=== PATIENT | female | born 1970 | race Caucasian/White ===

== ENCOUNTER 2017-01-05 20:03 | Emergency (ER) | payer OTHER ==
[~2017-01-05] VITALS: Ht 160 cm; Wt 55.1 kg
[~2017-01-05 20:03] MED LIST: IBUP-1050 PO; PSEU60TA80 PO
[2017-01-05 20:06] VITALS: TEMP 36.7; Ht 160 cm; Wt 55.1 kg
[2017-01-05] MEDS ORDERED: SODIUM CHLORIDE 0.9% 500ML 500 ML IV STA (21:35)
[2017-01-05] MEDS ORDERED: OPTIRAY 320 IV PRN (21:45)
[2017-01-05 21:47] LABS: BASO % 0.3 %; BASO ABS # 0.03 K/uL (0-0.2); COMPLETE YES; EOS % 5.1 %; HEMATOCRIT 39.2 % (37-47); IG% 0.2 %; LYMPH ABS # 1.22 K/uL (1.2-3.4); MEAN CELL VOLUME 88.3 fL (80-100); MEAN CORPUSCULAR HEMOGLOBIN 31.3 pg (25-34); MEAN CORPUSCULAR HGB CONC 35.5 g/dl (32-36); MEAN PLATELET VOLUME 9.7 fL (7.4-10.4); MONO % 5.8 %; NEUT % 75.6 %; PLATELET COUNT 232 K/uL (130-400); RED BLOOD COUNT 4.44 M/uL (4.2-5.4); WHITE BLOOD COUNT 9.37 K/uL (4.8-10.8)
[2017-01-05 21:51] LABS: URINE APPEARANCE CLEAR (CLEAR); URINE BILIRUBIN NEG (NEG); URINE COLOR YELLOW; URINE EPITHELIAL CELL AUTO >30 /lpf (0-5); URINE NITRITE NEG (NEG); URINE PH 8.5 (4.5-7.5); URINE SPECIFIC GRAVITY 1.008 (1.000-1.030); UROBILINOGEN NEG (NEG); ZZUR CULT IF INDIC CLEAN CATCH NO
[2017-01-05 21:52] LABS: PREG INTERNAL NEGATIVE QC NEG CLEAR BACKGROUND; PREG INTERNAL POSITIVE QC POS CONTROL LINE
[2017-01-05 21:53] LABS: MANUAL MICROSCOPIC REQUIRED? NO; REVIEW REQ? NO
[2017-01-05 22:16] LABS: ALKALINE PHOSPHATASE 66 U/L (45-117); ALT/SGPT 19 U/L (12-78); BLOOD UREA NITROGEN 5 mg/dl (7-18); BUN/CREATININE RATIO 6.6 (10-20); CALCIUM 9.2 mg/dl (8.5-10.1); CARBON DIOXIDE 23 mmol/L (21-32); CHLORIDE 106 mmol/L (98-107); GLUCOSE 106 mg/dl (70-99); SODIUM 138 mmol/L (136-145)
[2017-01-05 22:38] LABS: CREATININE 0.71 mg/dl (0.60-1.20)
[2017-01-05 23:04] LABS: POTASSIUM 3.3 mmol/L (3.5-5.1)
[2017-01-06 00:26] VITALS: BP 121/86; PULSE 72; O2SAT 100
--- NOTE | 2017-01-06 01:22 | EMERGENCY ROOM VISIT NOTE ---
History Report prepared by Jaciel: Nathaly Senior Under the Supervision of: Dr. Donovan Aranda D.O. 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 The pain is in her RLQ and is coming and going. She had difficulty mowing the lawn today due to the pain. She tried to mow through the pain, but ended up feeling nauseous. She does not identify anything that makes the pain worse. She took 4 ibuprofen today at 1700 which helped somewhat. She has had intermittent constipation and chills recently. She denies any vomiting, vaginal bleeding, vaginal discharge, or dysuria. Her last BM was yesterday and was normal. She has had a partial hysterectomy. She does not get her period, but can tell when she is cycling. She thinks that she is currently mid cycle. She still has her gallbladder and appendix. Source of History: patient Onset: midday today Position: abdomen (RLQ) Symptom Intensity: severe Quality: other (pain) Timing: intermittent Modifying Factors (Relieving): ibuprofen Associated Symptoms: + chills, + nausea, No vomiting, No urinary symptoms Note: Pt reports constipation. Pt denies vaginal bleeding/discharge. Review of Systems See HPI for pertinent positives & negatives. A total of 10 systems reviewed and were otherwise negative. Past Medical & Surgical Surgical Problems: (1) S/P partial hysterectomy Family History No pertinent family history stated. Social History Smoking Status: Never Smoker Drug Use: none Marital Status: in relationship Housing Status: lives with family Occupation Status: employed Current/Historical Medications No Active Prescriptions or Reported Meds Allergies Coded Allergies: Tetracycline (Verified Allergy, Intermediate, hives, 01/05/17) HIVES Sulfa Drugs (Verified Allergy, Unknown, hives, 01/05/17) Physical Exam Vital Signs Date Time Temp Pulse Resp B/P (MAP) Pulse Ox O2 Delivery O2 Flow Rate FiO2 01/06/17 00:26 72 17 121/86 100 01/05/17 23:05 85 15 126/82 100 Room Air 01/05/17 21:20 84 18 139/81 98 Room Air 01/05/17 20:06 36.7 92 20 144/94 98 Room Air Physical Exam GENERAL: sitting up in bed, alert, well appearing, well nourished, no distress, non-toxic EYE EXAM: normal conjunctiva OROPHARYNX: no exudate, no erythema, lips, buccal mucosa, and tongue normal and mucous membranes are moist NECK: supple, no nuchal rigidity, no adenopathy, non-tender LUNGS: Clear to auscultation. Normal chest wall mechanics HEART: no murmurs, S1 normal and S2 normal ABDOMEN: abdomen soft, minimal tenderness in the RLQ, normo-active bowel sounds , no masses, no rebound or guarding. BACK: Back is symmetrical on inspection and there is no deformity, no midline tenderness, no CVA tenderness. SKIN: no rashes and no bruising UPPER EXTREMITIES: upper extremities are grossly normal. LOWER EXTREMITIES: No pitting edema. NEURO EXAM: Normal sensorium, cranial nerves II-XII grossly intact, normal speech, no gross weakness of arms, no gross weakness of legs. Medical Decision & Procedures ER Provider Diagnostic Interpretation: Radiology results as stated below per my review and the [facility] radiologist's interpretation: CT abdomen & pelvis: Question mild prominence of the pancreas. Correlate with amylase and lipase. Otherwise, remainder of examination shows no definite evidence for an acute inflammatory process. Laboratory Results 01/05/17 21:30 Red Blood Count 4.44, Mean Corpuscular Volume 88.3, Mean Corpuscular Hemoglobin 31.3, Mean Corpuscular Hemoglobin Concent 35.5, Mean Platelet Volume 9.7, Neutrophils (%) (Auto) 75.6, Lymphocytes (%) (Auto) 13.0, Monocytes (%) (Auto) 5.8, Eosinophils (%) (Auto) 5.1, Basophils (%) (Auto) 0.3, Neutrophils # (Auto) 7.08, Lymphocytes # (Auto) 1.22, Monocytes # (Auto) 0.54, Eosinophils # (Auto) 0.48, Basophils # (Auto) 0.03 01/05/17 21:30 01/05/17 22:40 Test 01/05/17 21:30 01/05/17 22:40 White Blood Count 9.37 K/uL (4.8-10.8) Red Blood Count 4.44 M/uL (4.2-5.4) Hemoglobin 13.9 g/dL (12.0-16.0) Hematocrit 39.2 % (37-47) Mean Corpuscular Volume 88.3 fL (80-100) Mean Corpuscular Hemoglobin 31.3 pg (25-34) Mean Corpuscular Hemoglobin Concent 35.5 g/dl (32-36) Platelet Count 232 K/uL (130-400) Mean Platelet Volume 9.7 fL (7.4-10.4) Neutrophils (%) (Auto) 75.6 % Lymphocytes (%) (Auto) 13.0 % Monocytes (%) (Auto) 5.8 % Eosinophils (%) (Auto) 5.1 % Basophils (%) (Auto) 0.3 % Neutrophils # (Auto) 7.08 K/uL (1.4-6.5) Lymphocytes # (Auto) 1.22 K/uL (1.2-3.4) Monocytes # (Auto) 0.54 K/uL (0.11-0.59) Eosinophils # (Auto) 0.48 K/uL (0-0.5) Basophils # (Auto) 0.03 K/uL (0-0.2) RDW Standard Deviation 39.9 fL (36.4-46.3) RDW Coefficient of Variation 12.4 % (11.5-14.5) Immature Granulocyte % (Auto) 0.2 % Immature Granulocyte # (Auto) 0.02 K/uL (0.00-0.02) Urine Color YELLOW Urine Appearance CLEAR (CLEAR) Urine pH 8.5 (4.5-7.5) Urine Specific [place] 1.008 (1.000-1.030) Urine Protein NEG (NEG) Urine Glucose (UA) NEG (NEG) Urine Ketones NEG (NEG) Urine Occult Blood NEG (NEG) Urine Nitrite NEG (NEG) Urine Bilirubin NEG (NEG) Urine Urobilinogen NEG (NEG) Urine Leukocyte Esterase NEG (NEG) Urine WBC (Auto) 1-5 /hpf (0-5) Urine RBC (Auto) 0-4 /hpf (0-4) Urine Hyaline Casts (Auto) 1-5 /lpf (0-5) Urine Epithelial Cells (Auto) >30 /lpf (0-5) Urine Bacteria (Auto) NEG (NEG) Urine Test NEG (NEG) Anion Gap 9.0 mmol/L (3-11) Est Creatinine Clear Calc Drug Dose 83.6 ml/min Estimated GFR () 120.1 Estimated GFR (Non- 103.6 BUN/Creatinine Ratio 6.6 (10-20) Calcium Level 9.2 mg/dl (8.5-10.1) Total Bilirubin 0.5 mg/dl (0.2-1) Alanine Aminotransferase (ALT/SGPT) 19 U/L (12-78) Alkaline Phosphatase 66 U/L (45-117) Total Protein 8.0 gm/dl (6.4-8.2) Albumin 4.3 gm/dl (3.4-5.0) Lipase 261 U/L (73-393) Direct Bilirubin 0.1 mg/dl (0-0.2) Aspartate Amino Transf (AST/SGOT) 14 U/L (15-37) Laboratory results per my review. Medications Administered Medications (Trade) Dose Ordered Sig/Jb Route Start Time Stop Time Status Last Admin Dose Admin Sodium Chloride 500 ml @ 999 mls/hr Q31M STAT IV 01/05/17 21:35 01/05/17 22:05 DC 01/05/17 21:49 999 MLS/HR ED Course ED COURSE: Vital signs were reviewed and showed hypertension The patients medical record was reviewed The above diagnostic studies were performed and reviewed. ED treatments and interventions as stated above. 2126: The patient was evaluated in room B6. A complete history and physical examination was performed. 5: NSS 500 ml @ 999 mls/hr IV. 2: Upon reevaluation, the patient is feeling better.I discussed my findings with the patient and she understands and agrees with the treatment plan. Based on the patients age, coexisting illnesses, exam and lab findings the decision to treat as an outpatient was made. The patient remained stable while under my care. The patient appeared well at the time of discharge. Medical Decision Differential diagnoses includes but is not limited to gastritis, peptic ulcer disease, GERD, gallbladder disease, pancreatitis, small bowel obstruction, acute coronary syndrome, pericarditis, ischemic bowel, irritable bowel disease, irritable bowel syndrome, appendicitis, diverticulitis, malignancy, hernia, urinary tract infection, torsion, perforation, trauma, infectious. Patient is a 46-year-old female presents to ER for pain in the right lower quadrant which started around 7 PM tonight. Exam is fairly benign. No leukocytosis. BMP all LFTs, bilirubin and lipase is unremarkable. UA was negative. was negative. CT of abdomen and pelvis was benign. I recommended pelvic AND EXAMINED THE PATIENT DECLINED. FEEL THIS IS REASONABLE WE WOULD TO HAVE SEEN A LARGE OVARIAN MASS/TORSION IF THIS WAS PRESENT. PATIENT DECLINED PAIN MEDICATION SHE WAS GIVEN FLUIDS. SHE IS UP-TO-DATE AT BEDSIDE. SHE WAS DISCHARGED FOLLOW-UP WITH PCP WITH RIGHT LOWER QUADRANT ABDOMINAL PAIN AND NO ACUTE PATHOLOGY SEEN ON CT. Discussed with Pt concerning signs and symptoms to watch out for. Pt was instructed to follow up with their PCP and discussed with the patient their option to return to the ED at anytime for persistent or worsening symptoms. The appropriate anticipatory guidance and out-patient management, including indications for return to the emergency department, were explained at length to the patient and understood. Medication Reconcilliation Current Medication List: was personally reviewed by me Blood Pressure Screening Patient's blood pressure: Elevated blood pressure Blood pressure disposition: Elevated BP felt to be situational Impression Primary Impression: RLQ abdominal pain Scribe Attestation The scribe's documentation has been prepared under my direction and personally reviewed by me in its entirety. I confirm that the note above accurately reflects all work, treatment, procedures, and medical decision making performed by me. Departure Information Dispostion Home / Self-Care Prescriptions No Active Prescriptions or Reported Meds Referrals Sydney Gomes D.O. Forms Call Back Authorization, HOME CARE DOCUMENTATION FORM, IMPORTANT VISIT INFORMATION Patient Instructions Abdominal Pain - [facility], [facility] Additional Instructions Please follow up with your primary care doctor with in the next 24 hours. Any worsening of your symptoms, please return to the ED immediately. This includes any fevers greater than 100.4, worsening pain, chest pain, shortness breath, persistent nausea, vomiting, unable to eat or drink, or any other concerning signs or symptoms from your standpoint.
--- NOTE | 2017-01-06 07:14 | DIAGNOSTIC IMAGING REPORT ---
ABDOMEN AND PELVIS CT WITH IV CONTRAST CT DOSE: 262.02 mGy.cm HISTORY: Right lower quadrant abdominal pain. TECHNIQUE: Multiaxial CT images of the abdomen and pelvis were performed following the use of intravenous contrast. A dose lowering technique was utilized adhering to the principles of ALARA. COMPARISON STUDY: Abdomen and pelvis CT 09/07/2016. FINDINGS: The lung bases are clear. No fractures within the visualized osseous structures. The gallbladder, spleen, adrenal glands, kidneys, and pancreas are unremarkable. Stable 5 mm hypodense lesion within left hepatic lobe. This is too small to characterize but likely represents a cyst. No retroperitoneal lymphadenopathy. The bladder, uterus, and bilateral ovaries are within normal limits. There are small bilateral ovarian cysts with the largest on the right measuring 1.4 cm. No bowel wall thickening or obstruction. Normal appendix. IMPRESSION: 1. No bowel wall thickening or obstruction. 2. No hydronephrosis. 3. Normal appendix. Electronically signed by: Rodríguez Hughes M.D. 01/06/2017 7:12 AM Dictated Date/Time: 01/06/2017 7:07 AM
== END 2017-01-06 00:27 | disposition home or self-care (01) ==
LOC: C.EDB 20:04
DX: R10.31 Right lower quadrant pain (principal); Z90.710 Acquired absence of both cervix and uterus; Z88.2 Allergy status to sulfonamides; Z88.8 Allergy status to other drugs, medicaments and biological substances

== ENCOUNTER 2017-05-20 14:43 | Emergency (ER) | payer OTHER ==
[~2017-05-20] VITALS: Ht 160 cm; Wt 56.1 kg
[2017-05-20 14:58] VITALS: Ht 160 cm; Wt 56.1 kg
[2017-05-20] MEDS ORDERED: SODIUM CHLORIDE 0.9% 1000ML 1,000 ML IV STA (14:58)
[2017-05-20] MEDS ORDERED: ONDANSETRON INJ 2 MG/ML 2 ML VIAL IV STA (14:58)
--- NOTE | 2017-05-20 15:05 | EMERGENCY ROOM VISIT NOTE ---
History Report prepared by Jaciel: Juliette Huggins Under the Supervision of: Naomi GarciaO. 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 She reports that she was feeling sick and lightheaded at home. She notes nausea, chills, fevers, and diarrhea. She notes extreme numbness in her legs and hands. She notes that she could not move her hands to turn the wheel while she was driving to go sisal picker her children from school. She has a history of a partial hysterectomy. She notes the numbness in her legs has subsided. She notes the numbness in her hands is coming and going. She has a history of diverticulitis. She denies any shortness of breath, recent colds, chest pain, abdominal pain, leg pain, vomiting, or back pain. 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 She denies leg pain or recent colds. Review of Systems See HPI for pertinent positives & negatives. A total of 10 systems reviewed and were otherwise negative. Past Medical & Surgical Medical Problems: (1) clavicular lymph node resection (2) Hodgkin lymphoma Surgical Problems: (1) H/O section (2) S/P partial hysterectomy Family History Cancer Social History Smoking Status: Never Smoker Smokeless Tobacco Use: No Alcohol Use: none Drug Use: none Marital Status: , in relationship Housing Status: lives with family Occupation Status: employed Current/Historical Medications Scheduled PRN Dextromethorphan-Guaifenesin (Mucinex Dm), 1 TAB PO Q12 PRN for CONGESTION Allergies Coded Allergies: Tetracycline (Verified Allergy, Intermediate, hives, 01/05/17) HIVES Sulfa Drugs (Verified Allergy, Unknown, hives, 01/05/17) Physical Exam Vital Signs Date Time Temp Pulse Resp B/P (MAP) Pulse Ox O2 Delivery O2 Flow Rate FiO2 05/20/17 15:48 36.7 88 18 137/85 100 Room Air 05/20/17 14:58 36.5 90 18 145/99 100 Room Air Physical Exam VITAL SIGNS: were reviewed as above. GENERAL:Non-toxic in appearance. SKIN: Warm dry and pink. HEAD: Normocephalic and atraumatic. OROPHARYNX: Is clear and moist NECK: Supple without lymphadenopathy or meningismus. LUNGS: clear. HEART: Regular rate and rhythm. ABDOMEN: Soft and nontender. EXTREMITIES: Warm and well perfused. NEUROLOGICALLY: Awake alert and oriented without focal deficit. Cranial nerves 2 -12 are intact. There is no pronator drift. Cerebellar testing is within normal limits. There is no nystagmus. There is no facial droop. Speech is clear. Vision is grossly normal. MUSCULOSKELETAL: Good muscle tone. No evidence of trauma. PSYCH: Tearful affect Medical Decision & Procedures ER Provider Diagnostic Interpretation: Radiology results as stated below per my review and radiologist interpretation: CHEST ONE VIEW PORTABLE CLINICAL HISTORY: EVALUATE ALTERED MENTAL STATUS/WEAKNESS COMPARISON STUDY: PET/CT January 17, 2008. FINDINGS: Left paratracheal metallic density is unchanged. Lung volumes are normal. There is no pneumothorax or pleural effusion. Lungs are clear. Pulmonary vascularity is normal. Cardiomediastinal silhouette is unremarkable. IMPRESSION: No acute cardiopulmonary findings. Electronically signed by: Myron Fang M.D. 05/20/2017 3:37 PM Dictated Date/Time: 05/20/2017 3:36 PM Laboratory Results 05/20/17 15:15 Red Blood Count 4.49, Mean Corpuscular Volume 88.9, Mean Corpuscular Hemoglobin 31.2, Mean Corpuscular Hemoglobin Concent 35.1, Mean Platelet Volume 9.7, Neutrophils (%) (Auto) 70.9, Lymphocytes (%) (Auto) 19.3, Monocytes (%) (Auto) 3.9, Eosinophils (%) (Auto) 5.5, Basophils (%) (Auto) 0.3, Neutrophils # (Auto) 5.57, Lymphocytes # (Auto) 1.52, Monocytes # (Auto) 0.31, Eosinophils # (Auto) 0.43, Basophils # (Auto) 0.02 05/20/17 15:15 Test 05/20/17 15:15 White Blood Count 7.86 K/uL (4.8-10.8) Red Blood Count 4.49 M/uL (4.2-5.4) Hemoglobin 14.0 g/dL (12.0-16.0) Hematocrit 39.9 % (37-47) Mean Corpuscular Volume 88.9 fL (80-100) Mean Corpuscular Hemoglobin 31.2 pg (25-34) Mean Corpuscular Hemoglobin Concent 35.1 g/dl (32-36) Platelet Count 241 K/uL (130-400) Mean Platelet Volume 9.7 fL (7.4-10.4) Neutrophils (%) (Auto) 70.9 % Lymphocytes (%) (Auto) 19.3 % Monocytes (%) (Auto) 3.9 % Eosinophils (%) (Auto) 5.5 % Basophils (%) (Auto) 0.3 % Neutrophils # (Auto) 5.57 K/uL (1.4-6.5) Lymphocytes # (Auto) 1.52 K/uL (1.2-3.4) Monocytes # (Auto) 0.31 K/uL (0.11-0.59) Eosinophils # (Auto) 0.43 K/uL (0-0.5) Basophils # (Auto) 0.02 K/uL (0-0.2) RDW Standard Deviation 40.0 fL (36.4-46.3) RDW Coefficient of Variation 12.5 % (11.5-14.5) Immature Granulocyte % (Auto) 0.1 % Immature Granulocyte # (Auto) 0.01 K/uL (0.00-0.02) Prothrombin Time 10.9 SECONDS (9.0-12.0) Prothromb Time International Ratio 1.0 (0.9-1.1) Activated Partial Thromboplast Time 23.3 SECONDS (21.0-31.0) Partial Thromboplastin Ratio 0.9 Anion Gap 8.0 mmol/L (3-11) Est Creatinine Clear Calc Drug Dose 98.9 ml/min Estimated GFR () 128.5 Estimated GFR (Non- 110.9 BUN/Creatinine Ratio 15.3 (10-20) Calcium Level 9.0 mg/dl (8.5-10.1) Phosphorus Level 1.5 mg/dl (2.5-4.9) Magnesium Level 2.2 mg/dl (1.8-2.4) Total Bilirubin 0.5 mg/dl (0.2-1) Direct Bilirubin 0.1 mg/dl (0-0.2) Aspartate Amino Transf (AST/SGOT) 21 U/L (15-37) Alanine Aminotransferase (ALT/SGPT) 22 U/L (12-78) Alkaline Phosphatase 74 U/L (45-117) Total Creatine Kinase 69 U/L (26-192) Creatine Kinase MB 0.7 ng/ml (0.5-3.6) Creatine Kinase MB Ratio 1.0 (0-3.0) Troponin I < 0.015 ng/ml (0-0.045) Total Protein 8.0 gm/dl (6.4-8.2) Albumin 4.4 gm/dl (3.4-5.0) Lipase 206 U/L (73-393) Thyroid Stimulating Hormone (TSH) 3.180 uIu/ml (0.300-4.500) Laboratory results as stated above per my review. Medications Administered Medications (Trade) Dose Ordered Sig/Jb Route Start Time Stop Time Status Last Admin Dose Admin Sodium Chloride 1,000 ml @ 999 mls/hr Q1H1M STAT IV 05/20/17 14:58 05/20/17 15:58 DC 05/20/17 14:58 999 MLS/HR Potassium Chloride (Klor-Con M10) 40 meq NOW STAT PO 05/20/17 17:21 05/20/17 17:22 DC 05/20/17 17:41 40 MEQ Ibuprofen (Advil Tab) 400 mg NOW STAT PO 05/20/17 17:21 05/20/17 17:22 DC 05/20/17 17:40 400 MG ECG Indication: other (numbness) Rate (beats per minute): 78 Rhythm: normal sinus Findings: no acute ischemic change, no ectopy ED Course 1448: Previous medical records were reviewed. The patient was evaluated in room B12B. A complete history and physical examination was performed. 1458: Ordered Zofran 4 mg IV and Sodium Chloride 1,000 ml @ 999 mls/hr IV 1721: Ordered Ibuprofen 400 mg PO and Potassium Chloride 40 meq PO 1723: I reassessed the patient at this time. She is feeling better and resting comfortably. I discussed the results and treatment plan with the patient. I answered all pertaining questions that she had. She expressed understanding and verbalized agreement. The patient will be discharged home. 1730: Ordered Potassium/Phosphorous/Sodium 2 tab PO Medical Decision Differentials include: Acute coronary syndrome, myocardial infarction, CVA, TIA , anemia, infection, pneumonia, UTI, pyelonephritis, poor nutrition, dehydration , electrolyte disturbance, and hypoglycemia. This is a 46-year-old female who presents to the ED with a chief complaint of nausea and lightheadedness as well as some chills and numbness all over. The patient states that her hands locked up at one point. She felt like her hands and legs and arms were numb. This started just prior to arrival. The patient did not feel she was hyperventilating at the time. She reports that she is a nonsmoker. She has not had any recent illness. Denies any chest pains, shortness of breath, abdominal pains or headaches. Her physical exam was unremarkable at the time of the exam. Her vital signs are stable. She is afebrile. CBC and complete metabolic panel were reviewed. Unremarkable with exception of a low potassium and phosphorus. These have been orally replaced. Troponin was negative, TSH was normal and a chest x-ray was negative for acute disease. She denies any familial issues or previous a suture soft with regards to any sort of paralysis syndrome. The patient was given some IV fluids and IV Zofran. She was given some oral Motrin. Prior to electrolyte replacement, the patient states that her symptoms have resolved completely. She is feeling better. She was given K Dur and Neutra-Phos. She is felt to be stable for discharge. Medication Reconcilliation Current Medication List: was personally reviewed by me Blood Pressure Screening Patient's blood pressure: Normal blood pressure Impression Primary Impression: Paresthesia and pain of both upper extremities Additional Impressions: Paresthesia of both lower extremities Spasms of the hands or feet Hypokalemia Hypophosphatemia Scribe Attestation The scribe's documentation has been prepared under my direction and personally reviewed by me in its entirety. I confirm that the note above accurately reflects all work, treatment, procedures, and medical decision making performed by me. Departure Information Dispostion Home / Self-Care Referrals Sydney Gomes D.O. (PCP) Forms HOME CARE DOCUMENTATION FORM, IMPORTANT VISIT INFORMATION, WORK / SCHOOL INSTRUCTIONS Additional Instructions The exact cause of your symptoms are unclear. Your potassium and phosphorus levels were slightly low today. Follow-up with your doctor for recheck next week. Return for any recurrence or new symptoms. Problem Qualifiers
[2017-05-20 15:27] LABS: BASO % 0.3 %; BASO ABS # 0.02 K/uL (0-0.2); EOS % 5.5 %; EOS ABS # 0.43 K/uL (0-0.5); HEMATOCRIT 39.9 % (37-47); IG# 0.01 K/uL (0.00-0.02); LYMPH % 19.3 %; LYMPH ABS # 1.52 K/uL (1.2-3.4); MEAN CELL VOLUME 88.9 fL (80-100); MEAN CORPUSCULAR HEMOGLOBIN 31.2 pg (25-34); MEAN CORPUSCULAR HGB CONC 35.1 g/dl (32-36); MEAN PLATELET VOLUME 9.7 fL (7.4-10.4); MONO % 3.9 %; MONO ABS # 0.31 K/uL (0.11-0.59); NEUT % 70.9 %; NEUT ABS # 5.57 K/uL (1.4-6.5); PLATELET COUNT 241 K/uL (130-400); RED CELL DISTRIBUTION WIDTH CV 12.5 % (11.5-14.5); WHITE BLOOD COUNT 7.86 K/uL (4.8-10.8)
--- NOTE | 2017-05-20 15:38 | DIAGNOSTIC IMAGING REPORT ---
CHEST ONE VIEW PORTABLE CLINICAL HISTORY: EVALUATE ALTERED MENTAL STATUS/WEAKNESS COMPARISON STUDY: PET/CT January 17, 2008. FINDINGS: Left paratracheal metallic density is unchanged. Lung volumes are normal. There is no pneumothorax or pleural effusion. Lungs are clear. Pulmonary vascularity is normal. Cardiomediastinal silhouette is unremarkable. IMPRESSION: No acute cardiopulmonary findings. Electronically signed by: Myron Fang M.D. 05/20/2017 3:37 PM Dictated Date/Time: 05/20/2017 3:36 PM
[2017-05-20 15:46] LABS: ALBUMIN 4.4 gm/dl (3.4-5.0); ALT/SGPT 22 U/L (12-78); BLOOD UREA NITROGEN 9 mg/dl (7-18); CARBON DIOXIDE 26 mmol/L (21-32); GLUCOSE 98 mg/dl (70-99); LIPASE 206 U/L (73-393); POTASSIUM 3.3 mmol/L (3.5-5.1); SODIUM 138 mmol/L (136-145)
[2017-05-20 15:48] VITALS: TEMP 36.7
[2017-05-20 15:52] LABS: PTT PATIENT 23.3 SECONDS (21.0-31.0)
[2017-05-20 16:07] LABS: ALKALINE PHOSPHATASE 74 U/L (45-117); AST/SGOT 21 U/L (15-37); CKMB 0.7 ng/ml (0.5-3.6); PHOSPHORUS 1.5 mg/dl (2.5-4.9)
[2017-05-20] MEDS ORDERED: DEXT30TA7 PO (16:08)
[2017-05-20] MEDS ORDERED: IBUPROFEN 200 MG TAB PO STA (17:21)
[2017-05-20] MEDS ORDERED: POTASSIUM CHLORIDE 10 MEQ TABCR PO STA (17:21)
[2017-05-20] MEDS ORDERED: POT PHOSPHATE MONOBASIC W/ SOD TAB PO ONE (17:30)
[2017-05-20 17:47] VITALS: BP 132/81; PULSE 85; O2SAT 99
== END 2017-05-20 17:49 | disposition home or self-care (01) ==
LOC: EDBD 14:43 → C.EDB 14:44
DX: R20.2 Paresthesia of skin (principal); M62.838 Other muscle spasm; E87.6 Hypokalemia; E83.39 Other disorders of phosphorus metabolism; Z85.72 Personal history of non-Hodgkin lymphomas; Z90.710 Acquired absence of both cervix and uterus; Z88.2 Allergy status to sulfonamides; Z88.8 Allergy status to other drugs, medicaments and biological substances; Z80.9 Family history of malignant neoplasm, unspecified

== ENCOUNTER 2018-09-03 19:35 | Inpatient (IN) ==
[2018-09-03] MEDS ORDERED: ASPIRIN CHEW 324 MG PO STA (19:41)
[2018-09-03 19:58] LABS: Basophils # (auto) 0.03 K/uL (0-0.2); Basophils % (auto) 0.3 %; Eosinophils # (auto) 0.44 K/uL (0-0.5); Eosinophils % (auto) 4.9 %; Hematocrit (blood only) 42.1 % (37-47); Immature Granulocytes # (auto) 0.01 K/uL (0.00-0.02); Immature Granulocytes % (auto) 0.1 %; Lymphocytes # (auto) 2.87 K/uL (1.2-3.4); Lymphocytes % (auto) 32.2 %; Mean Corpuscular Hgb Conc 35.6 g/dL (32-36); Mean Platelet Volume 10.3 fL (7.4-10.4); Monocytes # (auto) 0.31 K/uL (0.11-0.59); Monocytes % (auto) 3.5 %; Neutrophils # (auto) 5.25 K/uL (1.4-6.5); Platelet Count 314 K/uL (130-400); RDW Coefficient of Variation 12.7 % (11.5-14.5); RDW Standard Deviation 41.4 fL (36.4-46.3); Red Blood Count 4.68 M/uL (4.2-5.4); White Blood Count 8.91 K/uL (4.8-10.8)
[2018-09-03 20:24] LABS: Alanine Aminotransferase 22 U/L (12-78); Albumin Level 4.5 gm/dl (3.4-5.0); Aspartate Aminotransferase 22 U/L (15-37); BUN Creatinine Ratio 13.9 (10-20); Blood Urea Nitrogen 11 mg/dl (7-18); Calcium 9.6 mg/dl (8.5-10.1); Carbon Dioxide 29 mmol/L (21-32); Chloride 103 mmol/L (98-107); Creatinine Clr Calc Pharmacy 75.5 ml/min; Est GFR (African American) 107.3; Est GFR (Non-African American) 92.6; Glucose 75 mg/dl (70-99); Potassium 3.4 mmol/L (3.5-5.1); Sodium 140 mmol/L (136-145)
[2018-09-03 20:29] LABS: Albumin Globulin Ratio 1.2 (0.9-2); Alkaline Phosphatase 75 U/L (45-117); Bilirubin,Total 0.3 mg/dl (0.2-1); Globulin 3.9 gm/dl (2.5-4.0); Total Protein 8.4 gm/dl (6.4-8.2); Troponin I < 0.015 ng/ml (0-0.045)
--- NOTE | 2018-09-03 20:36 | XRay Report ---
XR chest 2V routine HISTORY: 48 years-old Female Chest Pain acute atypical chest pain COMPARISON: Chest radiograph 05/20/2017 TECHNIQUE: AP and lateral views of the chest FINDINGS: Cardiomediastinal and hilar silhouettes are within normal limits. There is no pneumothorax, pleural e ffusion, focal airspace consolidation or overt pulmonary edema. Degenerative changes of the shoulders and spine. IMPRESSION: No acute process. The above report was generated using voice recognition software. It may contain grammatical, syntax o r spelling errors. Electronically signed by: Allen Minaya M.D. 09/03/2018 8:35 PM
[2018-09-03] MEDS: NITROGLYCERIN SL 0.4 MG/TAB TAB SL PRN ×3 (20:37→21:52)
[2018-09-03] MEDS ORDERED: POTASSIUM CHLORIDE 20 MEQ TABCR PO STA (20:41)
[2018-09-03] MEDS ORDERED: SODIUM CHLORIDE 0.9% 1000ML 1,000 ML IV ONE (20:42)
[2018-09-03] MEDS ORDERED: NITROGLYCERIN 2% OINTMENT 30GM TUBE EXT ONE (20:42)
[2018-09-03 20:47] LABS: Magnesium 2.5 mg/dl (1.8-2.4)
[2018-09-03] MEDS ORDERED: PROMETHAZINE HCL 12.5 MG in SODIUM CHLORIDE 0.9% 50 ML IV PRN (22:06)
[2018-09-03] MEDS ORDERED: MoRPHine SULFATE 2 MG/ML CARP IV PRN (22:06)
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
[2018-09-03] MEDS ORDERED: ACETAMINOPHEN 325 MG TAB PO PRN (22:25)
[2018-09-03] MEDS ORDERED: NITROGLYCERIN SL 0.4 MG/TAB TAB SL PRN (22:25)
[2018-09-03] MEDS ORDERED: LORazepam 0.25 MG/0.5 ML VIAL IV PRN (22:25)
[2018-09-04] MEDS ORDERED: D5W AND LACTATED RINGERS 1,000 ML IV SCH
[2018-09-04] MEDS ORDERED: Heparin IV Standard *NO* Bolus IV SCH (00:18)
--- NOTE | 2018-09-04 00:25 | Emergency Department Note ---
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 The patient states she was experiencing chest pressure and shortness of breath that relieved with nitroglycerin from EMS. She reports she occasionally uses alcohol and has a history of tobacco use. The patient denies recent travel, coughing up anything, taking control, abdominal pain, and drug use. She notes she had a hysterectomy. Home Medications Home Medications Medication Instructions Recorded Confirmed Type cyclobenzaprine 5 - 10 mg PO Q8H #20 tab 08/03/18 09/03/18 Rx dextromethorphan-guaifenesin 1 tab PO QAM 08/03/18 09/03/18 History [Mucinex DM] multivitamin 1 tab PO QAM 08/03/18 09/03/18 History ibuprofen 200 mg PO Q6H PRN 09/03/18 09/03/18 History Allergies Allergy/AdvReac Type Severity Reaction Status Date / Time tetracycline Allergy Intermediate hives Verified 09/03/18 20:17 Sulfa (Sulfonamide Allergy Unknown hives Verified 09/03/18 20:17 Antibiotics) Past Med/Surg History Medical History Hodgkin lymphoma (Resolved) No pertinent past medical history Surgical History S/P partial hysterectomy (Chronic) H/O section (Resolved) Family History Other No pertinent family history Social History Preferred Language: Turkish Feels Safe at Home: Yes Smoking Status: Current every day smoker Review of Systems See HPI for pertinent positives & negatives. and A total of 10 systems reviewed and were otherwise negative Physical Exam Vital Signs Vital Signs - 24 hr 09/03/18 19:35 09/03/18 20:32 09/03/18 20:42 Temperature 36.7 C Temperature Source Oral Sepsis Recent Fever Within 48 Hours No Sepsis New/Unexplained Change in Mental Status No Sepsis Action Taken by Nursing No Action Required Pulse Rate 80 84 Pulse Rate [Apical] 103 H Pulse Rate [Left Finger] Pulse Rhythm Regular Regular Pulse Rhythm [Apical] Regular Pulse Strength Normal Pulse Strength [Apical] Normal Respiratory Rate 20 20 20 Respiratory Effort / Characteristics Non-Labored Spontaneous Non-Labored Spontaneous Respiratory Depth Normal Normal Respiratory Pattern Regular Regular Blood Pressure 138/92 Blood Pressure [Left Arm] 155/100 H Blood Pressure Mean 107 Blood Pressure Mean [Left Arm] 118 Blood Pressure Position Sitting Blood Pressure Position [Left Arm] Sitting Pulse Oximetry 99 100 100 Oxygen Delivery Method Room Air Room Air Nasal Cannula Oxygen Flow Rate 2 09/03/18 21:43 09/03/18 22:30 09/03/18 23:03 Temperature Temperature Source Sepsis Recent Fever Within 48 Hours Sepsis New/Unexplained Change in Mental Status Sepsis Action Taken by Nursing Pulse Rate Pulse Rate [Apical] 88 85 95 H Pulse Rate [Left Finger] Pulse Rhythm Pulse Rhythm [Apical] Regular Regular Regular Pulse Strength Pulse Strength [Apical] Normal Normal Normal Respiratory Rate 16 18 18 Respiratory Effort / Characteristics Non-Labored Non-Labored Spontaneous Non-Labored Spontaneous Respiratory Depth Normal Normal Normal Respiratory Pattern Regular Regular Regular Blood Pressure Blood Pressure [Left Arm] 137/97 119/79 114/75 Blood Pressure Mean Blood Pressure Mean [Left Arm] 110 92 88 Blood Pressure Position Blood Pressure Position [Left Arm] Sitting Sitting Pulse Oximetry 100 98 98 Oxygen Delivery Method Room Air Room Air Room Air Oxygen Flow Rate 09/04/18 00:08 Temperature 36.4 C L Temperature Source Oral Sepsis Recent Fever Within 48 Hours Sepsis New/Unexplained Change in Mental Status Sepsis Action Taken by Nursing Pulse Rate Pulse Rate [Apical] Pulse Rate [Left Finger] 83 Pulse Rhythm Pulse Rhythm [Apical] Pulse Strength Pulse Strength [Apical] Respiratory Rate 18 Respiratory Effort / Characteristics Non-Labored Respiratory Depth Normal Respiratory Pattern Regular Blood Pressure Blood Pressure [Left Arm] 117/72 Blood Pressure Mean Blood Pressure Mean [Left Arm] 87 Blood Pressure Position Blood Pressure Position [Left Arm] Lying Pulse Oximetry 97 Oxygen Delivery Method Room Air Oxygen Flow Rate GENERAL: She is oriented to person, place, and time. She appears well-developed and well-nourished. She does not appear distressed. HENT: Exam performed. Head: Normocephalic and atraumatic. Right Ear: External ear normal. No mastoid tenderness. Left Ear: External ear normal. No mastoid tenderness. Mouth/Throat: The oropharynx is clear and moist. No trismus in the jaw. No dental abscesses or uvula swelling. No oropharyngeal exudate or tonsillar abscesses. EYES: Conjunctivae and EOM are normal. Pupils are equal, round, and reactive to light. Right eye exhibits no discharge. Left eye exhibits no discharge. No scleral icterus. NECK: Normal range of motion. Neck supple. No JVD present. No spinous process tenderness present. No carotid bruit present. No rigidity. No tracheal deviation and normal range of motion present. No Brudzinski's sign and no Kernig's sign noted. CV: Normal rate, regular rhythm, normal heart sounds and intact distal pulses. There is no peripheral edema. Palpable radial pulses bue. PULM/CHEST: Effort normal and breath sounds normal. No respiratory distress. No stridor. She has no wheezes. She has no rales. Chest Wall: She exhibits no tenderness. ABD: The abdomen is soft. Bowel sounds are normal. She has no distension. No mass is present. There is no tenderness. There is no rebound, no guarding, no Munoz's sign and no tenderness at McBurney's point. Rovsig negative MUSC/SKEL: Normal range of motion. There is no peripheral edema, tenderness or deformity. LYMPH: No cervical adenopathy. NEURO: She is alert and oriented to person, place, and time. She has normal strength. No cranial nerve deficit or sensory deficit. Coordination and gait normal. GCS eye subscore is 4. GCS verbal subscore is 5. GCS motor subscore is 6. cerbellar tests wnl. SKIN: Skin is warm and dry. She is not diaphoretic. PSYCH: She has a normal mood and affect. Her behavior is normal. Judgment and thought content normal. Course 1936: The patient was evaluated in room A02. A complete history and physical exam was performed. 2033: I was called to the bedside by the nursing staff. Pt was experiencing chest pain described as pressure located in the center of her chest. Vital signs stable. Repeat EKG shows SR with a rate of 91, QRS, QTc, and ME intervals wnl. N o ST depression or elevation. Troponin negative. Pt will be given SL nitroglycerin and admitted to the medical service. 2039: Discussed the patient's case with Dr. Al, [facility] Hospitalist. The patient will be evaluated for further management. 2041: Status post one SL nitroglycerin the patient's pain is a 6/10 which is down from a 10/10. 2104: Pt's chest pain pain is now a 2/10 on reevaluation. Administered Medications Discontinued Medications Aspirin (Aspirin) 324 mg PO NOW STA Stop: 09/03/18 19:42 Last Admin: 09/03/18 20:10 Dose: Not Given Documented by: [id number] Sodium Chloride (Nss 1000ml) 1,000 mls @ 999 mls/hr IV .Q1H1M ONE Stop: 09/03/18 21:42 Last Infusion: 09/03/18 22:00 Dose: 0 mls/hr Documented by: [id number] Admin: 09/03/18 20:58 Dose: 999 mls/hr Documented by: [id number] Nitroglycerin (Nitrostat) 0.4 mg SL PRN PRN PRN Reason: Chest Pain Stop: 10/03/18 20:33 Last Admin: 09/03/18 21:52 Dose: 0.4 mg Documented by: [id number] Admin: 09/03/18 20:58 Dose: 0.4 mg Documented by: [id number] Admin: 09/03/18 20:37 Dose: 0.4 mg Documented by: [id number] Nitroglycerin (Nitro-Bid 2%) 1 inch EXT NOW ONE Stop: 09/03/18 20:43 Last Admin: 09/03/18 20:58 Dose: 1 inch Documented by: [id number] Potassium Chloride (Klor-Con M20) 40 meq PO NOW STA Stop: 09/03/18 20:42 Last Admin: 09/03/18 21:23 Dose: 40 meq Documented by: [id number] Medical Decision Making Medical Records Attestation: I reviewed the patient's medical records. Home Medications Current Medication List: was personally reviewed by me Laboratory Data Attestation: I reviewed the patient's lab results. Result diagrams: 09/03/18 19:47 09/03/18 19:47 Lab Results 09/03/18 09/03/18 09/03/18 Range/Units 19:47 19:47 22:50 WBC 8.91 (4.8-10.8) K/uL RBC 4.68 (4.2-5.4) M/uL Hgb 15.0 (12.0-16.0) g/dL Hct 42.1 (37-47) % MCV 90.0 (80-100) fL MCH 32.1 (25-34) pg MCHC 35.6 (32-36) g/dL RDW Std Deviation 41.4 (36.4-46.3) fL RDW Coeff of Wade 12.7 (11.5-14.5) % Plt Count 314 (130-400) K/uL MPV 10.3 (7.4-10.4) fL Immature Gran % (Auto) 0.1 % Neut % (Auto) 59.0 % Lymph % (Auto) 32.2 % [place] % (Auto) 3.5 % Eos % (Auto) 4.9 % Baso % (Auto) 0.3 % Immature Gran # (Auto) 0.01 (0.00-0.02) K/uL Neut # (Auto) 5.25 (1.4-6.5) K/uL Lymph # (Auto) 2.87 (1.2-3.4) K/uL [place] # (Auto) 0.31 (0.11-0.59) K/uL Eos # (Auto) 0.44 (0-0.5) K/uL Baso # (Auto) 0.03 (0-0.2) K/uL Sodium 140 (136-145) mmol/L Potassium 3.4 L (3.5-5.1) mmol/L Chloride 103 (98-107) mmol/L Carbon Dioxide 29 (21-32) mmol/L Anion Gap 9.0 (3-11) BUN 11 (7-18) mg/dl Creatinine 0.77 (0.6-1.2) mg/dl Est Cr Clr Drug Dosing 75.5 ml/min Est GFR ( Amer) 107.3 Est GFR (Non-Af Amer) 92.6 BUN/Creatinine Ratio 13.9 (10-20) Glucose 75 (70-99) mg/dl Calcium 9.6 (8.5-10.1) mg/dl Magnesium 2.5 H (1.8-2.4) mg/dl Total Bilirubin 0.3 (0.2-1) mg/dl AST 22 (15-37) U/L ALT 22 (12-78) U/L Alkaline Phosphatase 75 (45-117) U/L Troponin I < 0.015 0.933 H* (0-0.045) ng/ml Total Protein 8.4 H (6.4-8.2) gm/dl Albumin 4.5 (3.4-5.0) gm/dl Globulin 3.9 (2.5-4.0) gm/dl Albumin/Globulin Ratio 1.2 (0.9-2) Imaging Data Radiologist's Impression: Radiology results as stated below per my review and the radiologist's interpretation: XR chest 2V routine HISTORY: 48 years-old Female Chest Pain acute atypical chest pain COMPARISON: Chest radiograph 05/20/2017 TECHNIQUE: AP and lateral views of the chest FINDINGS: Cardiomediastinal and hilar silhouettes are within normal limits. There is no pneumothorax, pleural effusion, focal airspace consolidation or overt pulmonary edema. Degenerative changes of the shoulders and spine. IMPRESSION: No acute process. The above report was generated using voice recognition software. It may contain grammatical, syntax or spelling errors. Electronically signed by: Allen Minaya M.D. 09/03/2018 8:35 PM ECG Data Attestation: I personally reviewed and interpreted this ECG as follows: Indication: chest pain Rate (beats per minute): 86 Rhythm: sinus rhythm Findings: + other (QRS, QTc, and ME intervals wnl.); no ST depression and no ST elevation Blood Pressure Blood Pressure Findings: Elevated blood pressure Blood Pressure Disposition: further management by hospitalist NATE Narrative 1936: The patient was evaluated in room A02. A complete history and physical exam was performed. 2033: I was called to the bedside by the nursing staff. Pt was experiencing chest pain described as pressure located in the center of her chest. Vital signs stable. Repeat EKG shows SR with a rate of 91, QRS, QTc, and ME intervals wnl. No ST depression or elevation. Troponin negative. Pt will be given SL nitroglycerin and admitted to the medical service. 2039: Discussed the patient's case with Dr. Al, [facility]ist. The patient will be evaluated for further management. 2041: Status post one SL nitroglycerin the patient's pain is a 6/10 which is down from a 10/10. 2104: Pt's chest pain pain is now a 2/10 on reevaluation. Impression & Plan Chest pain Discharge Plan Visit Data *Final* Discharge Date/Time: 09/03/18 23:15 Chief Complaint: Chest Pain Stated Complaint: chest pain ED Provider: Paul Armstrong Discharge Problem: Chest pain Patient Disposition: Admitted As Inpatient Discharge Instructions Interventions: ED Discharge Assessment Last Done: 09/03/18 23:15 Discharge Problem: Chest pain Qualifiers: Chest pain type: unspecified Qualified Code(s): R07.9 - Chest pain, unspecified The scribe's documentation has been prepared under my direction and personally reviewed by me in its entirety. I confirm that the note above accurately reflects all work, treatment, procedures, and medical decision making performed by me.
[2018-09-04 01:09] LABS: Partial Thromboplastin Time 26.1 Seconds (21.0-31.0); Prothrombin Time 10.3 Seconds (9.0-12.0)
[2018-09-04] MEDS: TRAMADOL HCL 50 MG TABLET PO PRN ×4 (01:17→23:23)
[2018-09-04] MEDS ORDERED: Heparin Adult STANDARD Wt-Based Dextrose 5% 25,000 units/500 mL IV SCH (01:30)
[2018-09-04] MEDS: METOPROLOL TARTRATE 25 MG TAB PO SCH ×2 (02:17→21:00)
[2018-09-04 06:35] LABS: Basophils # (auto) 0.02 K/uL (0-0.2); Basophils % (auto) 0.2 %; Eosinophils # (auto) 0.47 K/uL (0-0.5); Eosinophils % (auto) 5.5 %; Hemoglobin 12.6 g/dL (12.0-16.0); Immature Granulocytes # (auto) 0.01 K/uL (0.00-0.02); Immature Granulocytes % (auto) 0.1 %; Lymphocytes # (auto) 2.26 K/uL (1.2-3.4); Lymphocytes % (auto) 26.6 %; Mean Corpuscular Volume 90.2 fL (80-100); Monocytes # (auto) 0.38 K/uL (0.11-0.59); Monocytes % (auto) 4.5 %; Neutrophils # (auto) 5.36 K/uL (1.4-6.5); Neutrophils % (auto) 63.1 %; Platelet Count 259 K/uL (130-400); RDW Coefficient of Variation 12.7 % (11.5-14.5); Red Blood Count 3.99 M/uL (4.2-5.4)
[2018-09-04] MEDS: MULTIVITAMIN TAB PO SCH (08:05)
[2018-09-04] MEDS: ASPIRIN 81 MG ECTAB PO SCH (08:06)
--- NOTE | 2018-09-04 08:19 | Hospitalist Progress Note ---
Date of Service September 04, 2018 Assessment & Plan (1) Chest pain: NSTEMI Presented with chest pain, Troponin elevation 0.933, 0.753 Risk factors- Smoker, Hx of radiation for lymphoma 16 years ago S/P Cardiac catheterization today- Focal 95% stenosis prox LAD- PCI with AIDE in prox LAD placed -S/P IV Heparin drip -Started on Aspirin, Metoprolol Tartrate 12.5 mg PO BID, Brilinta 90 mg BID this admission. Will add atorvastatin 40 mg q HS -EKG- No acute ischemic changes ECHO- EF 45-50%, apical, anteroseptal, anterior wall motion abnormality with hypokinesis, Gd I diastolic dysfunction -Work up- CXR- neg, Lipid panel in AM- Follow up HYPOKALEMIA Resolved Monitor HX OF HODGKINS LYMPHOMA S/P CHEMORADIATION In remission TOBACCO ABUSE DISORDER -Nicotine Patch -patient counseled to stop smoking. DVT prophylaxis. Lovenox subcu Full code DISPOSITION Medical mx in progress Subjective Patient is status post cardiac catheterization with stent placement in proximal LAD Doing well post procedure. Denies any chest pain, nausea, vomiting, chills, cough, palpitations Tele- no overnight events Physical Exam Physical Exam: GENERAL- AAOX3, No acute distress NECK- Supple, no JVD LUNGS- Air entry bilaterally equal. No rales, rhonchi, crackles, wheezes heard. HEART- Regular rate and rhythm. No murmurs ABDOMEN- Soft, non tender, non distended, Bowel sounds heard. EXTREMITIES- S/P Right cardiac cath ; Good peripheral pulses, no edema Results & Data Vital Signs (Past 12 Hours) Vital Signs Temp Pulse Pulse Pulse Resp BP Pulse Ox 09/04/18 07:01 36.5 C 73 16 118/74 94 09/04/18 03:13 89 18 118/77 97 09/04/18 01:08 36.7 C 82 18 119/71 97 09/04/18 01:00 117 H 09/04/18 00:08 36.4 C L 83 18 117/72 97 09/03/18 23:03 95 H 18 114/75 98 09/03/18 22:30 85 18 119/79 98 09/03/18 21:43 88 16 137/97 100 09/03/18 20:42 84 20 100 09/03/18 20:32 103 H 20 155/100 H 100 (1) Chest pain Chest pain type: unspecified Qualified Code(s): R07.9 - Chest pain, unspecified
[2018-09-04 08:21] LABS: BUN Creatinine Ratio 16.3 (10-20); Calcium 8.5 mg/dl (8.5-10.1); Creatinine Clr Calc Pharmacy 123.7 ml/min; Est GFR (African American) 137.3; Est GFR (Non-African American) 118.5; Potassium 3.9 mmol/L (3.5-5.1)
[2018-09-04 08:22] LABS: Phosphorus 3.8 mg/dl (2.5-4.9)
[2018-09-04] MEDS ORDERED: ENOXAPARIN INJ 30 MG/0.3 ML SYR SQ SCH (09:00)
--- NOTE | 2018-09-04 09:01 | Cardiology Consultation ---
Date of Consultation September 04, 2018 Assessment & Plan (1) STEMI (ST elevation myocardial infarction): The patient presented as a non-STEMI but now has EKG changes especially the EKG earlier this morning consistent with a STEMI. These findings along with her elevation in troponin as well as the resting echocardiogram would indicate an LAD distribution infarct. I think she needs to go to the [facility] immediately and I will make those arrangements. I have explained the risk, benefit and intent to the procedure including the potential for catheter-based intervention such as balloon angioplasty or intracoronary stents. Further recommendations following the above. (2) Hodgkin lymphoma: History of Present Illness Attending Physician: Brenna Hall History of Present Illness This is a 48-year-old female who was treated for Hodgkin's lymphoma at age 31 with chemotherapy and radiation to the chest. She also has a history of cigarette smoking. Recently she was out running and developed severe chest discomfort that made her stop. She presented to the emergency department and was admitted with her troponins being elevated. Although her admission EKG show ed no significant changes her EKG this morning suggest a recent anterolateral wall infarct. A resting echocardiogram confirmed wall motion abnormalities in the LAD distribution this morning. Patient was started on heparin and aspirin. She had been pain-free after admission but this morning developed additional chest pain. Currently she is chest pain-free. She will need to go to the [facility] immediately. I have explained the risk benefit and intent to the procedure to her including the potential for catheter-based intervention such as balloon angioplasty or intracoronary stents. She is willing to proceed. Allergies Allergy/AdvReac Type Severity Reaction Status Date / Time tetracycline Allergy Intermediate hives Verified 09/03/18 20:17 Sulfa (Sulfonamide Allergy Unknown hives Verified 09/03/18 20:17 Antibiotics) Home Medications Home Medications Medication Instructions Recorded Confirmed Type cyclobenzaprine 5 - 10 mg PO Q8H #20 tab 08/03/18 09/03/18 Rx dextromethorphan-guaifenesin 1 tab PO QAM 08/03/18 09/03/18 History [Mucinex DM] multivitamin 1 tab PO QAM 08/03/18 09/03/18 History ibuprofen 200 mg PO Q6H PRN 09/03/18 09/03/18 History Patient History Medical History Hodgkin lymphoma (Resolved) No pertinent past medical history Surgical History S/P partial hysterectomy (Chronic) H/O section (Resolved) Family History Other No pertinent family history Social History Preferred Language: Setswana Communication Ability: Effective Orchid Transplanter Required: No Beliefs That Will Affect Care: None Current Living Situation: Family Current Living Situation Comment: 3 kids Other Information That Helps Us Care for You: No Feels Safe at Home: Yes Safety Concerns: Feels Safe At This Time Smoking Status: Current some day smoker Tobacco Type: cigarettes Do You Dip or Chew Tobacco: No Second Hand Exposure: Yes Hx Alcohol Use: No Hx Substance Use: No Review of Systems Review of Systems: Review of Systems: See HPI for pertinent positives. All other 10 point review of systems are negative. Physical Exam Physical Exam: General: no acute distress and stated age Head: normocephalic, no masses, lesions, tenderness or abnormalities Eyes: conjunctiva are pink and non-injected, sclera clear Neck: supple, no adenopathy, no bruits, normal jugular venous pulse, no hepatojugular reflux Chest: normal shape and normal respiratory effort Lungs: clear to auscultation and percussion Cardiac Exam: - regular rate & rhythm, no murmurs gallops or rubs - normal S1, normal S2 Pulses: 2(+) throughout Abdomen: abdomen soft, non-tender, no abnormal masses and no hepatosplenomegaly Musculoskeletal: no gait disturbance, no joint inflammation, no deforming arthritis Extremities: no edema and no cyanosis Neuro: grossly normal exam Results & Data Vital Signs (Past 12 Hours) Vital Signs Temp Pulse Pulse Pulse Resp BP Pulse Ox 09/04/18 07:01 36.5 C 73 16 118/74 94 09/04/18 03:13 89 18 118/77 97 09/04/18 01:08 36.7 C 82 18 119/71 97 09/04/18 01:00 117 H 09/04/18 00:08 36.4 C L 83 18 117/72 97 09/03/18 23:03 95 H 18 114/75 98 09/03/18 22:30 85 18 119/79 98 09/03/18 21:43 88 16 137/97 100 Laboratory Results Laboratory Results - last 24 hr 09/03/18 09/03/18 09/03/18 19:47 19:47 19:48 WBC 8.91 RBC 4.68 Hgb 15.0 Hct 42.1 MCV 90.0 MCH 32.1 MCHC 35.6 RDW Std Deviation 41.4 RDW Coeff of Wade 12.7 Plt Count 314 MPV 10.3 Immature Gran % (Auto) 0.1 Neut % (Auto) 59.0 Lymph % (Auto) 32.2 [place] % (Auto) 3.5 Eos % (Auto) 4.9 Baso % (Auto) 0.3 Immature Gran # (Auto) 0.01 Neut # (Auto) 5.25 Lymph # (Auto) 2.87 [place] # (Auto) 0.31 Eos # (Auto) 0.44 Baso # (Auto) 0.03 PT 10.3 INR 1.0 APTT 26.1 PTT Ratio 1.0 Sodium 140 Potassium 3.4 L Chloride 103 Carbon Dioxide 29 Anion Gap 9.0 BUN 11 Creatinine 0.77 Est Cr Clr Drug Dosing 75.5 Est GFR ( Amer) 107.3 Est GFR (Non-Af Amer) 92.6 BUN/Creatinine Ratio 13.9 Glucose 75 Calcium 9.6 Phosphorus Magnesium 2.5 H Total Bilirubin 0.3 AST 22 ALT 22 Alkaline Phosphatase 75 Troponin I < 0.015 Total Protein 8.4 H Albumin 4.5 Globulin 3.9 Albumin/Globulin Ratio 1.2 09/03/18 09/04/18 09/04/18 22:50 06:05 06:05 WBC 8.50 RBC 3.99 L Hgb 12.6 Hct 36.0 L MCV 90.2 MCH 31.6 MCHC 35.0 RDW Std Deviation 42.0 RDW Coeff of Wade 12.7 Plt Count 259 MPV 10.0 Immature Gran % (Auto) 0.1 Neut % (Auto) 63.1 Lymph % (Auto) 26.6 [place] % (Auto) 4.5 Eos % (Auto) 5.5 Baso % (Auto) 0.2 Immature Gran # (Auto) 0.01 Neut # (Auto) 5.36 Lymph # (Auto) 2.26 [place] # (Auto) 0.38 Eos # (Auto) 0.47 Baso # (Auto) 0.02 PT INR APTT PTT Ratio Sodium Potassium Chloride Carbon Dioxide Anion Gap BUN Creatinine Est Cr Clr Drug Dosing Est GFR ( Amer) Est GFR (Non-Af Amer) BUN/Creatinine Ratio Glucose Calcium Phosphorus Magnesium Total Bilirubin AST ALT Alkaline Phosphatase Troponin I 0.933 H* 0.753 H* Total Protein Albumin Globulin Albumin/Globulin Ratio 09/04/18 06:09 WBC RBC Hgb Hct MCV MCH MCHC RDW Std Deviation RDW Coeff of Wade Plt Count MPV Immature Gran % (Auto) Neut % (Auto) Lymph % (Auto) [place] % (Auto) Eos % (Auto) Baso % (Auto) Immature Gran # (Auto) Neut # (Auto) Lymph # (Auto) [place] # (Auto) Eos # (Auto) Baso # (Auto) PT INR APTT PTT Ratio Sodium 143 Potassium 3.9 Chloride 112 H Carbon Dioxide 24 Anion Gap 8.0 BUN 8 Creatinine 0.47 L D Est Cr Clr Drug Dosing 123.7 Est GFR ( Amer) 137.3 Est GFR (Non-Af Amer) 118.5 BUN/Creatinine Ratio 16.3 Glucose 114 H Calcium 8.5 Phosphorus 3.8 Magnesium Total Bilirubin AST ALT Alkaline Phosphatase Troponin I Total Protein Albumin Globulin Albumin/Globulin Ratio Medications Administered Current Inpatient Medications Acetaminophen (Tylenol) 650 mg PO Q4H PRN PRN Reason: Pain or Fever Stop: 10/03/18 22:24 Last Admin: 09/04/18 02:35 Dose: 650 mg Documented by: Aspirin ([facility]rin [facility]ab) [facility] [place]: 10/04/18 08:59 Last Admin: 09/04/18 08:06 Dose: 81 mg Documented by: Promethazine HCl 12.5 mg/ (Sodium Chloride) 50.5 mls @ 202 mls/hr IV Q6H PRN PRN Reason: Nausea And Vomiting Stop: 10/03/18 22:05 Lorazepam (Ativan) 0.25 mg in 0.5 mls @ 0.5 mls/min IV Q4H PRN PRN Reason: Anxiety Stop: 10/03/18 22:24 Dextrose/Lactated Ringer's (D5w And Lactated Ringers) 1,000 mls @ 50 mls/hr IV .Q20H [facility] Stop: 10/04/18 00:00 Last Admin: 09/04/18 01:16 Dose: 50 mls/hr Documented by: Heparin Sodium/Dextrose (Heparin Sodium/Dextrose) 25,000 units in 500 mls @ 20 mls/hr IV .Q24H [facility]; Protocol Stop: 10/04/18 01:29 Last Titration: 09/04/18 07:09 Dose: 1,000 units/hr, 20 mls/hr Documented by: Metoprolol Tartrate (Lopressor) 12.5 mg PO BID [facility] Stop: 10/04/18 00:14 Last Admin: 09/04/18 02:17 Dose: 12.5 mg Documented by: Morphine Sulfate (Morphine Sulfate) 2 mg IV Q4H PRN PRN Reason: Pain Stop: 09/17/18 22:05 Multivitamins (Multivitamin Tab) 1 tab PO QAM [facility] Stop: 10/04/18 08:59 Last Admin: 09/04/18 08:05 Dose: Not Given Documented by: Nitroglycerin (Nitrostat) 0.4 mg SL UD PRN PRN Reason: Chest Pain Stop: 10/03/18 22:24 Tramadol HCl (Ultram) 25 - 50 mg PO Q4H PRN PRN Reason: Pain Stop: 10/03/18 22:05 Last Admin: 09/04/18 08:05 Dose: 50 mg Documented by:
[2018-09-04 09:09] LABS: Partial Thromboplastin Ratio 1.7
[2018-09-04 09:10] LABS: Partial Thromboplastin Time 47.3 Seconds (21.0-31.0)
[2018-09-04] MEDS ORDERED: HEPARIN (PORCINE) 1000 UNIT/ML 10 ML (CATH LAB USE ONLY) ONE (09:16)
[2018-09-04] MEDS ORDERED: MIDAZOLAM HCL 1 MG/ML 2ML VIAL ONE ×2 (09:16→09:32)
[2018-09-04] MEDS ORDERED: NiCARDipine HCL INJ 2.5 MG/ML 10 ML AMP ONE (09:16)
[2018-09-04] MEDS ORDERED: fentaNYL citrate 100 MCG/2 ML VIAL ONE ×2 (09:16→10:31)
[2018-09-04] MEDS ORDERED: NITROGLYCERIN/D5W 100MCG/ML 20ML SYR ONE (09:17)
[2018-09-04] MEDS ORDERED: TICAGRELOR 90 MG TAB PO ONE (10:35)
--- NOTE | 2018-09-04 10:43 | Pre Anesthesia Assessment ---
Date of Service September 04, 2018 Pre Sedation Assessment Vital Signs Temp Pulse Pulse Pulse Resp BP BP 09/04/18 09:53 117 H 09/04/18 07:01 36.5 C 73 16 118/74 09/04/18 03:13 89 18 118/77 09/04/18 01:08 36.7 C 82 18 119/71 09/04/18 01:00 117 H 09/04/18 00:08 36.4 C L 83 18 117/72 09/03/18 23:03 95 H 18 114/75 09/03/18 22:30 85 18 119/79 09/03/18 21:43 88 16 137/97 09/03/18 20:42 84 20 09/03/18 20:32 103 H 20 155/100 H 09/03/18 19:35 36.7 C 80 20 138/92 Pulse Ox 09/04/18 09:53 09/04/18 07:01 94 09/04/18 03:13 97 09/04/18 01:08 97 09/04/18 01:00 09/04/18 00:08 97 09/03/18 23:03 98 09/03/18 22:30 98 09/03/18 21:43 100 09/03/18 20:42 100 09/03/18 20:32 100 09/03/18 19:35 99 Cardiovascular RRR, no murmur, no edema Respiratory normal respiratory effort, lungs clear to auscultation Pre-Sedation Airway Assessment Smoking Status: Current some day smoker Hx Sleep Apnea: No Hx Difficult Intubation: No Short, Thick Neck: No Thyromental Distance: > or= 3.5 Finger Breadths Oral Cavity: + WNL Mallampati Class: II ASA: ASA2 NPO Status Date of Last Intake of Fluids: 09/03/18 Last Oral Intake of Fluids Comment: t-1 Procedure Planning Contraindications for Sedation: none Current Medications Reviewed: Yes Notes The planned sedation has been discussed with the patient. Informed Consent was obtained. I have identified the patient, determined the appropriateness of sedation and have assessed the patient immediately prior to the procedure. All medicine(s) and interventions are by my order.
--- NOTE | 2018-09-04 10:46 | Post Anesthesia Assessment ---
Date of Service September 04, 2018 Post Sedation Assessment Vital Signs Temp Pulse Pulse Pulse Resp BP BP 09/04/18 09:53 117 H 09/04/18 07:01 36.5 C 73 16 118/74 09/04/18 03:13 89 18 118/77 09/04/18 01:08 36.7 C 82 18 119/71 09/04/18 01:00 117 H 09/04/18 00:08 36.4 C L 83 18 117/72 09/03/18 23:03 95 H 18 114/75 09/03/18 22:30 85 18 119/79 09/03/18 21:43 88 16 137/97 09/03/18 20:42 84 20 09/03/18 20:32 103 H 20 155/100 H 09/03/18 19:35 36.7 C 80 20 138/92 Pulse Ox 09/04/18 09:53 09/04/18 07:01 94 09/04/18 03:13 97 09/04/18 01:08 97 09/04/18 01:00 09/04/18 00:08 97 09/03/18 23:03 98 09/03/18 22:30 98 09/03/18 21:43 100 09/03/18 20:42 100 09/03/18 20:32 100 09/03/18 19:35 99 Recovery Score Activity: Moves 4 extremities Respiration: Deep Breath/Cough Circulation: +/-20% PreAnes Value Consciousness: Fully Awake Oxygen Saturation: O2 needed for >90% Discharge Sedation Level of Care: Fast Track Phase II Post Sedation Plan On clinical assessment, the patient appears to have tolerated the sedation without complications. Patient is recovering as anticipated. Patient will continue to be monitored by nursing and may be discharged when sedation discharge criteria are met per below protocol. Upon Completions of procedure and additional 15 minutes continue every 5 minute vital signs and the P.A.R. score; then discharge to a Phase I or Fast Track to Phase II per the following guidelines: * Discharge Patient to appropriate Phase II area if PAR is 8 or greater or return to pre- procedure baseline. The post - procedure orders will be as directed. * If PAR score is less than 8 or not return to pre-procedure baseline then patient will follow Phase I monitoring till PAR is reached for Phase II. The Phase I may be done in procedure room or may call to secure a Phase I area. * If naloxone or flumazenil are used for reversal, hold in Phase I for continued monitoring from when last reversal dose was given for a minimum of 60 minutes or longer pending the nurse and/or physician discretion of patient condition before discharge to Phase II. Please call the Sedation Physician to re-evaluate and complete post-note for discharge to Phase II area. Do NOT discharge from procedure sedation or Phase 1 until post- sedation eval uation note is complete by procedure /sedation MD Sedation Discharge Instructions to be given to the patient at discharge to home.
--- NOTE | 2018-09-04 10:57 | Cardiac Catheterization ---
Cardiac Cath Procedure Full Procedure Date September 04, 2018 Pre-Procedure Diagnosis Pre-Procedure Diagnosis: Non STEMI AUC Score AUC Score: 8 Post-Procedure Diagnosis Post-Procedure Diagnosis: Severe CAD Procedure(s) Performed Procedure(s) Performed: Coronary Angiography, Drug Eluting Stent and IVUS Vendor Quality Supervisor Lino Aguayo MD Cloth Winder(s) Crescencio Estimated Blood Loss Estimated Blood Loss: 15 Medication(s) Medication(s): Fentanyl, Heparin, Lidocaine 1%, Nicardipine, Nitroglycerin and Versed Medication(s): Ticagrelor Summary of Findings Indication: High risk NSTEMI 48-year-old woman with prior history of Hodgkin's lymphoma post radiation treatment 16 years ago here with high risk NSTEMI and persistent chest pain. Access: 6 Fr right radial artery Catheters: [place], EBU 3.5 guide Findings: LM -angiographically normal LAD -focal 95+% proximal stenosis involving bifurcation with moderate caliber first diagonal. Distal LAD without significant disease but HERMILA II flow Circumflex -angiographically normal gives off large bifurcating OM without significant disease RCA -dominant, angiographically normal -- PCI -- Antithrombotic therapy: Heparin, ticagrelor Procedure: Left main cannulated with EBU 3.5 guide Traffic Control Operator 50 wire passed across lesion into distal vessel Proximal LAD lesion predilated with 2.5 compliant balloon Pro-water wire placed in the first diagonal IVUS used to assess extent of LAD disease and for stent sizing. IVUS revealed severe noncalcified plaque extending almost from ostium across diagonal with significant plaque in ostium of diagonal. Dilated lesion stented with 3.5 x 18 mm Xience Debbi drug-eluting stent First diagonal rewired with whisper wire Stent post-dilated with 4.0 noncompliant balloon IC vasodilators administered for spasm HERMILA-3 flow but severe ostial stenosis in first diagonal. Stent struts/ostium of diagonal dilated with 1.5 and 2.5 balloon Post procedure IVUS showed some stent underexpansion and mid aspect of stent and was predilated with 4.0 balloon Ostium of diagonal re-dilated with 2.5 balloon Post procedure HERMILA 3 flow, stent well expanded, moderate residual stenosis in ostium of first diagonal but HERMILA-3 flow and no apparent cardiac complications. Arterial Closure: TR band Summary: 1. Severe single vessel coronary artery disease -95+% proximal LAD involving bifurcation of first diagonal 2. Successful PCI of proximal LAD with single drug-eluting stent across takeoff of first diagonal (3.5 x 18 mm Xience Debbi; postdilated with 4.0 NC). -POBA to ostium of first diagonal with 2.5 balloon. 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 Continue dual-antiplatelet therapy for at least one year Continue statin, and ASCVD risk factor modification Consult cardiac Rehab Hemodynamics Rest Ao:: 135/82/107 Final Ao: 130/76/101 LV: -- Recommendations Recommendations: PCI without planned CABG Specimens Specimens: None Radiation Exposure (mGy) 2176 Contrast (mls) 145 Fluids (cc crystalloids) Fluids (cc crystalloids): 130 Drains Drains: None Anesthesia Moderate Procedural Complication(s) None Disposition PCU ACC Data: Transliterator Cardiac Status Clinical evaluation leading to the procedure CAD Presenation: Non STEMI Anginal Classification: CCS IV Heart Failure: No Cardiogenic Shock within 24 Hours: No Cardiac Arrest within 24 Hours: No Imaging Studies Past 6 Months: Yes Stress Studies Past 6 Months: No Diagnostic Physicians Name: Lino Aguayo MD Status: Urgent Closure Device Percutaneous Entry Location: Radial Closure Device: Radial Band Recommendations: PCI without planned CABG PCI Indication: PCI for high risk Non-KAUR Lesion Segment Name: Proximal LAD Culprit Artery: Yes Stenosis Prior to Rx (%): 95+% Chronic Total Occlusion: No IVUS: No FFR: No Pre-Procedure HERMILA Flow: 2 Previously Treated Lesion: No Lesion Complexity: Non-High/Non-C Lesion Length (mm): 15 Thrombus Present: Yes Bifurcation Lesion: Yes Guidewire Across Lesion: Stenosis Post-Procedure (%): 0 Post-Procedure HERMILA Flow: 3 Devices(s) Deployed: Yes Yes Intraprocedure Events Significant Disection: No Perforation: No
[2018-09-04] MEDS ORDERED: SODIUM CHLORIDE 0.9% 1000ML 1,000 ML IV SCH (11:00)
[2018-09-04] MEDS ORDERED: ATORVASTATIN 40 MG TAB PO SCH (21:00)
[2018-09-04] MEDS: TICAGRELOR 90 MG TAB PO SCH (21:03)
--- OUTSIDE RECORDS SUMMARY | 2018-09-04 22:45 | External Medical Summary | Continuity of Care Document ---
:1970 Author Name Seth M.Naomi Address Unavailable Unavailable , Care Team Providers Name Role Phone Unavailable Unavailable Unavailable Samir HERNÁNDEZ Unavailable Unavailable Unavailable Unavailable Unavailable Problems Encounter for routine pelvic examination (V72.31) (Z01.419) Female pelvic pain (625.9) (R10.2) Allergies and Adverse Reactions Sulfa Drugs (Allergy) Tetracyclines (Allergy) Medications Mucinex D TB12; TAKE 1 TABLET Daily PRN , M.D. Refills: 0 Multiple Vitamins Oral Tablet; TAKE 1 TABLET DAILY. , M.D. Refills: 0 Procedures History of Section Status: Comp leted History of Oral Surgery Tooth Extraction Status: Completed History of Supracervical Hysterectomy St atus: Completed Immunizations Immunizations not documented Family History Unknown Family Member Family history of Osteoporosis (V17.81) Status: Active Comments: Family History Social History - Smoking Status Unknown if ever smoked Never smoker Interventions Discussion/SummaryI reviewed PAP results for Ms. LIS CENTENO. Pap Smear is normal Although pap smears are not recommended every year for many women, it is still recommended that you have a yearly gynecology visit. Plan of Treatment Planned Observations Planned Goals not documented Results No Known Results Results not documented
[2018-09-05] MEDS: TRAMADOL HCL 50 MG TABLET PO PRN (06:28)
[2018-09-05 06:58] LABS: Basophils # (auto) 0.01 K/uL (0-0.2); Basophils % (auto) 0.1 %; Eosinophils # (auto) 0.34 K/uL (0-0.5); Eosinophils % (auto) 3.3 %; Hematocrit (blood only) 37.5 % (37-47); Hemoglobin 12.9 g/dL (12.0-16.0); Immature Granulocytes # (auto) 0.02 K/uL (0.00-0.02); Immature Granulocytes % (auto) 0.2 %; Lymphocytes # (auto) 1.39 K/uL (1.2-3.4); Lymphocytes % (auto) 13.6 %; Mean Corpuscular Hgb Conc 34.4 g/dL (32-36); Mean Corpuscular Volume 90.1 fL (80-100); Mean Platelet Volume 9.8 fL (7.4-10.4); Monocytes # (auto) 0.51 K/uL (0.11-0.59); Neutrophils # (auto) 7.98 K/uL (1.4-6.5); Neutrophils % (auto) 77.8 %; Platelet Count 269 K/uL (130-400); RDW Coefficient of Variation 12.9 % (11.5-14.5); RDW Standard Deviation 42.3 fL (36.4-46.3); Red Blood Count 4.16 M/uL (4.2-5.4); White Blood Count 10.25 K/uL (4.8-10.8)
[2018-09-05 07:30] LABS: BUN Creatinine Ratio 8.9 (10-20); Calcium 8.5 mg/dl (8.5-10.1); Creatinine Clr Calc Pharmacy 116.3 ml/min; Est GFR (African American) 134.5; Est GFR (Non-African American) 116.1; Potassium 3.5 mmol/L (3.5-5.1)
[2018-09-05] MEDS: TICAGRELOR 90 MG TAB PO SCH (08:36)
[2018-09-05] MEDS: MULTIVITAMIN TAB PO SCH (08:37)
[2018-09-05] MEDS: ASPIRIN 81 MG ECTAB PO SCH (08:37)
[2018-09-05] MEDS: METOPROLOL TARTRATE 25 MG TAB PO SCH (08:37)
--- NOTE | 2018-09-05 12:27 | Hospitalist Progress Note ---
Date of Service September 05, 2018 Assessment & Plan (1) Chest pain: NSTEMI Presented with chest pain, Troponin elevation 0.933, 0.753 Risk factors- Smoker, Hx of radiation for lymphoma 16 years ago S/P Cardiac catheterization on 09/04/18- Focal 95% stenosis prox LAD- PCI with AIDE in prox LAD placed -S/P IV Heparin drip -Started on Aspirin, Metoprolol Tartrate 12.5 mg PO BID, Brilinta 90 mg BID this admission. Was started on atorvastatin 40 mg q HS (LDL 68- at goal) -EKG- No acute ischemic changes ECHO- EF 45-50%, apical, anteroseptal, anterior wall motion abnormality with hypokinesis, Gd I diastolic dysfunction -Work up- CXR- neg, Lipid panel- LDL 68 HYPOKALEMIA Resolved HX OF HODGKINS LYMPHOMA S/P CHEMORADIATION In remission TOBACCO ABUSE DISORDER -Nicotine Patch -patient counseled to stop smoking. DVT prophylaxis. Lovenox subcu Full code DISPOSITION Eager to be discharged. Okay to discharge once cleared by cardiology Subjective Patient is status post cardiac catheterization with stent placement in proximal LAD yesterday Doing well post procedure. Denies any chest pain, nausea, vomiting, chills, cough, palpitations Tele- no overnight events Physical Exam Physical Exam: GENERAL- AAOX3, No acute distress NECK- Supple, no JVD LUNGS- Air entry bilaterally equal. No rales, rhonchi, crackles, wheezes heard. HEART- Regular rate and rhythm. No murmurs ABDOMEN- Soft, non tender, non distended, Bowel sounds heard. EXTREMITIES- S/P Right cardiac cath ; Good peripheral pulses, no edema Results & Data Vital Signs (Past 12 Hours) Vital Signs Temp Pulse Pulse Resp BP Pulse Ox 09/05/18 11:58 36.5 C 77 16 95/67 L 98 09/05/18 07:40 86 09/05/18 04:00 37.0 C 85 17 108/70 97 (1) Chest pain Chest pain type: unspecified Qualified Code(s): R07.9 - Chest pain, unspecified
--- NOTE | 2018-09-05 12:56 | Cardiology Progress Note ---
Date of Service September 05, 2018 Assessment & Plan (1) STEMI (ST elevation myocardial infarction): The patient received a drug-eluting stent within the proximal LAD. Procedure was non-complicated. She had an uneventful night and can be discharged today. I reviewed the medications with the patient. I also recommended cardiac rehab to her and output a consult in for that. I will arrange follow-up with our group next week. (2) Hodgkin lymphoma: Subjective The patient had an uneventful night. All questions were answered. Review of Systems Review of Systems: All systems reviewed & are unremarkable except as noted in HPI & below No change Physical Exam Physical Exam: General: no acute distress and stated age Head: normocephalic, no masses, lesions, tenderness or abnormalities Eyes: conjunctiva are pink and non-injected, sclera clear Neck: supple, no adenopathy, no bruits, normal jugular venous pulse, no hepatojugular reflux Chest: normal shape and normal respiratory effort Lungs: clear to auscultation and percussion Cardiac Exam: - regular rate & rhythm, no murmurs gallops or rubs - normal S1, normal S2 Pulses: 2(+) throughout Abdomen: abdomen soft, non-tender, no abnormal masses and no hepatosplenomegaly Musculoskeletal: no gait disturbance, no joint inflammation, no deforming arthritis Extremities: no edema and no cyanosis Neuro: grossly normal exam Results & Data Vital Signs (Past 12 Hours) Vital Signs Temp Pulse Pulse Resp BP Pulse Ox 09/05/18 11:58 36.5 C 77 16 95/67 L 98 09/05/18 07:40 86 09/05/18 04:00 37.0 C 85 17 108/70 97 Laboratory Results Laboratory Results - last 24 hr 09/05/18 09/05/18 05:53 05:53 WBC 10.25 RBC 4.16 L Hgb 12.9 Hct 37.5 MCV 90.1 MCH 31.0 MCHC 34.4 RDW Std Deviation 42.3 RDW Coeff of [place] 12.9 Plt Count 269 MPV 9.8 Immature Gran % (Auto) 0.2 Neut % (Auto) 77.8 Lymph % (Auto) 13.6 [place] % (Auto) 5.0 Eos % (Auto) 3.3 Baso % (Auto) 0.1 Immature Gran # (Auto) 0.02 Neut # (Auto) 7.98 H Lymph # (Auto) 1.39 [place] # (Auto) 0.51 Eos # (Auto) 0.34 Baso # (Auto) 0.01 Sodium 137 Potassium 3.5 Chloride 104 Carbon Dioxide 26 Anion Gap 7.0 BUN 4 L Creatinine 0.50 L Est Cr Clr Drug Dosing 116.3 Est GFR ( Amer) 134.5 Est GFR (Non-Af Amer) 116.1 BUN/Creatinine Ratio 8.9 L Glucose 105 H Calcium 8.5 Triglycerides 132 Cholesterol 151 LDL Cholesterol, Calc 68 VLDL Cholesterol, Calc 26 HDL Cholesterol 57 Cholesterol/HDL Ratio 3 Medications Administered Current Inpatient Medications Acetaminophen (Tylenol) 650 mg PO Q4H PRN PRN Reason: Pain or Fever Stop: 10/03/18 22:24 Last Admin: 09/04/18 02:35 Dose: 650 mg Documented by: Aspirin (Ecotrin Ectab) 81 mg PO [facility] Stop: 10/04/18 08:59 Last Admin: 09/05/18 08:37 Dose: 81 mg Documented by: Atorvastatin Calcium (Lipitor) 40 mg PO [facility] Stop: 10/04/18 20:59 Last Admin: 09/04/18 21:02 Dose: 40 mg Documented by: Promethazine HCl 12.5 mg/ (Sodium Chloride) 50.5 mls @ 202 mls/hr IV Q6H PRN PRN Reason: Nausea And Vomiting Stop: 10/03/18 22:05 Last Infusion: 09/04/18 11:32 Dose: Infused Documented by: Lorazepam (Ativan) 0.25 mg in 0.5 mls @ 0.5 mls/min IV Q4H PRN PRN Reason: Anxiety Stop: 10/03/18 22:24 Metoprolol Tartrate (Lopressor) 12.5 mg PO BID [facility] Stop: 10/04/18 00:14 Last Admin: 09/05/18 08:37 Dose: 12.5 mg Documented by: Morphine Sulfate (Morphine Sulfate) 2 mg IV Q4H PRN PRN Reason: Pain Stop: 09/17/18 22:05 Multivitamins (Multivitamin Tab) 1 tab PO [facility] Stop: 10/04/18 08:59 Last Admin: 09/05/18 08:37 Dose: 1 tab Documented by: Nitroglycerin (Nitrostat) 0.4 mg SL UD PRN PRN Reason: Chest Pain Stop: 10/03/18 22:24 Ticagrelor (Brilinta) 90 mg PO BID [place] Stop: 10/04/18 21:59 Last Admin: 09/05/18 08:36 Dose: 90 mg Documented by: Tramadol HCl (Ultram) 25 - 50 mg PO Q4H PRN PRN Reason: Pain Stop: 10/03/18 22:05 Last Admin: 09/05/18 06:28 Dose: 50 mg Documented by:
--- NOTE | 2018-09-05 14:00 | Discharge Summary ---
Date of Service September 05, 2018 Admission HPI Per Admitting Provider History obtained from patient, family, and records. Medical history significant for Hodgkin's lymphoma status post chemoradiation, ongoing tobacco abuse. Few days ago patient developed substernal pain/pressure with shortness of breath radiating to the left arm while running. Symptoms went away with rest. Hours ago, patient had recurrence of substernal discomfort at home. Relief with aspirin and nitroglycerin administration by EMS. 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 NSTEMI 2. S/P Cardiac cath with PCI- AIDE x 1 in proximal LAD 3. Hypokalemia SECONDARY DIAGNOSIS ON DISCHARGE 1. Hx of Hodgkins Lymphoma s/p chemoradiation 2. Tobacco abuse disorder Discharge Exam GENERAL- AAOX3, No acute distress NECK- Supple, no JVD LUNGS- Air entry bilaterally equal. No rales, rhonchi, crackles, wheezes heard. HEART- Regular rate and rhythm. No murmurs ABDOMEN- Soft, non tender, non distended, Bowel sounds heard. EXTREMITIES- S/P Right cardiac cath ; Good peripheral pulses, no edema Discharge Data Allergies Allergy/AdvReac Type Severity Reaction Status Date / Time tetracycline Allergy Intermediate hives Verified 09/03/18 20:17 Sulfa (Sulfonamide Allergy Unknown hives Verified 09/03/18 20:17 Antibiotics) Consultations 09/03/18 20:36 ED Decision to Admit Stat 09/03/18 22:25 Consult Cardiology Routine 09/05/18 12:51 Consult Cardiac Rehabilitation Routine Procedures Performed Operation Date: 09/04/18 13:00 Actual Procedures p Cath, Coronaries ONLY (no LV) - Mike Aguayo MD s Cineradiography w/Routine Exam - Mike Aguayo MD s POBA SGL Vessel - Mike Aguayo MD s IVUS Coronary Single Vessel - Mike Aguayo MD s Aspiration/PCI w/AIDE for Stemi - Mike Aguayo MD Ordered Studies 09/04/18 09:21 CL Cath Imgs for PACS use only Urgent 09/04/18 11:30 CL IVUS Coronary Single Vessel Routine Hospital Course (1) Chest pain: NSTEMI Presented with chest pain, Troponin elevation 0.933, 0.753 Risk factors- Smoker, Hx of radiation for lymphoma 16 years ago S/P Cardiac catheterization on 09/04/18- Focal 95% stenosis prox LAD- PCI with AIDE in prox LAD placed -S/P IV Heparin drip -Started on Aspirin, Metoprolol Tartrate 12.5 mg PO BID, Brilinta 90 mg BID this admission. Was started on atorvastatin 20 mg q HS (LDL 68- at goal). -EKG- No acute ischemic changes ECHO- EF 45-50%, apical, anteroseptal, anterior wall motion abnormality with hypokinesis, Gd I diastolic dysfunction -Work up- CXR- neg, Lipid panel- LDL 68 HYPOKALEMIA Resolved HX OF HODGKINS LYMPHOMA S/P CHEMORADIATION In remission TOBACCO ABUSE DISORDER -Nicotine Patch -patient counseled to stop smoking. DVT prophylaxis. Lovenox subcu Full code DISPOSITION Eager to be discharged. Okay to discharge once cleared by cardiology Total Time Total Time Spent Total Time Spent (In Minutes): 40 minutes Discharge Plan Discharge Items Patient Disposition: Home - Self-Care Reason For Visit: ACS Discharge Diagnosis: Non ST segment elevated Myocardial Infarction (NSTEMI) S/P Cardiac catheterization - Drug eluting stent in proximal LAD Discharge Goals: Improve disease control Activity: Per 'Additional Instructions' section Lifting: No more than 10 pounds Lifting Comment: Post cardiac cath instructions Non-emergency contact: Primary Care Provider Call non-emergency contact if: your symptoms worsen Follow-up/Referrals: Nicolle Steinberg DO [Physician] - 09/11/18 11:05 am Diet: Heart Healthy and Low Sodium (2gm) Addtl Provider Instructions: You were admitted for heart attack (NSTEMI) You had a cardiac catheterization on 09/04/18 with a drug eluting stent placement in proximal Left anterior descending artery. MEDICATION CHANGES 1. New medication- Aspirin 81 mg daily 2. New medication- Brilinta 90 mg twice a day (Both medications to be continue uninterruptedly till further directed by cardiology) 3. New medication-Atorvastatin 20 mg at bedtime 4. New medication- Metoprolol 12.5 mg twice a day QUIT SMOKING Prescriptions: New aspirin [Ecotrin Low Strength] 81 mg Tablet,Delayed Release (Dr/Ec) 81 mg PO QAM 30 Days Qty: 30 RF: 0 nitroglycerin [Nitrostat] 0.4 mg Tablet, Sublingual 0.4 mg sublingual UD 30 Days Qty: 30 RF: 0 metoprolol tartrate 25 mg Tablet 12.5 mg PO BID 30 Days Qty: 30 RF: 0 Brilinta 90 mg Tablet 90 mg PO BID 30 Days Qty: 60 RF: 0 atorvastatin 20 mg tablet 20 mg PO DAILY Qty: 30 RF: 0 Continued multivitamin Tablet 1 tab PO QAM RF: 0 Discontinued ibuprofen 200 mg Tablet 200 mg PO Q6H PRN (Reason: Pain) RF: 0 dextromethorphan-guaifenesin [Mucinex DM] 60-1,200 mg Tablet Extended Release 12 Hr 1 tab PO QAM RF: 0 cyclobenzaprine 5 mg tablet 5 - 10 mg PO Q8H Qty: 20 RF: 0 Stand-Alone Forms: Call Back Authorization, [facility]/Other Patient Handouts: Cath Cardiac Dc, Heart Attack Dc, Catheter Interventional Cardiac Ch, Heart Attack Exercise After, ED Smoking Cessation Discharge Orders: Discharge Order (Routine); Ordered 09/05/18 Ordered By: Brenna Hall Admission Data Admit Date/Time: 09/04/18 00:56 Attending Provider: Brenna Hall Admit Provider: Brent Al Primary Care Provider: PCP,NO Other Providers: Brent Al ; Asael Ramirez ; Marco A Vallejo ; Paul Mccallum ; Dawson Rao ; ShiraTaras norman ; Alexsander Corley ; Maria Elena Ramírez ; Pratibha Acosta Service: Telemetry Medical
--- NOTE | 2018-09-08 07:54 | Coding Query ---
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 Please assist us with the question(s) below: Coding Question(s): Dr. Hall, In Dr. Silva's consult report, he documents the following: "STEMI (ST elevation myocardial infarction): The patient presented as a non-STEMI but now has EKG changes especially the EKG earlier this morning consistent with a STEMI. These findings along with her elevation in troponin as well as the resting echocardiogram would indicate an LAD distribution infarct." NSTEMI is documented throughout the rest of the record and the discharge summary. Please clarify if the patient was diagnosed with and treated for a(n): STEMI involving the LAD THANKS ( ) NSTEMI ( + ) STEMI involving the LAD ( ) other, please explain ( ) unable to determine Physician's Response(s): Thank you for your time, DELMIS Anton, [facility]
== END 2018-09-05 14:40 | disposition home or self-care (01) | DRG 247 ==
LOC: 2N 19:35 → ED 19:35 → 2N 23:15 → 2E 09-04 00:52
PROC: CLB.CCO (2018-09-04 13:00)

== ENCOUNTER 2023-03-23 12:18 | Observation (INO) ==
[2023-03-23 13:33] LABS: Basophils # (auto) 0.02 K/uL (0.00-0.20); Basophils % (auto) 0.3 %; Eosinophils # (auto) 0.15 K/uL (0.00-0.50); Eosinophils % (auto) 2.1 %; Hemoglobin 14.8 g/dl (12.0-16.0); Immature Granulocytes # (auto) 0.02 K/uL (0.01-0.20); Immature Granulocytes % (auto) 0.3 %; Lymphocytes # (auto) 1.81 K/uL (1.20-3.40); Lymphocytes % (auto) 25.9 %; Mean Corpuscular Hemoglobin 33.9 pg (25.0-34.0); Mean Corpuscular Hgb Conc 35.2 g/dL (32.0-36.0); Mean Corpuscular Volume 96.1 fL (80.0-100.0); Mean Platelet Volume 9.2 fL (9.4-12.4); Monocytes # (auto) 0.36 K/uL (0.11-0.59); Monocytes % (auto) 5.1 %; Neutrophils # (auto) 4.64 K/uL (1.40-6.50); Neutrophils % (auto) 66.3 %; Platelet Count 204 K/uL (130-400); RDW Coefficient of Variation 11.9 % (11.5-14.5); RDW Standard Deviation 42.2 fL (36.4-46.3); Red Blood Count 4.37 M/uL (4.20-5.40)
[2023-03-23 13:47] LABS: Partial Thromboplastin Ratio 0.9; Partial Thromboplastin Time 25.9 Seconds (21.0-31.0); Prothrombin Time 10.5 Seconds (9.0-12.0)
[2023-03-23 13:55] LABS: Alanine Aminotransferase 17 U/L (7-52); Albumin Globulin Ratio 1.5 (0.9-2); Albumin Level 4.9 gm/dl (3.4-5.0); Alkaline Phosphatase 78 U/L (34-104); Anion Gap 8 (3-11); Aspartate Aminotransferase 22 U/L (13-39); BUN Creatinine Ratio 12.3 (10-20); Bilirubin,Total 0.5 mg/dl (0.2-1.0); Blood Urea Nitrogen 8 mg/dl (6-23); Calcium 10.3 mg/dl (8.6-10.3); Carbon Dioxide 28 mmol/L (21-32); Chloride 103 mmol/L (98-107); Creatinine Clr Calc Pharmacy 94.1 ml/min; Est GFR (Non-African American) 103.5 ml/min; Globulin 3.3 gm/dl (2.5-4.0); Glucose 97 mg/dl (70-99(Fasting)); Potassium 3.6 mmol/L (3.5-5.1); Sodium 139 mmol/L (136-145); Total Protein 8.2 gm/dl (6.0-8.3)
[2023-03-23 14:01] LABS: Troponin I High Sensitivity < 2.3 pg/ml (0-14)
--- NOTE | 2023-03-23 14:12 | XRay Report ---
XR chest 1V not portable HISTORY: 52 years-old Female Chest pain, nonspecific COMPARISON: 01/26/2021 TECHNIQUE: AP view of the chest FINDINGS: Cardiomediastinal and hilar silhouettes are within normal limits. No pneumothorax, pleural effusion o r airspace consolidation. Bones appear grossly intact. Coronary arterial stent. IMPRESSION: No acute process. ACT 112: Negative or not required by law. The above report was generated using voice recognition software. It may contain grammatical, syntax o r spelling errors. Electronically signed by: Dar Minaya M.D. 03/23/2023 2:10 PM
--- NOTE | 2023-03-23 15:35 | Emergency Department Note ---
Impression & Plan Palpitations, Shortness of breath ED Provider Note CHIEF COMPLAINT: Dizzy, SOB, tachycardia HISTORY OF PRESENTING ILLNESS: This 52-year-old female patient presents to the emergency department for evaluation of dizziness, shortness of breath, tachycardia, and feeling like there is a lump in her throat. She states that she is having severe shortness of breath, heart racing, chest pressure, and left arm tingling since 1145 this morning. 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 The patient went to lay down and the symptoms resolved after 1 hour. However, the symptoms returned 1 hr ago and lasted for about 15-30 minutes and then resolved. Currently the patient does not have any symptoms. The patient has a history of an OH 3 years ago with prior cardiac stents and states that it took a while for her troponin to become elevated with her last OH. She denies fever, cough, or URI symptoms. Denies headache, dizziness, change in vision, nausea, vomiting, or change in personality. Denies abdominal pain, urinary symptoms, or changes in her BM. She took her 81 mg ASA this morning. Was only on anticoagulation for 6 months after her OH. She has a history of hypokalemia and is on a potassium supplement. She was recently started on a new anxiety medication. The patient denies recent long car or plane rides or recent injury/trauma/surgery. Denies any personal history of blood clots or bleeding disorders. Denies any family history of blood clots or bleeding disorders. Denies any hormonal medication use. Denies any hemoptysis. Denies leg/calf pain or swelling. REVIEW OF SYSTEMS: See HPI for pertinent positives and pertinent negatives. ALLERGIES: Macrobid, tetracycline, Quinolones, Sulfa MEDICATIONS: See below PAST MEDICAL HISTORY: See below PHYSICAL EXAM: VITALS: Vitals are noted on the nurse's note and reviewed by myself. GENERAL: Non toxic, no acute distress, non-diaphoretic. SKIN: Capillary refill <2 sec. EYES: PERRLA. EOMI. Conjunctivae without injection, sclerae without icterus. NOSE: Patent without discharge. MOUTH: Mucous membranes moist. Uvula midline. Airway patent. NECK: Supple without nuchal rigidity. HEART: Regular rate and rhythm without murmurs gallops or rubs. LUNGS: Clear to auscultation bilaterally without wheezes, rales or rhonchi. No retractions or accessory muscle use. ABDOMEN: Positive bowel sounds x 4. Normal tympanic percussion. Soft, nontender. No masses or organomegaly. Munoz sign negative. No guarding or rebound tenderness. No focal RLQ or LLQ tenderness. MUSCULOSKELETAL: Bilateral calves are nontender to palpation. No edema or erythema of the bilateral calves. Negative Homans' sign. Peripheral pulses 2+ and equal in the bilateral upper and lower extremities. NEURO: Patient was alert and oriented. No focal neurological deficits. DIFFERENTIAL DIAGNOSIS: Differential diagnosis includes angina, OH, pericarditis, myocarditis, aortic dissection, pleurisy, pneumothorax, PE, pneumonia, pneumomediastinum, esophagitis, esophageal spasm, GERD, perforated esophagus, perforated duodenal/gastric ulcer, pancreatitis, cholecystitis, costochondritis, musculoskeletal, bronchitis, URI, or others. ED COURSE AND MEDICAL DECISION MAKING: MONITOR: Continuous finance teacher: Order was placed for continuous finance teacher. Patient was placed on the finance teacher and continuous pulse ox. Patient was noted to be in normal sinus rhythm at an initial rate of 90 bpm per my interpretation. EKG: EKG was interpreted by myself as sinus tachycardia at 102 bpm with nonspecific T wave abnormality, but no acute ST or T wave changes and no significant change from her previous EKG. Repeat EKG was interpreted by myself as normal sinus rhythm at 79 bpm with no evidence of nonspecific T wave abnormality and no evidence for acute ST or T wave abnormalities. MEDICATIONS GIVEN: Aspirin 324 mg p.o. chewed. 1 L normal saline solution bolus. INTERPRETATION OF LABS: I interpreted the labs with full lab results as below in the lab section of this note. CBC without leukocytosis, anemia, or thrombocytopenia. Coags were normal. CMP was normal. Magnesium normal. TSH normal. Vitamin B12 and vitamin D normal. Urinalysis without evidence for infection. High-sensitivity troponin x2 were normal. D-dimer was elevated at 800. INTERPRETATION OF IMAGING: Imaging studies were interpreted by myself and read by radiology as per the imaging section of this note. Chest x-ray was negative for acute cardiopulmonary etiology. CTA of the chest with with IV contrast showed no evidence for PE, pneumonia, pneumothorax, or other acute cardiopulmonary etiology. CONSULTATIONS: On-call hospitalist MDM SUMMARY: I examined the patient. An IV lock was placed and labs were drawn. The patient was given aspirin 324 mg p.o. chewed. She was given 1 L normal saline solution bolus. She declined any medication for pain or symptoms while in the emergency department. The patient had an episode of dizziness, shortness of breath, tachycardia, and feeling like there was a lump in her throat at 1145 this morning that lasted for approximately 1 hour and then another episode while she was in the waiting room that lasted for about 15 to 30 minutes. The patient had an OH approximately 3 years ago with a cardiac stent placed and she is concerned because the symptoms felt somewhat similar. The patient's D-dimer was elevated, but CTA of the chest was negative for PE. Remainder of the work-up without significant abnormalities. The patient's work- up showed 2 negative EKGs and 2 negative high sensitive troponins. However, the patient stated that with her last heart attack her troponins did not become elevated for many hours after being admitted and she ended up with a 99% blockage that required a stent placed. The patient is concerned that she may develop a heart attack later again. Due to the patient's past medical history and symptoms, I feel that admission would be beneficial to rule out cardiac etiology of the patient's symptoms. I spoke with the on-call hospitalist who agreed to admit the patient for further management. Please refer to their dictation for details. The patient's care was transferred in stable condition. DIAGNOSIS: Heart palpitations Shortness of breath History of OH Past Med/Surg History Medical History (Updated 03/23/23 @ 22:22 by Magda Vega PA-C) Anxiety CAD (coronary artery disease) Hypothyroidism Reactive airway disease Diverticulitis Sinusitis nasal Heart attack HELLP syndrome H O severe pre- eclampsia antepartum Hodgkin lymphoma radiation therapy 2002 Surgical History S/P wisdom tooth extraction History of intravascular stent placement 09-04-2018 H/O section times 3 S/P partial hysterectomy surgery 2008, supracervical in immediate pp period from uterine atony. 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 Required: No Beliefs That Will Affect Care: None marital status: Current Living Situation: Other Current Living Situation Comment: 3 kids current occupational status: employed 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 Feels Safe at Home: Yes Childhood Exposure to Second-Hand Smoke: No Assistive Devices: Glasses Allergies Allergies Allergy/AdvReac Type Severity Reaction Status Date / Time COVID-19 (SARS-CoV-2) Allergy Severe Anaphylaxis Unverified 03/23/23 17:18 vaccine, sergey nitrofurantoin Allergy Severe Swelling Verified 03/23/23 17:18 [From Macrobid] of Lip/Tongue/Throat tetracycline Allergy Intermediate Rash Verified 03/23/23 17:18 Quinolones Allergy Unknown Unknown Verified 03/23/23 17:18 Sulfa (Sulfonamide Allergy Unknown Rash Verified 03/23/23 17:18 Antibiotics) Home Meds Home Medications Medication Instructions Recorded Confirmed multivitamin 1 tab PO QAM 08/03/18 03/23/23 acetaminophen 500 mg tablet 1,000 mg PO Q6H PRN Pain/fever 09/14/18 03/23/23 (Tylenol Extra Strength) atorvastatin 20 mg tablet 20 mg PO QAM 09/14/18 03/23/23 aspirin 81 mg tablet,delayed 81 mg PO QAM 10/11/18 03/23/23 release potassium citrate 99 mg capsule 198 mg PO DAILY 03/23/23 03/23/23 sertraline 25 mg tablet 25 mg PO QAM 03/23/23 03/23/23 Previous Rx's Medication Instructions Recorded nitroglycerin 0.4 mg sublingual 0.4 mg sublingual Q5M PRN chest 09/05/18 tablet pain #25 tabs epinephrine 0.3 mg/0.3 mL 0.3 mg (0.3 mL) IM .Q5Min PRN 12/31/21 injection, auto-injector (EpiPen) anaphylaxis #2 ea Results & Data (ED) Vital Signs Vital Signs - 24 hr 03/23/23 12:49 03/23/23 15:37 03/23/23 15:38 Temperature 36.6 C Temperature Source Temporal Artery Scan Pulse Rate 99 H 87 Pulse Rate [Apical] Respiratory Rate 16 Respiratory Effort / Characteristics Respiratory Depth Blood Pressure 144/93 H Blood Pressure [Right Arm] Blood Pressure Mean 110 Blood Pressure Mean [Right Arm] Pulse Oximetry 99 98 Oxygen Delivery Method Room Air Room Air Sepsis Recent Fever Within 48 Hours No Sepsis New/Unexplained Change in Mental Status No Sepsis Action Taken by Nursing No Action Required 03/23/23 15:38 03/23/23 15:38 03/23/23 18:14 Temperature Temperature Source Pulse Rate Pulse Rate [Apical] 86 96 H Respiratory Rate 20 20 Respiratory Effort / Characteristics Non-Labored Non-Labored Respiratory Depth Normal Normal Blood Pressure Blood Pressure [Right Arm] 142/85 H 174/108 H Blood Pressure Mean Blood Pressure Mean [Right Arm] 104 130 Pulse Oximetry 98 99 98 Oxygen Delivery Method Room Air Room Air Room Air Sepsis Recent Fever Within 48 Hours Sepsis New/Unexplained Change in Mental Status Sepsis Action Taken by Nursing 03/23/23 19:30 Temperature Temperature Source Pulse Rate 102 H Pulse Rate [Apical] Respiratory Rate 20 Respiratory Effort / Characteristics Respiratory Depth Blood Pressure 133/97 Blood Pressure [Right Arm] Blood Pressure Mean 109 Blood Pressure Mean [Right Arm] Pulse Oximetry 97 Oxygen Delivery Method Sepsis Recent Fever Within 48 Hours Sepsis New/Unexplained Change in Mental Status Sepsis Action Taken by Nursing Laboratory Data 03/23/23 13:14 03/23/23 13:14 Lab Results 03/23/23 03/23/23 Range/Units 13:14 16:00 WBC 7.00 (4.8-10.8) K/ul RBC 4.37 (4.20-5.40) M/uL Hgb 14.8 (12.0-16.0) g/dl Hct 42.0 (37.0-47.0) % MCV 96.1 (80.0-100.0) fL MCH 33.9 (25.0-34.0) pg MCHC 35.2 (32.0-36.0) g/dL RDW Std Deviation 42.2 (36.4-46.3) fL RDW Coeff of Wade 11.9 (11.5-14.5) % Plt Count 204 (130-400) K/uL MPV 9.2 L (9.4-12.4) fL Immature Gran % (Auto) 0.3 % Neut % (Auto) 66.3 % Lymph % (Auto) 25.9 % Lanier % (Auto) 5.1 % Eos % (Auto) 2.1 % Baso % (Auto) 0.3 % Neut # (Auto) 4.64 (1.40-6.50) K/uL Lymph # (Auto) 1.81 (1.20-3.40) K/uL Lanier # (Auto) 0.36 (0.11-0.59) K/uL Eos # (Auto) 0.15 (0.00-0.50) K/uL Baso # (Auto) 0.02 (0.00-0.20) K/uL Immature Gran # (Auto) 0.02 (0.01-0.20) K/uL PT 10.5 (9.0-12.0) Seconds INR 1.0 (0.9-1.1) APTT 25.9 (21.0-31.0) Seconds PTT Ratio 0.9 D-Dimer 800 H* (0-500) ug/L FEU Sodium 139 (136-145) mmol/L Potassium 3.6 (3.5-5.1) mmol/L Chloride 103 (98-107) mmol/L Carbon Dioxide 28 (21-32) mmol/L Anion Gap 8 (3-11) BUN 8 (6-23) mg/dl Creatinine 0.65 (0.6-1.2) mg/dl Est Cr Clr Drug Dosing 94.1 ml/min Est GFR ( Amer) 120.0 ml/min Est GFR (Non-Af Amer) 103.5 ml/min BUN/Creatinine Ratio 12.3 (10-20) Glucose 97 (70-99(Fasting)) mg/dl Calcium 10.3 (8.6-10.3) mg/dl Magnesium 2.2 (1.7-2.4) mg/dl Total Bilirubin 0.5 (0.2-1.0) mg/dl AST 22 (13-39) U/L ALT 17 (7-52) U/L Alkaline Phosphatase 78 (34-104) U/L Troponin I High Sens < 2.3 < 2.3 (0-14) pg/ml Total Protein 8.2 (6.0-8.3) gm/dl Albumin 4.9 (3.4-5.0) gm/dl Globulin 3.3 (2.5-4.0) gm/dl Albumin/Globulin Ratio 1.5 (0.9-2) Vitamin B12 284 (180-914) pg/ml 25-OH Vitamin D Total 48.1 (30-100) ng/ml TSH 2.471 (0.300-4.500) uIu/ml Urine Color Yellow Urine Appearance Clear (Clear) Urine pH 8.5 H (4.5-7.5) Ur Specific Elgin 1.006 (1.000-1.030) Urine Protein Negative (Negative) Urine Glucose (UA) Negative (Negative) Urine Ketones Negative (Negative) Urine Blood Negative (Negative) Urine Nitrite Negative (Negative) Urine Bilirubin Negative (Negative) Urine Urobilinogen Negative (Negative) Ur Leukocyte Esterase Negative (Negative) Administered Medications Discontinued Medications Aspirin (Aspirin Chew 324 Mg) 324 mg PO NOW STA Stop: 03/23/23 16:15 Last Admin: 03/23/23 16:31 Dose: 324 mg Documented By: CAMRON Sodium Chloride (Nss) 1,000 mls @ 999 mls/hr IV .Q1H1M ONE Stop: 03/23/23 17:14 Last Infusion: 03/23/23 17:19 Dose: Infused Documented By: Admin: 03/23/23 16:31 Dose: 999 mls/hr Documented By: CAMRON Ioversol (Optiray 320 500ml) 114 ml IV ONCE ONE Stop: 03/23/23 17:44 Last Admin: 03/23/23 17:44 Dose: 114 ml Documented By: ELIZABETH Imaging Data Radiologist's Impression: Chest X-Ray 03/23/23 12:54 XR chest 1V not portable HISTORY: 52 years-old Female Chest pain, nonspecific COMPARISON: 01/26/2021 TECHNIQUE: AP view of the chest FINDINGS: Cardiomediastinal and hilar silhouettes are within normal limits. No pneumothorax, pleural effusion or airspace consolidation. Bones appear grossly intact. Coronary arterial stent. IMPRESSION: No acute process. ACT 112: Negative or not required by law. The above report was generated using voice recognition software. It may contain grammatical, syntax or spelling errors. Electronically signed by: Dar Minaya M.D. 03/23/2023 2:10 PM Chest CTA 03/23/23 17:17 CT angio chest PE protocol CLINICAL HISTORY: PE TECHNIQUE: Multidetector row helical CT of the chest was performed with angiographic protocol. Coronal and sagittal reformations were obtained. Coronal and sagittal MIPS were obtained from the axial data set and were submitted for review. Automated dose lowering techniques and/or adjustment according to patient size were utilized for this exam. CT DOSE: 380.94 mGy.cm Comparison: Comparison is made to chest radiograph 03/23/2023 FINDINGS: Lungs and pleura: Biapical scarring is seen. Heart and pericardium: Heart size is normal. No pericardial effusion. Vessels: No evidence of pulmonary embolism. Mediastinum and kandis: Unremarkable. Chest wall and lower neck: Unremarkable. Abdomen: Unremarkable. Bones: Unremarkable. IMPRESSION: No acute abnormality and in particular no evidence of pulmonary embolus. ACT 112: Negative or not required by law. Electronically signed by: Tommy Schilling M.D. 03/23/2023 6:01 PM Discharge Plan Visit Data Chief Complaint: Shortness of Breath/Dyspnea Stated Complaint: DIZZY, SOB, TACHYCARDIA, FLUXUATING, LUMP THROAT ED Provider: Gallo Joe ED Midlevel Provider: Magda Vega Discharge Problem: Palpitations, Shortness of breath Patient Disposition: Admitted As Inpatient Condition: Good
--- NOTE | 2023-03-23 15:50 | Electrocardiogram Report ---
Test Reason : Blood Pressure : / mmHG Vent. Rate : 102 BPM Atrial Rate : 102 BPM P-R Int : 122 ms QRS Dur : 078 ms QT Int : 340 ms P-R-T Axes : 068 082 031 degrees QTc Int : 443 ms Sinus tachycardia Diffuse Minor Nonspecific T wave abnormality Abnormal ECG When compared with ECG of 31-DEC-2021 13:24, No significant change Confirmed by Hung Landin ([id number]) on 03/23/2023 3:50:05 PM Referred By: Confirmed By:Hung Landin
[2023-03-23] MEDS ORDERED: ASPIRIN CHEW 324 MG PO STA (16:14)
[2023-03-23] MEDS ORDERED: SODIUM CHLORIDE 0.9% 1,000 ML IV ONE (16:14)
[2023-03-23 16:44] LABS: Appearance Urine Clear (Clear); Bilirubin Urine Negative (Negative); Blood Urine Negative (Negative); Color Urine Yellow; Glucose Urine UA Negative (Negative); Ketones Urine Negative (Negative); Leukocyte Esterase Urine Negative (Negative); Nitrite Urine Negative (Negative); Protein Urine Negative (Negative); Specific Gravity Urine 1.006 (1.000-1.030); Urobilinogen Urine Negative (Negative); pH Urine 8.5 (4.5-7.5)
[2023-03-23 17:10] LABS: Magnesium 2.2 mg/dl (1.7-2.4)
[2023-03-23 17:17] LABS: D Dimer 800 ug/L FEU (0-500)
[2023-03-23 17:18] LABS: Troponin I High Sensitivity < 2.3 pg/ml (0-14)
[2023-03-23 17:27] LABS: Thyroid Stimulating Hormone 2.471 uIu/ml (0.300-4.500)
[2023-03-23] MEDS ORDERED: OPTIRAY 320 500ml IV ONE (17:43)
--- NOTE | 2023-03-23 18:03 | CT Scan Report ---
CT angio chest PE protocol CLINICAL HISTORY: PE TECHNIQUE: Multidetector row helical CT of the chest was performed with angiographic protocol. Hartman l and sagittal reformations were obtained. Coronal and sagittal MIPS were obtained from the axial marita a set and were submitted for review. Automated dose lowering techniques and/or adjustment according to patient size were utilized for this exam. CT DOSE: 380.94 mGy.cm Comparison: Comparison is made to chest radiograph 03/23/2023 FINDINGS: Lungs and pleura: Biapical scarring is seen. Heart and pericardium: Heart size is normal. No pericardial effusion. Vessels: No evidence of pulmonary embolism. Mediastinum and kandis: Unremarkable. Chest wall and lower neck: Unremarkable. Abdomen: Unremarkable. Bones: Unremarkable. IMPRESSION: No acute abnormality and in particular no evidence of pulmonary embolus. ACT 112: Negative or not required by law. Electronically signed by: Tommy Schilling M.D. 03/23/2023 6:01 PM
--- NOTE | 2023-03-23 19:14 | History & Physical Report ---
Date of Service March 23, 2023 Assessment & Plan (1) Palpitations: Plan: Patient is 52-year-old female with PMH CAD/[place] s/p stent LAD 2019, Hodgkin lymphoma 2002 s/p chemo, radiation, anxiety, dyslipidemia presented to ER with c/o episode palpitations with SOB, flushing, left arm tingling Unfortunately had episode of palpitations while in ER waiting room and not on monitor yet Initial EKG sinus tachycardia, rate 102, t wave flattening anterior leads, and r epeat EKG sinus rhythm, rate 79, no further t wave flattening noted per my interpretation. HS troponin negative x2 D-dimer: 800. TSH WNL. No significant electrolyte abnormality CTA chest: no evidence of pulmonary embolus Initial BP elevated, has trended down during ER course Monitor on telemetry for arrhythmias Echo History Echo 09/16/22: EF: 55-59%, grade I diastolic dysfunction, trace MR Trend troponin EKG as needed and in a.m. Cardiology consult CBC, BMP in a.m. (2) CAD (coronary artery disease): Plan: S/P AIDE to LAD in 2019 Continue aspirin, atorvastatin Work-up as above (3) Elevated d-dimer: Plan: D-Dimer: 800 CTA chest: negative PE Venous doppler BLE pending (4) Hodgkin lymphoma: Plan: S/P chemo, radiation 2002 (5) Anxiety: Plan: Continue sertraline DVT Prophylaxis Heparin SQ Full Code as per discussion with pt Follows with Dr Steinberg for routine care Pt was seen and care coordinated with Dr Belle. See addendum History of Present Illness Chief Complaint: heart racing Primary Care Provider: Nicolle Steinberg DO Patient is 52-year-old female with PMH CAD/WA s/p stent LAD 2019, Hodgkin lymphoma 2002 s/p chemo, radiation, anxiety, dyslipidemia presented to ER with c/o heart racing. History obtained from patient, inpatient and outpatient chart review. States today was sitting when had sudden onset of heart racing, SOB, felt flushed and felt like had lump in her throat. This was followed by tingling on left arm and tingling entire face. She reports she has never had palpitations before. States doesn't feel like was anxiety attack. States symptoms resolved without intervention. While in ER waiting room states had another episode that lasted several minutes and resolved. Denies chest pain. Patient states that she is under constant stress with her job but feels this is baseline and handles well. History [place] 2019 and at that time had sudden onset of SOB, left arm pressure. States this feels different. Denies fever/chills, diaphoresis, N/V/D/C, [place], dizziness, syncope, vision changes, neck pain, cough, sore throat, choking, rhinorrhea, abdominal pain, extremity weakness, extremity edema, rash es, urinary symptoms. Allergies Allergy/AdvReac Type Severity Reaction Status Date / Time COVID-19 (SARS-CoV-2) Allergy Severe Anaphylaxis Unverified 03/23/23 17:18 vaccine, sergey nitrofurantoin Allergy Severe Swelling Verified 03/23/23 17:18 [From Macrobid] of Lip/Tongue/Throat tetracycline Allergy Intermediate Rash Verified 03/23/23 17:18 Quinolones Allergy Unknown Unknown Verified 03/23/23 17:18 Sulfa (Sulfonamide Allergy Unknown Rash Verified 03/23/23 17:18 Antibiotics) Home Medications Medication Instructions Recorded Confirmed Type multivitamin 1 tab PO QAM 08/03/18 03/23/23 History nitroglycerin 0.4 mg sublingual 0.4 mg sublingual Q5M PRN chest 09/05/18 03/23/23 Rx tablet pain #25 tabs acetaminophen 500 mg tablet 1,000 mg PO Q6H PRN Pain/fever 09/14/18 03/23/23 History (Tylenol Extra Strength) atorvastatin 20 mg tablet 20 mg PO QAM 09/14/18 03/23/23 History aspirin 81 mg tablet,delayed 81 mg PO QAM 10/11/18 03/23/23 History release epinephrine 0.3 mg/0.3 mL 0.3 mg (0.3 mL) IM .Q5Min PRN 12/31/21 03/23/23 Rx injection, auto-injector (EpiPen) anaphylaxis #2 ea potassium citrate 99 mg capsule 198 mg PO DAILY 03/23/23 03/23/23 History sertraline 25 mg tablet 25 mg PO QAM 03/23/23 03/23/23 History Past Med/Surg History Medical History (Updated 03/23/23 @ 20:47 by Viky Singh PA-C) Anxiety CAD (coronary artery disease) Hypothyroidism Reactive airway disease Diverticulitis Sinusitis nasal Heart attack HELLP syndrome H O severe pre- eclampsia antepartum Hodgkin lymphoma radiation therapy 2002 Surgical History S/P wisdom tooth extraction History of intravascular stent placement 09-04-2018 H/O section times 3 S/P partial hysterectomy surgery 2008, supracervical in immediate pp period from uterine atony. Family History Mother Mitral valve replaced Coronary heart disease Father Diverticulitis Other Asthma Denies family history of Ovarian cancer Breast cancer Colorectal cancer Social History Smoking Status: Current some day smoker Second Hand Exposure: Yes; Do You Dip or Chew Tobacco: No; Hx Alcohol Use: Yes Alcohol type: wine Hx Substance Use: No Preferred Language: Persian Communication Ability: Effective Hearing Ability: Normal [employer] Supervisor Required: No Beliefs That Will Affect Care: None marital status: Current Living Situation: Other Current Living Situation Comment: 3 kids current occupational status: employed 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 [employer] Feels Safe at Home: Yes Childhood Exposure to Second-Hand Smoke: No Assistive Devices: Glasses Review of Systems Review of Systems: All systems reviewed & are unremarkable except as noted in HPI & below Physical Exam Physical Exam: General: no distress, WDWN Head: normocephalic, atraumatic Eyes: conjunctiva non-injected, anicteric ENT: normal inspection external ears, nose, mucous membranes moist Neck: supple, trachea midline Lungs: clear, no respiratory distress, no wheezing/rhonchi/rales CV: RRR, no pretibial edema Abd: normal BS, soft, non-tender Ext: no cyanosis, no calf tenderness Neuro: A&O x 3, no focal deficits noted, normal affect Skin: warm, dry Results & Data Results & Data Vital Signs (Past 12 Hours) Vital Signs Temp Pulse Pulse Resp BP BP Pulse Ox 03/23/23 18:14 96 H 20 174/108 H 98 03/23/23 15:38 99 03/23/23 15:38 86 20 142/85 H 98 03/23/23 15:38 98 03/23/23 15:37 87 03/23/23 12:49 36.6 C 99 H 16 144/93 H 99 O2 Del Method 03/23/23 18:14 Room Air 03/23/23 15:38 Room Air 03/23/23 15:38 Room Air 03/23/23 15:38 Room Air 03/23/23 15:37 03/23/23 12:49 Room Air Laboratory Results Short CBC 03/23/23 Range/Units 13:14 WBC 7.00 (4.8-10.8) K/ul Hgb 14.8 (12.0-16.0) g/dl Hct 42.0 (37.0-47.0) % Plt Count 204 (130-400) K/uL BMP 03/23/23 13:14 Sodium 139 Potassium 3.6 Chloride 103 Carbon Dioxide 28 BUN 8 Creatinine 0.65 Glucose 97 Calcium 10.3 Liver Function 03/23/23 Range/Units 13:14 Total Bilirubin 0.5 (0.2-1.0) mg/dl AST 22 (13-39) U/L ALT 17 (7-52) U/L Alkaline Phosphatase 78 (34-104) U/L Albumin 4.9 (3.4-5.0) gm/dl Urine 03/23/23 Range/Units 13:14 Urine Color Yellow Urine Appearance Clear (Clear) Urine pH 8.5 H (4.5-7.5) Ur Specific [place] 1.006 (1.000-1.030) Urine Protein Negative (Negative) Urine Glucose (UA) Negative (Negative) Diagnostic Findings Chest X-Ray 03/23/23 12:54 XR chest 1V not portable HISTORY: 52 years-old Female Chest pain, nonspecific COMPARISON: 01/26/2021 TECHNIQUE: AP view of the chest FINDINGS: Cardiomediastinal and hilar silhouettes are within normal limits. No pneumothorax, pleural effusion or airspace consolidation. Bones appear grossly intact. Coronary arterial stent. IMPRESSION: No acute process. ACT 112: Negative or not required by law. The above report was generated using voice recognition software. It may contain grammatical, syntax or spelling errors. Electronically signed by: Dar Minaya M.D. 03/23/2023 2:10 PM Chest CTA 03/23/23 17:17 CT angio chest PE protocol CLINICAL HISTORY: PE TECHNIQUE: Multidetector row helical CT of the chest was performed with angiographic protocol. Coronal and sagittal reformations were obtained. Coronal and sagittal MIPS were obtained from the axial data set and were submitted for review. Automated dose lowering techniques and/or adjustment according to patient size were utilized for this exam. CT DOSE: 380.94 mGy.cm Comparison: Comparison is made to chest radiograph 03/23/2023 FINDINGS: Lungs and pleura: Biapical scarring is seen. Heart and pericardium: Heart size is normal. No pericardial effusion. Vessels: No evidence of pulmonary embolism. Mediastinum and kandis: Unremarkable. Chest wall and lower neck: Unremarkable. Abdomen: Unremarkable. Bones: Unremarkable. IMPRESSION: No acute abnormality and in particular no evidence of pulmonary embolus. ACT 112: Negative or not required by law. Electronically signed by: Tommy Schilling M.D. 03/23/2023 6:01 PM Supervising Physician Co-Signing Physician Notes I have seen and discussed the case with the collaborating LES. I agree with the above H&P. I have reviewed and confirmed the patients medical history, the findings on physical examination, and the patients diagnosis and treatment plan with Rakan SALDANA and agree with the information documented. In short, Ms. Estrella is a 52 year old womanb with history of STEMI s/p AIDE to pLAD in 2019, and Hodgkins Lymphoma s/p ABVD, radiation in 2003 who presented to ED with palpitations. Patient notes she has never experienced the racing heart sensation like she did today--this involved a palpable racing pulse and left arm tingling. Her STEMI in 2019 was characterized by left arm pressure, thus prompting her to present to ED today. She denies chets pain, orthopnea or BACON, as well as edema. Labs with negative trop. thyroid WNL EKG NSR. Occasional sinus tachy, but no a fib/arrhythmia while on monitor in ED. PE was notable for questionable gallop, RRR. Lungs CTABL. No edema, no focal deficits appreciated. A/P #Palpitations #Obstructive CAD s/p pLAD AIDE 2019 #Prior STEMI #History of Hodgkin Lymphoma s/p ABVD and radiation to chest -Patient has multiple risk factors not only for ASCVD, but arrhythmia -Plan to repeat trop x 3 r/o ACS given history of atypical presentation -Monitor on Tele -Cardiology consult, NPO at midnight in case event on tele/stress considerations Rest of plan as above (4) Hodgkin lymphoma Hodgkin lymphoma type: nodular sclerosis
[2023-03-24] MEDS ORDERED: ONDANSETRON INJ 2 MG/ML 2 ML VIAL IV PRN (06:11)
[2023-03-24] MEDS ORDERED: ACETAMINOPHEN 325 MG TAB PO PRN (06:11)
[2023-03-24] MEDS ORDERED: POLYETHYLENE (MIRALAX) 17 GM PACK PO PRN (06:11)
--- NOTE | 2023-03-24 06:23 | Ultrasound Report ---
BILATERAL LOWER EXTREMITY VENOUS DOPPLER CLINICAL HISTORY: r/o dvt, elevated dimer COMPARISON STUDY: No previous studies for comparison. TECHNIQUE: Sonography of the deep venous system of the bilateral lower extremities was performed. Co mpression and augmentation were evaluated. FINDINGS: The bilateral common femoral, superficial femoral and popliteal veins were compressible. A ugmentation was normal. Flow was shown within the deep calf vessels. IMPRESSION: No evidence of deep venous thrombus within the bilateral lower extremities. ACT 112: Negative or not required by law. Electronically signed by: Myron Fang M.D. 03/24/2023 6:20 AM
--- NOTE | 2023-03-24 08:44 | Electrocardiogram Report ---
Test Reason : Blood Pressure : / mmHG Vent. Rate : 079 BPM Atrial Rate : 079 BPM P-R Int : 122 ms QRS Dur : 080 ms QT Int : 374 ms P-R-T Axes : 070 083 046 degrees QTc Int : 428 ms Normal sinus rhythm Normal ECG When compared with ECG of 23-MAR-2023 12:59, Nonspecific T wave abnormality no longer evident in Lateral leads Confirmed by Hung Landin ([id number]) on 03/24/2023 8:43:43 AM Referred By: Nicolle Steinberg Confirmed By:Hung Landin
[2023-03-24] MEDS ORDERED: HEPARIN SOD 5,000 UNIT/0.5 ML VIAL SQ SCH (09:00)
[2023-03-24] MEDS ORDERED: SERTRALINE HCL 50 MG TABLET PO SCH (09:00)
[2023-03-24] MEDS ORDERED: ATORVASTATIN 20 MG TAB PO SCH (09:00)
[2023-03-24] MEDS ORDERED: ASPIRIN 81 MG ECTAB PO SCH (09:00)
--- NOTE | 2023-03-24 10:47 | Cardiology Consultation ---
Date of Consultation March 24, 2023 Assessment & Plan (1) Palpitations: (2) Shortness of breath: (3) Elevated d-dimer: (4) CAD (coronary artery disease): Supervising Physician Co-Signing Physician Notes Attending Staff: Pt seen and evaluated with [facility] staff Concur with observations and plans 52 yo woman presenting with sudden-onset palpitations, lump in throat + tingling face + left arm * Hx of Hodgkin's Lymphoma * S/P Chemo + Radiation * + CAD * Presented 08/2018 - NSTEMI * Severe LAD stenosis - PCI with AIDE + POBA of D1 * LVEF 55-60% * RV - nl function, no significant valvular pathology. No pericardial effusion or thickening described * CXR: No CHF, no cardiomegaly * CTA reviewed - no dense pericardial calcifications, LAD Stent noted, No PE noted. No pleural effusions or infiltrates * Troponin - negative x 3 * EKG: No active ischemia - nonspecific TWI in V3 * LDL - 45 Lipitor 20 mg po per day ASCVD Risks: * S/P Radiation * Hyperlipidemia - treated * (Known CAD) Plan: * Pt does not appear to have an ACS * Troponin neg x 3 * No active ischemic changes on EKG * Given known CAD - plans for outpt nuclear stress test * If stress test is negative, Rx regular exercise regimen * Presentation may be consistent with Afib * Consider outpt Zio or LINQ * TSH 2.4 * Continue ASA 81 mg po per day * Continue Lipitor 20 mg po per day - LDL 45 * Beta blockers reduced pt's energy in the past. * May consider beta blockers if arrhythmias captured on Zio * Plans to follow up with [facility] * Please call back with any additional questions Leon Bates History of Present Illness Reason for Consultation: Palpitations, h/o cad Requesting Physician: Samantha Attending Physician: Dr. Gifford History of Present Illness History of Hodgkin's lymphoma with chemotherapy and radiation in her early 20s. Presentation in August 2018 with NSTEMI, diagnostic cardiac catheterization on September 04, 2018 with severe single-vessel coronary artery disease, 95% plus proximal LAD stenosis involving the bifurcation of the first diagonal branch status post successful PCI with a single drug-eluting stent across the takeoff of the first diagonal and plain old balloon angioplasty to the ostium of the first diagonal with a 2.5 balloon. Presented to the ER with palpitations with associated shortness of breath flushing, left arm tingling - BP as high as 174/108 in the ER - Initial EKG Sinus tachycardia at 102 bpm with diffuse minor nonspecific T wave abnormality - Second EKG: NSR at 79 bpm. - EKG this AM: NSR at 80 bpm. - Troponin: <2.3 x 3. - CXR no acute process - Elevated D-dimer - Chest CTA: No acute abnormality and in particular no evidence of pulmonary embolus. - Venous duplex: No evidence of deep venous thrombus within the bilateral lower extremities. - Telemetry: Sinus in the 's Past Medical and Surgical History: History of Hodgkin's lymphoma status post chemotherapy and radiation ASCVD. Status post August 2018 NSTEMI, PCI of the LAD Hypertension, history of severe antepartum preeclampsia Methyltetrahydrofolate reductase mutation Dyslipidemia Diverticulitis Anxiety x2 Partial hysterectomy Family History: Positive for CAD in mother Social History: Current some day smoker. [employer] Allergies Allergy/AdvReac Type Severity Reaction Status Date / Time COVID-19 (SARS-CoV-2) Allergy Severe Anaphylaxis Unverified 03/23/23 17:18 vaccine, sergey nitrofurantoin Allergy Severe Swelling Verified 03/23/23 17:18 [From Macrobid] of Lip/Tongue/Throat tetracycline Allergy Intermediate Rash Verified 03/23/23 17:18 Quinolones Allergy Unknown Unknown Verified 03/23/23 17:18 Sulfa (Sulfonamide Allergy Unknown Rash Verified 03/23/23 17:18 Antibiotics) Home Medications Medication Instructions Recorded Confirmed Type multivitamin 1 tab PO QAM 08/03/18 03/23/23 History nitroglycerin 0.4 mg sublingual 0.4 mg sublingual Q5M PRN chest 09/05/1803/09 Rx tablet pain #25 tabs acetaminophen 500 mg tablet 1,000 mg PO Q6H PRN Pain/fever 09/14/18 03/23/23 History (Tylenol Extra Strength) atorvastatin 20 mg tablet 20 mg PO QAM 09/14/18 03/23/23 History aspirin 81 mg tablet,delayed 81 mg PO QAM 10/11/18 03/23/23 History release epinephrine 0.3 mg/0.3 mL 0.3 mg (0.3 mL) IM .Q5Min PRN 12/31/21 03/23/23 Rx injection, auto-injector (EpiPen) anaphylaxis #2 ea potassium citrate 99 mg capsule 198 mg PO DAILY 03/23/23 03/23/23 History sertraline 25 mg tablet 25 mg PO QAM 03/23/23 03/23/23 History Patient History Medical History Anxiety CAD (coronary artery disease) Hypothyroidism Reactive airway disease Diverticulitis Sinusitis nasal Heart attack HELLP syndrome H O severe pre- eclampsia antepartum Hodgkin lymphoma radiation therapy 2002 Surgical History S/P wisdom tooth extraction History of intravascular stent placement 09-04-2018 H/O section times 3 S/P partial hysterectomy surgery 2008, supracervical in immediate pp period from uterine atony. Family History Mother Mitral valve replaced Coronary heart disease Father Diverticulitis Other Asthma Denies family history of Ovarian cancer Breast cancer Colorectal cancer Social History Smoking Status: Light tobacco smoker Second Hand Exposure: Yes; Do You Dip or Chew Tobacco: No; Hx Alcohol Use: Yes Alcohol type: wine Hx Substance Use: No Preferred Language: Guamanian Communication Ability: Effective Hearing Ability: Normal Airline Pilot Required: No Beliefs That Will Affect Care: None marital status: Current Living Situation: Family Current Living Situation Comment: 3 kids current occupational status: employed current occupation: [employer] Feels Safe at Home: Yes Childhood Exposure to Second-Hand Smoke: No Assistive Devices: Glasses Review of Systems Review of Systems: Complete Review of Systems is as stated above, negative, or noncontributory Physical Exam Physical Exam: Thin woman NAD No elevation in JVP S1S2 no pericardial knock CTAB No c/c/e Warm and perfusing Results & Data Vital Signs (Past 12 Hours) Vital Signs Temp Pulse Pulse Resp BP Pulse Ox O2 Del Method 03/24/23 08:00 36.8 C 85 20 142/76 H 98 Room Air 03/24/23 07:14 77 03/24/23 06:00 77 15 115/71 97 Room Air 03/24/23 04:10 66 15 107/67 98 Room Air 03/24/23 01:00 70 18 106/68 97 03/24/23 00:57 71 16 Room Air 03/24/23 00:14 77 03/23/23 23:00 85 19 120/76 97 Laboratory Results Cardiac Enzymes 03/23/23 03/23/23 03/24/23 Range/Units 13:14 16:00 07:01 AST 22 (13-39) U/L Troponin I High Sens < 2.3 < 2.3 < 2.3 (0-14) pg/ml Coagulation 03/23/23 Range/Units 13:14 PT 10.5 (9.0-12.0) Seconds APTT 25.9 (21.0-31.0) Seconds CBC 03/23/23 Range/Units 13:14 WBC 7.00 (4.8-10.8) K/ul RBC 4.37 (4.20-5.40) M/uL Hgb 14.8 (12.0-16.0) g/dl Hct 42.0 (37.0-47.0) % Plt Count 204 (130-400) K/uL Neut # (Auto) 4.64 (1.40-6.50) K/uL Lymph # (Auto) 1.81 (1.20-3.40) K/uL [place] # (Auto) 0.36 (0.11-0.59) K/uL Eos # (Auto) 0.15 (0.00-0.50) K/uL Baso # (Auto) 0.02 (0.00-0.20) K/uL Comprehensive Metabolic Panel 03/23/23 Range/Units 13:14 Sodium 139 (136-145) mmol/L Potassium 3.6 (3.5-5.1) mmol/L Chloride 103 (98-107) mmol/L Carbon Dioxide 28 (21-32) mmol/L BUN 8 (6-23) mg/dl Creatinine 0.65 (0.6-1.2) mg/dl Glucose 97 (70-99(Fasting)) mg/dl Calcium 10.3 (8.6-10.3) mg/dl AST 22 (13-39) U/L ALT 17 (7-52) U/L Alkaline Phosphatase 78 (34-104) U/L Total Protein 8.2 (6.0-8.3) gm/dl Albumin 4.9 (3.4-5.0) gm/dl Intake and Output 03/23/23 03/24/23 03/24/23 22:59 06:59 14:59 Intake Total 1000 / 1000 Balance 1000 / 1000 Intake: IV 1000 / 1000 Sodium Chloride 0.9% 1,000 ml @ 1000 / 1000 999 mls/hr IV .Q1H1M ONE Rx#: [id number] Other: Weight 65.3 kg Weight Measurement Method Built in [facility] Diagnostic Findings September 04, 2018 coronary angiography LM - angiographically normal LAD - Focal 95+% proximal stenosis involving bifurcation with moderate caliber first diagonal. Distal LAD without significant disease but HERMILA II flow Circumflex - Angiographically normal gives off large bifurcating OM without significant disease RCA -dominant, angiographically normal September 16, 2022 TTE Interpretation Summary (as per Dr. Frey): The qualitative LV ejection fraction is 55-59% (normal). The right ventricular systolic function is qualitatively normal. The right ventricular cavity size is qualitatively normal. Image resolution does not allow dimension measurements. The left ventricular diastolic function is mildly abnormal (grade I). Trace mitral regurgitation is present. Significant tricuspid regurgitation is absent. No pericardial effusion is noted. (4) CAD (coronary artery disease) Associated angina: unspecified whether angina present Coronary Disease- Associated Artery/Lesion type: [place] artery [place] vs. transplanted heart: [place] heart Qualified Code(s): I25.10 - Atherosclerotic heart disease of [place] coronary artery without angina pectoris
--- NOTE | 2023-03-24 13:39 | Discharge Summary ---
Discharge Summary Date of Service March 24, 2023 Notes For Next Care Provider Cardiology recommended the following after discharge: -ZIO patch or LINQ -exercise nuclear stress testing Medication Changes From Visit None Admission HPI Per Admitting Provider Patient is 52-year-old female with PMH CAD/NC s/p stent LAD 2019, Hodgkin lymphoma 2002 s/p chemo, radiation, anxiety, dyslipidemia presented to ER with c/o heart racing. History obtained from patient, inpatient and outpatient chart review. States today was sitting when had sudden onset of heart racing, SOB, felt flushed and felt like had lump in her throat. This was followed by tingling on left arm and tingling entire face. She reports she has never had palpitations before. States doesn't feel like was anxiety attack. States symptoms resolved without intervention. While in ER waiting room states had another episode that lasted several minutes and resolved. Denies chest pain. Patient states that she is under constant stress with her job but feels this is baseline and handles well. History NC 2019 and at that time had sudden onset of SOB, left arm pressur e. States this feels different. Denies fever/chills, diaphoresis, N/V/D/C, VERGARA, dizziness, syncope, vision changes, neck pain, cough, sore throat, choking, rhinorrhea, abdominal pain, extremity weakness, extremity edema, rashes, urinary symptoms. Admission Exam Per Admitting Provider General: no distress, WDWN Head: normocephalic, atraumatic Eyes: conjunctiva non-injected, anicteric ENT: normal inspection external ears, nose, mucous membranes moist Neck: supple, trachea midline Lungs: clear, no respiratory distress, no wheezing/rhonchi/rales CV: RRR, no pretibial edema Abd: normal BS, soft, non-tender Ext: no cyanosis, no calf tenderness Neuro: A&O x 3, no focal deficits noted, normal affect Skin: warm, dry Principal Dx & Hospital Course #1 = Principal Diagnosis (1) Shortness of breath: (2) Elevated d-dimer: (3) Anxiety: (4) CAD (coronary artery disease): (5) Palpitations: Plan Patient is 52-year-old female with PMHx significant for CAD/NC s/p stent LAD 2019, Hodgkin lymphoma 2002 s/p chemo/radiation, anxiety, dyslipidemia who presented to ER with c/o episode palpitations with SOB, flushing and left arm tingling reminiscent of her prior STEMI. Palpitations ACS rule out Pt with multiple episodes of palpitations with the last episode of palpitations while in ER waiting room and not on monitor yet Initial EKG sinus tachycardia, rate 102 hs troponin negative x3 D-dimer: 800, CT chest with no PE, doppler US extremity unremarkable as well TSH WNL. No significant electrolyte abnormalities Initial BP elevated, downtrended Monitored on telemetry for arrhythmias Echo EF 55-60%, otherwise unremarkable History Echo 09/16/22: EF: 55-59%, grade I diastolic dysfunction, trace MR Cardiology consult- appreciate recs Recommended the following after discharge: -Given known CAD - outpt nuclear stress test -If stress test is negative, Rx regular exercise regimen -Presentation may be consistent with Afib, consider outpt Zio or LINQ -Continue ASA 81 mg po per day -Continue Lipitor 20 mg po per day -Beta blockers reduced pt's energy in the past. May consider beta blockers if arrhythmias captured on Zio CAD (coronary artery disease) S/P AIDE to LAD in 2019 Continue aspirin, atorvastatin Work-up as above Elevated d-dimer D-Dimer: 800 CTA chest: negative PE Venous doppler BLE unremarkable Hodgkin lymphoma S/P chemo/radiation 2002 Stable Anxiety Continue sertraline Discharge Exam General: Alert, oriented. No acute distress Skin: No noted rashes or bruises Psych: Appropriate mood and affect Neuro: No gross deficits HEENT: NC/AT Chest: Nontender to palpation. CV: RRR, Normal s1, s2. No murmurs appreciated Resp: Breath sounds clear bilaterally, no increased effort of breathing. No crackles/rhonchi/rales. Abdomen: Soft, nontender, nondistended. No guarding. No organomegaly appreciated. Extremities: No edema in lower extremities bilaterally. Updated Medication List Medication Instructions Recorded Confirmed Type multivitamin 1 tab PO QAM 08/03/18 03/23/23 History nitroglycerin 0.4 mg sublingual 0.4 mg sublingual Q5M PRN chest 09/05/18 03/23/23 Rx tablet pain #25 tabs acetaminophen 500 mg tablet 1,000 mg PO Q6H PRN Pain/fever 09/14/18 03/23/23 History (Tylenol Extra Strength) atorvastatin 20 mg tablet 20 mg PO QAM 09/14/18 03/23/23 History aspirin 81 mg tablet,delayed 81 mg PO QAM 10/11/18 03/23/23 History release epinephrine 0.3 mg/0.3 mL 0.3 mg (0.3 mL) IM .Q5Min PRN 12/31/21 03/23/23 Rx injection, auto-injector (EpiPen) anaphylaxis #2 ea potassium citrate 99 mg capsule 198 mg PO DAILY 03/23/23 03/23/23 History sertraline 25 mg tablet 25 mg PO QAM 03/23/23 03/23/23 History Hospital Stay Data Consultations 03/23/23 18:56 ED Decision to Admit Stat 03/24/23 08:00 Consult Cardiology Routine Diagnostic Imagining Performed 03/23/23 17:17 CT angio chest PE protocol Stat 03/24/23 US venous doppler LE BI Urgent Venous Doppler Study 03/24/23 00:00 BILATERAL LOWER EXTREMITY VENOUS DOPPLER CLINICAL HISTORY: r/o dvt, elevated dimer COMPARISON STUDY: No previous studies for comparison. TECHNIQUE: Sonography of the deep venous system of the bilateral lower extremities was performed. Compression and augmentation were evaluated. FINDINGS: The bilateral common femoral, superficial femoral and popliteal veins were compressible. Augmentation was normal. Flow was shown within the deep calf vessels. IMPRESSION: No evidence of deep venous thrombus within the bilateral lower extremities. ACT 112: Negative or not required by law. Electronically signed by: Myron Fang M.D. 03/24/2023 6:20 AM Pending Results Patient Have Any Pending Studies at Discharge: No Discharge Instructions Given to Patient (Per Discharging Provider) Ms. Estrella, You were admitted with concerning symptoms in your chest. We ran tests and monitored you while you were here and it does not seem that there are any concerning findings related to your heart. You were seen by cardiology and they are recommending an outpatient Zio monitor and exercise nuclear stress testing that your cable placer and primary care provider can order for you outpatient. You would like to go home. We recommend that you keep close follow up with your primary care provider and your cable placer after discharge. It was a pleasure taking care of you while you were here. Total Time Total Time Spent Total Time Spent (In Minutes): > 30 minutes
--- OUTSIDE RECORDS SUMMARY | 2023-03-25 15:04 | External Medical Summary ---
Author Name Unknown Address Unknown Organization [id number]:[facility] [place] [address] Laboratory Report Ordering Provider Test Date Status ANSHU GIBBONS 02/28/2023 13:56:43 Final Observation Date Value Abnormality Reference (Units ) Status SYNC LEUKOCYTES IN BLOOD BY AUTOMATED COUNT 02/28/2023 13:56:43 5.17 4.00-10.80 (K/uL) Final Segs 02/28/2023 13:56:43 49.4 40.0-75.0 (%) Final Lymphs % 02/28/2023 13:56:43 39.1 18.0-42.0 (%) Final Monos 02/28/2023 13:56:43 7.2 1.0-11.0 (%) Final Eosinophils 02/28/2023 13:56:43 4.1 0.0-6.0 (%) Final Basos 02/28/2023 13:56:43 0.2 0.0-2.0 (%) Final Absolute Segs 02/28/2023 13:56:43 2.56 1.80-7.70 (K/uL) Final Lymphs, absolute 02/28/2023 13:56:43 2.02 1.00-4.80 (K/ul) Final Monos, Abs 02/28/2023 13:56:43 0.37 0.00-1.10 (K/uL) Final Eos, Abs 02/28/2023 13:56:43 0.21 0.00-0.70 (K/uL) Final Basos, Abs 02/28/2023 13:56:43 0.01 0.00-0.20 (K/uL) Final Performing Location [facility] [place] [address]
--- OUTSIDE RECORDS SUMMARY | 2023-03-25 15:04 | External Medical Summary ---
Author Name Unknown Address Unknown Organization K01:[facility] [place] [address] [place] [address] Laboratory Report Ordering Provider Test Date Status ANSHU GIBBONS 02/28/2023 13:56:43 Final Observation Date Value Abnormality Reference (Units ) Status Erythrocyte sedimentation rate by Photometric method 02/28/2023 13:56:43 13 <30 (mm/hour) Final Performing Location [facility] [place] [address] [place] [address]
--- OUTSIDE RECORDS SUMMARY | 2023-03-25 15:04 | External Medical Summary ---
Author Name Unknown Address Unknown Organization K09:[facility] [place] [address] Laboratory Report Ordering Provider Test Date Status ANSHU GIBBONS 02/28/2023 13:56:43 Final Observation Date Value Abnormality Reference (Units ) Status WBC, Total 02/28/2023 13:56:43 5.17 4.00-10.8 0 (K/uL) Final RBC 02/28/2023 13:56:43 3.87 3.85-5.15 (M/uL) Final Hemoglobin 02/28/2023 13:56:43 12.9 12.0-15.3 (g/dL) Final HCT 02/28/2023 13:56:43 39.1 36.0-45.2 (%) Final MCV 02/28/2023 13:56:43 101.0 81.5-97.5 (fL) Final MCH 02/28/2023 13:56:43 33.3 27.0-34.0 (pg) Final MCHC 02/28/2023 13:56:43 33.0 32.0-36.0 (g/dL) Final RDW 02/28/2023 13:56:43 12.2 11.5-15.5 (%) Final Platelets 02/28/2023 13:56:43 218 140-400 (K /uL) Final MPV 02/28/2023 13:56:43 9.3 6.6-11.1 ( fL) Final Performing Location [facility] [place] [address]
--- OUTSIDE RECORDS SUMMARY | 2023-03-25 15:04 | External Medical Summary ---
Author Name Unknown Address Unknown Organization K09:[facility] [address] [place] [address] Laboratory Report Ordering Provider Test Date Status ANSHU GIBBONS 02/28/2023 13:56:43 Final Observation Date Value Abnormality Reference (Units ) Status BUN 02/28/2023 13:56:43 6 6-20 (mg/dL) Final Creatinine 02/28/2023 13:56:43 0.6 0.5-1.0 (mg/dL) Final Glomerular filtration rate/1.73 sq M.predicted [Volume Rate/Area] in Serum, Plasma or Blood by Creatinine-based formula (CKD-EPI) 02/28/2023 13:56:43 >90 >=60 (mL/min) Final eGFR is calculated based on the CKD-EPI 2020 equation SODIUM 02/28/2023 13:56:43 137 135-146 (m mol/L) Final Potassium 02/28/2023 13:56:43 4.0 3.5-5.1 (m mol/L) Final Cl 02/28/2023 13:56:43 100 98-107 (mm ol/L) Final CO2 02/28/2023 13:56:43 25 22-32 (mmo l/L) Final Anion gap 02/28/2023 13:56:43 12 7-15 (mmol /L) Final Glucose 02/28/2023 13:56:43 113 70-120 (mg /dL) Final Albumin 02/28/2023 13:56:43 4.7 3.8-5.0 (g /dL) Final AST (Aspartate aminotransferase) 02/28/2023 13:56:43 30 10-35 (U/L) Final Alk Phos 02/28/2023 13:56:43 87 35-130 (U/ L) Final Bilirubin, Total 02/28/2023 13:56:43 0.2 <=1 .2 (mg/dL) Final Calcium 02/28/2023 13:56:43 9.2 8.4-10.2 ( mg/dL) Final Protein 02/28/2023 13:56:43 6.9 6.0-8.3 (g /dL) Final ALT (Alanine aminotransferase) 02/28/2023 13:56:43 27 10-35 (U/L) Final Performing Location [facility] [address] [place] [address]
--- OUTSIDE RECORDS SUMMARY | 2023-03-25 15:04 | External Medical Summary | Summary of Care ---
Author Name Unknown Organization [facility] Address [address] [place] [address] Phone [phone] Care Team Providers Care List Of First Job Ideas Name Role Phone Nicolle Steinberg DO Primary Care Provider Reason for Visit * Reason Onset Date Comments Advice 12/20/2022 Encounter Details Date Type Department Care Team ([facility] st Contact Info) Description 12/20/2022 Telephone Family Practice [facility] [address] [place] [address] Nicolle Steinberg DO [address] [place] [address] Advice Allergies Active Allergy Reactions Criticality Noted Date Comments Amoxicillin Anaphylaxis High 01/01/2022 Ciprofloxacin Hives 12/20/2018 Covid-19 (Mrna) Vaccine Edema face/lips/tongue,Hiv es,Rash High 09/27/2020 Metronidazole Hives 12/20/2018 Nitrofurantoin 03/18/2020 hives Sulfa Antibiotics Rash Medium 02/21/2002 rash Tetracyclines & Related Other (Please comment) Low 02/21/2002 esophagus gets swollen, possible dysphagia documented as of this encounter (statuses as of 03/21/2023) Medications Medication Sig Dispensed Refills Start Date End Date Status EpiPen 2-Terrence 0.3 MG/0.3ML Injection Solution Auto-injector Inject 0.3 mg into a large muscle once. For a severe reaction: Inject in outer thigh following instructions on package and go to the Emergency room. 0 Active metroNIDAZOLE 0.75 % External Cream (Metrocream) APPLY TOPICALLY TO AFFECTED AREA TWICE DAILY 45 g 11 05/31/2022 Active Nitroglycerin 0.4 MG Sublingual Tablet Sublingual (Nitrostat) PLACE 1 TABLET UNDER THE TONGUE NEEDED FOR CHEST PAIN. MAY REPEAT 3 TIMES. IF CHEST PAIN CONTINUES CALL 911. 25 Tablet 11 08/23/2022 Active Sertraline HCl 25 MG Oral Tablet (Zoloft) Take 1 Tablet by mouth in the morning. 30 Tablet 5 09/24/2022 Active Atorvastatin Calcium 20 MG Oral Tablet (Lipitor)Indicatio ns:Dyslipidemia, goal LDL below 70 TAKE ONE TABLET BY MOUTH EVERY MORNING 90 Tablet 3 11/29/2022 Active documented as of this encounter (statuses as of 03/21/2023) Active Problems Problem Noted Date Diagnosed Date Atypical chest pain 09/15/2022 Coronary artery disease of n ative artery of standing rock heart with stable angina pectoris 05/30/2019 Dyslipidemia, goal LDL below 70 05/30/2019 History of acute anterior wall GA 03/16/2019 History of lymphoma 10/28/2017 Overview: NHL age 31 Hypertrophy of nasal turbinates 12/17/2009 NONALLERGIC RHINITIS 12/17/2009 ADVANCE DIRECTIVE INFORMATION 05/14/2008 Overview: No, Advance Directive brochure given to patient at prior appt. 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 01/31/[address] elevation myocardia l infarction (STEMI) involving left anterior descending (LAD) coronary artery 03/16/2019 documented as of this encounter (statuses as of 03/21/2023) Immunizations Name Administration Dates Next Due COVID-19 mRNA, LNP-s, No Pre serve, 2-Dose Series (Pfizer) 06/16/2020 DTaP Dipth/Tet/Acell Pertussis (Infanrix), Peds 09/23/2008 H1N1 2009 Influenza, IM 06/10/2009 Pneumococcal Conjugate Vacc, 13 Valent (Prevnar) 09/11/2018 Pneumococcal Conjugate Vacci ne, 20-valent ([id number]) 09/16/2022 SEASONAL INFLUENZA, PF, 6 M & Above, IM , (FLULAVAL or FLUZONE) 02/03/2022,02/03/2021,02/04/2020,2018,01/31/2018,03/02/2017 Seasonal Influenza, Split, I IV3, With Preserve, Inj 02/21/2014,02/14/2013,02/21/2012,2010,03/11/2010,02/11/2009,03/29/2007 TD, Preservative Free 09/03/2014 documented as of this encounter Social History Tobacco Use Types Packs/Day Years Used Date Smoking Tobacco: Some Days Cigarettes Smokeless Tobacco: Never Comments:3 cigarettes everyo ther weekend social smoker. Exposed to second hand smoke. Alcohol Use Standard Drinks/Week Comments Yes 0 (1 standard drink = 0.6 oz pur e alcohol) occasional wine PHQ-2 Answer Date Recorded PHQ-2 Score 0 12/20/2018 Sex and Gender Information Value Date Recorded Sex Assigned at Not on file Gender Identity Not on file Sexual Orientation Not on file Job Start Date Occupation Industry Not on file Not on file Not on file documented as of this encounter Functional Status Functional Status Response Date of Assess ment Are you deaf or do you have serious difficulty h earing? No 09/15/2022 Are you blind or do you have serious difficulty seeing, even when wearing glasses? Yes 09/15/2022 Do you have serious difficul ty walking or climbing stairs? (5 years old or older) No 09/15/2022 Do you have difficulty dress ing or bathing? (5 years old or older) No 09/15/2022 Because of a physical, menta l, or emotional condition, do you have difficulty doing errands alone such as visiting a doctor s office or shopping? (15 years old or older) No 09/16/19 23 Cognitive Status Response Date of Assessm ent Because of a physical, menta l, or emotional condition, do you have serious difficulty concentrating, remembering, or making decisions? (5 years old or older) No 09/15/2022 documented as of this encounter Miscellaneous Notes * Telephone Encounter - Yoni Powers OSA - 12/20/2022 7:03 PM EDT Patient has been notified of the message. Patient stated that her hand was getting worse and that she had to decide what to do. Caller is also aware of the appointment tomorrow. * Telephone Encounter - Nicolle Steinberg DO - 12/20/2022 6:34 PM EDT Okay to use ice and take benadryl 25-50mg q 6 hours, if that doesn't control swelling go to ER may need steroid shot. Also could be given at acute appt in office if stable/not worse- Please make an in person appointment for evaluation, exam to decide the best path forward together Ok to use an acute "same day" appt. Note: to get "first dibbs" on the appointments- they don't open up until 5pm the day prior. You cancall (phones are open until 7pm) or go online to make an acute appt after 5pm Nicolle Steinberg DO * Telephone Encounter - Jason Rocha LPN - 12/20/2022 1:39 PM EDT Provider to address: pt calling, she was stung by a bee yesterday on her right hand ring finger. She took benedry and applied ice yesterday, she didn't use her epi pen. Today her hand is very swollen red and warm. Feels like skin will "madison." Swelling is going into wrist. She last took benadryl at 7 am and is headed home to take more and apply more ice. She is concerned about her hand and would like recommendation and something to help swelling. No appts avail today. Please advise Reason for Call: Advice Contact: Telephone Call Contact Type: Medication Total Time including non face to face (minutes): 5 * Telephone Encounter - Ladi Gibson OSA - 12/20/2022 1:38 PM EDT Reason for patient's call: Asking to talk to a nurse about bee sting Caller was transferred to jason at the nurse line. documented in this encounter Plan of Treatment Upcoming Encounters Date Type Department Care Team (Late st Contact Info) Description 05/24/2023 9:30 AM EST Office Visit Cardiology, [facility] [address] [place] [address] Taras Silva DO [address] [place] [phone] 03/05/2024 2:00 PM EDT Office Visit Hematology/Oncology [facility] [address] [facility] [place] [address] Aisha Lara MD [address] [place] [place] [address] Scheduled Procedures Name Priority Associated Diagnoses Date/Ti me COLONOSCOPY FLEXIBLE PROXIMA L DIAGNOSTIC Recall Family history of colonic polyps Health Maintenance Due Date Last Done Comments DISCUSS TOBACCO CESSATION (REFER TO SMARTSET #2062) 1972 Hepatitis B (1 of 3 - 3-dose series) 1972 HIV Screening 1987 Hepatitis C Screening 1990 Depression Screening 12/21/2019 12/20/2018 Zoster Vaccines (1 of 2) 2022 COVID-19 Vaccine ( - season) 2023 06/16/2020 Mammogram 03/02/2023 03/02/2022, 02/06, 03/17/2021, Additional history exists DTaP,Tdap,and Td Vaccines (3 - Tdap) 09/03/2024 09/03/2014, 09/23/2008 Diabetes Screening 02/28/2026 02/28/2023, 0 09/16/2022, 09/15/2022, Additional history exists COLONOSCOPY-EVERY 5 YRS AGES 18-100 06/26/2026 06/26/2021, 06/26/2021, 01/22/2016, Additional history exists Colonoscopy Discontinued 06/26/2021, 06/09, 01/22/2016, Additional history exists Colorectal Cancer Screening Discontinued Pneumococcal Vaccine: Pediatrics (0 to 5 Years) and At-Risk Patients (6 to 64 Years) Completed 09/16/2022, 09/11/2018 Influenza Vaccine (FLU shot) Completed 03/02/2023, 02/03/2022, 02/03/2021, Additional history exists Cologuard Discontinued Fecal Occult Blood Test Discontinued GARDASIL-HPV IMMUNIZATION SERIES Aged Out No longer eligible based on patient's age to complete this topic MENINGOCOCCAL (MENACTRA/MENVEO) Aged Out No longer eligible based on patient's age to complete this topic Sigmoidoscopy Discontinued documented as of this encounter Medical Devices Not on filedocumented as of this encounter Advance Directives Latest Code Status on File Code Status Date Activated Date Inactivated Comments Full Code 09/15/2022 2:56 PM 09/16/2022 4:03 PM This order reflects the patients wishes and were consensually agreed upon. Question Answer Comments Discussion of Advance Directives occurred with: Patient Care Teams List Of First Job Ideas Relationship Specialty Start Date End Date Nicolle Steinberg DO [address] [place] [address] PCP - General Family Medicine 09/19/18 documented as of this encounter
--- OUTSIDE RECORDS SUMMARY | 2023-03-25 15:04 | External Medical Summary | Summary of Care ---
Author Name Unknown Organization [facility] Address [address] [place] [address] Phone [phone] Care Team Providers Care Trade Union Secretary Name Role Phone Amadoroni Nicolle Vazquezly Primary Care Provider Reason for Visit * Reason Onset Date Comments Follow Up 1y Medication Administration 03/02/2023 Flu an d/or Pneumo Inj Encounter Details Date Type Department Care Team ([facility] Contact Info) Description 03/02/2023 12:30 PM EDT Office Visit Hematology/Oncology [facility] [address] [facility] [place] [address] Aisha Lara MD [address] [place] [address] History of lymphoma*; Need for prophylactic vaccination and inoculation against influenza Allergies Active Allergy Reactions Criticality Noted Date Comments Amoxicillin Anaphylaxis High 01/01/2022 Ciprofloxacin Hives 12/20/2018 Covid-19 (Mrna) Vaccine Edema face/lips/tongue,Hiv es,Rash High 09/27/2020 Metronidazole Hives 12/20/2018 Nitrofurantoin 03/18/2020 hives Sulfa Antibiotics Rash Medium 02/21/2002 rash Tetracyclines & Related Other (Please comment) Low 02/21/2002 esophagus gets swollen, possible dysphagia documented as of this encounter (statuses as of 03/02/2023) Medications Medication Sig Dispensed Refills Start Date [...] Active Atorvastatin Calcium 20 MG Oral Tablet (Lipitor)Indicat ions:Dyslipidemi a, goal LDL below 70 TAKE ONE TABLET BY MOUTH EVERY MORNING 90 Tablet 3 11/29/2022 Active predniSONE 20 MG Oral Tablet (Deltasone)Indic ations:Bee sting reaction, accidental or unintentional, initial encounter 1 tab 3 times a day for 3 days, then 1 tab 2 times a day for 3 days, then 1 tab daily for 3 days 18 Tablet 0 12/21/2022 Active Aspirin Low Dose 81 MG Oral Tablet Delayed Release (aspirin enteric coated)Indicatio ns:Coronary artery disease involving muckleshoot coronary artery of muckleshoot heart without angina pectoris TAKE ONE TABLET BY MOUTH EVERY MORNING 90 Tablet 3 02/14/2023 Active Levothyroxine Sodium 25 MCG Oral Tablet (Levoxyl)Indicat ions:Weight gain Take 1 Tablet (25 mcg) by mouth in the morning. (at least 30 min prior to breakfast or other meds). 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 documented as of this encounter (statuses as of 03/02/2023) Resolved Problems Problem Noted Date Diagnosed Date [...] as of this encounter (statuses as of 03/02/2023) Immunizations Name Administration Dates Next Due COVID-19 mRNA, LNP-s, No Pre serve, 2-Dose Series (Pfizer) 06/16/2020 DTaP Dipth/Tet/Acell Pertussis (Infanrix), Peds 09/23/2008 H1N1 2009 Influenza, IM 06/10/2009 Pneumococcal Conjugate Vacc, 13 Valent (Prevnar) 09/11/2018 Pneumococcal Conjugate Vacci ne, 20-valent ([id number]) 09/16/2022 SEASONAL INFLUENZA, PF, 6 M & Above, IM , (FLULAVAL or FLUZONE) 03/02/2023,02/03/2022,02/03/2021,2019,02/22/2019,01/31/2018,03/02/2017 Seasonal Influenza, Split, I IV3, With Preserve, Inj 02/21/2014,02/14/2013,02/21/2012,2010,03/11/2010,02/11/2009,03/29/2007 TD, Preservative Free 09/03/2014 documented as of this encounter Social History Tobacco Use Types Packs/Day Years Used Date Smoking Tobacco: Some Days Cigarettes Smokeless Tobacco: Never Tobacco Cessation:Ready to Q uit: Not Asked; Counseling Given: Not Answered Comments:3 cigarettes everyother weekend social smoker. Exposed to second hand [...] on file documented as of this encounter Last Filed Vital Signs Vital Sign Reading Time Taken Comments Blood Pressure 120/83 03/02/2023 12:29 PM EDT Pulse 93 03/02/2023 12:29 PM EDT Temperature 36.6 C (97.8 F) 03/02/2023 1 2:29 PM EDT Respiratory Rate 16 03/02/2023 12:2 9 PM EDT Oxygen Saturation 95% 03/02/2023 12: 29 PM EDT Inhaled Oxygen Concentration - - Weight 64.8 kg (142 lb 14.4 oz) 023 12:29 PM EDT Height 160.7 cm (5' 3.25") 03/02/2023 1 2:29 PM EDT Body Mass Index 25.11 03/02/2023 12:29 PM EDT documented in this encounter Functional Status Functional Status Response [...] (15 years old or older) No 09/16/19 Cognitive Status Response Date of Assessm ent Because of a physical, menta l, or emotional condition, do you have serious difficulty concentrating, remembering, or making decisions? (5 years old or older No 09/15/2022 documented as of this encounter Progress Notes * Lyn Bettencourt LPN - 03/02/2023 12:42 PM EDT PRE - ADMINISTRATION DOCUMENTATION Are you experiencing any cold symptoms or fever? No Have you had Guillain-Bulverde Syndrome (an illness that causes paralysis) within the last 6 weeks? No Have you had the flu shot in the past? YES Have you ever had a reaction to the flu shot? No Lyn Bettencourt LPN, 03/02/2023 12:42 PM Immunization Administration Documentation Time Out Procedure Performed: Yes Patient Identified (Ask Name/Date of ): Yes Does the patient have a fever greater than 101 degrees today? No Patient allergic to latex? No VFC Stock: No Immunization(s) verified: Yes, Immunization Name: Flu, VIS Sheet(s) given: Yes Verified Side and Site: Yes Verified Shot(s) with Parent(s)/Patient: Yes * Aisha Lara MD - 03/02/2023 12:29 PM EDT Outpatient Consult Note Data Source: Patient, Epic record. Data Source: Patient, Epic record. 03/02/2023 12:29 PM Yani JefferyHernanalysia [id number] 52 year old Patient Encounter: [facility] Cancer Diagnosis: Hodgkin lymphoma, nodular sclerosing, Stage IIA, diagnosed in 2001 during 23rd week of Current Treatment: Observation Previous Treatment: ABVDx 4 chemotherapy followed by mantle field radiation therapy. Completed the treatment 2002. Oncologic History : 52-year-old female with a history of Hodgkin's lymphoma. Patient's family physician noted left posterior cervical adenopathy in 2001 while patient was She had a thyroid US in follow up on 02/01/2002- 3.5 cm mass adjacent to left lower pole of the thyroid FNA 02/02/2002- viral lymphadenitis vs Hodgkin lymphoma 02/09/2002: Excisional biospy of left cervical lymph node- Hodgkin disease Abdominal US from 02/15/2002: Liver and spleen are normal. No adenopathy noted. Bone marrow biopsy 02/16/2002: It was negative for the involvement of the lymphoma. She was treated with 4 cycles of ABVD chemotherapy followed by mantle field radiation therapy. She completed her treatment in July of 2002. She had MRI and was found to have a 90% blockage of LAD underwent stenting. Interval History: Clinically she is doing well without any new symptoms complain. Patient denies any headache, dizziness, blurred vision, chest pain, shortness breath palpitation abdominal pain or distention, bleeding, bruising, nausea, vomiting, fever, night sweats, weight loss, hematuria, hematochezia. LABS/IMAGING: Results for orders placed or performed in visit on 02/28/23 COMPREHENSIVE METABOLIC PANEL Result Value Ref Range BUN 6 6 - 20 mg/dL Creatinine 0.6 0.5 - 1.0 mg/dL Estimated Glomerular Filtration Rate >90 >=60 mL/min Sodium 137 135 - 146 mmol/L Potassium 4.0 3.5 - 5.1 mmol/L Chloride 100 98 - 107 mmol/L CO2 25 22 - 32 mmol/L Anion Gap 12 7 - 15 mmol/L Glucose 113 70 - 120 mg/dL Albumin 4.7 3.8 - 5.0 g/dL AST 30 10 - 35 U/L Alkaline Phosphatase 87 35 - 130 U/L Bilirubin, Total 0.2 <=1.2 mg/dL Calcium 9.2 8.4 - 10.2 mg/dL Protein 6.9 6.0 - 8.3 g/dL ALT 27 10 - 35 U/L ERYTHROCYTE SEDIMENTATION RATE (ESR) Result Value Ref Range ESR 13 <30 mm/hour CBC Result Value Ref Range WBC 5.17 4.00 - 10.80 K/uL RBC 3.87 3.85 - 5.15 M/uL HGB 12.9 12.0 - 15.3 g/dL HCT 39.1 36.0 - 45.2 % MCV 101.0 81.5 - 97.5 fL MCH 33.3 27.0 - 34.0 pg MCHC 33.0 32.0 - 36.0 g/dL RDW 12.2 11.5 - 15.5 % PLT 218 140 - 400 K/uL MPV 9.3 6.6 - 11.1 fL DIFFERENTIAL, AUTOMATED Result Value Ref Range WBC 5.17 4.00 - 10.80 K/uL Neutrophils % 49.4 40.0 - 75.0 % Lymphocytes % 39.1 18.0 - 42.0 % Monocytes % 7.2 1.0 - 11.0 % Eosinophils % 4.1 0.0 - 6.0 % Basophils % 0.2 0.0 - 2.0 % Absolute Neutrophils 2.56 1.80 - 7.70 K/uL Absolute Lymphocytes 2.02 1.00 - 4.80 K/ul Absolute Monocytes 0.37 0.00 - 1.10 K/uL Absolute Eosinophils 0.21 0.00 - 0.70 K/uL Absolute Basophils 0.01 0.00 - 0.20 K/uL All her blood counts are in stable and normal range. There is a mild increase in the MCV with normal hemoglobin. Last chest x-ray was done on 09/15/2022 and it was negative REVIEW OF SYSTEMS: General: No Fever, chills, night sweats, or weight loss. HEENT: No change in visual acuity, blurred or double vision. No epistaxis, facial pain, nasal discharge or change in hearing. Denies dysphagia, no muscosal ulceration, or sores noted. Cardiovascular: No chest pain, BACON, or palpitations Respiratory: No shortness of breath, cough, hemoptysis, or pleuritic chest pain Gastrointestinal: No abdominal pain, nausea, vomiting, diarrhea, rectal pain or bleeding Genitourinary: Denies Hematuria or dysuria Musculoskeletal: No bone pain Skin: No skin rash or lesions noted Neurologic: No numbness, weakness, neuropathic pain or change in cognitive function Psychiatric: No vegetative signs of depression Endocrine: No symptoms of hypothyroidism or hyperglycemia Hematologic: No bleeding or lymph nodes noted As mentioned above, all of the systems were reviewed in full and are unremarkable. 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 For a severe reaction: Inject in outer thigh following instructions on package and go to the Emergency room. Levothyroxine Sodium 25 MCG Oral Tablet (Levoxyl) Take 1 Tablet (25 mcg) by mouth in the morning. (at least 30 min prior to breakfast or other meds). 90 Tablet 1 metroNIDAZOLE 0.75 % External Cream (Metrocream) APPLY TOPICALLY TO AFFECTED AREA TWICE DAILY 45 g 11 Nitroglycerin 0.4 MG Sublingual Tablet Sublingual (Nitrostat) PLACE 1 TABLET UNDER THE TONGUE NEEDED FOR CHEST PAIN. MAY REPEAT 3 TIMES. IF CHEST PAIN CONTINUES CALL 911. 25 Tablet 11 Sertraline HCl 25 MG Oral Tablet (Zoloft) Take 1 Tablet by mouth in the morning. 30 Tablet 5 Atorvastatin Calcium 20 MG Oral Tablet (Lipitor) TAKE ONE TABLET BY MOUTH EVERY MORNING 90 Tablet 3 predniSONE 20 MG Oral Tablet (Deltasone) 1 tab 3 times a day for 3 days, then 1 tab 2 times a day for 3 days, then 1 tab daily for 3 days 18 Tablet 0 Aspirin Low Dose 81 MG Oral Tablet Delayed Release (aspirin enteric coated) TAKE ONE TABLET BY MOUTH EVERY MORNING 90 Tablet 3 No current facility-administered medications for this visit. Social History Tobacco Use Smoking status: Some Days Types: Cigarettes Smokeless tobacco: Never Tobacco comments: 3 cigarettes everyother weekend social smoker. Exposed to second hand smoke. Vaping Use Vaping Use: Never used Substance Use Topics Alcohol use: Yes Comment: occasional wine Drug use: No Review of patient's allergies indicates: Allergen Reactions Amoxicillin Anaphylaxis Covid-19 (Mrna) Vaccine ([employer] [Covid-19 (Mrna) Vaccine] Edema face/lips/tongue, Hives and Rash Sulfa Antibiotics Rash rash Ciprofloxacin Hives Flagyl [Metronidazole] Hives Macrobid [Nitrofurantoin] hives Tetracyclines & Related Other (Please comment) esophagus gets swollen, possible dysphagia PHYSICAL EXAMINATION: General Appearance: Healthy appearing patient in no acute distress There were no vitals taken for this visit. Vitals reviewed. HEENT: No oral or pharyngeal masses, ulceration or thrush noted, no sinus tenderness. Neck is supple with no thyromegaly or JVD noted. Lymph Nodes: No lymphadenopathy noted in the occipital, pre and post auricular, cervical, supra andinfraclavicular, axillary, epitrochlear, inguinal, and popliteal region. Lungs/Thorax: Clear to auscultation, no accessory muscles of respiration being used. Heart: Regular rate and rhythm, normal S1, S2 Abdomen: Soft, nontender, bowel sounds present, no appreciable hepatosplenomegaly, no palpable masses Extremeties: Good pulses bilaterally, no peripheral edema. Skin: Normal skin tone with no rash, petechiae, ecchymosis noted. Musculoskeletal: No pain on palpation over bony prominence, no edema, no evidence of gout, no jointor bony deformity ASSESSMENT: 52-year-old female with history of Hodgkin's lymphoma stage II was diagnosed in 2002 and received 4cycles of ABVD followed by mantle field radiation. Currently she is on surveillance and follow-up. She is doing well in excellent performance status. Physical examination is unremarkable. She is at risk for long-term toxicity from the treatment and risk of 2nd malignancy. Reviewed all the available blood tests and chest x-ray reports with her. Discussed with her about the diagnosis and prognosis and the risk of long-term complication. At this point the best option is continue to monitor the patient clinically. PLAN: Return to clinic in 1 year with CBC, CMP, ESR and chest x-ray. The patient voiced understanding of all of the above. All questions and concerns were addressed in an apparently satisfactory manner. Aisha Lara MD (This note was completed using the dictation program Fluency Direct. As such, there may be misspellings, word substitutions, or other variations that should not change the essence of the clinical content of this encounter note. If there is need for further clarification, please direct questions to me.) documented in this encounter Nursing Notes * Lisbeth Harris, [employer] - 03/02/2023 12:30 PM EDT Patient identifed by name and birthdate Do you have any concerns about pain management for today's visit? No Living Will or Advance Directive for Health Care as noted on the problem list. [facility] is a way you can talk to your provider on line through e-mail. Would you like to sign up? I can activate it for you? ALREADY ACTIVE Filed Vitals: 03/02/23 1229 BP: 120/83 Pulse: 93 Resp: 16 Temp: 36.6 C (97.8 F) TempSrc: Tympanic SpO2: 95% Weight: 64.8 kg (142 lb 14.4 oz) Height: 1.607 m (5' 3.25") Patient was instructed to not get up on the exam table/exam chair until directed and assisted by their provider; patient is to remain seated in the chair/ wheelchair/ exam table/ exam chair for fall prevention and safety reasons. Patient is aware to have assistance to step down off exam table/exam chair with personnel. Patient voiced full comprehension of instructions. documented in this encounter Plan of Treatment Upcoming Encounters Date Type Department Care Team (Late st Contact Info) Description 05/24/2023 9:30 AM EST Office Visit Cardiology, [facility] [address] [place] [id number] Taras Silva DO [address] [place] [address] 03/05/2024 2:00 PM EDT Office Visit Hematology/Oncology [facility] [address] [facility] [place] [address] Aisha Lara MD [address] [facility] [place] [address] Scheduled Orders Name Type Priority Associated Diagnoses Orde r Schedule CBC WITH WBC DIFFERENTIAL Lab Routine History of lymphoma Expected: 02/28/2024, Expires: 04/02/2024 COMPREHENSIVE METABOLIC PANEL Lab Routine History of lymphoma Expected: 02/28/2024, Expires: 04/02/2024 ERYTHROCYTE SEDIMENTATION RATE (ESR) Lab Routine History of lymphoma Expected: 02/28/2024, Expires: 04/02/2024 XR CHEST 2 VIEWS Medical Imaging Routine History of lymphoma Expected: 02/28/2024, Expires: 04/02/2024 Scheduled Procedures Name Priority Associated Diagnoses Date/Ti me COLONOSCOPY FLEXIBLE PROXIMA L DIAGNOSTIC Recall Family history of colonic polyps Health Maintenance Due Date Last Done Comments DISCUSS TOBACCO CESSATION (REFER TO [facility] #3291) 1972 Hepatitis B (1 of 3 - 3-dose series) 1972 HIV Screening 1987 Hepatitis C Screening 1990 Depression Screening 12/21/2019 12/20/2018 Zoster Vaccines (1 of 2) 2022 COVID-19 Vaccine (2 - season) 2023 06/16/2020 Mammogram 03/02/2023 03/02/2022, [...] Not on filedocumented as of this encounter Visit Diagnoses Diagnosis History of lymphoma- Primary Personal history of other lymphatic and hematopoietic neoplasm Need for prophylactic vaccination and inoculation against influenza documented in this encounter Advance Directives Latest Code Status on File Code Status Date Activated Date Inactivated Comments Full Code 09/15/2022 2:56 PM 09/16/2022 4:03 PM This order reflects the patients wishes and were consensually agreed upon. Question Answer Comments Discussion of Advance Directives occurred with: Patient Care Teams Trade Union Secretary Relationship Specialty Start Date End Date Nicolle Steinberg DO [address] [place] [address] PCP - General Family Medicine 09/19/18 documented as of this encounter
--- OUTSIDE RECORDS SUMMARY | 2023-03-25 15:04 | External Medical Summary | Summary of Care ---
Author Name Unknown Organization [facility] Address [address] [place] [address] Phone [phone] Care Team Providers Care Translator Name Role Phone Nicolle Steinberg DO Primary Care Provider Reason for Visit * Reason Comments Outpatient Testing Encounter Details Date Type Department Care Team ([facility] st Contact Info) Description 02/28/2023 2:00 PM EDT Laboratory Laboratory [facility] [address] [place] [facility] [address] [facility] [address] [place] [address] History of Hodgkin's disease Allergies Active Allergy Reactions Criticality Noted Date Comments Amoxicillin Anaphylaxis High 01/01/2022 Ciprofloxacin Hives 12/20/2018 Covid-19 (Mrna) Vaccine Edema face/lips/tongue,Hiv es,Rash High 09/27/2020 Metronidazole Hives 12/20/2018 Nitrofurantoin 03/18/2020 hives Sulfa Antibiotics Rash Medium 02/21/2002 rash Tetracyclines & Related Other (Please comment) Low 02/21/2002 esophagus gets swollen, possible dysphagia documented as of this encounter (statuses as of 02/28/2023) Medications Medication Sig Dispensed Refills Start Date End Date Status EpiPen 2-Terrence 0.3 MG/0.3ML Injection Solution Auto-injector Inject 0.3 mg into a large muscle once. For a severe reaction: Inject in outer thigh following instructions on package and go to the Emergency room. 0 Active Levothyroxine Sodium 25 MCG Oral Tablet (Levoxyl)Indicatio ns:Weight gain Take 1 Tablet (25 mcg) by mouth in the morning. (at least 30 min prior to breakfast or other meds). 90 Tablet 1 03/15/2022 Active metroNIDAZOLE 0.75 % External Cream (Metrocream) [...] 11/29/2022 Active predniSONE 20 MG Oral Tablet (Deltasone)Indicat ions:Bee sting reaction, accidental or unintentional, initial encounter 1 tab 3 times a day for 3 days, then 1 tab 2 times a day for 3 days, then 1 tab daily for 3 days 18 Tablet 0 12/21/2022 Active Aspirin Low Dose 81 MG Oral Tablet Delayed Release (aspirin enteric coated)Indications :Coronary artery disease involving [place] coronary artery of [place] heart without angina pectoris TAKE ONE TABLET BY MOUTH EVERY MORNING 90 Tablet 3 02/14/2023 Active documented as of this encounter (statuses as of 02/28/2023) Active Problems Problem Noted Date Diagnosed Date Atypical chest pain 09/15/2022 Coronary artery disease of n ative artery of [place] heart with stable angina pectoris 05/30/2019 Dyslipidemia, goal LDL below 70 05/30/2019 History of acute anterior wall DC 03/16/2019 History of lymphoma 10/28/2017 Overview: NHL age 31 Hypertrophy of nasal turbinates 12/17/2009 NONALLERGIC RHINITIS 12/17/2009 ADVANCE DIRECTIVE INFORMATION 05/14/2008 Overview: No, Advance Directive brochure given to patient at prior appt. documented as of this encounter (statuses as of 02/28/2023) Resolved Problems Problem Noted Date Diagnosed Date [...] as of this encounter (statuses as of 02/28/2023) Immunizations Name Administration Dates Next Due COVID-19 mRNA, LNP-s, No Pre serve, 2-Dose Series (Datahug) 06/16/2020 DTaP Dipth/Tet/Acell Pertussis (Infanrix), Peds 09/23/2008 H1N1 2009 Influenza, IM 06/10/2009 Pneumococcal Conjugate Vacc, 13 Valent (Prevnar) 09/11/2018 Pneumococcal Conjugate Vacci ne, 20-valent ([id number]) 09/16/2022 SEASONAL INFLUENZA, PF, 6 M & [...] No 09/15/2022 documented as of this encounter Plan of Treatment Upcoming Encounters Date Type Department Care Team (Late st Contact Info) Description 03/02/2023 12:30 PM EDT Office Visit Hematology/Oncology [facility] [address] [facility] [place] [address] Aisha Lara MD [address] [facility] [place] [address] 05/24/2023 9:30 AM EST Office Visit Cardiology, [facility] [address] [place] [id number] Taras Silva DO [address] [place] [address] Pending Results Name Type Priority Associated Diagnoses Date /Time CBC WITH WBC DIFFERENTIAL Lab Routine History of Hodgkin's disease 02/28/2023 1:56 PM EDT COMPREHENSIVE METABOLIC PANEL Lab Routine History of Hodgkin's disease 02/28/2023 1:56 PM EDT ERYTHROCYTE SEDIMENTATION RATE (ESR) Lab Routine History of Hodgkin's disease 02/28/2023 1:56 PM EDT CBC Lab Routine History of Hodgkin's disease 02/28/2023 1:56 PM EDT DIFFERENTIAL, AUTOMATED Lab Routine History of Hodgkin's disease 02/28/2023 1:56 PM EDT Scheduled Procedures Name Priority Associated Diagnoses Date/Ti me COLONOSCOPY FLEXIBLE PROXIMA L DIAGNOSTIC Recall Family history of colonic polyps Health Maintenance Due Date Last Done Comments DISCUSS TOBACCO CESSATION (REFER TO SMARTSET #3296) 1972 Hepatitis B (1 of 3 - 3-dose series) 1972 HIV Screening 1987 Hepatitis C Screening 1990 Depression Screening 12/21/2019 12/20/2018 Zoster Vaccines (1 of 2) 2022 COVID-19 Vaccine (2 - season) 2023 06/16/2020 Influenza Vaccine (FLU shot) (#1) 2023 02/03/2022, 02/03/2021, 02/04/2020, Additional history exists Mammogram 03/02/2023 03/02/2022, 02/06, 03/17/2021, Additional history exists TSH 09/16/2023 09/15/2022, 02/07, 09/11/2021, Additional history exists DTaP,Tdap,and Td Vaccines (3 - Tdap) 09/03/2024 09/03/2014, 09/23/2008 COLONOSCOPY-EVERY 5 YRS AGES 18-100 06/26/2026 06/26/2021, 06/26/2021, 01/22/2016, Additional history exists Colonoscopy Discontinued 06/26/2021, 06/09, 01/22/2016, Additional history exists Colorectal Cancer Screening Discontinued Pneumococcal Vaccine: Pediatrics (0 to 5 Years) and At-Risk Patients (6 to 64 Years) Completed 09/16/2022, 09/11/2018 Cologuard Discontinued Fecal Occult Blood Test Discontinued GARDASIL-HPV IMMUNIZATION SERIES Aged Out No longer eligible based on patient's age to complete this topic MENINGOCOCCAL (MENACTRA/MENVEO) Aged Out No longer eligible based on patient's age to complete this topic Sigmoidoscopy Discontinued documented as of this encounter Medical Devices Not on filedocumented as of this encounter Visit Diagnoses Diagnosis History of Hodgkin's disease Personal history of Hodgkin's disease documented in this encounter Advance Directives Latest Code Status on File Code Status Date Activated Date Inactivated Comments Full Code 09/15/2022 2:56 PM 09/16/2022 4:03 PM This order reflects the patients wishes and were consensually agreed upon. Question Answer Comments Discussion of Advance Directives occurred with: Patient Care Teams Translator Relationship Specialty Start Date End Date Nicolle Steinberg DO [address] [place] [address] PCP - General Family Medicine 09/19/18 documented as of this encounter
--- OUTSIDE RECORDS SUMMARY | 2023-03-25 15:05 | External Medical Summary | Summary of Care ---
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 Name Role Phone AmadoroniNicolle DO Primary Care Provider Encounter Details Date Type Department Care Team Description 01/28/2023 Telemedicine [facility] [address] [place] [address] Grady Arshad MD [address] [place] [address] LLQ pain*; Diverticulitis of colon; Chills Allergies Active Allergy Reactions Severity Noted Date Comments Amoxicillin Anaphylaxis High 01/01/2022 Ciprofloxacin Hives 12/20/2018 Covid-19 (Mrna) Vaccine Edema face/lips/tongue,Hives ,Rash High 09/27/2020 Metronidazole Hives 12/20/2018 Nitrofurantoin 03/18/2020 hives Sulfa Antibiotics Rash Medium 02/21/2002 rash Tetracyclines & Related Other (Please comment) Low 02/21/2002 esophagus gets swollen, possible dysphagia documented as of this encounter (statuses as of 01/28/2023) Medications Medication Sig Dispensed Refills Start Date End Date Status Aspirin 81 MG Oral Tablet Delayed Release Take by mouth 1 Tablet in the morning. 100 Tablet 3 11/16/2021 Active Additional Information Patient taking differently:81 mg Oral Daily(AM),Indications: takes at night, Reported on 05/14/2022 EpiPen 2-Terrence 0.3 MG/0.3ML Injection Solution Auto-injector Inject 0.3 mg into a large muscle once. For a severe reaction: Inject in outer thigh following instructions on package and go to the Emergency room. 0 Active Levothyroxine Sodium 25 MCG Oral Tablet (Levoxyl)Indicati ons:Weight gain Take 1 Tablet (25 mcg) by [...] Active Atorvastatin Calcium 20 MG Oral Tablet (Lipitor)Indicati ons:Dyslipidemia, goal LDL below 70 TAKE ONE TABLET BY MOUTH EVERY MORNING 90 Tablet 3 11/29/2022 Active predniSONE 20 MG Oral Tablet (Deltasone)Indica tions:Bee sting reaction, accidental or unintentional, initial encounter 1 tab 3 times a day for 3 days, then 1 tab 2 times a day for 3 days, then 1 tab daily for 3 days 18 Tablet 0 12/21/2022 Active Cephalexin 500 MG Oral Capsule Take 1 Capsule by mouth in the morning and 1 Capsule before bedtime. Do all this for 10 days. 20 Capsule 0 01/28/2023 02/07/2023 Active documented as of this encounter (statuses as of 01/28/2023) Active Problems Problem Noted Date Atypical chest pain 09/15/2022 Coronary artery disease of n ative artery of [place] heart with stable angina pectoris 05/30/2019 Dyslipidemia, goal LDL below 70 05/30/19 20 History of acute anterior wall MA 2018 History of lymphoma 10/28/2017 Overview: NHL age 31 Hypertrophy of nasal turbinates 12/18/19 10 NONALLERGIC RHINITIS 12/17/2009 ADVANCE DIRECTIVE INFORMATION 05/14/2008 Overview: No, Advance Directive brochure given to patient at prior appt. 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/31/[address] elevation myocardia l infarction (STEMI) involving left anterior descending (LAD) coronary artery 019 documented as of this encounter (statuses as of 01/28/2023) Immunizations Name Administration Dates Next Due COVID-19 mRNA, LNP-s, No Pre serve, 2-Dose Series (IIZI group) 06/16/2020 DTaP Dipth/Tet/Acell Pertussis (Infanrix), Peds 09/23/2008 H1N1 2009 Influenza, IM 06/10/2009 Pneumococcal Conjugate Vacc, 13 Valent (Prevnar) 09/11/2018 Pneumococcal Conjugate Vacci ne, 20-valent ([id number]) 09/16/2022 Seasonal Influenza, PF, 6 mo ns & Above, IM , (Flulaval) 02/03/2022,02/03/2021,02/04/2020,2018,01/31/2018,03/02/2017 Seasonal Influenza, Split, I IV3, With [...] 0.6 oz pur e alcohol) occasional wine Sex Assigned at Date Recorded Not on file Job Start Date Occupation [...] as of this encounter Progress Notes * Grady Arshad MD - 01/28/2023 4:22 PM EDT Subjective Yani Tesfaye is a 52 year old female. No chief complaint on file. HPI: Patient location: HOME. I was in a hospital or clinic location. After connecting through [employer],patient was verified with two unique identifiers. 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 Methods to assure confidentiality were taken. Patient acknowledged consent and understanding of pr ivacy and security of the Telemedicine visit. The patient agreed to participate. Here for LLQ pain ,started manager dish ,chills Hx of diverticulitis Stopped eating, only liquid and would like to start Anx Discussed about CT a/p and ER evaluation but pt declined Has many allergy on ABx Not able to take flagyl, cipro etc Will try keflex which she was able to take recently PMH: Patient Active Problem List Diagnosis Code ADVANCE DIRECTIVE INFORMATION Hypertrophy of nasal turbinates J34.3 NONALLERGIC RHINITIS J31.0 History of lymphoma Z85.72 History of acute anterior wall MA I25.2 Coronary artery disease of [place] artery of [place] heart with stable angina pectoris (HCC) I25.118 Dyslipidemia, goal LDL below 70 E78.5 Atypical chest pain R07.89 Current Outpatient Medications Medication Sig Dispense Refill Cephalexin 500 MG Oral Capsule Take 1 Capsule by mouth in the morning and 1 Capsule before bedtime.Do all this for 10 days. 20 Capsule 0 Aspirin 81 MG Oral Tablet Delayed Release Take by mouth 1 Tablet in the morning. (Patient taking differently: Take 1 Tablet by mouth in the morning.) 100 Tablet 3 EpiPen 2-Terrence 0.3 MG/0.3ML Injection Solution Auto-injector [...] daily for 3 days 18 Tablet 0 No current facility-administered medications for this visit. 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 NONALLERGIC RHINITIS 12/17/2009 Personal history of radiation therapy 2002 Hodgekin's Lymphoma Pre-eclampsia, severe, antepartum 2002 HELLP syndrome Past Surgical History: Procedure Laterality Date DELIVERY 07/2004 x 2 COLONOSCOPY, DIAGNOSTIC (RECTUM) 01/22/2016 normal bx, diverticulosis/COLONOSCOPY FLEXIBLE PROXIMAL DIAGNOSTIC performed by Wellington Alonso MD at END[facility]COPY [facility] COLONOSCOPY, DIAGNOSTIC (RECTUM) 06/26/2021 diverticulosis, repeat 5 yrs / COLONOSCOPY FLEXIBLE PROXIMAL DIAGNOSTIC performed by Naveen Prather MD at ENDOSCOPY [facility] EGD, FLEXIBLE, DIAGNOSTIC 01/22/2016 normal bx, duodenal diverticulum/ESOPHAGOGASTRODUODENOSCOPY (EGD), FLEXIBLE, TRANSORAL, DIAGNOSTIC performed by Wellington Alonso MD at ENDOSCOPY [facility] EGD, FLEXIBLE, DIAGNOSTIC 02/04/2022 z-line regular at 39 cm from incisors, normal scope / biopsies mildly suggestive of reflux - if symptomatic an antireflux lifestyle / ESOPHAGOGASTRODUODENOSCOPY (EGD), FLEXIBLE, TRANSORAL, DIAGNOSTICperformed by Fidelina Castro MD at ENDOSCOPY [facility] LOG RAFTER PAP SCREEN 11/04/2008 negative for intraepithelial lesion or malignancy-jeffery LOG RAFTER PAP SCREEN 03/16/2010 wnl, -Abadk NONE 08/06/2004 nodule of left forearm facitis by Dr. Laar. benign PAP SCREEN 09/05/2013 TANVIR- Cami REMOVAL OF PELVIC STRUCTURES partial emergency hysterectomy: still has cercix and ovaries TOTAL ABD HYSTERECTOMY W/WO REMOVAL OF TUBE(S) 2008 Review of patient's allergies indicates: Allergen Reactions Amoxicillin Anaphylaxis Covid-19 (Mrna) Vaccine (IIZI group) [Covid-19 (Mrna) Vaccine] Edema face/lips/tongue, Hives and Rash Sulfa Antibiotics Rash rash Ciprofloxacin Hives Flagyl [Metronidazole] Hives Macrobid [Nitrofurantoin] hives Tetracyclines & Related Other (Please comment) esophagus gets swollen, possible dysphagia Family History Problem Relation Age of Onset Heart Disorder Mother Hypertension Mother Gastro-intestinal disorder Father diverticulitis Allergies Brother allergic rhinitis Asthma Brother Allergies Brother allergic rhinitis Gastro-intestinal disorder Brother diverticulitis No Known Problems Grandmother (Maternal) No Known Problems Grandfather (Maternal) No Known Problems Grandmother (Paternal) No Known Problems Grandfather (Paternal) Allergies Son rhinitis Asthma Son Family Status Relation Status Mo Alive Fa Alive Bro Alive Bro Alive Bro Alive MGMA (Not Specified) MGFA (Not Specified) PGMA (Not Specified) PGFA (Not Specified) [place] Alive Son Alive Social History Socioeconomic History Marital status: Spouse name: Not on file Number of children: 0 Years of education: Not on file Highest education level: Not on file Occupational History Not on file Tobacco Use Smoking status: Some Days Types: Cigarettes Smokeless tobacco: Never Tobacco comments: 3 cigarettes everyother weekend social smoker. Exposed to second hand smoke. Vaping Use Vaping Use: Never used Substance and Sexual Activity Alcohol use: Yes Comment: occasional wine Drug use: No Sexual activity: Yes Partners: Male control/protection: Surgical Other Topics Concern Service Not Asked Blood Transfusions Not Asked Caffeine Concern Not Asked Occupational Exposure Not Asked Hobby Hazards Not Asked Sleep Concern Not Asked Stress Concern Not Asked Weight Concern Not Asked Special Diet Not Asked Back Care Not Asked Exercise Not Asked Bike Helmet Not Asked Seat Belt Yes Self-Exams Not Asked Social History Narrative [employer] INFORMATION ENVIRONMENTAL HISTORY: Type of Home: Two Story Type of Heating System: Electric, Oil and Forced air Air Conditioning: Yes Bedrooms Basement: Unfinished, Dampness, Water Problems and Mold, mildew Home have cockroaches: No Irritants in the home: Scented Candles Patient's bedroom location: Floor: second Type of ludwni: Area Rugs and Hardwood Beds: Number: 1 Type of beds: Mattress and Box spring Pillows: Number: 2 Type of pillows: Synthetic (hypoallergenic, polyester) Bedroom contains: Bookshelves/Books and Collectibles (knicknacks) Pets: 1 cat(s) [place] 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 Entered by: Rd Henry MD 01/29/2010 Social Determinants of Health Financial Resource Strain: Not on file Food Insecurity: Not on file Transportation Needs: Not on file Physical Activity: Not on file Stress: Not on file Social Connections: Not on file Intimate Partner Violence: Not on file Housing Stability: Not on file Review of Systems Constitutional: Positive for activity change, appetite change, chills and fatigue. Negative for diaphoresis and unexpected weight change. Fever: ?. Respiratory: Negative. Cardiovascular: Negative. Gastrointestinal: Positive for abdominal pain (LLQ). Negative for abdominal distention, anal bleeding, blood in stool, constipation, diarrhea, nausea, rectal pain and vomiting. Genitourinary: Negative for dysuria and hematuria. Neurological: Negative for dizziness, weakness and light-headedness. Psychiatric/Behavioral: Positive for sleep disturbance. Negative for agitation and behavioral problems. The patient is nervous/anxious. Objective There were no vitals taken for this visit. Physical Exam Constitutional: General: She is not in acute distress. Appearance: Normal appearance. She is ill-appearing. She is not toxic-appearing or diaphoretic. HENT: Head: Normocephalic and atraumatic. Nose: Nose normal. Eyes: Extraocular Movements: Extraocular movements intact. Abdominal: Tenderness: There is abdominal tenderness. Neurological: General: No focal deficit present. Mental Status: She is alert and oriented to person, place, and time. ASSESSMENT/PLAN: LLQ pain (Primary) Diverticulitis of colon Chills Other orders - Cephalexin 500 MG Oral Capsule; Take 1 Capsule by mouth in the morning and 1 Capsule before bedtime. Do all this for 10 days. Kefelx with probiotic And if pain , sx gets worse, should go to ER Consider CT a/p Grady Arshad MD documented in this encounter Plan of Treatment Upcoming Encounters Date Type Specialty Care Team Description 02/23/2023 Laboratory Laboratory [facility] [address] [place] [address] 03/02/2023 Office Visit Hematology Oncology Aisha Lara MD [address] [place] [address] 05/24/2023 Office Visit Cardiology Taras Silva, DO [address] [place] [address] Scheduled Procedures Name Priority Associated Diagnoses Date/Ti me COLONOSCOPY FLEXIBLE PROXIMA L DIAGNOSTIC Recall Family history of colonic polyps Health Maintenance Due Date Last Done Comments DISCUSS TOBACCO CESSATION (REFER TO SMARTSET #8352) 1972 Hepatitis B (1 of 3 - 3-dose series) 1972 HIV Screening 1987 Hepatitis C Screening 1990 Depression Screening 12/21/2019 12/20/2018 COVID-19 Vaccine (2 - Pfizer series) 08/11/2020 06/16/2020 Zoster Vaccines (1 of 2) 2022 Influenza Vaccine (FLU shot) (#1) 2023 02/03/2022, [...] as of this encounter Visit Diagnoses Diagnosis LLQ pain- Primary Abdominal pain, left lower quadrant Diverticulitis of colon Diverticulitis of colon (without mention of hemorrhage) Chills Chills (without fever) documented in this encounter Advance Directives Latest Code Status on File Code Status Date Activated Date Inactivated Comments Full Code 09/15/2022 2:56 PM 09/16/2022 4:03 PM This order reflects the patients wishes and were consensually agreed upon. Question Answer Comments Discussion of Advance Directives occurred with: Patient Care Teams Corsets Salesperson Relationship Specialty Start Date End Date Nicolle Steinberg DO [address] [place] [address] PCP - General Family Medicine 09/19/18 documented as of this encounter
--- OUTSIDE RECORDS SUMMARY | 2023-03-25 15:05 | External Medical Summary | Summary of Care ---
Author Name Unknown Organization [facility] Address [address] [place] [address] Phone [phone] Care Team Providers Care Diver Helper Name Role Phone Nicolle Steinberg DO Primary Care Provider Reason for Visit * Reason Comments Hospital Follow-Up * Evaluate & Treat - Unlimited Visits (Within 10 days (routine)) - Pending Review Specialty Diagnoses / Procedures Referred By Contact Referred To Contact Cardiovascular Medicine / Cardiology Diagnoses Atypical chest pain James Gibson MD [address] [place] [address] [place] [address] Referral ID Status Reason Start Date Expiration Date Visits Requested Visits Authorized [id number] Pending Review Specialty Services Required 09/16/[phone] Encounter Details Date Type Department Care Team Description 09/27/2022 Office Visit Cardiology, [facility] [address] [place] [address] Taras Silva DO [address] [place] [address] Coronary artery disease involving [place] coronary artery of [place] heart without angina pectoris*; S/P drug eluting coronary stent placement; Dyslipidemia, goal LDL below 70 Allergies Active Allergy Reactions Severity Noted Date Comments Amoxicillin Anaphylaxis High 01/01/2022 Ciprofloxacin Hives 12/20/2018 Covid-19 (Mrna) Vaccine Edema face/lips/tongue,Hives ,Rash High 09/27/2020 Metronidazole Hives 12/20/2018 Nitrofurantoin 03/18/2020 hives Sulfa Antibiotics Rash Medium 02/21/2002 rash Tetracyclines & Related Other (Please comment) Low 02/21/2002 esophagus gets swollen, possible dysphagia documented as of this encounter (statuses as of 09/27/2022) Medications Medication Sig Dispensed Refills Start Date End Date Status Atorvastatin Calcium 20 MG Oral Tablet (Lipitor) Take by mouth 1 Tablet in the morning. 90 Tablet 3 10/09/2021 Active Additional Information Patient taking differently:20 mg Oral Daily(AM),Indications: takes at night, Reported on 05/14/2022 Aspirin 81 MG Oral Tablet Delayed Release [...] the morning. 30 Tablet 5 09/24/2022 Active documented as of this encounter (statuses as of 09/27/2022) Active Problems Problem Noted Date Atypical chest pain 09/15/2022 Coronary artery disease of n ative artery of [place] heart with stable angina pectoris 05/30/2019 Dyslipidemia, goal LDL below 70 05/30/19 20 History of acute anterior wall [place] 2018 History of lymphoma 10/28/2017 Overview: NHL age 31 Hypertrophy of nasal turbinates 12/18/19 10 NONALLERGIC RHINITIS 12/17/2009 ADVANCE DIRECTIVE INFORMATION 05/14/2008 Overview: No, Advance Directive brochure given to patient at prior appt. documented as of this encounter (statuses as of 09/27/2022) Resolved Problems Problem Noted Date Resolved Date Primary hyperparathyroidism 04/19/2022 05/01/2023 Anxiety 04/18/2019 02/03/2021 RECURRENT ACUTE SINUSITIS 12/17/20092016 [...] as of this encounter (statuses as of 09/27/2022) Immunizations Name Administration Dates Next Due COVID-19 mRNA, LNP-s, No Pre serve, 2-Dose Series ([employer]) 06/16/2020 DTaP - Dipth/Tet/Acell Pertussis 09/23/2008 H1N1 2009 Influenza, IM 06/10/2009 Pneumococcal Conjugate Vacc, 13 Valent (Prevnar) 09/11/2018 Pneumococcal Conjugate Vacci ne, 20-valent ([id number]) 09/16/2022 Seasonal Influenza, Quadriva lent, No Preserve, 6 Mons & Above, IM 02/03/2022,02/03/2021,02/04/2020,2018,01/31/2018,03/02/2017 Seasonal Influenza, Split, I IV3, With [...] Sign Reading Time Taken Comments Blood Pressure 120/78 09/27/2022 8:28 AM EDT Pulse 80 09/27/2022 8:28 AM EDT Temperature - - Respiratory Rate 10 09/27/2022 8:28 AM EDT Oxygen Saturation - - Inhaled Oxygen Concentration - - Weight 62.8 kg (138 lb 8 oz) 09/27/2022 8:28 AM EDT Height - - Body Mass Index 24.53 09/15/2022 3:27 PM EDT documented in this encounter Functional [...] as of this encounter Progress Notes * Taras Silva, DO - 09/27/2022 9:06 AM EDT Cardiology Outpatient Follow-up Yani Moe Jimalysia is a 52 year old female who is seen for follow-up of Hospital admission. HPI: This is a 52-year-old female with a history of an IN status post PCI with drug- eluting stent to theLAD August 2018. 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 She was taken to [facility] where she was admitted overnight. According to the discharge summary her EKG, cardiac troponin's as well as echocardiogram wereall unremarkable and she was allowed to be discharged home. After discharge she has done well without a recurrence of her symptoms. She has returned to her exercise program without difficulty. She has no ongoing cardiac complaints today. 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 NONALLERGIC RHINITIS 12/17/2009 Personal history of radiation therapy 2002 Hodgekin's Lymphoma Pre-eclampsia, severe, antepartum 2002 HELLP syndrome Patient Active Problem List Diagnosis Code ADVANCE DIRECTIVE INFORMATION Hypertrophy of nasal turbinates J34.3 NONALLERGIC RHINITIS J31.0 History of lymphoma Z85.72 History of acute anterior wall IN I25.2 Coronary artery disease of [place] artery of [place] heart with stable angina pectoris (HCC) I25.118 Dyslipidemia, goal LDL below 70 E78.5 Atypical chest pain R07.89 Past Surgical History: Procedure Laterality Date DELIVERY 07/2004 x 2 COLONOSCOPY, DIAGNOSTIC (RECTUM) 01/22/2016 normal bx, diverticulosis/COLONOSCOPY FLEXIBLE PROXIMAL DIAGNOSTIC performed by Wellington Alonso MD at [facility] COLONOSCOPY, DIAGNOSTIC (RECTUM) 06/26/2021 diverticulosis, repeat 5 yrs / COLONOSCOPY FLEXIBLE PROXIMAL DIAGNOSTIC performed by Naveen Prather MD at END[facility] EGD, FLEXIBLE, DIAGNOSTIC 01/22/2016 normal bx, duodenal diverticulum/ESOPHAGOGASTRODUODENOSCOPY (EGD), FLEXIBLE, TRANSORAL, DIAGNOSTIC performed by Wellington Alonso MD at ENDOSCOPY [facility] EGD, FLEXIBLE, DIAGNOSTIC 02/04/2022 z-line regular at 39 cm from incisors, normal scope / biopsies mildly suggestive of reflux - if symptomatic an antireflux lifestyle / ESOPHAGOGASTRODUODENOSCOPY (EGD), FLEXIBLE, TRANSORAL, DIAGNOSTICperformed by Fidelina Castro MD at ENDOS[facility] GERMAN TEACHER PAP SCREEN 11/04/2008 negative for intraepithelial lesion or malignancy-jeffrey GERMAN TEACHER PAP SCREEN 03/16/2010 wnl, -Abadk NONE 08/06/2004 nodule of left forearm facitis by Dr. Lara. benign PAP SCREEN 09/05/2013 WNL- Cami REMOVAL OF PELVIC STRUCTURES partial emergency hysterectomy: still has cercix and ovaries TOTAL ABD HYSTERECTOMY W/WO REMOVAL OF TUBE(S) 2008 Family History Problem Relation Age of Onset Heart Disorder Mother Hypertension Mother Gastro-intestinal disorder Father diverticulitis Allergies Brother allergic rhinitis Asthma Brother Allergies Brother allergic rhinitis Gastro-intestinal disorder Brother diverticulitis No Known Problems Grandmother (Maternal) No Known Problems Grandfather (Maternal) No Known Problems Grandmother (Paternal) No Known Problems Grandfather (Paternal) Allergies Son rhinitis Asthma Son Social History Tobacco Use Smoking status: Some Days Types: Cigarettes Smokeless tobacco: Never Tobacco comments: 3 cigarettes everyother weekend social smoker. Exposed to second hand smoke. Vaping Use Vaping Use: Never used Substance Use Topics Alcohol use: Yes Comment: occasional wine Drug use: No Review of patient's allergies indicates: Allergen Reactions Amoxicillin Anaphylaxis Covid-19 (Mrna) Vaccine ([employer]) [Covid-19 (Mrna) Vaccine] Edema face/lips/tongue, Hives and Rash Sulfa Antibiotics Rash rash Ciprofloxacin Hives Flagyl [Metronidazole] Hives Macrobid [Nitrofurantoin] hives Tetracyclines & Related Other (Please comment) esophagus gets swollen, possible dysphagia Current Outpatient Medications Medication Sig Dispense Refill Atorvastatin Calcium 20 MG Oral Tablet (Lipitor) Take by mouth 1 Tablet in the morning. (Patient taking differently: Take 1 Tablet by mouth in the morning.) 90 Tablet 3 Aspirin 81 MG Oral Tablet Delayed Release [...] mouth in the morning. 30 Tablet 5 No current facility-administered medications for this visit. ROS: Review of Systems: See HPI for pertinent positives. All other review of systems is negative. PHYSICAL EXAMINATION BP 120/78 | Pulse 80 | Resp 10 | Wt 62.8 kg (138 lb 8 oz) | BMI 24.53 kg/m | BSA 1.67 m Body mass index is 24.53 kg/m. General: no acute distress and stated age Head: normocephalic, no masses, lesions, tenderness or abnormalities Eyes: conjunctiva are pink and non-injected, sclera clear Neck: supple, no adenopathy, no bruits, normal jugular venous pulse, no hepatojugular reflux Chest: normal shape and normal respiratory effort Lungs: clear to auscultation and percussion Cardiac Exam: - regular rate & rhythm, no murmurs gallops or rubs - normal S1, normal S2 Pulses: 2(+) throughout Abdomen: abdomen soft, non-tender, no abnormal masses and no hepatosplenomegaly Musculoskeletal: no gait disturbance, no joint inflammation, no deforming arthritis Extremities: no edema and no cyanosis Neuro: grossly normal exam Laboratory Data Review: Latest Reference Range & Units 09/16/22 06:11 Sodium 135 - 146 mmol/L 139 Potassium 3.5 - 5.1 mmol/L 3.7 Chloride 98 - 107 mmol/L 103 CO2 22 - 32 mmol/L 25 BUN 6 - 20 mg/dL 8 Creatinine 0.5 - 1.0 mg/dL 0.5 Estimated Glomerular Filtration Rate >=60 mL/min >90 Anion Gap 7 - 15 mmol/L 11 Glucose 70 - 120 mg/dL 105 Calcium 8.4 - 10.2 mg/dL 9.0 Magnesium 1.5 - 2.6 mg/dL 2.5 Protein 6.0 - 8.3 g/dL 6.8 Lipid Panel Results: Results for orders placed or performed in visit on 09/25/19 LIPID PANEL Result Value Ref Range HOURS FASTING >8 HOURS hours Triglycerides 78 0 - 174 mg/dL Cholesterol 148 <200 mg/dL HDL Cholesterol 73 >49 mg/dL NON-HDL CHOLESTEROL 75 0 - 159 mg/dL LDL Cholesterol 59 0 - 129 mg/dL Results for orders placed or performed during the hospital encounter of 09/15/22 LIPID PANEL WITH DIRECT LDL IF TG IS HIGH Result Value Ref Range Triglycerides 71 <=174 mg/dL Cholesterol 142 <200 mg/dL HDL Cholesterol 83 >49 mg/dL Non-HDL Cholesterol 59 <=159 mg/dL LDL Cholesterol 45 <=129 mg/dL Impression: 1. Stable coronary artery disease 2. Drug-eluting stent LAD 2019 with a history of IN 3. Dyslipidemia 4. History of Hodgkin's lymphoma with radiation to the chest Plan: I think the patient is clinically stable and it is unlikely that her symptoms recently that got heradmitted to the hospital were cardiac in origin. I do not believe any additional cardiac testing isindicated at this time. I encouraged her to remain active and to have follow-up with us in 6 monthsor earlier if needed. This chart was completed in part utilizing [employer] Speech Voice Recognition Software. Grammatical errors, random word insertions, prounoun errors, and incomplete sentences are an occasional consequence of this system due to software limitations, ambient noise, and hardware issues. Any formal questions or concerns about the content, text, or information contained within the body of this dictation should be directly addressed to the provider for clarification. I spent a total of 30-39 minutes (exact time 35 mins) on the date of service in preparation, delivery, and documentation of the care provided to Yani Tesfaye excluding any time spent in the performance of separately billed services. Taras Silva, DO Cardiology, [address] [place] [address] 09/27/2022 documented in this encounter Nursing Notes * Linda Mohamud LPN - 09/27/2022 8:27 AM EDT Examination Room: 17 Name: Yani Tesfaye Date of : (1970). Reason for Visit: post hosp Interim Hospitalization(s): 24 hour Problems/Concerns: denies Chest Pain/SOB: denies [facility] Discussed: No My [facility] is a way you can talk to your provider online through e-mail. Would you like to sign up? I can activate it for you? ALREADY ACTIVE Patient was instructed to not get up on the exam table until directed and assisted by their provider; patient is to remain seated in the chair/ wheelchair/ exam table for fall prevention and safety reasons. Patient is aware to have assistance to step down off exam table with personnel. Patient voiced full comprehension of instructions. documented in this encounter Plan of Treatment Upcoming Encounters Date Type Specialty Care Team Description 10/26/2022 Telemedicine Family Medicine Nicolle Steinberg DO [address] [facility] [place] [address] 02/23/2023 Laboratory Laboratory [place] [facility] [address] [facility] [place] [address] 03/02/2023 Office Visit Hematology Oncology Aisha Lara MD [address] [place] [address] 05/24/2023 Office Visit Cardiology Taras Silva DO [address] [place] [address] Scheduled Procedures Name Priority Associated Diagnoses Date/Ti me COLONOSCOPY FLEXIBLE PROXIMA L DIAGNOSTIC Recall Family history of colonic polyps Scheduled Referrals Name Type Priority Associated Diagnoses Orde r Schedule CARDIOLOGY REFERRAL OP Referral Within 10 days (routine) Atypical chest pain Ordered: 09/16/2022 Health Maintenance Due Date Last Done Comments DISCUSS TOBACCO CESSATION (REFER TO SMARTSET #[id number]) 1970 Hepatitis B (1 of 3 - 3-dose series) 1972 HIV Screening 1987 Hepatitis C Screening 1990 Depression Screening, Annual for Pts 12 and Over 12/21/2019 12/20/2018 COVID-19 Vaccine (2 - Pfizer series) 08/11/2020 06/16/2020 Zoster Vaccines (1 of 2) 2022 Mammogram 03/02/2023 03/02/2022, 02/06, 03/17/2021, Additional history exists TSH FOR THYROID MEDICATION MONITORING YEARLY 09/16/2023 09/15/2022, 03/02/2022, 09/11/2021, Additional history exists DTaP,Tdap,and Td Vaccines (3 - Tdap) 09/03/2024 09/03/2014, 09/23/2008 COLONOSCOPY-EVERY 5 YRS AGES 18-100 06/26/2026 06/26/2021, 06/26/2021, 01/22/2016, Additional history exists Colonoscopy Discontinued 06/26/2021, 06/09, 01/22/2016, Additional history exists Colorectal Cancer Screening Discontinued Influenza Vaccine (FLU shot) Completed 02/03/2022, 02/03/2021, 02/04/2020, Additional history exists Pneumococcal Vaccine: Pediatrics (0 to 5 Years) [...] as of this encounter Visit Diagnoses Diagnosis Coronary artery disease involving [place] coronary artery of [place] heart without angina pectoris- Primary S/P drug eluting coronary stent placement Postsurgical percutaneous transluminal coronary angioplasty status Dyslipidemia, goal LDL below 70 Other and unspecified hyperlipidemia documented in this encounter Advance Directives Latest Code Status on File Code Status Date Activated Date Inactivated Comments Full Code 09/15/2022 2:56 PM 09/16/2022 4:03 PM This order reflects the patients wishes and were consensually agreed upon. Question Answer Comments Discussion of Advance Directives occurred with: Patient Care Teams Diver Helper Relationship Specialty Start Date End Date Nicolle Steinberg DO [address] [place] [address] PCP - General Family Medicine 09/19/18 documented as of this encounter"
--- OUTSIDE RECORDS SUMMARY | 2023-03-25 15:05 | External Medical Summary | Summary of Care ---
Author Name Unknown Organization [facility] Address [address] [place] [address] Phone [phone] Care Team Providers Care Camp Recreation Specialist Name Role Phone Nicolle Steinberg DO Primary Care Provider Reason for Visit * Reason Onset Date Comments FYI 11/23/2022 Encounter Details Date Type Department Care Team Description 11/23/2022 Telephone Family Practice [facility] [address] [place] [address] Nicolle Steinberg DO [address] [facility] [address] FYI Allergies Active Allergy Reactions Severity Noted Date Comments Amoxicillin Anaphylaxis High 01/01/2022 Ciprofloxacin Hives 12/20/2018 Covid-19 (Mrna) Vaccine Edema face/lips/tongue,Hives ,Rash High 09/27/2020 Metronidazole Hives 12/20/2018 Nitrofurantoin 03/18/2020 hives Sulfa Antibiotics Rash Medium 02/21/2002 rash Tetracyclines & Related Other (Please comment) Low 02/21/2002 esophagus gets swollen, possible dysphagia documented as of this encounter (statuses as of 11/23/2022) Medications Medication Sig Dispensed Refills Start Date [...] Active Atorvastatin Calcium 20 MG Oral Tablet (Lipitor)Gerardotio ns:takes at night Take 1 Tablet by mouth in the morning. 90 Tablet 3 11/03/2022 Active documented as of this encounter (statuses as of 11/23/2022) Active Problems Problem Noted Date Atypical chest pain 09/15/2022 Coronary artery disease of n ative artery of [place] heart with stable angina pectoris 05/30/2019 Dyslipidemia, goal LDL below 70 05/30/19 20 History of acute anterior wall [place] 2018 History of lymphoma 10/28/2017 Overview: NHL age 31 Hypertrophy of nasal turbinates 12/18/19 10 NONALLERGIC RHINITIS 12/17/2009 ADVANCE DIRECTIVE INFORMATION 05/14/2008 Overview: No, Advance Directive brochure given to patient at prior appt. documented as of this encounter (statuses as of 11/23/2022) Resolved Problems Problem Noted Date Resolved Date [...] as of this encounter (statuses as of 11/23/2022) Immunizations Name Administration Dates Next Due COVID-19 mRNA, LNP-s, No Pre serve, 2-Dose Series ([employer]) 06/16/2020 DTaP - Dipth/Tet/Acell Pertussis 09/23/2008 H1N1 2009 Influenza, IM 06/10/2009 Pneumococcal Conjugate Vacc, 13 Valent (Prevnar) 09/11/2018 Pneumococcal Conjugate Vacci ne, 20-valent ([id number]) 09/16/2022 Seasonal Influenza, Quadriva lent, No Preserve, [...] encounter Miscellaneous Notes * Telephone Encounter - Yojana Weiss CPhT - 11/23/2022 2:23 PM EDT Patient returning [facility] Pharmacist call Thank you, Yojana Weiss Clearance Representative II [facility] ([facility] (formerly Telepharmacy) 11/23/2022 2:24 PM documented in this encounter Plan of Treatment Upcoming Encounters Date Type Specialty Care Team Description 11/29/2022 Office Visit Orthopedics Omer Rizvi, DO [address] [place] [address] 02/23/2023 Laboratory Laboratory Carli Coleman [address] [place] [address] 03/02/2023 Office Visit Hematology Oncology Aisha Lara MD [address] [place] [address] 05/24/2023 Office Visit Cardiology Taras Silva DO [address] [place] [address] Scheduled Procedures Name Priority Associated Diagnoses Date/Ti me COLONOSCOPY FLEXIBLE PROXIMA L DIAGNOSTIC Recall Family history of colonic polyps Health Maintenance Due Date Last Done Comments DISCUSS TOBACCO CESSATION (REFER TO SMARTSET #[id number]) 1970 Hepatitis B (1 of 3 - [...] Advance Directives occurred with: Patient Care Teams Camp Recreation Specialist Relationship Specialty Start Date End Date Nicolle Steinberg, [address] [place] [address] PCP - General Family Medicine 09/19/18 documented as of this encounter
--- OUTSIDE RECORDS SUMMARY | 2023-03-25 15:05 | External Medical Summary | Summary of Care ---
Author Name Unknown Organization [facility] Address [address] [place] [address] Phone [phone] Care Team Providers Care Scrap Preparation Supervisor Name Role Phone Amadoroni Valverde Rosemarie FLOWERS Primary Care Provider Reason for Visit * Reason Comments Follow Up Left shoulder Encounter Details Date Type Department Care Team Description 11/29/2022 Office Visit [facility]ed[facility] [address] [facility] [address] Omer Rizvi DO [address] [facility] [address] Bursitis of left shoulder*; Nontraumatic incomplete tear of left rotator cuff Allergies Active Allergy Reactions Severity Noted Date Comments Amoxicillin Anaphylaxis High 01/01/2022 Ciprofloxacin Hives 12/20/2018 Covid-19 (Mrna) Vaccine Edema face/lips/tongue,Hives ,Rash High 09/27/2020 Metronidazole Hives 12/20/2018 Nitrofurantoin 03/18/2020 hives Sulfa Antibiotics Rash Medium 02/21/2002 rash Tetracyclines & Related Other (Please comment) Low 02/21/2002 esophagus gets swollen, possible dysphagia documented as of this encounter (statuses as of 11/29/2022) Medications Medication Sig Dispensed Refills Start Date [...] Atorvastatin Calcium 20 MG Oral Tablet (Lipitor)Indicati ons:takes at night Take 1 Tablet by mouth in the morning. 90 Tablet 3 11/03/2022 Active Cephalexin 500 MG Oral Capsule Take 1 Capsule by mouth in the morning and 1 Capsule before bedtime. Do all this for 7 days. 14 Capsule 0 11/23/2022 11/30/2022 Active Hospital, Clinic, or Other Facility Administered Medication Ordered Dose Route Frequency Start Date End Date Status lidocaine 1% 1 mL - triamcinolone acetonide 40 mg/mL 1 mL inj 2 mLIndications:Bursitis of left shoulder,Nontraumatic incomplete tear of left rotator cuff 2 mL IJ ONCE 11/29/2022 11/29/2022 Ended documented as of this encounter (statuses as of 11/29/2022) Active Problems Problem Noted Date Atypical chest pain 09/15/2022 Coronary artery disease of n ative artery of [place] heart with stable angina pectoris 05/30/2019 Dyslipidemia, goal LDL below 70 05/30/19 20 History of acute anterior wall [place] 2018 History of lymphoma 10/28/2017 Overview: NHL age 31 Hypertrophy of nasal turbinates 12/18/19 10 NONALLERGIC RHINITIS 12/17/2009 ADVANCE DIRECTIVE INFORMATION 05/14/2008 Overview: No, Advance Directive brochure given to patient at prior appt. documented as of this encounter (statuses as of 11/29/2022) Resolved Problems Problem Noted Date Resolved Date [...] as of this encounter (statuses as of 11/29/2022) Immunizations Name Administration Dates Next Due COVID-19 mRNA, LNP-s, No Pre serve, 2-Dose Series (Food on the Table) 06/16/2020 DTaP - Dipth/Tet/Acell Pertussis 09/23/2008 H1N1 2009 Influenza, IM 06/10/2009 Pneumococcal Conjugate Vacc, 13 Valent (Prevnar) 09/11/2018 Pneumococcal Conjugate Vacci ne, 20-valent ([id number]) 09/16/2022 Seasonal Influenza, Quadriva lent, No Preserve, [...] as of this encounter Progress Notes * Omer Rizvi, - 11/29/2022 10:45 AM EDT Yani Tesfaye [id number] INJECTION NOTE Yani Tesfaye is a 52 year old female who presents to [facility] for Left subacromial bursa. inj Last injected 08/09/22 MRI 07/22/22 IMPRESSION Mild rotator cuff tendinosis. No evidence of a tear. Superior and anteroinferior labral tears. Mild subacromial bursitis. TODAY: she has been doing HEP Assessment and Plan: will do repeat SAB inj, hopefully this last longer if not we need to talk about other options such as Tenex, PRP and shoulder consult, inj Bursitis of left shoulder (Primary) - lidocaine 1% 1 mL - triamcinolone acetonide 40 mg/mL 1 mL inj 2 mL - POINT OF CARE US MAJOR JOINT INJECTION, ORTHO Nontraumatic incomplete tear of left rotator cuff - lidocaine 1% 1 mL - triamcinolone acetonide 40 mg/mL 1 mL inj 2 mL - POINT OF CARE US MAJOR JOINT INJECTION, ORTHO Omer Rizvi DO Primary Care Sports Medicine [facility] [place] [address] Procedure note (shoulder subacromial bursa injection) on left: Time out: Prior to injection, a time out was called to confirm the administration of appropriate medicine, patient name, procedure and confirm to the best of our ability and knowledge the presence of any necessary risks and benefits. Patient verbalizes understanding. Ultrasound utilized to guide injection Ultrasound required due to high risk for complications without ultrasound guideance (risk for neurovascular damage). Posteriolateral approach used. Sterile techinique applied. Skin sterilized with chlorhexidine and cleaned with alcohol swab. Subacromial bursa injected using 1.5 inch, 25 gauge needle. Injected with-lidocaine 1% 1 mL - triamcinolone acetonide 40 mg/mL 1 mL inj 2 mL . Patient tolerated procedure with no significant bleeding or adverse reaction. Patient instructed to call or return to clinic for fever or warmth and redness at injection site for potential infection. Patient also advised as to potential for steroid flare reaction including increased pain and redness at injection site which should be treated with ice and resolve within 24 hours. Omer Rizvi DO documented in this encounter Nursing Notes * AMITA Umana - 11/29/2022 10:47 AM EDT Follow up Patient Follow up: Shoulder Side: Left Date of last visit: 08/09/22 Improvement since last office visit: 0 percent. Prior Treatment: Injection Here for Test Results: No Goals for this appointment: injection documented in this encounter Plan of Treatment Upcoming Encounters Date Type Specialty Care Team Description 02/23/2023 Laboratory [facility] [address] [facility] [address] 03/02/2023 Office Visit Hematology Oncology Aisha Lara MD [address] [place] [address] 05/24/2023 Office Visit Cardiology Taras Silva, DO [address] [place] [address] Scheduled Orders Name Type Priority Associated Diagnoses Orde r Schedule POINT OF CARE US MAJOR JOINT INJECTION, ORTHO Medical Imaging Routine Bursitis of left shoulder Nontraumatic incomplete tear of left rotator cuff Ordered: 11/29/2022 Scheduled Procedures Name Priority Associated Diagnoses Date/Ti me COLONOSCOPY FLEXIBLE PROXIMA L DIAGNOSTIC Recall Family history of colonic polyps Health Maintenance Due Date Last Done Comments DISCUSS TOBACCO CESSATION (REFER TO SMARTSET #3299) 1970 Hepatitis B (1 of 3 - [...] as of this encounter Visit Diagnoses Diagnosis Bursitis of left shoulder- Primary Disorders of bursae and tendons in shoulder region, unspecified Nontraumatic incomplete tear of left rotator cuff documented in this encounter Administered Medications Inactive Administered Medications - up to 3 most recent administrations Medication Order MAR Action Action Date Dose Rate Site lidocaine 1% 1 mL - triamcinolone acetonide 40 mg/mL 1 mL inj 2 mL 2 mL, Injection, ONCE, On Tue11/29/22 at 1145, For 1 dose, Lidocaine 1% 1mL Triamcinolone Acetonide 40 mg/mL 1 mL (Final concentration = 20 mg/mL) REFRIGERATE and SHAKE WELL Given 11/29/2022 11:04 AM EDT 2 mL Shoulder Left documented in this encounter Advance Directives Latest Code Status on File Code Status Date Activated Date Inactivated Comments Full Code 09/15/2022 2:56 PM 09/16/2022 4:03 PM This order reflects the patients wishes and were consensually agreed upon. Question Answer Comments Discussion of Advance Directives occurred with: Patient Care Teams Scrap Preparation Supervisor Relationship Specialty Start Date End Date Nicolle Steinberg DO [address] [place] [address] PCP - General Family Medicine 09/19/18 documented as of this encounter
--- OUTSIDE RECORDS SUMMARY | 2023-03-25 15:05 | External Medical Summary | Summary of Care ---
Author Name Unknown Organization [facility] Address [address] [place] [address] Phone [phone] Care Team Providers Care Allied Health Professional Name Role Phone Idris Nicolle Houston DO Primary Care Provider Reason for Visit * Reason Comments eRx-Medication Refill Encounter Details Date Type Department Care Team Description 02/13/2023 Refill Cardiology, [facility] [address] [facility] [id number] Taras Silva DO [address] [place] [address] Coronary artery disease involving [place] coronary artery of [place] heart without angina pectoris* Allergies Active Allergy Reactions Severity Noted Date Comments Amoxicillin Anaphylaxis High 01/01/2022 Ciprofloxacin Hives 12/20/2018 Covid-19 (Mrna) Vaccine Edema face/lips/tongue,Hives ,Rash High 09/27/2020 Metronidazole Hives 12/20/2018 Nitrofurantoin 03/18/2020 hives Sulfa Antibiotics Rash Medium 02/21/2002 rash Tetracyclines & Related Other (Please comment) Low 02/21/2002 esophagus gets swollen, possible dysphagia documented as of this encounter (statuses as of 02/14/2023) Medications Medication Sig Dispensed Refills Start Date End Date Status EpiPen 2-Terrence 0.3 MG/0.3ML Injection Solution Auto-injector Inject 0.3 mg into a large muscle once. For a severe reaction: Inject in outer thigh following instructions on package and go to the Emergency room. 0 Active Levothyroxine Sodium 25 MCG Oral Tablet (Levoxyl)Indica tions:Weight gain Take 1 Tablet (25 mcg) by [...] Active Atorvastatin Calcium 20 MG Oral Tablet (Lipitor)Indica tions:Dyslipide carlyn, goal LDL below 70 TAKE ONE TABLET BY MOUTH EVERY MORNING 90 Tablet 3 11/29/2022 Active predniSONE 20 MG Oral Tablet (Deltasone)Penny cations:Bee sting reaction, accidental or unintentional, initial encounter 1 tab 3 times a day for 3 days, then 1 tab 2 times a day for 3 days, then 1 tab daily for 3 days 18 Tablet 0 12/21/2022 Active Aspirin Low Dose 81 MG Oral Tablet Delayed Release (aspirin enteric coated)Indicati ons:Coronary artery disease involving [place] coronary artery of [place] heart without angina pectoris TAKE ONE TABLET BY MOUTH EVERY MORNING 90 Tablet 3 02/14/2023 Active Aspirin 81 MG Oral Tablet Delayed Release Take by mouth 1 Tablet in the morning. 100 Tablet 3 11/16/2021 3 Discontinued documented as of this encounter (statuses as of 02/14/2023) Active Problems Problem Noted Date Atypical chest pain 09/15/2022 Coronary artery disease of n ative artery of [place] heart with stable angina pectoris 05/30/2019 Dyslipidemia, goal LDL below 70 05/30/19 20 History of acute anterior wall [place] 2018 History of lymphoma 10/28/2017 Overview: NHL age 31 Hypertrophy of nasal turbinates 12/18/19 10 NONALLERGIC RHINITIS 12/17/2009 ADVANCE DIRECTIVE INFORMATION 05/14/2008 Overview: No, Advance Directive brochure given to patient at prior appt. documented as of this encounter (statuses as of 02/14/2023) Resolved Problems Problem Noted Date Resolved Date [...] as of this encounter (statuses as of 02/14/2023) Immunizations Name Administration Dates Next Due COVID-19 mRNA, LNP-s, No Pre serve, 2-Dose Series ([employer]) 06/16/2020 DTaP Dipth/Tet/Acell Pertussis (Infanrix), Peds 09/23/2008 H1N1 2009 Influenza, IM 06/10/2009 Pneumococcal Conjugate Vacc, 13 Valent (Prevnar) 09/11/2018 Pneumococcal Conjugate Vacci ne, 20-valent ([id number]) 09/16/2022 SEASONAL INFLUENZA, PF, 6 M & [...] encounter Miscellaneous Notes * Telephone Encounter - Robert Cantu DO - 02/14/2023 3:59 PM EDTSigned Prescriptions: Disp Refills Aspirin Low Dose 81 MG Oral Tablet Delayed*90 Tab*3 Sig: TAKE ONE TABLET BY MOUTH EVERY MORNING Authorizing Provider: ROBERT CANTU * Telephone Encounter - JOSE Shoemaker - 02/14/2023 2:14 PM EDTPending Prescriptions: Disp Refills Aspirin Low Dose 81 MG Oral Tablet Delayed*90 Tab*3 Sig: TAKE ONE TABLET BY MOUTH EVERY MORNING * Telephone Encounter - JOSE Shoemaker - 02/14/2023 2:14 PM EDT Did you pend patient's preferred pharmacy and medication before forwarding?yes Pharmacy: [facility] [id number] Pending Prescriptions: Disp Refills Aspirin Low Dose 81 MG Oral Tablet Delaye*90 Tab*3 Sig: TAKE ONE TABLET BY MOUTH EVERY MORNING Last Visit: 09/27/2022 (in office), 01/08/2022 (telemedicine) Next Visit: 05/24/2023 If no future appointments scheduled, and last appointment is greater than a year ago, please schedule patient for a follow-up appointment Last date the medication was ordered: 11-16-2021 Is this request for a controlled substance?No Urine Drug Screen:No results found for this or any previous visit. Patient Phone Numbers Labs: Lab Results Component Value Date/Time CREAT 0.5 09/16/2022 06:11 AM CREAT 0.6 03/20/2020 11:33 AM POTASSIUM 3.7 09/16/2022 06:11 AM POTASSIUM 4.3 03/20/2020 11:33 AM TSH 3.31 09/15/2022 12:42 PM TSH 1.85 01/25/2019 02:49 PM LDLCALC 45 09/15/2022 01:54 PM LDLCALC 59 09/25/2019 12:10 PM LDLDIRECT NOT APPLICABLE 04/27/2014 09:08 AM ALT 21 09/16/2022 06:11 AM ALT 18 03/20/2020 11:33 AM HGBA1C 5.5 09/15/2022 12:42 PM documented in this encounter Plan of Treatment Upcoming Encounters Date Type Specialty Care Team Description 02/23/2023 Laboratory Laboratory Carli Coleman [address] [place] [address] 03/02/2023 Office Visit Hematology Oncology Aisha Lara MD [address] [place] [address] 05/24/2023 Office Visit Cardiology Taras Silva, [address] [place] [address] Scheduled Procedures Name Priority Associated Diagnoses Date/Ti me COLONOSCOPY FLEXIBLE PROXIMA L DIAGNOSTIC Recall Family history of colonic polyps Health Maintenance Due Date Last Done Comments DISCUSS TOBACCO CESSATION (REFER TO SMARTSET #1658) 1970 Hepatitis B (1 of 3 - 3-dose series) 1972 HIV Screening 1987 Hepatitis C Screening 1990 Depression Screening 12/21/2019 12/20/2018 Zoster Vaccines (1 of 2) 2022 COVID-19 Vaccine (2 - 2022- season) 2023 06/16/2020 Influenza Vaccine (FLU shot) [...] Visit Diagnoses Diagnosis Coronary artery disease involving [place] coronary artery of [place] heart without angina pectoris- Primary documented in this encounter Advance Directives Latest Code Status on File Code Status Date Activated Date Inactivated Comments Full Code 09/15/2022 2:56 PM 09/16/2022 4:03 PM This order reflects the patients wishes and were consensually agreed upon. Question Answer Comments Discussion of Advance Directives occurred with: Patient Care Teams Allied Health Professional Relationship Specialty Start Date End Date Nicolle Steinberg DO [address] [place] [address] PCP - General Family Medicine 09/19/18 documented as of this encounter
--- OUTSIDE RECORDS SUMMARY | 2023-03-25 15:05 | External Medical Summary | Summary of Care ---
Author Name Unknown Organization [facility] Address [address] [place] [address] Phone [phone] Care Team Providers Care Human Resources Mgr Name Role Phone Amadoroni Nicolle Houston DO Primary Care Provider Reason for Visit * Reason Comments eRx-Medication Refill Encounter Details Date Type Department Care Team Description 11/02/2022 Refill Cardiology, [facility] [address] [facility] [place] [id number] Skip Silva DO [address] [place] [address] Allergies Active Allergy Reactions Severity Noted Date Comments Amoxicillin Anaphylaxis High 01/01/2022 Ciprofloxacin Hives 12/20/2018 Covid-19 (Mrna) Vaccine Edema face/lips/tongue,Hives ,Rash High 09/27/2020 Metronidazole Hives 12/20/2018 Nitrofurantoin 03/18/2020 hives Sulfa Antibiotics Rash Medium 02/21/2002 rash Tetracyclines & Related Other (Please comment) Low 02/21/2002 esophagus gets swollen, possible dysphagia documented as of this encounter (statuses as of 11/03/2022) Medications Medication Sig Dispensed Refills Start Date [...] Atorvastatin Calcium 20 MG Oral Tablet (Lipitor)Indica tions:takes at night Take 1 Tablet by mouth in the morning. 90 Tablet 3 11/03/2022 Active Atorvastatin Calcium 20 MG Oral Tablet (Lipitor) Take by mouth 1 Tablet in the morning. 90 Tablet 3 10/09/2021 3 Discontinued documented as of this encounter (statuses as of 11/03/2022) Active Problems Problem Noted Date Atypical chest pain 09/15/2022 Coronary artery disease of n ative artery of [place] heart with stable angina pectoris 05/30/2019 Dyslipidemia, goal LDL below 70 05/30/19 20 History of acute anterior wall [place] 2018 History of lymphoma 10/28/2017 Overview: NHL age 31 Hypertrophy of nasal turbinates 12/18/19 10 NONALLERGIC RHINITIS 12/17/2009 ADVANCE DIRECTIVE INFORMATION 05/14/2008 Overview: No, Advance Directive brochure given to patient at prior appt. documented as of this encounter (statuses as of 11/03/2022) Resolved Problems Problem Noted Date Resolved Date [...] as of this encounter (statuses as of 11/03/2022) Immunizations Name Administration Dates Next Due COVID-19 mRNA, LNP-s, No Pre serve, 2-Dose Series ([employer]) 06/16/2020 DTaP - Dipth/Tet/Acell Pertussis 09/23/2008 H1N1 2009 Influenza, IM 06/10/2009 Pneumococcal Conjugate Vacc, 13 Valent (Prevnar) 09/11/2018 Pneumococcal Conjugate Vacci ne, 20-valent ([id number]) 09/16/2022 Seasonal Influenza, Quadriva lent, No Preserve, [...] encounter Miscellaneous Notes * Telephone Encounter - Skip Silva DO - 11/03/2022 3:37 PM EDTSigned Prescriptions: Disp Refills Atorvastatin Calcium 20 MG Oral Tablet (Li*90 Tab*3 Sig: Take 1 Tablet by mouth in the morning. Authorizing Provider: SKIP SILVA * Telephone Encounter - Zack Winkler LPN - 11/03/2022 2:36 PM EDTPending Prescriptions: Disp Refills Atorvastatin Calcium 20 MG Oral Tablet [Ph*90 Tab*3 Sig: TAKE ONE TABLET BY MOUTH EVERY MORNING * Telephone Encounter - Zack Winkler LPN - 11/03/2022 2:35 PM EDT Did you pend patient's preferred pharmacy and medication before forwarding?yes Pharmacy: [facility] [id number] Pending Prescriptions: Disp Refills Atorvastatin Calcium 20 MG Oral Tablet (L*90 Tab*3 Sig: TAKE ONE TABLET BY MOUTH EVERY MORNING Last Visit: 09/27/2022 (in office), 01/08/2022 (telemedicine) Next Visit: 05/24/2023 If no future appointments scheduled, and last appointment is greater than a year ago, please schedule patient for a follow-up appointment Last date the medication was ordered: 10/09/21 Is this request for a controlled substance?No [...] Team Description 02/23/[address] [place] [address] [address] [address] 03/02/2023 Office Visit Hematology Oncology Aisha Lara MD [address] [place] [address] 05/24/2023 Office Visit Cardiology Shira, Skip Hernandez, DO [address] [place] [address] Scheduled Procedures Name Priority Associated Diagnoses Date/Ti me COLONOSCOPY FLEXIBLE PROXIMA L DIAGNOSTIC Recall Family history of colonic polyps Health Maintenance Due Date Last Done Comments DISCUSS TOBACCO CESSATION (REFER TO SMARTSET #4463) 1970 Hepatitis B (1 of 3 - [...] Advance Directives occurred with: Patient Care Teams Human Resources Mgr Relationship Specialty Start Date End Date Nicolle Steinberg DO [address] [place] [address] PCP - General Family Medicine 09/19/18 documented as of this encounter
--- OUTSIDE RECORDS SUMMARY | 2023-03-25 15:05 | External Medical Summary | Summary of Care ---
Author Name Unknown Organization [facility] Address [address] [place] [address] Phone [phone] Care Team Providers Care Economic Manager Name Role Phone Nicolle Steinberg DO Primary Care Provider Reason for Visit * Reason Onset Date Comments Advice 02/01/2023 Med Question Encounter Details Date Type Department Care Team Description 02/01/2023 Telephone Family Practice [facility] [address] [place] [address] Nicolle Steinberg DO [address] [place] [address] Advice (Med Question) Allergies Active Allergy Reactions Severity Noted Date Comments Amoxicillin Anaphylaxis High 01/01/2022 Ciprofloxacin Hives 12/20/2018 Covid-19 (Mrna) Vaccine Edema face/lips/tongue,Hives ,Rash High 09/27/2020 Metronidazole Hives 12/20/2018 Nitrofurantoin 03/18/2020 hives Sulfa Antibiotics Rash Medium 02/21/2002 rash Tetracyclines & Related Other (Please comment) Low 02/21/2002 esophagus gets swollen, possible dysphagia documented as of this encounter (statuses as of 02/04/2023) Medications Medication Sig Dispensed Refills Start Date [...] as of this encounter (statuses as of 02/04/2023) Active Problems Problem Noted Date Atypical chest pain 09/15/2022 Coronary artery disease of n ative artery of [place] heart with stable angina pectoris 05/30/2019 Dyslipidemia, goal LDL below 70 05/30/19 20 History of acute anterior wall [place] 2018 History of lymphoma 10/28/2017 Overview: NHL age 31 Hypertrophy of nasal turbinates 12/18/19 10 NONALLERGIC RHINITIS 12/17/2009 ADVANCE DIRECTIVE INFORMATION 05/14/2008 Overview: No, Advance Directive brochure given to patient at prior appt. documented as of this encounter (statuses as of 02/04/2023) Resolved Problems Problem Noted Date Resolved Date [...] as of this encounter (statuses as of 02/04/2023) Immunizations Name Administration Dates Next Due COVID-19 mRNA, LNP-s, No Pre serve, 2-Dose Series ([employer]) 06/16/2020 DTaP Dipth/Tet/Acell Pertussis (Infanrix), Peds 09/23/2008 H1N1 2009 Influenza, IM 06/10/2009 Pneumococcal Conjugate Vacc, 13 Valent (Prevnar) 09/11/2018 Pneumococcal Conjugate Vacci ne, 20-valent ([id number]) 09/16/2022 SEASONAL INFLUENZA, PF, 6 M & [...] encounter Miscellaneous Notes * Telephone Encounter - Nicolle Steinberg DO - 02/01/2023 1:06 PM EDT Recommend imaging with CT abd/pelvis if symptoms persist, which requires an in person visit #1 because its the right thing to do as far as practicing good medicine, and #2 to be approved by insurance. This is why I generally don't recommend antibiotics without in person evaluation. Nicolle Steinberg DO * Telephone Encounter - Marina Caruso [facility] - 02/01/2023 8:14 AM EDT Pt calling to report SE from Keflex. Pt reports diarrhea since AB initiation for diverticulitis. Has stopped Keflex last night and diarrhea subsided. Reports diverticulitis sx have somewhat improved since Fri - still admits to dull acheLLQ. Advised patient med may be more tolerable when taken with food. Pt reports she has not taken all doses with food, however pt does not wish to retrial AB. Discussed with pt when to contact clinic in meantime or seek care for new or worsening sx. Pt verbalized understanding. Please review and advise regarding pt sx. Allergies/intolerances limit appropriate treatment for sxwhich I discussed with pt. Pt requesting message be sent directly to PCP. Thank you, Marina Caruso PharmD Clinical Pharmacist [facility] ([facility]) 02/01/23 8:21 AM [phone] * Telephone Encounter - STUART Card - 02/01/2023 8:12 AM EDT Pt was transferred to [place] stating she has been having a lot of diarrhea. Warm transferred to [facility]. Thanks, Tammy Roland Lamination Operator [facility] 02/01/2023,8:13 AM * Telephone Encounter - COURTNEY Orta - 02/01/2023 8:04 AM EDT Reason for patient's call: Questions in reference to the Cephalexin 500 MG, that was prescribed forher on 01.28.2023. Caller was transferred to [facility] at the pharmacy line. documented in this encounter Plan of Treatment Upcoming Encounters Date Type Specialty Care Team Description 02/23/2023 [address] [place] [address] [address] [address] 03/02/2023 Office Visit Hematology Oncology Jane, Aisha Giles MD [address] [place] [address] 05/24/2023 Office Visit Cardiology Shira, Taras David, DO [address] [place] [address] Scheduled Procedures Name Priority Associated Diagnoses Date/Ti me COLONOSCOPY FLEXIBLE PROXIMA L DIAGNOSTIC Recall Family history of colonic polyps Health Maintenance Due Date Last Done Comments DISCUSS TOBACCO CESSATION (REFER TO SMARTSET #8847) 1970 Hepatitis B (1 of 3 - [...] Advance Directives occurred with: Patient Care Teams Economic Manager Relationship Specialty Start Date End Date Nicolle Steinberg DO [address] [place] [address] PCP - General Family Medicine 09/19/18 documented as of this encounter
--- OUTSIDE RECORDS SUMMARY | 2023-03-25 15:05 | External Medical Summary | Summary of Care ---
Author Name Unknown Organization [facility] Address [address] [place] [address] Phone [phone] Care Team Providers Care Founder Name Role Phone Amadoroni Nicolle Houston DO Primary Care Provider Reason for Visit * Reason Comments eRx-Medication Refill Encounter Details Date Type Department Care Team Description 11/27/2022 Refill Cardiology, [facility] [address] [facility] [place] [phone] Skip Silva DO [address] [place] [address] Dyslipidemia, goal LDL below 70* Allergies Active Allergy Reactions Severity Noted Date [...] the morning. 30 Tablet 5 09/24/2022 Active Cephalexin 500 MG Oral Capsule Take 1 Capsule by mouth in the morning and 1 Capsule before bedtime. Do all this for 7 days. 14 Capsule 0 11/23/2022 3 Active Atorvastatin Calcium 20 MG Oral Tablet (Lipitor)Indica tions:Dyslipide carlyn, goal LDL below 70 TAKE ONE TABLET BY MOUTH EVERY MORNING 90 Tablet 3 11/29/2022 Active Atorvastatin Calcium 20 MG Oral Tablet (Lipitor)Indica tions:takes at night Take 1 Tablet by mouth in the morning. 90 Tablet 3 11/03/2022 3 Discontinued documented as of this encounter (statuses as of 11/29/2022) Active Problems Problem Noted Date Atypical chest pain 09/15/2022 Coronary artery disease of n ative artery of [place] heart with stable angina pectoris 05/30/2019 Dyslipidemia, goal LDL below 70 05/30/19 20 History of acute anterior wall [place] 2018 History of lymphoma 10/28/2017 Overview: NHL age 31 Hypertrophy of nasal turbinates 12/18/19 10 NONALLERGIC RHINITIS 12/17/2009 ADVANCE DIRECTIVE INFORMATION 05/14/2008 Overview: No, Advance Directive brochure given to patient at prior appt. documented as of this encounter (statuses as of 11/29/2022) Resolved Problems Problem Noted Date Resolved Date Primary hyperparathyroidism 04/19/2022 0501/2023 Anxiety 04/18/2019 02/03/2021 RECURRENT ACUTE SINUSITIS 12/17/20092016 [...] mRNA, LNP-s, No Pre serve, 2-Dose Series ([employer]) 06/16/2020 DTaP - Dipth/Tet/Acell Pertussis 09/23/2008 H1N1 2009 Influenza, IM 06/10/2009 Pneumococcal Conjugate Vacc, 13 Valent (Prevnar) 09/11/2018 Pneumococcal Conjugate Vacci ne, 20-valent ([id number]) 09/16/2022 Seasonal Influenza, Quadriva lent, No Preserve, [...] Telephone Encounter - Skip Silva DO - 11/29/2022 11:43 AM EDTSigned Prescriptions: Disp Refills Atorvastatin Calcium 20 MG Oral Tablet (Li*90 Tab*3 Sig: TAKE ONE TABLET BY MOUTH EVERY MORNING Authorizing Provider: SKIP SILVA * Telephone Encounter - JOSE Shoemaker - 11/29/2022 11:01 AM EDTPending Prescriptions: Disp Refills Atorvastatin Calcium 20 MG Oral Tablet [Ph*90 Tab*3 Sig: TAKE ONE TABLET BY MOUTH EVERY MORNING * Telephone Encounter - JOSE Shoemaker - 11/29/2022 11:00 AM EDT Pharmacy requesting Rx to be re-sent Did you pend patient's preferred pharmacy and medication before forwarding?yes Pharmacy: [facility] [id number] Pending Prescriptions: Disp Refills Atorvastatin Calcium 20 MG Oral Tablet (L*90 Tab*3 Sig: TAKE ONE TABLET BY MOUTH EVERY MORNING Last Visit: 09/27/2022 (in office), 01/08/2022 (telemedicine) Next Visit: 05/24/2023 If no future appointments scheduled, and last appointment is greater than a year ago, please schedule patient for a follow-up appointment Last date the medication was ordered: 11-03-2022 Is this request for a controlled substance?No [...] Care Team Description 02/23/2023 Laboratory Laboratory [facility] [address] [place] [address] 03/02/2023 Office Visit Hematology Oncology Aisha Lara MD [address] [place], [place] [phone] 05/24/2023 Office Visit Cardiology Skip Silva, DO [address] [place] [address] Scheduled Procedures Name Priority Associated Diagnoses Date/Ti me COLONOSCOPY FLEXIBLE PROXIMA L DIAGNOSTIC Recall Family history of colonic polyps Health Maintenance Due Date Last Done Comments DISCUSS TOBACCO CESSATION (REFER TO SMARTSET #3290) 1970 Hepatitis B (1 of 3 - [...] as of this encounter Visit Diagnoses Diagnosis Dyslipidemia, goal LDL below 70- Primary Other and unspecified hyperlipidemia documented in this encounter Advance Directives Latest Code Status on File Code Status Date Activated Date Inactivated Comments Full Code 09/15/2022 2:56 PM 09/16/2022 4:03 PM This order reflects the patients wishes and were consensually agreed upon. Question Answer Comments Discussion of Advance Directives occurred with: Patient Care Teams Founder Relationship Specialty Start Date End Date Nicolle Steinberg DO [address] [place] [address] PCP - General Family Medicine 09/19/18 documented as of this encounter
--- OUTSIDE RECORDS SUMMARY | 2023-03-25 15:05 | External Medical Summary | Summary of Care ---
Author Name Unknown Organization [facility] Address [address] [place] [address] Phone [phone] Care Team Providers Care Meteorologist Liaison Name Role Phone Nicolle Steinberg DO Primary Care Provider Reason for Visit * Reason Comments Bee Sting Encounter Details Date Type Department Care Team Description 12/21/2022 Office Visit Family Practice [facility] [address] [place] [facility] [address] Mehrdad Vela DO [address] [facility] [address] Bee sting reaction, accidental or unintentional, initial encounter* Allergies Active Allergy Reactions Severity Noted Date Comments Amoxicillin Anaphylaxis High 01/01/2022 Ciprofloxacin Hives 12/20/2018 Covid-19 (Mrna) Vaccine Edema face/lips/tongue,Hives ,Rash High 09/27/2020 Metronidazole Hives 12/20/2018 Nitrofurantoin 03/18/2020 hives Sulfa Antibiotics Rash Medium 02/21/2002 rash Tetracyclines & Related Other (Please comment) Low 02/21/2002 esophagus gets swollen, possible dysphagia documented as of this encounter (statuses as of 12/21/2022) Medications Medication Sig Dispensed Refills Start Date [...] 3 days 18 Tablet 0 12/21/2022 Active documented as of this encounter (statuses as of 12/21/2022) Active Problems Problem Noted Date Atypical chest pain 09/15/2022 Coronary artery disease of n ative artery of [place] heart with stable angina pectoris 05/30/2019 Dyslipidemia, goal LDL below 70 05/30/19 20 History of acute anterior wall [place] 2018 History of lymphoma 10/28/2017 Overview: NHL age 31 Hypertrophy of nasal turbinates 12/18/19 10 NONALLERGIC RHINITIS 12/17/2009 ADVANCE DIRECTIVE INFORMATION 05/14/2008 Overview: No, Advance Directive brochure given to patient at prior appt. documented as of this encounter (statuses as of 12/21/2022) Resolved Problems Problem Noted Date Resolved Date [...] as of this encounter (statuses as of 12/21/2022) Immunizations Name Administration Dates Next Due COVID-19 mRNA, LNP-s, No Pre serve, 2-Dose Series (Written) 06/16/2020 DTaP - Dipth/Tet/Acell Pertussis 09/23/2008 H1N1 2009 Influenza, IM 06/10/2009 Pneumococcal Conjugate Vacc, 13 Valent (Prevnar) 09/11/2018 Pneumococcal Conjugate Vacci ne, 20-valent ([id number]) 09/16/2022 Seasonal Influenza, Quadriva lent, No Preserve, [...] Sign Reading Time Taken Comments Blood Pressure 116/70 12/21/2022 10:22 AM EDT Pulse 83 12/21/2022 10:22 AM EDT Temperature 36.5 C (97.7 F) 12/21/2022 1 0:22 AM EDT Respiratory Rate 16 12/21/2022 10:2 2 AM EDT Oxygen Saturation 99% 12/21/2022 10: 22 AM EDT Inhaled Oxygen Concentration - - Weight 62.1 kg (136 lb 12.8 oz) 023 10:22 AM EDT Height 160 cm (5' 3") 12/21/2022 10:22 AM EDT Body Mass Index 24.23 12/21/2022 10:22 AM EDT documented in this encounter Functional Status [...] as of this encounter Progress Notes * Mehrdad Vela, DO - 12/21/2022 10:34 AM EDT Subjective: Yani Tesfaye is a 52 year old female. Chief Complaint Patient presents with Bee Sting HPI: She was bit by a bee Tuesday morning. Fingers started to swell but then worsened Tuesday to her hand and going up her forearm. It is a little red and felt warm. No F or C. Feels off today. She gets swollen with bee stings in the past. She has an Epipen. She held off. She has been taking benadryl. She has been icing her hand. Wakes up from heat and itching in the night. Still able to use her hand yesterday. She says she is a little hoarse in her throat. No SOB. Maybe a lump in her throat. No hives. PMHx, meds, and allergies reviewed Patient Active Problem List Diagnosis Code ADVANCE DIRECTIVE INFORMATION Hypertrophy of nasal turbinates J34.3 NONALLERGIC RHINITIS J31.0 History of lymphoma Z85.72 History of acute anterior wall SC I25.2 Coronary artery disease of [place] artery of [place] heart with stable angina pectoris (HCC) I25.118 Dyslipidemia, goal LDL below 70 E78.5 Atypical chest pain R07.89 Current Outpatient Medications Medication Sig Dispense Refill Aspirin 81 MG Oral Tablet Delayed Release [...] No current facility-administered medications for this visit. Review of patient's allergies indicates: Allergen Reactions Amoxicillin Anaphylaxis Covid-19 (Mrna) Vaccine (Written) [Covid-19 (Mrna) Vaccine] Edema face/lips/tongue, Hives and Rash Sulfa Antibiotics Rash rash Ciprofloxacin Hives Flagyl [Metronidazole] Hives Macrobid [Nitrofurantoin] hives Tetracyclines & Related Other (Please comment) esophagus gets swollen, possible dysphagia OBJECTIVE: BP 116/70 | Pulse 83 | Temp 36.5 C (97.7 F) (Tympanic) | Resp 16 | Ht 1.6 m (5' 3") | Wt 62.1 kg (136 lb 12.8 oz) | SpO2 99% | BMI 24.23 kg/m | BSA 1.66 m Estimated body mass index is 24.23 kg/m as calculated from the following: Height as of this encounter: 1.6 m (5' 3"). Weight as of this encounter: 62.1 kg (136 lb 12.8 oz). BP Readings from Last 3 Encounters: 12/21/22 116/70 09/27/22 120/78 09/24/22 122/70 Wt Readings from Last 3 Encounters: 12/21/22 62.1 kg (136 lb 12.8 oz) 09/27/22 62.8 kg (138 lb 8 oz) 09/24/22 62.3 kg (137 lb 6.4 oz) ROS: Negative except for above PHYSICAL EXAM: General: alert, healthy, and no distress Head: Normocephalic, No masses, lesions, tenderness or abnormalities Oropharynx: no exudate, no erythema, lips, buccal mucosa, and tongue normal, and mucous membranes are moist Neck: supple, no adenopathy, no bruits, thyroid normal size, non-tender, without nodularity Heart: regular rate & rhythm, no murmur, and no gallops Lungs: chest symmetric with normal AP diameter, no chest deformities noted, no chest wall tenderness, lungs clear to auscultation Extremities: no joint deformities, effusion, or inflammation, and swelling of her R hand, mild erythema but no warmth ASSESSMENT/Plan Bee sting reaction, accidental or unintentional, initial encounter (Primary) - predniSONE 20 MG Oral Tablet (Deltasone); 1 tab 3 times a day for 3 days, then 1 tab 2 times a day for 3 days, then 1 tab daily for 3 days No apparent cellulitis, treat as a reaction from the sting. The above was discussed and understanding was expressed. Mehrdad Vela DO documented in this encounter Nursing Notes * Nola Rodriguez LPN - 12/21/2022 10:21 AM EDT Patient presents today for a bee sting on her right hand. She said that it is getting worse and feels like it is moving up her arm and her throat is getting itchy. She said that she has been taking benadryl around the clock. documented in this encounter Plan of Treatment Upcoming Encounters Date Type Specialty Care Team Description 02/23/2023 Laboratory Laboratory [place] [address] [place] [address] 03/02/2023 Office Visit Hematology Oncology Aisha Lara MD [address] [place] [address] 05/24/2023 Office Visit Cardiology Taras Silva DO [address] [place] [address] Scheduled Procedures Name Priority Associated Diagnoses Date/Ti me COLONOSCOPY FLEXIBLE PROXIMA L DIAGNOSTIC Recall Family history of colonic polyps Health Maintenance Due Date Last Done Comments DISCUSS TOBACCO CESSATION (REFER TO SMARTSET #0107) 1970 Hepatitis B (1 of 3 - [...] as of this encounter Visit Diagnoses Diagnosis Bee sting reaction, accidental or unintentional, initial encounter- Primary documented in this encounter Advance Directives Latest Code Status on File Code Status Date Activated Date Inactivated Comments Full Code 09/15/2022 2:56 PM 09/16/2022 4:03 PM This order reflects the patients wishes and were consensually agreed upon. Question Answer Comments Discussion of Advance Directives occurred with: Patient Care Teams Meteorologist Liaison Relationship Specialty Start Date End Date Nicolle Steinberg DO [address] [place] [address] PCP - General Family Medicine 09/19/18 documented as of this encounter
--- OUTSIDE RECORDS SUMMARY | 2023-03-25 15:05 | External Medical Summary | Summary of Care ---
Author Name Unknown Organization [facility] Address [address] [place] [address] Phone [phone] Care Team Providers Care Grain Elevator Clerk Name Role Phone Nicolle Steinberg DO Primary Care Provider Reason for Visit * Reason Onset Date Comments Med Request 01/28/2023 Encounter Details Date Type Department Care Team Description 01/28/2023 Telephone Family Practice [facility] [address] [place] [address] Nicolle Steinberg DO [address] [facility] [place] [address] Med Request Allergies Active Allergy Reactions Severity Noted Date Comments Amoxicillin Anaphylaxis High 01/01/2022 Ciprofloxacin Hives 12/20/2018 Covid-19 (Mrna) Vaccine Edema face/lips/tongue,Hives ,Rash High 09/27/2020 Metronidazole Hives 12/20/2018 Nitrofurantoin 03/18/2020 hives Sulfa Antibiotics Rash Medium 02/21/2002 rash Tetracyclines & Related Other (Please comment) Low 02/21/2002 esophagus gets swollen, possible dysphagia documented as of this encounter (statuses as of 01/31/2023) Medications Medication Sig Dispensed Refills Start Date [...] as of this encounter (statuses as of 01/31/2023) Active Problems Problem Noted Date Atypical chest pain 09/15/2022 Coronary artery disease of n ative artery of [place] heart with stable angina pectoris 05/30/2019 Dyslipidemia, goal LDL below 70 05/30/19 20 History of acute anterior wall [place] 2018 History of lymphoma 10/28/2017 Overview: NHL age 31 Hypertrophy of nasal turbinates 12/18/19 10 NONALLERGIC RHINITIS 12/17/2009 ADVANCE DIRECTIVE INFORMATION 05/14/2008 Overview: No, Advance Directive brochure given to patient at prior appt. documented as of this encounter (statuses as of 01/31/2023) Resolved Problems Problem Noted Date Resolved Date [...] as of this encounter (statuses as of 01/31/2023) Immunizations Name Administration Dates Next Due COVID-19 mRNA, LNP-s, No Pre serve, 2-Dose Series ([employer] 06/16/2020 DTaP Dipth/Tet/Acell Pertussis ([employer]), Peds 09/23/2008 H1N1 2009 Influenza, IM 06/10/2009 Pneumococcal Conjugate Vacc, 13 Valent (Prevnar) 09/11/2018 Pneumococcal Conjugate Vacci ne, 20-valent ([id number]) 09/16/2022 Seasonal Influenza, PF, 6 mo ns [...] encounter Miscellaneous Notes * Telephone Encounter - COURTNEY Mcfadden - 01/31/2023 11:40 AM EDT Pt did tele med on Tuesday * Telephone Encounter - Letitia Shea LPN - 01/28/2023 4:44 PM EDT Left message for patient to return call. Also, informed patient to check her Dropcam[employer] message. * Telephone Encounter - Nicolle Steinberg DO - 01/28/2023 3:44 PM EDT Please make an in person appointment for evaluation, exam at weekend clinic or convenient care to decide the best path forward together Ok to use an acute "same day" appt. Concern for multiple antibiotic allergies Note: to get "first dibbs" on the appointments- they don't open up until 5pm the day prior. You cancall (phones are open until 7pm) or go online to make an acute appt after 5pm Nicolle Steinberg DO * Telephone Encounter - COURTNEY Hernandez - 01/28/2023 2:31 PM EDT Pt calling she spoke to a Triage Nurse and is still waiting for something to be call in Pt having Diverticulitis pain On left side Pt is prone to Diverticulitis Please send something over to [facility] [address] [place] [address] documented in this encounter Plan of Treatment Upcoming Encounters Date Type Specialty Care Team Description 02/23/2023 Laboratory Laboratory [place], [address] [place] [address] 03/02/2023 Office Visit Hematology Oncology Aisha Lara MD [address] [place] [address] 05/24/2023 Office Visit Cardiology Taras Silva DO [address] [place] [address] Scheduled Procedures Name Priority Associated Diagnoses Date/Ti me COLONOSCOPY FLEXIBLE PROXIMA L DIAGNOSTIC Recall Family history of colonic polyps Health Maintenance Due Date Last Done Comments DISCUSS TOBACCO CESSATION (REFER TO SMARTSET #9350) 1970 Hepatitis B (1 of 3 - [...] Advance Directives occurred with: Patient Care Teams Grain Elevator Clerk Relationship Specialty Start Date End Date Nicolle Steinberg DO [address] [place] [address] PCP - General Family Medicine 09/19/18 documented as of this encounter
--- OUTSIDE RECORDS SUMMARY | 2023-03-25 15:05 | External Medical Summary | Summary of Care ---
Author Name Unknown Organization [facility] Address [address] [place] [address] Phone [phone] Care Team Providers Care Geothermal Operations Engineer Name Role Phone Nicolle Steinberg DO Primary Care Provider Encounter Details Date Type Department Care Team Description 10/26/2022 Telemedicine Family Practice [facility] [address] [facility] [place] [id number] [facility] [id number] SHIRA (generalized anxiety disorder)* Allergies Active Allergy Reactions Severity Noted Date Comments Amoxicillin Anaphylaxis High 01/01/2022 Ciprofloxacin Hives 12/20/2018 Covid-19 (Mrna) Vaccine Edema face/lips/tongue,Hives ,Rash High 09/27/2020 Metronidazole Hives 12/20/2018 Nitrofurantoin 03/18/2020 hives Sulfa Antibiotics Rash Medium 02/21/2002 rash Tetracyclines & Related Other (Please comment) Low 02/21/2002 esophagus gets swollen, possible dysphagia documented as of this encounter (statuses as of 10/26/2022) Medications Medication Sig Dispensed Refills Start Date [...] as of this encounter (statuses as of 10/26/2022) Active Problems Problem Noted Date Atypical chest pain 09/15/2022 Coronary artery disease of n ative artery of [place] heart with stable angina pectoris 05/30/2019 Dyslipidemia, goal LDL below 70 05/30/19 20 History of acute anterior wall [place] 2018 History of lymphoma 10/28/2017 Overview: NHL age 31 Hypertrophy of nasal turbinates 12/18/19 10 NONALLERGIC RHINITIS 12/17/2009 ADVANCE DIRECTIVE INFORMATION 05/14/2008 Overview: No, Advance Directive brochure given to patient at prior appt. documented as of this encounter (statuses as of 10/26/2022) Resolved Problems Problem Noted Date Resolved Date [...] as of this encounter (statuses as of 10/26/2022) Immunizations Name Administration Dates Next Due COVID-19 mRNA, LNP-s, No Pre serve, 2-Dose Series ([employer]) 06/16/2020 DTaP - Dipth/Tet/Acell Pertussis 09/23/2008 H1N1 2009 Influenza, IM 06/10/2009 Pneumococcal Conjugate Vacc, 13 Valent (Prevnar) 09/11/2018 Pneumococcal Conjugate Vacci ne, 20-valent ([id number]) 09/16/2022 Seasonal Influenza, Quadriva lent, No Preserve, [...] as of this encounter Progress Notes * Valverde Rosemariejake Steinberg, DO - 10/26/2022 1:06 PM EDT Patient location: HOME. I was in a hospital or clinic location. After connecting through [employer],patient was verified with two unique identifiers. Patient (or authorized legal kiosk sales representative) was then informed that this was a Telemedicine visit and being conducted confidentially over secure lines. Methods to assure confidentiality were taken. Patient acknowledged consent and understanding of pr ivacy and security of the Telemedicine visit. The patient agreed to participate. Subjective: Yain Tesfaye is a 52 year old female. No chief complaint on file. HPI: Medication working well, just well enough to take the edge off. No side effects, happy with dose. Have felt less revved up. Less like the energizer bunny- more at ease, does have enough energy. PHM: Patient Active Problem List Diagnosis Code ADVANCE DIRECTIVE INFORMATION Hypertrophy of nasal turbinates J34.3 NONALLERGIC RHINITIS J31.0 History of lymphoma Z85.72 History of acute anterior wall [place] I25.2 Coronary artery disease of [place] artery of [place] heart with stable angina pectoris (HCC) I25.118 Dyslipidemia, goal LDL below 70 E78.5 Atypical chest pain R07.89 Outpatient Medications Prior to Visit Medication Sig Dispense Refill Sertraline HCl 25 MG Oral Tablet (Zoloft) Take 1 Tablet by mouth in the morning. 30 Tablet 5 Nitroglycerin 0.4 MG Sublingual Tablet Sublingual (Nitrostat) PLACE 1 TABLET UNDER THE TONGUE NEEDED FOR CHEST PAIN. MAY REPEAT 3 TIMES. IF CHEST PAIN CONTINUES CALL 911. 25 Tablet 11 metroNIDAZOLE 0.75 % External Cream (Metrocream) APPLY TOPICALLY TO AFFECTED AREA TWICE DAILY 45 g 11 Levothyroxine Sodium 25 MCG Oral Tablet (Levoxyl) Take 1 Tablet (25 mcg) by mouth in the morning. (at least 30 min prior to breakfast or other meds). 90 Tablet 1 EpiPen 2-Terrence 0.3 MG/0.3ML Injection Solution Auto-injector Inject 0.3 mg into a large muscle once. For a severe reaction: Inject in outer thigh following instructions on package and go to the Emergency room. Aspirin 81 MG Oral Tablet Delayed Release Take by mouth 1 Tablet in the morning. (Patient taking differently: Take 1 Tablet by mouth in the morning.) 100 Tablet 3 Atorvastatin Calcium 20 MG Oral Tablet (Lipitor) Take by mouth 1 Tablet in the morning. (Patient taking differently: Take 1 Tablet by mouth in the morning.) 90 Tablet 3 No facility-administered medications prior to visit. Last reviewed on 09/27/2022 9:02 AM by Taras Silva DO Review of patient's allergies indicates: Allergen Reactions Amoxicillin Anaphylaxis Covid-19 (Mrna) Vaccine ([employer]) [Covid-19 (Mrna) Vaccine] Edema face/lips/tongue, Hives and Rash Sulfa Antibiotics Rash rash Ciprofloxacin Hives Flagyl [Metronidazole] Hives Macrobid [Nitrofurantoin] hives Tetracyclines & Related Other (Please comment) esophagus gets swollen, possible dysphagia Objective: There were no vitals taken for this visit. Physical Exam: General: alert and no distress ASSESSMENT/PLAN: SHIRA (generalized anxiety disorder) (Primary) Contnue sertraline 25mg, let me know if she would like to increase or discontinue/ wean in future. Annual follow up. 10 min spent on telemedicine, coordinating care, reviewing chart, and preparing this note. Nicolle Steinberg DO documented in this encounter Plan of Treatment Upcoming Encounters Date Type Specialty Care Team Description 02/23/2023 Laboratory Laboratory [place], Lab [address]ery [address] [place] [address] 03/02/2023 Office Visit Hematology Oncology Aisha Lara MD 200 [facility], [place] [phone] 05/24/2023 Office Visit Cardiology Taras Silva, [address] [place] [address] Scheduled Procedures Name Priority Associated Diagnoses Date/Ti me COLONOSCOPY FLEXIBLE PROXIMA L DIAGNOSTIC Recall Family history of colonic polyps Health Maintenance Due Date Last Done Comments DISCUSS TOBACCO CESSATION (REFER TO SMARTSET #6324) 1970 Hepatitis B (1 of 3 - [...] as of this encounter Visit Diagnoses Diagnosis SHIRA (generalized anxiety disorder)- Primary Generalized anxiety disorder documented in this encounter Advance Directives Latest Code Status on File Code Status Date Activated Date Inactivated Comments Full Code 09/15/2022 2:56 PM 09/16/2022 4:03 PM This order reflects the patients wishes and were consensually agreed upon. Question Answer Comments Discussion of Advance Directives occurred with: Patient Care Teams Geothermal Operations Engineer Relationship Specialty Start Date End Date Nicolle Steinberg, [address] [place], [place] [phone] PCP - General Family Medicine 09/19/18 documented as of this encounter
--- NOTE | 2023-03-25 15:28 | Electrocardiogram Report ---
Test Reason : Blood Pressure : / mmHG Vent. Rate : 080 BPM Atrial Rate : 080 BPM P-R Int : 124 ms QRS Dur : 086 ms QT Int : 402 ms P-R-T Axes : 055 073 060 degrees QTc Int : 463 ms Normal sinus rhythm Normal ECG When compared with ECG of 23-MAR-2023 16:25, No significant change was found Confirmed by Hung Landin ([id number]) on 03/25/2023 3:27:48 PM Referred By: Nicolle Steinberg Confirmed By:Hung Landin
== END 2023-03-24 14:15 | disposition home or self-care (01) ==
LOC: ED 12:18 → 1E 12:18 → SUPCPDRO 19:32 → SUATTDRO 19:32 → EDINP 20:26

== ENCOUNTER 2023-05-07 01:41 | Inpatient (IN) ==
--- OUTSIDE RECORDS SUMMARY | 2023-05-07 01:46 | External Medical Summary | Summary of Care ---
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 Role Phone Idris Valverde Rosemarie Primary Care Provider Reason for Visit * Reason Onset Date Comments Advice 05/06/2023 Encounter Details Date Type Department Care Team ([facility] Contact Info) Description 05/06/2023 Telephone Cardiology, [facility] [address] [place] [id number] Paul Mcnally MD [address] [place] [address] Advice Allergies Active Allergy Reactions Criticality Noted Date Comments Amoxicillin Anaphylaxis High 01/01/2022 Ciprofloxacin Hives 12/20/2018 Covid-19 (Mrna) Vaccine Edema face/lips/tongue,Hiv es,Rash High 09/27/2020 Metronidazole Hives 12/20/2018 Nitrofurantoin 03/18/2020 hives Sulfa Antibiotics Rash Medium 02/21/2002 rash Tetracyclines & Related Other (Please comment) Low 02/21/2002 esophagus gets swollen, possible dysphagia documented as of this encounter (statuses as of 05/06/2023) Medications Medication Sig Dispensed Refills Start Date [...] CALL 911. 25 Tablet 11 08/23/2022 Active Atorvastatin Calcium 20 MG Oral Tablet (Lipitor)Indicatio ns:Dyslipidemia, goal LDL below 70 TAKE ONE TABLET BY MOUTH EVERY MORNING 90 Tablet 3 11/29/2022 Active Aspirin Low Dose 81 MG Oral Tablet Delayed Release (aspirin enteric coated)Indications :Coronary artery disease involving chemehuevi coronary artery of chemehuevi heart without angina pectoris TAKE ONE TABLET BY MOUTH EVERY MORNING 90 Tablet 3 02/14/2023 Active Sertraline HCl 25 MG Oral Tablet (Zoloft) TAKE ONE TABLET BY MOUTH EVERY MORNING 90 Tablet 2 04/04/2023 Active Azithromycin 250 MG Oral Tablet (Zithromax)Indicat ions:Bronchitis, complicated Take 2 tabs by mouth on the first day, then 1 tab daily on days two through five 6 Tablet 0 05/05/2023 05/10/2023 Active predniSONE 10 MG Oral Tablet (Deltasone) Take 5 tabs for 2 days, 4 tabs for 2 days, 3 tabs for 2 days, 2 tabs for 2 days 1 tab for 2 days 30 Tablet 0 05/05/2023 Active ProAir HFA 108 (90 Base) MCG/ACT Inhalation Aerosol SolutionIndication s:Bronchitis, complicated Inhale 2 Puffs by mouth in the morning and 2 Puffs at noon and 2 Puffs in the evening and 2 Puffs before bedtime. 18 g 1 05/05/2023 Active documented as of this encounter (statuses as of 05/06/2023) Active Problems Problem Noted Date Diagnosed Date Atypical chest pain 09/15/2022 Coronary artery disease of n ative artery of chemehuevi heart with stable angina pectoris 05/30/2019 Dyslipidemia, goal LDL below 70 05/30/2019 History of acute anterior wall NM 03/16/2019 History of lymphoma 10/28/2017 Overview: NHL age 31 Hypertrophy of nasal turbinates 12/17/2009 NONALLERGIC RHINITIS 12/17/2009 ADVANCE DIRECTIVE INFORMATION 05/14/2008 Overview: No, Advance Directive brochure given to patient at prior appt. documented as of this encounter (statuses as of 05/06/2023) Resolved Problems Problem Noted Date Diagnosed Date [...] as of this encounter (statuses as of 05/06/2023) Immunizations Name Administration Dates Next Due COVID-19 mRNA, LNP-s, No Pre serve, 2-Dose Series (LocPlanet) 06/16/2020 DTaP Dipth/Tet/Acell Pertussis (Infanrix), Peds 09/23/2008 H1N1 2009 Influenza, IM 06/10/2009 Pneumococcal Conjugate Vacc, 13 Valent (Prevnar) 09/11/2018 Pneumococcal Conjugate Vacci ne, 20-valent ([id number]) 09/16/2022 Seasonal Influenza, PF, 6 M & above, IM , (FluLaval or Fluzone) 03/02/2023,02/03/2022,02/03/2021,2019,02/22/2019,01/31/2018,03/02/2017 Seasonal Influenza, Split, I IV3, With [...] encounter Miscellaneous Notes * Telephone Encounter - Paul Mcnally MD - 05/06/2023 10:55 PM EST Patient call with elevated BP and tachycardia, HR>170. Started prednisone earlier for bronchitus. Discussed with patient and daughter. Agreed to ER eval, EKG ordered to be done on arrival. ER: SVT at 186 bpm converted to sinus tachycarcia Lab: Potassium 3.1 Discharged on Toprol xl 25 mg per day Potassium 10 meq per day Please obtain EKGs from [facility] for EPIC documented in this encounter Plan of Treatment Upcoming Encounters Date Type Department Care Team (Late st Contact Info) Description 05/16/2023 10:35 AM EST Imaging Cardiac Studies, [facility], [place] [facility] [place] [address] 05/24/2023 9:30 AM EST Office Visit Cardiology, [facility] [address] [place] [address] Taras Silva, [address] [place] [address] 06/03/2023 8:30 AM EST Imaging [facility] 2nd Floor Cardiology, [place] [address] [facility] [place] [address] Gw, Excess Time Radiology [address] [facility] [place] [address] 03/05/2024 2:00 PM EDT Office Visit Hematology/Oncology 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
[2023-05-07] MEDS ORDERED: ADENOSINE IV SOLN 3 MG/ML 2 ML VIAL IV ONE (01:50)
[2023-05-07] MEDS ORDERED: ADENOSINE IV SOLN 3 MG/ML 2 ML VIAL IV STA (02:05)
[2023-05-07] MEDS ORDERED: SODIUM CHLORIDE 0.9% 1,000 ML IV SCH ×2 (02:15→06:53)
--- NOTE | 2023-05-07 02:45 | Emergency Department Note ---
Impression & Plan Chest pain, SVT (supraventricular tachycardia), Influenza ED Provider Note ED Provider Note NAME: LIS SOMMERS AGE:52 SEX: Female : 1970 ARRIVES VIA: Private vehicle INFORMANT: Patient ED PROVIDER(s): Susanne Guerin DO CHIEF COMPLAINT: Palpitations, chest pain HPI: This is a 52-year-old female who presents emergency department due to recurrent SVT. Patient was seen and evaluated earlier in the evening for SVT and was given adenosine with conversion to normal sinus rhythm. Her labs and imaging were reassuring and she was discharged home. She states she was only home a couple hours before this recurred and she came back. Patient does have a prior history of SVT as well as coronary artery disease and indwelling stent. Patient states they suspect that the cardiac issues she deals with are related to having cancer at age 31. Patient states she did recently have a respiratory infection and was started on azithromycin and prednisone. She denies any change in caffeine or alcohol consumption and feels she is staying well-hydrated. She states when her symptoms began she felt a sense of coldness, heaviness, and pressure across her chest. She was slightly lightheaded and felt slightly short of breath. Patient noted to be in SVT on arrival here. PAST MEDICAL HISTORY:See Below PAST SURGICAL HISTORY:See Below FAMILY HISTORY:See Below SOCIAL HISTORY:See Below HOME MEDICATIONS:See Below ALLERGIES:See Below VITALS:See Below PHYSICAL EXAMINATION: GENERAL: alert, well appearing, well nourished, no distress, non-toxic EYE EXAM: normal conjunctiva, PERRL and EOM's grossly intact OROPHARYNX: no exudate, no erythema, lips, buccal mucosa, and tongue normal and mucous membranes are moist NECK: supple, no nuchal rigidity, no adenopathy, non-tender LUNGS: Clear to auscultation. Normal chest wall mechanics, no w/r/r HEART: no murmurs, S1 normal and S2 normal; SVT noted on telemetry with a rate of 171 ABDOMEN: abdomen soft, non-tender, normo-active bowel sounds, no masses, no rebound or guarding. BACK: Back is symmetrical on inspection and there is no deformity, no midline tenderness, no CVA tenderness. SKIN: no rashes, petechiae, orbruising UPPER EXTREMITIES: upper extremities are grossly normal. FROM, nml pulses b/l. LOWER EXTREMITIES: No pitting edema. FROM, nml pulses b/l. NEURO EXAM: Normal sensorium, cranial nerves II-XII grossly intact, normal speech, no facial droop,nogross weakness of arms, no gross weakness of legs. Gross sensation intact. No ataxia. Vital Signs: reviewed and remarkable Differential Diagnosis: premature contractions, electrolyte abnormality, cardiac dysrhythmia, thyroid dysfunction, pulmonary embolism, infection, gastrointestinal, as well as others were entertained. MEDICAL DECISION MAKING: This is a 52-year-old female with history of SVT who presents for recurrent SVT after being evaluated earlier for the same and discharged home. Patient states prior attempts at vagal maneuvers have been unsuccessful so an IV was established, labs drawn and sent, and patient immediately given 6 mg of adenosine while monitored on telemetry with conversion to a normal sinus rhythm. Patient had resolution of her symptoms following this. She was monitored on telemetry. We discussed all results. Patient did have an elevated troponin at this time. Given history of CAD and stent and 2 episodes of SVT with significant elevated heart rate I suspect some of this may be related to demand and increased rate. We also discussed that recent illness could be a contributing factor as could the medications that were added. We performed a bio fire nasal swab which showed patient had influenza A. I discussed that the antibiotics would not be helpful given the viral etiology of her symptoms. I have a low suspicion for occult PE. I do not suspect thyroid storm, toxidrome, alcohol or illicit substances. Patient has been taking her medications as prescribed. Case discussed with hospitalist for additional evaluation and management given recurrent episodes with significant symptoms and now newly elevated troponin. Consultation(s): 0303: Discussed with Dr. Coffey, [facility] hospitalist, for additional evaluation and management. ER Treatment Provided: See below Diagnostics Interpreted By Me: -ECG: SVT at a rate of 171, normal QRS and QTc, normal axis, nonspecific ST/T wave changes including ST depression noted in 2, 3, aVF, and V3 through V6 that is likely rate related EKG #2 after adenosine: Normal sinus at 90, normal axis, normal intervals, no acute ST/T wave changes -Cardiac Monitoring: An order was placed for continuous cardiac monitoring. The monitor shows a rate of [] with [] rhythm. -Laboratory studies: As stated above and show below. -Imaging studies: [] Triage Nursing Note Reviewed Prior/Outside Records Reviewed Past Med/Surg History Medical History Anxiety CAD (coronary artery disease) Hypothyroidism Reactive airway disease Diverticulitis Sinusitis nasal Heart attack HELLP syndrome H O severe pre- eclampsia antepartum Hodgkin lymphoma radiation therapy 2002 Surgical History S/P wisdom tooth extraction History of intravascular stent placement 09-04-2018 H/O section times 3 S/P partial hysterectomy surgery 2008, supracervical in immediate pp period from uterine atony. Family History Mother Mitral valve replaced Coronary heart disease Father Diverticulitis Other Asthma Denies family history of Ovarian cancer Breast cancer Colorectal cancer Social History Smoking Status: Unknown if ever smoked Second Hand Exposure: Yes; Do You Dip or Chew Tobacco: No; Hx Alcohol Use: Yes Alcohol type: wine Hx Substance Use: No Preferred Language: Turkmen Communication Ability: Effective Hearing Ability: Normal Shoer Required: No Beliefs That Will Affect Care: None marital status: Current Living Situation: Family Current Living Situation Comment: Independent current occupational status: employed 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 Other Information That Helps Us Care for You: No Feels Safe at Home: Yes Childhood Exposure to Second-Hand Smoke: No Assistive Devices: Glasses Allergies Allergies Allergy/AdvReac Type Severity Reaction Status Date / Time COVID-19 (SARS-CoV-2) Allergy Severe Anaphylaxis Unverified 03/23/23 17:18 vaccine, sergey nitrofurantoin Allergy Severe Swelling Verified 03/23/23 17:18 [From Macrobid] of Lip/Tongue/Throat tetracycline Allergy Intermediate Rash Verified 03/23/23 17:18 Quinolones Allergy Unknown Unknown Verified 03/23/23 17:18 Sulfa (Sulfonamide Allergy Unknown Rash Verified 03/23/23 17:18 Antibiotics) Home Meds Home Medications Medication Instructions Recorded Confirmed albuterol sulfate 90 mcg/actuation 2 puff inhalation Q4H PRN 05/07/23 05/07/23 aerosol inhaler Shortness Of Breath Or Wheezing aspirin 81 mg tablet,delayed 81 mg PO DAILY 05/07/23 05/07/23 release atorvastatin 20 mg tablet 20 mg PO DAILY 05/07/23 05/07/23 levothyroxine 25 mcg tablet 25 mcg PO DAILY 05/07/23 05/07/23 Previous Rx's Medication Instructions Recorded metoprolol succinate 25 mg 25 mg PO QAM #30 tabs 05/07/23 tablet,extended release 24 hr potassium chloride 10 mEq 10 meq PO DAILY #30 tabs 05/07/23 tablet,extended release(part/cryst) Results & Data (ED) Vital Signs Vital Signs - 24 hr 05/07/23 05:00 Pulse Rate 82 Pulse Rate from SpO2 Sensor 81 Respiratory Rate 14 Blood Pressure 121/80 Blood Pressure Mean 93 Pulse Oximetry 97 Oxygen Delivery Method Room Air Laboratory Data 05/07/23 08:45 05/07/23 08:45 Lab Results 05/07/23 05/07/23 Range/Units 02:20 02:36 WBC 4.37 L (4.8-10.8) K/ul RBC 3.56 L (4.20-5.40) M/uL Hgb 11.6 L D (12.0-16.0) g/dl Hct 34.0 L (37.0-47.0) % MCV 95.5 (80.0-100.0) fL MCH 32.6 (25.0-34.0) pg MCHC 34.1 (32.0-36.0) g/dL RDW Std Deviation 42.3 (36.4-46.3) fL RDW Coeff of Wade 12.0 (11.5-14.5) % Plt Count 147 (130-400) K/uL MPV 9.2 L (9.4-12.4) fL Immature Gran % (Auto) 0.5 % Neut % (Auto) 67.0 % Lymph % (Auto) 24.3 % Turner % (Auto) 7.8 % Eos % (Auto) 0.2 % Baso % (Auto) 0.2 % Neut # (Auto) 2.93 (1.40-6.50) K/uL Lymph # (Auto) 1.06 L (1.20-3.40) K/uL Turner # (Auto) 0.34 (0.11-0.59) K/uL Eos # (Auto) 0.01 (0.00-0.50) K/uL Baso # (Auto) 0.01 (0.00-0.20) K/uL Immature Gran # (Auto) 0.02 (0.01-0.20) K/uL Sodium 145 (136-145) mmol/L Potassium 3.3 L (3.5-5.1) mmol/L Chloride 114 H (98-107) mmol/L Carbon Dioxide 23 (21-32) mmol/L Anion Gap 8 (3-11) BUN 7 (6-23) mg/dl Creatinine 0.49 L (0.6-1.2) mg/dl Est Cr Clr Drug Dosing 127.5 ml/min Est GFR ( Amer) 131.7 ml/min Est GFR (Non-Af Amer) 113.6 ml/min BUN/Creatinine Ratio 14.3 (10-20) Glucose 135 H (70-99(Fasting)) mg/dl Calcium 8.0 L D (8.6-10.3) mg/dl Magnesium 1.7 (1.7-2.4) mg/dl Total Bilirubin 0.3 (0.2-1.0) mg/dl AST 39 (13-39) U/L ALT 36 (7-52) U/L Alkaline Phosphatase 69 (34-104) U/L Troponin I High Sens 192.8 H* D (0-14) pg/ml Total Protein 6.2 D (6.0-8.3) gm/dl Albumin 3.7 (3.4-5.0) gm/dl Globulin 2.5 (2.5-4.0) gm/dl Albumin/Globulin Ratio 1.5 (0.9-2) TSH 7.259 H (0.300-4.500) uIu/ml Free T4 0.53 L (0.61-1.60) ng/dl Nasal Influ A H1 2008 PCR DETECTED A* (NotDetected) Adenovirus (PCR) Not Detected (NotDetected) B. pertussis DNA (PCR) Not Detected (NotDetected) B.parapertussis DNA PCR Not Detected (NotDetected) Lyme Disease IgG Ab Negative (Negative) Lyme Disease IgM Ab Negative (Negative) C. pneumoniae DNA (PCR) Not Detected (NotDetected) Coronavirus OC43 (PCR) Not Detected (NotDetected) Coronavirus HKU1 (PCR) Not Detected (NotDetected) Coronavirus 229E (PCR) Not Detected (NotDetected) SARS-CoV-2 (PCR) Not Detected (NotDetected) Coronavirus NL63 (PCR) Not Detected (NotDetected) Human Metapneumovir PCR Not Detected (NotDetected) Influenza Type B (PCR) Not Detected (NotDetected) M. pneumoniae (PCR) Not Detected (NotDetected) Parainfluenza 1 (PCR) Not Detected (NotDetected) Parainfluenza 2 (PCR) Not Detected (NotDetected) Parainfluenza 3 (PCR) Not Detected (NotDetected) Parainfluenza 4 (PCR) Not Detected (NotDetected) RSV (PCR) Not Detected (NotDetected) Entero/Rhino (PCR) Not Detected (NotDetected) Administered Medications Discontinued Medications Adenosine (Adenosine Iv Soln 3 Mg/Ml 2 Ml Vial) Confirm Administered Dose 18 mg [facility] Stop: 05/07/23 01:51 Last Admin: 05/07/23 02:05 Dose: Not Given Documented By: SHANE Adenosine (Adenosine Iv Soln 3 Mg/Ml 2 Ml Vial) 6 mg IV NOW STA Stop: 05/07/23 02:06 Last Admin: 05/07/23 01:54 Dose: 6 mg Documented By: SHANE Aspirin (Aspirin 81 Mg Ectab) 81 mg PO DAILY KADEEM Stop: 06/06/23 08:59 Last Admin: 05/07/23 09:28 Dose: 81 mg Documented By: ARCHIE Atorvastatin Calcium (Atorvastatin 20 Mg Tab) 20 mg PO DAILY KADEEM Stop: 06/06/23 08:59 Last Admin: 05/07/23 08:01 Dose: 20 mg Documented By: ARCHIE Sodium Chloride (Nss) 1,000 mls @ 125 mls/hr IV .Q8H KADEEM Stop: 06/06/23 02:14 Last Infusion: 05/07/23 11:21 Dose: Infused Documented By: Infusion: 05/07/23 09:34 Dose: 0 mls/hr Documented By: Admin: 05/07/23 02:20 Dose: 125 mls/hr Documented By: SHANE Sodium Chloride (Nss) 1,000 mls @ 100 mls/hr IV .Q10H [facility] Stop: 05/07/23 16:52 Last Admin: 05/07/23 09:27 Dose: 100 mls/hr Documented By: ARCHIE Levothyroxine Sodium (Levothyroxine Sodium 25 Mcg Tablet) 25 mcg PO DAILYBB [facility] Stop: 06/06/23 06:59 Last Admin: 05/07/23 08:03 Dose: Not Given Documented By: ARCHIE Metoprolol Succinate (Metoprolol Succ 25mg Ext Rel Tab) 25 mg PO QAM [facility] Stop: 06/06/23 10:29 Last Admin: 05/07/23 13:50 Dose: 25 mg Documented By: CAMRON Potassium Chloride (Potassium Chloride Crtab 20 Meq Tabcr) 40 meq PO Q2H [facility] Stop: 05/07/23 11:31 Last Admin: 05/07/23 11:04 Dose: Not Given Documented By: Admin: 05/07/23 11:04 Dose: Not Given Documented By: ALONZO Potassium Chloride (Potassium Chloride Crtab 20 Meq Tabcr) 40 meq PO NOW ONE Stop: 05/07/23 10:31 Last Admin: 05/07/23 11:09 Dose: 40 meq Documented By: ALONZO Discharge Plan Visit Data Chief Complaint: Tachycardia Stated Complaint: SVT ED Provider: Susanne Guerin Discharge Problem: Chest pain, SVT (supraventricular tachycardia), Influenza Patient Disposition: Admitted As Inpatient Discharge Instructions Interventions: ED Discharge Assessment Last Done: 05/07/23 06:54
[2023-05-07 02:56] LABS: Albumin Globulin Ratio 1.5 (0.9-2); Albumin Level 3.7 gm/dl (3.4-5.0); BUN Creatinine Ratio 14.3 (10-20); Bilirubin,Total 0.3 mg/dl (0.2-1.0); Creatinine Clr Calc Pharmacy 127.5 ml/min; Est GFR (African American) 131.7 ml/min; Est GFR (Non-African American) 113.6 ml/min; Globulin 2.5 gm/dl (2.5-4.0); Magnesium 1.7 mg/dl (1.7-2.4); Potassium 3.3 mmol/L (3.5-5.1); Total Protein 6.2 gm/dl (6.0-8.3)
[2023-05-07 03:07] LABS: Troponin I High Sensitivity 192.8 pg/ml (0-14)
[2023-05-07 03:12] LABS: Thyroid Stimulating Hormone 7.259 uIu/ml (0.300-4.500)
[2023-05-07 03:14] LABS: Basophils # (auto) 0.01 K/uL (0.00-0.20); Basophils % (auto) 0.2 %; Eosinophils # (auto) 0.01 K/uL (0.00-0.50); Eosinophils % (auto) 0.2 %; Hemoglobin 11.6 g/dl (12.0-16.0); Immature Granulocytes # (auto) 0.02 K/uL (0.01-0.20); Immature Granulocytes % (auto) 0.5 %; Lymphocytes # (auto) 1.06 K/uL (1.20-3.40); Lymphocytes % (auto) 24.3 %; Mean Corpuscular Hemoglobin 32.6 pg (25.0-34.0); Mean Corpuscular Hgb Conc 34.1 g/dL (32.0-36.0); Mean Corpuscular Volume 95.5 fL (80.0-100.0); Mean Platelet Volume 9.2 fL (9.4-12.4); Monocytes # (auto) 0.34 K/uL (0.11-0.59); Monocytes % (auto) 7.8 %; Neutrophils # (auto) 2.93 K/uL (1.40-6.50); Platelet Count 147 K/uL (130-400); RDW Standard Deviation 42.3 fL (36.4-46.3); Red Blood Count 3.56 M/uL (4.20-5.40); White Blood Count 4.37 K/ul (4.8-10.8)
[2023-05-07 03:27] LABS: Lyme Ab IgG w/WB Rflx Negative (Negative); Lyme Ab IgM w/WB Rflx Negative (Negative)
[2023-05-07 03:37] LABS: Adenovirus PCR Not Detected (NotDetected); Bordetella parapertussis PCR Not Detected (NotDetected); Bordetella pertussis PCR Not Detected (NotDetected); Chlamydia pneumoniae PCR Not Detected (NotDetected); Coronavirus 229E PCR Not Detected (NotDetected); Coronavirus CoV-2 (COVID19)PCR Not Detected (NotDetected); Coronavirus HKU1 PCR Not Detected (NotDetected); Coronavirus NL63 PCR Not Detected (NotDetected); Coronavirus OC43PCR Not Detected (NotDetected); Human Metapneumovirus PCR Not Detected (NotDetected); Influenza B PCR Not Detected (NotDetected); Mycoplasma pneumoniae PCR Not Detected (NotDetected); Parainfluenza Virus 1 PCR Not Detected (NotDetected); Parainfluenza Virus 2 PCR Not Detected (NotDetected); Parainfluenza Virus 3 PCR Not Detected (NotDetected); Parainfluenza Virus 4 PCR Not Detected (NotDetected); Respiratory Syncytial VirusPCR Not Detected (NotDetected); Rhinovirus/Enterovirus PCR Not Detected (NotDetected)
[2023-05-07 03:46] LABS: T4 Free Thyroxine 0.53 ng/dl (0.61-1.60)
[2023-05-07 03:58] LABS: Influenza A (H1 2009) PCR DETECTED (NotDetected)
--- NOTE | 2023-05-07 05:23 | History & Physical Report ---
Date of Service May 07, 2023 Assessment & Plan (1) SVT (supraventricular tachycardia): Plan: 52-year-old female with past med history significant for hyperlipidemia, history of CAD s/p stent, history of Hodgkin's lymphoma with history of chest radiation in the early 20s presents with SVT. Patient in the ER earlier in the day with SVT improved with adenosine and was discharged to follow-up with PCP and cardiology. But again comes back with palpitations and found to be in SVT, currently after adenosine she converted. Currently resting comfortably. During episode she felt some lump in the chest and lump in her throat and dizziness. No nausea. No shortness of breath. Patient having chest congestion cough and not feeling well since last Tuesday. She was started on azithromycin and prednisone yesterday morning for bronchitis. Currently her respiratory symptoms are improved. Currently afebrile. No nausea. No abdominal pain. Normal bowel and bladder movements. No rash. Currently resting comfortably. SVT Possibly from respiratory illness She was started prednisone yesterday We will hold prednisone for now Converted with adenosine Will place on IV Lopressor as needed Monitoring telemetry Follow cardiac enzymes Consult cardiology Influenza A Droplet precautions Tamiflu History of CAD s/p stent Continue aspirin, beta-magaly and statin Hypothyroidism On Synthyroid TSH is elevated Follow repeat labs DVT prophylaxis SCDs for now Disposition Telemetry floor Full code History of Present Illness Chief Complaint: SVT Primary Care Provider: Nicolle Steinberg DO 52-year-old female with past med history significant for hyperlipidemia, history of CAD s/p stent, history of Hodgkin's lymphoma with history of chest radiation in the early 20s presents with SVT. Patient in the ER earlier in the day with SVT improved with adenosine and was discharged to follow-up with PCP and cardiology. But again comes back with palpitations and found to be in SVT, currently after adenosine she converted. Currently resting comfortably. During episode she felt some lump in the chest and lump in her throat and dizziness. No nausea. No shortness of breath. Patient having chest congestion cough and not feeling well since last Tuesday. She was started on azithromycin and p rednisone yesterday morning for bronchitis. Currently her respiratory symptoms are improved. Currently afebrile. No nausea. No abdominal pain. Normal bowel and bladder movements. No rash. Currently resting comfortably. Past medical history. As mentioned above Past surgical history. . Colonoscopy and EGD. Removal of pelvic structures. Partial emergency hysterectomy. Total abdomen hysterectomy removal of tubes. Social history. Social smoker. Alcohol occasional. No drug use. Family history. Brother has allergies. Son has allergies. Brother asthma. Son has asthma. Father has diverticulitis. Mother has heart disorder and hypertension. Allergies Allergy/AdvReac Type Severity Reaction Status Date / Time COVID-19 (SARS-CoV-2) Allergy Severe Anaphylaxis Unverified 03/23/23 17:18 vaccine, sergey nitrofurantoin Allergy Severe Swelling Verified 03/23/23 17:18 [From Macrobid] of Lip/Tongue/Throat tetracycline Allergy Intermediate Rash Verified 03/23/23 17:18 Quinolones Allergy Unknown Unknown Verified 03/23/23 17:18 Sulfa (Sulfonamide Allergy Unknown Rash Verified 03/23/23 17:18 Antibiotics) Home Medications Medication Instructions Recorded Confirmed Type albuterol sulfate 90 mcg/actuation 2 puff inhalation Q4H PRN 05/07/23 05/07/23 History aerosol inhaler Shortness Of Breath Or Wheezing aspirin 81 mg tablet,delayed 81 mg PO DAILY 05/07/23 05/07/23 History release atorvastatin 20 mg tablet 20 mg PO DAILY 05/07/23 05/07/23 History azithromycin 250 mg tablet 250 mg PO UD 05/07/23 05/07/23 History levothyroxine 25 mcg tablet 25 mcg PO DAILY 05/07/23 05/07/23 History prednisone 20 mg tablet 20 mg PO UD 05/07/23 05/07/23 History Past Med/Surg History Medical History Anxiety CAD (coronary artery disease) Hypothyroidism Reactive airway disease Diverticulitis Sinusitis nasal Heart attack HELLP syndrome H O severe pre- eclampsia antepartum Hodgkin lymphoma radiation therapy 2002 Surgical History S/P wisdom tooth extraction History of intravascular stent placement 09-04-2018 H/O section times 3 S/P partial hysterectomy surgery 2008, supracervical in immediate pp period from uterine atony. Family History Mother Mitral valve replaced Coronary heart disease Father Diverticulitis Other Asthma Denies family history of Ovarian cancer Breast cancer Colorectal cancer Social History Smoking Status: Current every day smoker Second Hand Exposure: Yes; Do You Dip or Chew Tobacco: No; Hx Alcohol Use: Yes Alcohol type: wine Hx Substance Use: No Preferred Language: Georgian Communication Ability: Effective Hearing Ability: Normal Surgical Instrument Technician Required: No Beliefs That Will Affect Care: None marital status: Current Living Situation: Family Current Living Situation Comment: 3 kids current occupational status: employed 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 ENT- oropharynx clear Neck- supple, no JVD. Lungs- clear to auscultation no wheezing or crackles. Heart- regular rhythm; no murmur, no gallop. Abdomen- normal bowel sounds, soft, nontender, no distension. Extremities- no pretibial edema, no erythema seen. Neuro- alert, oriented x 3; PERRL, EOMI; no facial palsy; no dysarthria; moves extremities Skin- warm & dry Results & Data Results & Data Vital Signs (Past 12 Hours) Vital Signs Temp Pulse Resp BP Pulse Ox O2 Del Method 05/07/23 04:30 84 18 109/78 97 Room Air 05/07/23 04:15 81 15 117/84 96 Room Air 05/07/23 04:00 85 17 114/81 97 Room Air 05/07/23 03:45 82 16 122/81 96 Room Air 05/07/23 03:30 85 14 111/80 94 05/07/23 03:00 83 15 122/81 96 Room Air 05/07/23 02:40 84 22 98 05/07/23 02:30 87 13 95 05/07/23 02:20 89 18 95 05/07/23 02:15 95 H 22 96 05/07/23 02:15 117/86 05/07/23 02:10 86 14 96 05/07/23 02:05 86 05/07/23 02:00 90 18 98 05/07/23 01:57 102 H 05/07/23 01:50 169 H 23 99 05/07/23 01:49 122/95 05/07/23 01:49 171 H 24 05/07/23 01:46 172 H 18 05/07/23 01:45 172 H 05/07/23 01:34 Room Air 05/07/23 01:34 37.2 C 185 H 21 98 Room Air Diagnostic Findings Laboratory Results WBC 4.37 K/ul (4.8-10.8) L 05/07/23 02:20 RBC 3.56 M/uL (4.20-5.40) L 05/07/23 02:20 Hgb 11.6 g/dl (12.0-16.0) L D 05/07/23 02:20 Hct 34.0 % (37.0-47.0) L 05/07/23 02:20 MCV 95.5 fL (80.0-100.0) 05/07/23 02:20 MCH 32.6 pg (25.0-34.0) 05/07/23 02:20 MCHC 34.1 g/dL (32.0-36.0) 05/07/23 02:20 RDW Std Deviation 42.3 fL (36.4-46.3) 05/07/23 02:20 RDW Coeff of Wade 12.0 % (11.5-14.5) 05/07/23 02:20 Plt Count 147 K/uL (130-400) 05/07/23 02:20 MPV 9.2 fL (9.4-12.4) L 05/07/23 02:20 Immature Gran % (Auto) 0.5 % 05/07/23 02:20 Neut % (Auto) 67.0 % 05/07/23 02:20 Lymph % (Auto) 24.3 % 05/07/23 02:20 [place] % (Auto) 7.8 % 05/07/23 02:20 Eos % (Auto) 0.2 % 05/07/23 02:20 Baso % (Auto) 0.2 % 05/07/23 02:20 Neut # (Auto) 2.93 K/uL (1.40-6.50) 05/07/23 02:20 Lymph # (Auto) 1.06 K/uL (1.20-3.40) L 05/07/23 02:20 [place] # (Auto) 0.34 K/uL (0.11-0.59) 05/07/23 02:20 Eos # (Auto) 0.01 K/uL (0.00-0.50) 05/07/23 02:20 Baso # (Auto) 0.01 K/uL (0.00-0.20) 05/07/23 02:20 Immature Gran # (Auto) 0.02 K/uL (0.01-0.20) 05/07/23 02:20 Sodium 145 mmol/L (136-145) 05/07/23 02:20 Potassium 3.3 mmol/L (3.5-5.1) L 05/07/23 02:20 Chloride 114 mmol/L (98-107) H 05/07/23 02:20 Carbon Dioxide 23 mmol/L (21-32) 05/07/23 02:20 Anion Gap 8 (3-11) 05/07/23 02:20 BUN 7 mg/dl (6-23) 05/07/23 02:20 Creatinine 0.49 mg/dl (0.6-1.2) L 05/07/23 02:20 Est Cr Clr Drug Dosing 127.5 ml/min 05/07/23 02:20 Est GFR ( Amer) 131.7 ml/min 05/07/23 02:20 Est GFR (Non-Af Amer) 113.6 ml/min 05/07/23 02:20 BUN/Creatinine Ratio 14.3 (10-20) 05/07/23 02:20 Glucose 135 mg/dl (70-99(Fasting)) H 05/07/23 02:20 Calcium 8.0 mg/dl (8.6-10.3) L D 05/07/23 02:20 Magnesium 1.7 mg/dl (1.7-2.4) 05/07/23 02:20 Total Bilirubin 0.3 mg/dl (0.2-1.0) 05/07/23 02:20 AST 39 U/L (13-39) 05/07/23 02:20 ALT 36 U/L (7-52) 05/07/23 02:20 Alkaline Phosphatase 69 U/L (34-104) 05/07/23 02:20 Troponin I High Sens 192.8 pg/ml (0-14) H* D 05/07/23 02:20 Total Protein 6.2 gm/dl (6.0-8.3) D 05/07/23 02:20 Albumin 3.7 gm/dl (3.4-5.0) 05/07/23 02:20 Globulin 2.5 gm/dl (2.5-4.0) 05/07/23 02:20 Albumin/Globulin Ratio 1.5 (0.9-2) 05/07/23 02:20 TSH 7.259 uIu/ml (0.300-4.500) H 05/07/23 02:20 Free T4 0.53 ng/dl (0.61-1.60) L 05/07/23 02:20 Nasal Influ A H1 2008 PCR DETECTED (NotDetected) A* 05/07/23 02:36 Adenovirus (PCR) Not Detected (NotDetected) 05/07/23 02:36 B. pertussis DNA (PCR) Not Detected (NotDetected) 05/07/23 02:36 B.parapertussis DNA PCR Not Detected (NotDetected) 05/07/23 02:36 Lyme Disease IgG Ab Negative (Negative) 05/07/23 02:20 Lyme Disease IgM Ab Negative (Negative) 05/07/23 02:20 C. pneumoniae DNA (PCR) Not Detected (NotDetected) 05/07/23 02:36 Coronavirus OC43 (PCR) Not Detected (NotDetected) 05/07/23 02:36 Coronavirus HKU1 (PCR) Not Detected (NotDetected) 05/07/23 02:36 Coronavirus 229E (PCR) Not Detected (NotDetected) 05/07/23 02:36 SARS-CoV-2 (PCR) Not Detected (NotDetected) 05/07/23 02:36 Coronavirus NL63 (PCR) Not Detected (NotDetected) 05/07/23 02:36 Human Metapneumovir PCR Not Detected (NotDetected) 05/07/23 02:36 Influenza Type B (PCR) Not Detected (NotDetected) 05/07/23 02:36 M. pneumoniae (PCR) Not Detected (NotDetected) 05/07/23 02:36 Parainfluenza 1 (PCR) Not Detected (NotDetected) 05/07/23 02:36 Parainfluenza 2 (PCR) Not Detected (NotDetected) 05/07/23 02:36 Parainfluenza 3 (PCR) Not Detected (NotDetected) 05/07/23 02:36 Parainfluenza 4 (PCR) Not Detected (NotDetected) 05/07/23 02:36 RSV (PCR) Not Detected (NotDetected) 05/07/23 02:36 Entero/Rhino (PCR) Not Detected (NotDetected) 05/07/23 02:36 ECG Additional Comments: ECG. SVT rate of 171. Code Status & VTE Plan VTE Prophylaxis Plan VTE Prophylaxis will be ordered: Yes
[2023-05-07] MEDS ORDERED: METOPROLOL TARTRATE 1 MG/ML VIAL IV PRN (06:53)
[2023-05-07] MEDS ORDERED: ALBUTEROL HFA 8 GM INHALER INH PRN (06:53)
[2023-05-07] MEDS ORDERED: ACETAMINOPHEN 325 MG TAB PO PRN (06:53)
[2023-05-07] MEDS ORDERED: NITROGLYCERIN SL 0.4 MG/TAB TAB SL PRN (06:53)
--- NOTE | 2023-05-07 08:00 | Electrocardiogram Report ---
Test Reason : Blood Pressure : / mmHG Vent. Rate : 171 BPM Atrial Rate : 000 BPM P-R Int : 000 ms QRS Dur : 070 ms QT Int : 266 ms P-R-T Axes : 000 075 044 degrees QTc Int : 448 ms Supraventricular tachycardia Abnormal ECG When compared with ECG of 06-MAY-2023 21:35, Vent. rate has increased BY 60 BPM Supraventricular tachycardia now present Confirmed by Hung Landin ([id number]) on 05/07/2023 7:59:52 AM Referred By: REFERRED SELF Confirmed By:Hung Landin
[2023-05-07] MEDS: LEVOTHYROXINE SODIUM 25 MCG TABLET PO SCH ×2 (08:01→08:03)
[2023-05-07] MEDS ORDERED: ATORVASTATIN 20 MG TAB PO SCH (09:00)
[2023-05-07] MEDS ORDERED: ASPIRIN 81 MG ECTAB PO SCH (09:00)
[2023-05-07 09:12] LABS: Basophils # (auto) 0.01 K/uL (0.00-0.20); Basophils % (auto) 0.2 %; Eosinophils # (auto) 0.04 K/uL (0.00-0.50); Eosinophils % (auto) 0.9 %; Hematocrit (blood only) 33.6 % (37.0-47.0); Hemoglobin 11.5 g/dl (12.0-16.0); Immature Granulocytes # (auto) 0.01 K/uL (0.01-0.20); Immature Granulocytes % (auto) 0.2 %; Lymphocytes # (auto) 1.74 K/uL (1.20-3.40); Lymphocytes % (auto) 37.3 %; Mean Corpuscular Hgb Conc 34.2 g/dL (32.0-36.0); Mean Corpuscular Volume 96.6 fL (80.0-100.0); Mean Platelet Volume 9.2 fL (9.4-12.4); Monocytes % (auto) 6.4 %; Neutrophils # (auto) 2.56 K/uL (1.40-6.50); Platelet Count 140 K/uL (130-400); RDW Coefficient of Variation 12.3 % (11.5-14.5); RDW Standard Deviation 43.6 fL (36.4-46.3); Red Blood Count 3.48 M/uL (4.20-5.40); White Blood Count 4.66 K/ul (4.8-10.8)
[2023-05-07 09:22] LABS: Calcium 8.2 mg/dl (8.6-10.3); Est GFR (African American) 130.8 ml/min; Est GFR (Non-African American) 112.9 ml/min; Magnesium 1.9 mg/dl (1.7-2.4); Potassium 3.2 mmol/L (3.5-5.1)
[2023-05-07 09:35] LABS: Troponin I High Sensitivity 167.4 pg/ml (0-14)
[2023-05-07 09:58] LABS: Thyroid Stimulating Hormone 6.776 uIu/ml (0.300-4.500)
[2023-05-07] MEDS ORDERED: METOPROLOL SUCC 25MG EXT REL TAB PO SCH (10:30)
[2023-05-07] MEDS ORDERED: POTASSIUM CHLORIDE CRTAB 20 MEQ TABCR PO ONE (10:30)
[2023-05-07] MEDS: POTASSIUM CHLORIDE CRTAB 20 MEQ TABCR PO SCH (11:04)
--- NOTE | 2023-05-07 11:52 | Cardiology Consultation ---
Date of Consultation May 07, 2023 Assessment & Plan (1) SVT (supraventricular tachycardia): (2) Hypokalemia: (3) CAD (coronary artery disease): (4) Hypothyroidism: (5) Influenza A: Plan 52-year-old female presenting with tachypalpitations and symptoms consistent with findings, supraventricular tachycardia with rapid ventricular response Underlying medical issues as above but includes single-vessel coronary disease with chronic stable ischemic heart disease, hypertension, hyperlipidemia on therapy. Laboratory studies reflect chronic hypokalemia and hypothyroidism Current event in the throes of an acute upper respiratory infection/influenza A 1. Paroxysmal supraventricular tachycardia, symptomatic with rapid ventricular response: Discussed mechanism in detail with patient. Will initiate beta- magaly with metoprolol succinate 25 mg p.o. daily, supplement potassium in hospital and on discharge with 10 mEq daily. Discussed long-term mechanisms of therapy, given underlying coronary disease, prior infarct and rapid ventricular response when occurring would likely proceed promptly to EP evaluation and ablation. Valsalva and self terminate mechanisms discussed. Patient to seek prompt ER visit if sustained episodes occur 2. Elevated troponin: Secondary to demand issues as above multiple hours with heart rates greater than 170. EKG postconversion to sinus rhythm normal. 3. Chronic stable ischemic heart disease: Prior coronary invention 2018 without recent anginal symptoms. Stress test already ordered for outpatient. Discussed ideal GDMT therapy including beta-magaly, statin, aspirin, ARIANA/ARB. Would likely initiate low-dose ARIANA inhibitor post hospital discharge. Second indication for beta-magaly therapy 4. Long-term hypokalemia: Daily supplement recommended 5. Acute URI, influenza A: Symptomatic therapies would avoid prednisone Patient has scheduled appointment with cardiovascular oncology [facility] within 2 weeks, cardiology [facility] 05/24/2023 History of Present Illness Reason for Consultation: Paroxysmal supraventricular tachycardia Requesting Physician: Dr. Gupta Attending Physician: Louie Gupta MD History of Present Illness Patient is a 52-year-old female with ongoing cardiac concerns Hodgkin's lymphoma status post chemotherapy and radiation 2002 ASCVD. Status post August 2018 NSTEMI, PCI of the LAD, single-vessel disease Hypertension, history of severe antepartum preeclampsia Methyltetrahydrofolate reductase mutation Dyslipidemia Patient presents now after outpatient phone call with symptoms of tachypalpitations and significantly elevated blood pressure. Recent hospitalization approximately 6 weeks ago for similar event. Patient notes upper respiratory infection. Treated with azithromycin and prednisone single dose of prednisone yesterday 50 mg Last evening was aware of heart rate being elevated 170s, 180s with elevated blood pressure. Patient was referred to the ER where presenting EKG was supraventricular tachycardia with rapid ventricular response. Patient treated with single dose of adenosine with conversion to sinus and sinus tachycardia. Laboratory studies notable for hypokalemia, hypothyroidism Initially discharged home only to return promptly with recurrence of arrhythmia once again terminated with adenosine Patient notes sensation of heart pounding and tightness in the chest when occurring but no significant angina, shortness of breath, dizziness lightheadedness or syncope. No exertional complaints recent He is currently being treated for upper respiratory infection testing positive for influenza A Appetite and weight are stable No prior documented history of supraventricular tachycardia but tachypalpitations history currently in course of evaluation Allergies Allergy/AdvReac Type Severity Reaction Status Date / Time COVID-19 (SARS-CoV-2) Allergy Severe Anaphylaxis Unverified 03/23/23 17:18 vaccine, sergey nitrofurantoin Allergy Severe Swelling Verified 03/23/23 17:18 [From Macrobid] of Lip/Tongue/Throat tetracycline Allergy Intermediate Rash Verified 03/23/23 17:18 Quinolones Allergy Unknown Unknown Verified 03/23/23 17:18 Sulfa (Sulfonamide Allergy Unknown Rash Verified 03/23/23 17:18 Antibiotics) Home Medications Medication Instructions Recorded Confirmed Type albuterol sulfate 90 mcg/actuation 2 puff inhalation Q4H PRN 05/07/23 05/07/23 History aerosol inhaler Shortness Of Breath Or Wheezing aspirin 81 mg tablet,delayed 81 mg PO DAILY 05/07/23 05/07/23 History release atorvastatin 20 mg tablet 20 mg PO DAILY 05/07/23 05/07/23 History azithromycin 250 mg tablet 250 mg PO UD 05/07/23 05/07/23 History levothyroxine 25 mcg tablet 25 mcg PO DAILY 05/07/23 05/07/23 History prednisone 20 mg tablet 20 mg PO UD 05/07/23 05/07/23 History Patient History Medical History Anxiety CAD (coronary artery disease) Hypothyroidism Reactive airway disease Diverticulitis Sinusitis nasal Heart attack HELLP syndrome H O severe pre- eclampsia antepartum Hodgkin lymphoma radiation therapy 2002 Surgical History S/P wisdom tooth extraction History of intravascular stent placement 09-04-2018 H/O section times 3 S/P partial hysterectomy surgery 2008, supracervical in immediate pp period from uterine atony. Family History Mother Mitral valve replaced Coronary heart disease Father Diverticulitis Other Asthma Denies family history of Ovarian cancer Breast cancer Colorectal cancer Social History Smoking Status: Current every day smoker Second Hand Exposure: Yes; Do You Dip or Chew Tobacco: No; Hx Alcohol Use: Yes Alcohol type: wine Hx Substance Use: No Preferred Language: Namibian Communication Ability: Effective Hearing Ability: Normal Truck Supervisor Required: No Beliefs That Will Affect Care: None marital status: Current Living Situation: Family Current Living Situation Comment: 3 kids current occupational status: employed 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 Feels Safe at Home: Yes Childhood Exposure to Second-Hand Smoke: No Assistive Devices: Glasses Review of Systems Review of Systems: All systems reviewed & are unremarkable except as noted in HPI & below Physical Exam Constitutional: WD/WN, vitals as above Eyes: PERRL, conjunctivae normal, anicteric sclerae ENMT: external ear and nose normal, oropharynx normal Neck: trachea midline, no thyromegaly Respiratory: normal respiratory effort, lungs clear to auscultation Cardiovascular: RRR, no murmur, no edema Gastrointestinal (Abdomen): normal bowel sounds, soft, nontender, no hepatosplenomegaly Musculoskeletal: no cyanosis or clubbing, extremities motor strength 5/5 Results & Data Vital Signs (Past 12 Hours) Vital Signs Temp Pulse Pulse Resp BP BP Pulse Ox 05/07/23 09:31 87 18 122/83 99 05/07/23 09:30 82 16 122/83 98 05/07/23 09:30 82 16 98 05/07/23 07:57 77 05/07/23 06:30 78 17 128/89 96 05/07/23 06:00 82 12 122/86 97 05/07/23 05:45 77 14 120/83 99 05/07/23 05:30 82 23 125/84 97 05/07/23 05:15 83 15 125/84 97 05/07/23 05:00 82 14 121/80 97 05/07/23 04:30 84 18 109/78 97 05/07/23 04:15 81 15 117/84 96 05/07/23 04:00 85 17 114/81 97 05/07/23 03:45 82 16 122/81 96 05/07/23 03:30 85 14 111/80 94 05/07/23 03:00 83 15 122/81 96 05/07/23 02:40 84 22 98 05/07/23 02:30 87 13 95 05/07/23 02:20 89 18 95 05/07/23 02:15 95 H 22 96 05/07/23 02:15 117/86 05/07/23 02:10 86 14 96 05/07/23 02:05 86 05/07/23 02:00 90 18 98 05/07/23 01:57 102 H 05/07/23 01:50 169 H 23 99 05/07/23 01:49 122/95 05/07/23 01:49 171 H 24 05/07/23 01:46 172 H 18 05/07/23 01:45 172 H 05/07/23 01:34 05/07/23 01:34 37.2 C 185 H 21 98 O2 Del Method 05/07/23 09:31 05/07/23 09:30 05/07/23 09:30 Room Air 05/07/23 07:57 05/07/23 06:30 Room Air 05/07/23 06:00 Room Air 05/07/23 05:45 Room Air 05/07/23 05:30 Room Air 05/07/23 05:15 Room Air 05/07/23 05:00 Room Air 05/07/23 04:30 Room Air 05/07/23 04:15 Room Air 05/07/23 04:00 Room Air 05/07/23 03:45 Room Air 05/07/23 03:30 05/07/23 03:00 Room Air 05/07/23 02:40 05/07/23 02:30 05/07/23 02:20 05/07/23 02:15 05/07/23 02:15 05/07/23 02:10 05/07/23 02:05 05/07/23 02:00 05/07/23 01:57 05/07/23 01:50 05/07/23 01:49 05/07/23 01:49 05/07/23 01:46 05/07/23 01:45 05/07/23 01:34 Room Air 05/07/23 01:34 Room Air Laboratory Results Laboratory Results - last 24 hr 05/07/23 05/07/23 05/07/23 02:20 02:36 08:45 WBC 4.37 L 4.66 L RBC 3.56 L 3.48 L Hgb 11.6 L D 11.5 L Hct 34.0 L 33.6 L MCV 95.5 96.6 MCH 32.6 33.0 MCHC 34.1 34.2 RDW Std Deviation 42.3 43.6 RDW Coeff of Wade 12.0 12.3 Plt Count 147 140 MPV 9.2 L 9.2 L Immature Gran % (Auto) 0.5 0.2 Neut % (Auto) 67.0 55.0 Lymph % (Auto) 24.3 37.3 [place] % (Auto) 7.8 6.4 Eos % (Auto) 0.2 0.9 Baso % (Auto) 0.2 0.2 Neut # (Auto) 2.93 2.56 Lymph # (Auto) 1.06 L 1.74 [place] # (Auto) 0.34 0.30 Eos # (Auto) 0.01 0.04 Baso # (Auto) 0.01 0.01 Immature Gran # (Auto) 0.02 0.01 Sodium 145 143 Potassium 3.3 L 3.2 L Chloride 114 H 111 H Carbon Dioxide 23 24 Anion Gap 8 8 BUN 7 7 Creatinine 0.49 L 0.50 L Est Cr Clr Drug Dosing 127.5 125.0 Est GFR ( Amer) 131.7 130.8 Est GFR (Non-Af Amer) 113.6 112.9 BUN/Creatinine Ratio 14.3 14.0 Glucose 135 H 114 H Calcium 8.0 L D 8.2 L Magnesium 1.7 1.9 Total Bilirubin 0.3 AST 39 ALT 36 Alkaline Phosphatase 69 Troponin I High Sens 192.8 H* D 167.4 H* Total Protein 6.2 D Albumin 3.7 Globulin 2.5 Albumin/Globulin Ratio 1.5 TSH 7.259 H 6.776 H Free T4 0.53 L Nasal Influ A H1 2008 PCR DETECTED A* Adenovirus (PCR) Not Detected B. pertussis DNA (PCR) Not Detected B.parapertussis DNA PCR Not Detected Lyme Disease IgG Ab Negative Lyme Disease IgM Ab Negative C. pneumoniae DNA (PCR) Not Detected Coronavirus OC43 (PCR) Not Detected Coronavirus HKU1 (PCR) Not Detected Coronavirus 229E (PCR) Not Detected SARS-CoV-2 (PCR) Not Detected Coronavirus NL63 (PCR) Not Detected Human Metapneumovir PCR Not Detected Influenza Type B (PCR) Not Detected M. pneumoniae (PCR) Not Detected Parainfluenza 1 (PCR) Not Detected Parainfluenza 2 (PCR) Not Detected Parainfluenza 3 (PCR) Not Detected Parainfluenza 4 (PCR) Not Detected RSV (PCR) Not Detected Entero/Rhino (PCR) Not Detected (3) CAD (coronary artery disease) Coronary Disease-Associated Artery/Lesion type: [place] artery [place] vs. transplanted heart: [place] heart Associated angina: unspecified whether angina present Qualified Code(s): I25.10 - Atherosclerotic heart disease of [place] coronary artery without angina pectoris
--- NOTE | 2023-05-07 12:04 | Electrocardiogram Report ---
Test Reason : Blood Pressure : / mmHG Vent. Rate : 186 BPM Atrial Rate : 000 BPM P-R Int : 000 ms QRS Dur : 070 ms QT Int : 248 ms P-R-T Axes : 000 074 -68 degrees QTc Int : 436 ms Supraventricular tachycardia Incomplete right bundle branch block Diffuse Minor Nonspecific ST abnormality Abnormal ECG When compared with ECG of 24-MAR-2023 07:08, Vent. rate has increased BY 106 BPM Supraventricular tachycardia now present Nonspecific ST abnormality now present Confirmed by Hung Landin ([id number]) on 05/07/2023 12:04:21 PM Referred By: REFERRED SELF Confirmed By:Hung Landin
--- NOTE | 2023-05-07 12:43 | Discharge Summary ---
Date of Service May 07, 2023 Admission HPI Per Admitting Provider 52-year-old female with past med history significant for hyperlipidemia, history of CAD s/p stent, history of Hodgkin's lymphoma with history of chest radiation in the early 20s presents with SVT. Patient in the ER earlier in the day with SVT improved with adenosine and was discharged to follow-up with PCP and cardiology. But again comes back with palpitations and found to be in SVT, currently after adenosine she converted. Currently resting comfortably. During episode she felt some lump in the chest and lump in her throat and dizziness. No nausea. No shortness of breath. Patient having chest congestion cough and not feeling well since last Tuesday. She was started on azithromycin and prednisone yesterday morning for bronchitis. Currently her respiratory symptoms are improved. Currently afebrile. No nausea. No abdominal pain. Normal bowel and bladder movements. No rash. Currently resting comfortably. Past medical history. As mentioned above Past surgical history. . Colonoscopy and EGD. Removal of pelvic structures. Partial emergency hysterectomy. Total abdomen hysterectomy removal of tubes. Social history. Social smoker. Alcohol occasional. No drug use. Family history. Brother has allergies. Son has allergies. Brother asthma. Son has asthma. Father has diverticulitis. Mother has heart disorder and hypertension. Admission Exam Per Admitting Provider General- Not in distress Head- atraumatic Eyes- PERRL. ENT- oropharynx clear Neck- supple, no JVD. Lungs- clear to auscultation no wheezing or crackles. Heart- regular rhythm; no murmur, no gallop. Abdomen- normal bowel sounds, soft, nontender, no distension. Extremities- no pretibial edema, no erythema seen. Neuro- alert, oriented x 3; PERRL, EOMI; no facial palsy; no dysarthria; moves extremities Skin- warm & dry Principal Diagnosis Supraventricular tachycardia Influenza A Discharge Exam GENERAL: Alert and oriented x3. NAD, on RA. HEENT: No pallor, no icterus. Pupils equal, round and reactive to light. Oral mucosa moist. NECK: No JVD, no neck masses. HEART: S1 and S2 heard. Regular rate and rhythm. No murmur, no gallop. RESPIRATORY SYSTEM: Normal AP diameter. No accessory muscle use. No wheezing, no crackles. ABDOMEN: Soft, bowel sounds present, nontender, no distention. CENTRAL NERVOUS SYSTEM: No facial droop. Speech is clear. Obeys simple commands. Moves extremities. EXTREMITIES: No edema, no erythema seen. Discharge Data Allergies Allergy/AdvReac Type Severity Reaction Status Date / Time COVID-19 (SARS-CoV-2) Allergy Severe Anaphylaxis Unverified 03/23/23 17:18 vaccine, sergey nitrofurantoin Allergy Severe Swelling Verified 03/23/23 17:18 [From Macrobid] of Lip/Tongue/Throat tetracycline Allergy Intermediate Rash Verified 03/23/23 17:18 Quinolones Allergy Unknown Unknown Verified 03/23/23 17:18 Sulfa (Sulfonamide Allergy Unknown Rash Verified 03/23/23 17:18 Antibiotics) Consultations 05/07/23 02:45 ED Decision to Admit Stat 05/07/23 08:00 Consult Cardiology Routine Hospital Course (1) SVT (supraventricular tachycardia): Per prior attending with addendum: 52-year-old female with past med history significant for hyperlipidemia, history of CAD s/p stent, history of Hodgkin's lymphoma with history of chest radiation in the early 20s presents with SVT. Patient in the ER earlier in the day with SVT improved with adenosine and was discharged to follow-up with PCP and cardiology. But again comes back with palpitations and found to be in SVT, currently after adenosine she converted. Currently resting comfortably. During episode she felt some lump in the chest and lump in her throat and dizziness. No nausea. No shortness of breath. Patient having chest congestion cough and not feeling well since last Tuesday. She was started on azithromycin and prednisone yesterday morning for bronchitis. Currently her respiratory symptoms are improved. Currently afebrile. No nausea. No abdominal pain. Normal bowel and bladder movements. No rash. Currently resting comfortably. SVT Possibly from respiratory illness She was started prednisone yesterday We will hold prednisone for now Converted with adenosine Will place on IV Lopressor as needed Monitoring telemetry Follow cardiac enzymes Consult cardiology Influenza A Droplet precautions Tamiflu History of CAD s/p stent Continue aspirin, beta-magaly and statin Hypothyroidism On Synthyroid TSH is elevated Follow repeat labs DVT prophylaxis SCDs for now Disposition Telemetry floor Full code Addendum 05/07/2023: Patient was seen and examined at bedside as a follow-up of supraventricular tachycardia and influenza A. With regard to influenza A, patient appears stable/hemodynamically stable. Patient denies any chest pain, troponin elevation likely secondary to SVT. Cardiology evaluated, patient started on metoprolol succinate and potassium tablet. Patient to follow-up with cardiology on 05/24/2023 and also has appointment with cardiovascular oncology [facility] in 2 weeks upon discharge. Patient aware to seek prompt ER visit if sustained episodes occur. Patient will need outpatient EP evaluation, patient to follow-up with cardiology office to set up the referral. She is being discharged with following instruction at the point of discharge: Follow-up with your primary care physician within a week time and likely you will need labs CBC/CMP/magnesium/phosphorus. For your influenza A, if you have further fever or dark yellow color sputum with worsening cough, then contact your primary care office or emergency for evaluation of superimposed bacterial infection. For your supraventricular tachycardia, cardiology evaluated you, you were started on metoprolol and potassium supplement. You are to follow-up with cardiology on 05/24/2023, possibly he will need follow-up with EP physician after cardiology follow-up. Maintain your other appointments as prior. Seek emergency visit promptly if you have sustained episodes of supraventricular tachycardia. Please make sure that you are able to get your medications today by calling your pharmacy before you leave the hospital so that your treatment continuity is not broken. Home Health Attestation I certify that this patient is under my care and that I, or a physicians anesthesiologist assistant working with me, had a face to-face encounter that meets the home health [id number] encounter requirements with this patient. The encounter with the patient was in whole, or in part, for the following medical condition, which is the primary reason for home health care (list medical condition): I certify that, based on my findings, the following services are medically necessary home health services: My clinical findings support the need for the above services because: Further, I certify that my clinical findings support that this patient is homebound (i.e. absences from home require considerable and taxing effort and are for medical reasons or restorationism services or infrequently or of short duration when for other reasons) because: Certification for Home Health Services: Based on the above findings, I certify that this patient is confined to the home and needs intermittent [facility] care, physical therapy and/or speech therapy or continues to need occupational therapy. The patient is under my care, and I have initiated the establishment of the plan of care. This patient will be followed by a physician who will periodically review the plan of care. Total Time Total Time Spent Total Time Spent (In Minutes): 45 Discharge Plan Discharge Items Patient Disposition: Home - Self-Care Reason For Visit: SVT, FLU Discharge Diagnosis: Supraventricular tachycardia Influenza A Activity: Resume your previous activity Non-emergency contact: Primary Care Provider Call non-emergency contact if: you have any medication questions, your symptoms worsen and your temperature is above 101.5 Follow-up/Referrals: Nicolle Steinberg, [Primary Care Provider] - Diet: Heart Healthy Addtl Attending Provider Instructions: Follow-up with your primary care physician within a week time and likely you will need labs CBC/CMP/magnesium/phosphorus. For your influenza A, if you have further fever or dark yellow color sputum with worsening cough, then contact your primary care office or emergency for evaluation of superimposed bacterial infection. For your supraventricular tachycardia, cardiology evaluated you, you were started on metoprolol and potassium supplement. You are to follow-up with cardiology on 05/24/2023, possibly you will need follow-up with EP physician after cardiology follow-up. Maintain your other appointments as prior. Seek emergency visit promptly if you have sustained episodes of supraventricular tachycardia. Please make sure that you are able to get your medications today by calling your pharmacy before you leave the hospital so that your treatment continuity is not broken. Pending Studies at Discharge: No Stand-Alone Forms: My [facility] [employer], Smoking Cessation Medications and DC Order Prescriptions: New metoprolol succinate 25 mg Tablet Extended Release 24 Hr 25 mg PO QAM Qty: 30 0RF potassium chloride 10 mEq Tablet,Er Particles/Crystals 10 meq PO DAILY Qty: 30 0RF Continued atorvastatin 20 mg tablet 20 mg PO DAILY aspirin 81 mg tablet,delayed release (DR/EC) 81 mg PO DAILY levothyroxine 25 mcg tablet 25 mcg PO DAILY albuterol sulfate 90 mcg/actuation HFA aerosol inhaler 2 puff INHALATION Q4H PRN (Reason: Shortness Of Breath Or Wheezing) Discontinued azithromycin 250 mg tablet 250 mg PO UD prednisone 20 mg tablet 20 mg PO UD Discharge Orders: Discharge Order (Routine); Ordered 05/07/23 Ordered By: Louie Gupta Admission Data Admit Date/Time: 05/07/23 05:02 Attending Provider: Louie Gupta Admit Provider: Francisco Coffey Primary Care Provider: Nicolle Steinberg Other Providers: Francisco Coffey; Dawson Rao
[2023-05-08] MEDS ORDERED: POTASSIUM CHLORIDE 10 MEQ TABCR PO SCH (09:00)
--- OUTSIDE RECORDS SUMMARY | 2023-05-31 17:18 | External Medical Summary | Summary of Care ---
Author Name Unknown Organization [facility] Address [address] [place] [address] Phone [phone] Care Team Providers Care Professor Of Poultry Science Name Role Phone Amadoroni Valverde Rosemarie FLOWERS Primary Care Provider Reason for Visit * Reason Onset Date Comments Cardiology Study 05/30/2023 Encounter Details Date Type Department Care Team ([facility] Contact Info) Description 05/30/2023 Telephone Cardiac Studies, [facility] [address] [place] [id number] Taras Silva DO [address] [place] [facility] [place] [address] Cardiology Study Allergies Active Allergy Reactions Criticality Noted Date Comments Amoxicillin Anaphylaxis High 01/01/2022 Ciprofloxacin Hives 12/20/2018 Covid-19 (Mrna) Vaccine Edema face/lips/tongue,Hiv es,Rash High 09/27/2020 Metronidazole Hives 12/20/2018 Nitrofurantoin 03/18/2020 hives Sulfa Antibiotics Rash Medium 02/21/2002 rash Tetracyclines & Related Other (Please comment) Low 02/21/2002 esophagus gets swollen, possible dysphagia documented as of this encounter (statuses as of 05/30/2023) Medications Medication Sig Dispensed Refills Start Date [...] Active Atorvastatin Calcium 20 MG Oral Tablet (Lipitor)Indication s:Dyslipidemia, goal LDL below 70 TAKE ONE TABLET BY MOUTH EVERY MORNING 90 Tablet 3 11/29/2022 Active Aspirin Low Dose 81 MG Oral Tablet Delayed Release (aspirin enteric coated)Indications: Coronary artery disease involving [place] coronary artery of [place] heart without angina pectoris TAKE ONE TABLET BY MOUTH EVERY MORNING 90 Tablet 3 02/14/2023 Active Sertraline HCl 25 MG Oral Tablet (Zoloft) TAKE ONE TABLET BY MOUTH EVERY MORNING 90 Tablet 2 04/04/2023 Active predniSONE 10 MG Oral Tablet (Deltasone) Take 5 tabs for 2 days, 4 tabs for 2 days, 3 tabs for 2 days, 2 tabs for 2 days 1 tab for 2 days 30 Tablet 0 05/05/2023 Active Additional Information Patient not taking.Reported on 05/24/2023 ProAir HFA 108 (90 Base) MCG/ACT Inhalation Aerosol SolutionIndications :Bronchitis, complicated Inhale 2 Puffs by mouth in the morning and 2 Puffs at noon and 2 Puffs in the evening and 2 Puffs before bedtime. 18 g 1 05/05/2023 Active Metoprolol Succinate ER 25 MG Oral Tablet Extended Release 24 Hour (toPROL XL) Take 1 Tablet by mouth in the morning. 0 05/06/2023 Active documented as of this encounter (statuses as of 05/30/2023) Active Problems Problem Noted Date Diagnosed Date Atypical chest pain 09/15/2022 Coronary artery disease of n ative artery of [place] heart with stable angina pectoris 05/30/2019 Dyslipidemia, goal LDL below 70 05/30/2019 History of acute anterior wall [place] 03/16/2019 History of lymphoma 10/28/2017 Overview: NHL age 31 Hypertrophy of nasal turbinates 12/17/2009 NONALLERGIC RHINITIS 12/17/2009 ADVANCE DIRECTIVE INFORMATION 05/14/2008 Overview: No, Advance Directive brochure given to patient at prior appt. documented as of this encounter (statuses as of 05/30/2023) Resolved Problems Problem Noted Date Diagnosed Date [...] as of this encounter (statuses as of 05/30/2023) Immunizations Name Administration Dates Next Due COVID-19 mRNA, LNP-s, No Pre serve, 2-Dose Series ([employer]) 06/16/2020 DTaP Dipth/Tet/Acell Pertussis (Infanrix), Peds 09/23/2008 H1N1 2009 Influenza, IM 06/10/2009 Pneumococcal Conjugate Vacc, 13 Valent (Prevnar) 09/11/2018 Pneumococcal Conjugate Vacci ne, 20-valent ([id number]) 09/16/2022 Seasonal Influenza, PF, 6 M & [...] encounter Miscellaneous Notes * Telephone Encounter - Nasir Small RN - 05/30/2023 4:35 PM EST Pt scheduled for Nuc stress this coming Tuesday06/03/23. She just had an DEBBIE several weeks ago. Called pt to confirm whether or not this was a scheduling error (the nuc stress scheduled prior to the DEBBIE being scheduled, and never removed from the schedule). Left VM. Wilver Small RN Work: (press 1 for Tommy Mejia, then ext [phone]) documented in this encounter Plan of Treatment Upcoming Encounters Date Type Department Care Team (Late st Contact Info) Description 06/03/2023 8:30 AM EST Imaging [facility]nd [facility] [address] [facility] [place] [address] Gw, Excess Time Radiology [address] [facility] [place] [address] 07/20/2023 8:30 AM EDT Office Visit Cardiology [facility] [address] [place] [address] Sandra Houston IV, MD [address] [place] [address] 03/05/2024 2:00 PM EDT Office Visit Hematology/Oncology [facility] [address] [facility] [place] [address] Aisha Lara MD [address] [place] [address] Scheduled Procedures Name Priority Associated Diagnoses Date/Ti me COLONOSCOPY FLEXIBLE PROXIMA L DIAGNOSTIC Recall Family history of colonic polyps Health Maintenance Due Date Last Done Comments DISCUSS TOBACCO CESSATION (REFER TO SMARTSET #7688) 1970 Hepatitis B (1 of 3 - [...] Advance Directives occurred with: Patient Care Teams Professor Of Poultry Science Relationship Specialty Start Date End Date Nicolle Steinberg DO [address] [place] [address] PCP - General Family Medicine 09/19/18 documented as of this encounter
--- OUTSIDE RECORDS SUMMARY | 2023-05-31 17:19 | External Medical Summary | Summary of Care ---
Author Name Unknown Organization [facility] Address [address] [place] [address] Phone [phone] Care Team Providers Care Steward/Stewardess Banquet Name Role Phone Idris Nicolle Houston DO Primary Care Provider Reason for Visit * Reason Onset Date Comments Appointment 05/10/2023 Encounter Details Date Type Department Care Team ([facility] st Contact Info) Description 05/10/2023 Telephone Cardiology, [facility] [address] [facility] [place] [address] Taras Silva DO [address] [place] [address] Appointment Allergies Active Allergy Reactions Criticality Noted Date Comments Amoxicillin Anaphylaxis High 01/01/2022 Ciprofloxacin Hives 12/20/2018 Covid-19 (Mrna) Vaccine Edema face/lips/tongue,Hiv es,Rash High 09/27/2020 Metronidazole Hives 12/20/2018 Nitrofurantoin 03/18/2020 hives Sulfa Antibiotics Rash Medium 02/21/2002 rash Tetracyclines & Related Other (Please comment) Low 02/21/2002 esophagus gets swollen, possible dysphagia documented as of this encounter (statuses as of 05/11/2023) Medications Medication Sig Dispensed Refills Start Date [...] (aspirin enteric coated)Indications :Coronary artery disease involving [place] coronary artery of [place] heart without angina pectoris TAKE ONE TABLET [...] before bedtime. 18 g 1 05/05/2023 Active Azithromycin 250 MG Oral Tablet (Zithromax)Indicat ions:Bronchitis, complicated Take 2 tabs by mouth on the first day, then 1 tab daily on days two through five 6 Tablet 0 05/05/2023 05/10/2023 documented as of this encounter (statuses as of 05/11/2023) Active Problems Problem Noted Date Diagnosed Date Atypical chest pain 09/15/2022 Coronary artery disease of n ative artery of [place] heart with stable angina pectoris 05/30/2019 Dyslipidemia, goal LDL below 70 05/30/2019 History of acute anterior wall [place] 03/16/2019 History of lymphoma 10/28/2017 Overview: NHL age 31 Hypertrophy of nasal turbinates 12/17/2009 NONALLERGIC RHINITIS 12/17/2009 ADVANCE DIRECTIVE INFORMATION 05/14/2008 Overview: No, Advance Directive brochure given to patient at prior appt. documented as of this encounter (statuses as of 05/11/2023) Resolved Problems Problem Noted Date Diagnosed Date [...] as of this encounter (statuses as of 05/11/2023) Immunizations Name Administration Dates Next Due COVID-19 mRNA, LNP-s, No Pre serve, 2-Dose Series ([employer]) 06/16/2020 DTaP Dipth/Tet/Acell Pertussis (Infanrix), Peds 09/23/2008 H1N1 2009 Influenza, IM 06/10/2009 Pneumococcal Conjugate Vacc, 13 Valent (Prevnar) 09/11/2018 Pneumococcal Conjugate Vacci ne, 20-valent ([id number]) 09/16/2022 Seasonal Influenza, PF, 6 M & [...] encounter Miscellaneous Notes * Telephone Encounter - Taras Silva DO - 05/11/2023 8:11 AM EST I think the patient will need an earlier appointment. That appointment if possible should be with EP. * Telephone Encounter - Tim Abraham OSA - 05/10/2023 12:34 PM EST Patient of Dr. Silva's that called requesting a sooner appointment. Patient advised that she was seen in the ED at [facility] on 05/07/24 for SVT twice on the same day. Patient is already scheeduled to be seen by Dr. Silva on 05/24/23 from a previous office visit with a stress test on 05/16/23. If you can please have Dr. Silva review and advise if patient needs a sooner appointment than what is already scheduled? If a sooner appointment is needed, we will need an add on time as there is nothing available w/Dr. Silva or the AP's until 05/30/23. [place] [phone] Thank You, Tim Ext [phone] documented in this encounter Plan of Treatment Upcoming Encounters Date Type Department Care Team (Late st Contact Info) Description 05/16/2023 10:35 AM EST Imaging Cardiac Studies, [facility] [address] [facility] [place] [address] 05/24/2023 9:30 AM EST Office Visit Cardiology, [facility] [address] [facility] [place] [address] Taras Silva, DO [address] [facility] [place] [address] 06/03/2023 8:30 AM EST Imaging [facility] 2nd Floor [facility] [address] [facility] [place] [address] Gw, Excess Time Radiology [address] [facility] [place] [address] 03/05/2024 2:00 PM EDT Office Visit Hematology/Oncology [facility] [place] [address] [place] [address] Aisha Lara MD [address] [place] [address] Scheduled Procedures Name Priority Associated Diagnoses Date/Ti me COLONOSCOPY FLEXIBLE PROXIMA L DIAGNOSTIC Recall Family history of colonic polyps Health Maintenance Due Date Last Done Comments DISCUSS TOBACCO CESSATION (REFER TO SMARTSET #7042) 1970 Hepatitis B (1 of 3 - [...] Advance Directives occurred with: Patient Care Teams Steward/Stewardess Banquet Relationship Specialty Start Date End Date Nicolle Steinberg DO [address] [place] [address] PCP - General Family Medicine 09/19/18 documented as of this encounter
--- OUTSIDE RECORDS SUMMARY | 2023-05-31 17:19 | External Medical Summary | Summary of Care ---
Author Name Unknown Organization [facility] Address [address] [place] [address] Phone [phone] Care Team Providers Care Intelligence Chief Name Role Phone Idris Nicolle Houston DO Primary Care Provider Reason for Visit * Reason Onset Date Comments Appointment 05/10/2023 Encounter Details Date Type Department Care Team ([facility] st Contact Info) Description 05/10/2023 Telephone Cardiology, [facility] [address] [facility] [place] [address] Taras Silva DO [address] [place] [address] Appointment Allergies Active Allergy Reactions Criticality Noted Date Comments Amoxicillin Anaphylaxis High 01/01/2022 Ciprofloxacin Hives 12/20/2018 Covid-19 (Mrna) Vaccine Edema face/lips/tongue,Hiv es,Rash High 09/27/2020 Metronidazole Hives 12/20/2018 Nitrofurantoin 03/18/2020 hives Sulfa Antibiotics Rash Medium 02/21/2002 rash Tetracyclines & Related Other (Please comment) Low 02/21/2002 esophagus gets swollen, possible dysphagia documented as of this encounter (statuses as of 05/10/2023) Medications Medication Sig Dispensed Refills Start Date [...] (aspirin enteric coated)Indications :Coronary artery disease involving [place] coronary artery of [place] heart without angina pectoris TAKE ONE TABLET [...] as of this encounter (statuses as of 05/10/2023) Active Problems Problem Noted Date Diagnosed Date Atypical chest pain 09/15/2022 Coronary artery disease of n ative artery of [place] heart with stable angina pectoris 05/30/2019 Dyslipidemia, goal LDL below 70 05/30/2019 History of acute anterior wall [place] 03/16/2019 History of lymphoma 10/28/2017 Overview: NHL age 31 Hypertrophy of nasal turbinates 12/17/2009 NONALLERGIC RHINITIS 12/17/2009 ADVANCE DIRECTIVE INFORMATION 05/14/2008 Overview: No, Advance Directive brochure given to patient at prior appt. documented as of this encounter (statuses as of 05/10/2023) Resolved Problems Problem Noted Date Diagnosed Date [...] as of this encounter (statuses as of 05/10/2023) Immunizations Name Administration Dates Next Due COVID-19 mRNA, LNP-s, No Pre serve, 2-Dose Series (Pfizer) 06/16/2020 DTaP Dipth/Tet/Acell Pertussis (Infanrix), Peds 09/23/2008 H1N1 2009 Influenza, IM 06/10/2009 Pneumococcal Conjugate Vacc, 13 Valent (Prevnar) 09/11/2018 Pneumococcal Conjugate Vacci ne, 20-valent ([id number]) 09/16/2022 Seasonal Influenza, PF, 6 M & [...] encounter Miscellaneous Notes * Telephone Encounter - Tim Abraham, COURTNEY - 05/10/2023 12:34 PM EST Patient of Dr. Silva's that called requesting a sooner appointment. Patient advised that she was seen in the ED at [facility] on 05/07/24 for SVT twice on the [...] respond [place] the [place] @ p [phone] Thank You, Tim Arana [address] documented in this encounter Plan of Treatment Upcoming Encounters Date Type Department Care Team (Late st Contact Info) Description 05/16/2023 10:35 AM EST Imaging Cardiac Studies, [facility] [place] [address] 05/24/2023 9:30 AM EST Office Visit Cardiology, [facility] [address] [facility] [place] [address] Taras Silva, [address] [facility] [place] [address] 06/03/2023 8:30 AM EST Imaging [facility] 2nd Floor [facility] [place] [address] [facility] [place] [address] Gw, Excess Time Radiology 132 [facility] [place] [address] 03/05/2024 2:00 PM EDT Office Visit Hematology/Oncology [facility] [address] [facility] [place] [address] Aisha Lara MD [address] [facility] [place] [address] Scheduled Procedures Name Priority Associated Diagnoses Date/Ti me COLONOSCOPY FLEXIBLE PROXIMA L DIAGNOSTIC Recall Family history of colonic polyps Health Maintenance Due Date Last Done Comments DISCUSS TOBACCO CESSATION (REFER TO SMARTSET #1927) 1970 Hepatitis B (1 of 3 - [...] Advance Directives occurred with: Patient Care Teams Intelligence Chief Relationship Specialty Start Date End Date Nicolle Steinberg DO [facility] [place] [address] PCP - General Family Medicine 09/19/18 documented as of this encounter
--- OUTSIDE RECORDS SUMMARY | 2023-05-31 17:19 | External Medical Summary | Summary of Care ---
Author Name Unknown Organization [facility] Address [address] [place] [address] Phone [phone] Care Team Providers Care Associate Sales Representative Name Role Phone Nicolle Steinberg Primary Care Provider Reason for Referral * Evaluate & Treat - Unlimited Visits (Within 10 days (routine)) - Pending Review Specialty Diagnoses / Procedures Referred By Contact Referred To Contact Cardiac Electrophysiology / Cardiology Diagnoses SVT (supraventricular tachycardia) Taras Silva DO [address] [facility] [address] Sandra Houston IV, MD [address] [place] [address] Referral ID Status Reason Start Date Expiration Date Visits Requested Visits Authorized [id number] Pending Review Specialty Services Required 05/16/[phone] Question Answer Referral Priority Within 10 days (routine) Where should this appointment be scheduled? Rip Ordoñez W/Dr. Celso Preciado pt is willing to travel to [place] to be seen sooner if no appt available in [facility]. Reason for Visit * Reason Onset Date Comments Advice 05/14/2023 Encounter Details Date Type Department Care Team ([facility] Contact Info) Description 05/14/2023 Telephone Cardiology, [facility] [address] [place] [address] Taras Silva DO [address] [facility] [place] [address] Advice Allergies Active Allergy Reactions Criticality Noted Date Comments Amoxicillin Anaphylaxis High 01/01/2022 Ciprofloxacin Hives 12/20/2018 Covid-19 (Mrna) Vaccine Edema face/lips/tongue,Hiv es,Rash High 09/27/2020 Metronidazole Hives 12/20/2018 Nitrofurantoin 03/18/2020 hives Sulfa Antibiotics Rash Medium 02/21/2002 rash Tetracyclines & Related Other (Please comment) Low 02/21/2002 esophagus gets swollen, possible dysphagia documented as of this encounter (statuses as of 05/16/2023) Medications Medication Sig Dispensed Refills Start Date [...] (aspirin enteric coated)Indications: Coronary artery disease involving [place] coronary artery of [place] heart without angina pectoris TAKE ONE TABLET [...] as of this encounter (statuses as of 05/16/2023) Active Problems Problem Noted Date Diagnosed Date Atypical chest pain 09/15/2022 Coronary artery disease of n ative artery of [place] heart with stable angina pectoris 05/30/2019 Dyslipidemia, goal LDL below 70 05/30/2019 History of acute anterior wall [place] 03/16/2019 History of lymphoma 10/28/2017 Overview: NHL age 31 Hypertrophy of nasal turbinates 12/17/2009 NONALLERGIC RHINITIS 12/17/2009 ADVANCE DIRECTIVE INFORMATION 05/14/2008 Overview: No, Advance Directive brochure given to patient at prior appt. documented as of this encounter (statuses as of 05/16/2023) Resolved Problems Problem Noted Date Diagnosed Date [...] as of this encounter (statuses as of 05/16/2023) Immunizations Name Administration Dates Next Due COVID-19 mRNA, LNP-s, No Pre serve, 2-Dose Series (WeComics) 06/16/2020 DTaP Dipth/Tet/Acell Pertussis (Infanrix), Peds 09/23/2008 H1N1 2009 Influenza, IM 06/10/2009 Pneumococcal Conjugate Vacc, 13 Valent (Prevnar) 09/11/2018 Pneumococcal Conjugate Vacci ne, 20-valent ([id number]) 09/16/2022 Seasonal Influenza, PF, 6 M & [...] as of this encounter Miscellaneous Notes * Addendum Note - JamesDonna LPN - 05/16/2023 12:12 PM ESTAddended by: DONNA MACDONALD on: 05/16/2023 12:12 PM Modules accepted: Orders * Telephone Encounter - Taras Silva DO - 05/14/2023 9:21 AM EST Spoke to the patient by phone today. Diarrhea seems to be slowing down. Patient is reluctant to stop metoprolol xl or to switch to short acting metoprolol or other medication. She doesn't want a return of her SVT. She will stop the potassium supplements for now. Has stress test Tuesday and will touch base when she is in the clinic for her test. documented in this encounter Plan of Treatment Upcoming Encounters Date Type Department Care Team (Late st Contact Info) Description 05/24/2023 9:30 AM EST Office Visit Cardiology, [facility] [address] [place] [address] Taras Silva DO [address] [place] [address] 06/03/2023 8:30 AM EST Imaging [facility] [address] [place] [address] Gw, Excess Time Radiology [address] [place] [address] 03/05/2024 2:00 PM EDT Office Visit Hematology/Oncology [address] [place] [address] Aisha Lara MD 200 [facility] [place] [address] Scheduled Procedures Name Priority Associated Diagnoses Date/Ti me COLONOSCOPY FLEXIBLE PROXIMA L DIAGNOSTIC Recall Family history of colonic polyps Scheduled Referrals Name Type Priority Associated Diagnoses Order Schedule ELECTROPHYSIOLOGY REFERRAL OP Referral Within 10 days (routine) SVT (supraventricular tachycardia) Ordered: 05/16/2023 Health Maintenance Due Date Last Done Comments DISCUSS TOBACCO CESSATION (REFER TO SMARTSET #3007) 1970 Hepatitis B (1 of 3 - 3-dose series) 1970 HIV Screening 1987 Hepatitis C Screening 1990 Depression Screening 12/21/2019 12/20/2018 Zoster Vaccines (1 of 2) 2022 COVID-19 Vaccine (2 - 2022- season) 2023 06/16/2020 Mammogram 03/02/2023 03/02/2022, 02/06, [...] as of this encounter Visit Diagnoses Diagnosis SVT (supraventricular tachycardia)- Primary Other specified cardiac dysrhythmias documented in this encounter Advance Directives Latest Code Status on File Code Status Date Activated Date Inactivated Comments Full Code 09/15/2022 2:56 PM 09/16/2022 4:03 PM This order reflects the patients wishes and were consensually agreed upon. Question Answer Comments Discussion of Advance Directives occurred with: Patient Care Teams Associate Sales Representative Relationship Specialty Start Date End Date Nicolle Steinberg DO [address] [place] [address] PCP - General Family Medicine 09/19/18 documented as of this encounter
--- OUTSIDE RECORDS SUMMARY | 2023-05-31 17:19 | External Medical Summary | Summary of Care ---
Author Name Unknown Organization [facility] Address [address] [place] [address] Phone [phone] Care Team Providers Care Utilization Engineer Name Role Phone Idris Nicolle Houston DO Primary Care Provider Reason for Visit * Reason Onset Date Comments Appointment 05/10/2023 Encounter Details Date Type Department Care Team ([facility] st Contact Info) Description 05/10/2023 Telephone Cardiology, [facility] [address] [facility] [place] [address] Taras Silva DO [address] [place] [address] Appointment Allergies Active Allergy Reactions Criticality Noted [...] (aspirin enteric coated)Indications :Coronary artery disease involving [place] coronary artery of [place] heart without angina pectoris TAKE ONE TABLET [...] artery disease of n ative artery of [place] heart with stable angina pectoris 05/30/2019 Dyslipidemia, goal LDL below 70 05/30/2019 History of acute anterior wall [place] 03/16/2019 History of lymphoma 10/28/2017 Overview: NHL [...] mRNA, LNP-s, No Pre serve, 2-Dose Series (Dynex) 06/16/2020 DTaP Dipth/Tet/Acell Pertussis (Infanrix), Peds 09/23/2008 H1N1 2009 Influenza, IM 06/10/2009 Pneumococcal Conjugate Vacc, 13 Valent (Prevnar) 09/11/2018 Pneumococcal Conjugate Vacci ne, 20-valent ([id number]) 09/16/2022 Seasonal Influenza, PF, 6 M & [...] encounter Miscellaneous Notes * Telephone Encounter - Sherri Liu CMA - 05/11/2023 3:01 PM EST No openings available with EP or any APs prior to 05/24 - will keep appointment as scheduled with Dr. Silva. * Telephone Encounter - Taras Silva DO - 05/11/2023 8:11 AM EST I think the patient will need an earlier appointment. That appointment if possible should be with EP. * Telephone Encounter - Tim Abraham OSA - 05/10/2023 12:34 PM EST Patient of Dr. Silva's that called requesting a sooner appointment. Patient advised that she was seen in the ED at [facility] on 05/07/24 for SVT twice on the [...] respond to the scheduling [place] @ p [phone] Thank You, Tim Arana [id number] documented in this encounter Plan of Treatment Upcoming Encounters Date Type Department Care Team (Late st Contact Info) Description 05/16/2023 10:35 AM EST Imaging Cardiac Studies, [facility] [address] [place] [address] 05/24/2023 9:30 AM EST Office Visit Cardiology, [facility] [address] [place] [address] Taras Silva, [address] [place] [address] 06/03/2023 8:30 AM EST Imaging [facility] 2nd Floor [facility] [address] [place] [address] Gw, Excess Time Radiology [address] [place] [address] 03/05/2024 2:00 PM EDT Office Visit Hematology/Oncology [place] [address] [place] [address] Aisha Lara MD [address] [place] [address] Scheduled Procedures Name Priority Associated Diagnoses Date/Ti me COLONOSCOPY FLEXIBLE PROXIMA L DIAGNOSTIC Recall Family history of colonic polyps Health Maintenance Due Date Last Done Comments DISCUSS TOBACCO CESSATION (REFER TO SMARTSET #2082) 1970 Hepatitis B (1 of 3 - [...] Advance Directives occurred with: Patient Care Teams Utilization Engineer Relationship Specialty Start Date End Date Nicolle Steinberg DO [address] [place] [address] PCP - General Family Medicine 09/19/18 documented as of this encounter
--- OUTSIDE RECORDS SUMMARY | 2023-05-31 17:19 | External Medical Summary | Summary of Care ---
Author Name Unknown Organization [facility] Address [address] [place] [address] Phone [phone] Care Team Providers Care Head Turning Machine Operator Name Role Phone Nicolle Steinbergberly Primary Care Provider Reason for Visit * Reason Onset Date Comments Information 05/16/2023 Stress echo imag es and report Encounter Details Date Type Department Care Team ([facility] Contact Info) Description 05/16/2023 Telephone Cardiac Studies, [facility] [address] [place], [place] [phone] Taras Silva DO [address] [place] [address] Information (Stress echo images and report) Allergies Active Allergy Reactions Criticality Noted Date [...] (aspirin enteric coated)Indications: Coronary artery disease involving [place] coronary artery of [place] heart without angina pectoris TAKE ONE TABLET [...] artery disease of n ative artery of [place] heart with stable angina pectoris 05/30/2019 Dyslipidemia, goal LDL below 70 05/30/2019 History of acute anterior wall [place] 03/16/2019 History of lymphoma 10/28/2017 Overview: NHL [...] mRNA, LNP-s, No Pre serve, 2-Dose Series (Dandelion) 06/16/2020 DTaP Dipth/Tet/Acell Pertussis (Infanrix), Peds 09/23/2008 H1N1 2009 Influenza, IM 06/10/2009 Pneumococcal Conjugate Vacc, 13 Valent (Prevnar) 09/11/2018 Pneumococcal Conjugate Vacci ne, 20-valent ([id number]) 09/16/2022 Seasonal Influenza, PF, 6 M & [...] Telephone Encounter - Nasir Small RN - 05/16/2023 1:28 PM EST Copy of stress echo report from this morning's study faxed to Dr Susanne Strickland (at the [facility]) using the fax number provided to me by the patient ([phone]). Echo images sent to [facility] via [employer]. Called pt and let her know. Pt also made aware that referral to Dr Houston ( cardiology) has been placed and she awaits phone call regarding scheduling. Nasir Small RN documented in this encounter Plan of Treatment Upcoming Encounters Date Type Department Care Team (Late st Contact Info) Description 05/24/2023 9:30 AM EST Office Visit Cardiology, [facility] [address] [place] [address] Taras Silva, [address] [place] [address] 06/03/2023 8:30 AM EST Imaging [facility] 2nd Floor Cardiology, [place] [address] [place] [address] Gw, Excess Time Radiology [address] [place] [address] 03/05/2024 2:00 PM EDT Office Visit Hematology/Oncology [facility] [address] [place] [address] Aisha Lara MD [address] [place] [address] Scheduled Procedures Name Priority Associated Diagnoses Date/Ti me COLONOSCOPY FLEXIBLE PROXIMA L DIAGNOSTIC Recall Family history of colonic polyps Health Maintenance Due Date Last Done Comments DISCUSS TOBACCO CESSATION (REFER TO SMARTSET #6548) 1970 Hepatitis B (1 of 3 - [...] Advance Directives occurred with: Patient Care Teams Head Turning Machine Operator Relationship Specialty Start Date End Date Nicolle Steniberg DO [address] [place] [address] PCP - General Family Medicine 09/19/18 documented as of this encounter
--- OUTSIDE RECORDS SUMMARY | 2023-05-31 17:19 | External Medical Summary | Summary of Care ---
Author Name Unknown Organization [facility] Address [address] [place] [address] Phone [phone] Care Team Providers Care Management Engineer Name Role Phone Amadoroni Nicolle Houston DO Primary Care Provider Reason for Visit * Reason Onset Date Comments Advice 05/14/2023 Encounter Details Date Type Department Care Team ([facility] Contact Info) Description 05/14/2023 Telephone Cardiology, [facility] [address] [facility] [place] [address] Taras Silva DO [address] [place] [address] Advice Allergies Active Allergy Reactions Criticality Noted Date Comments Amoxicillin Anaphylaxis High 01/01/2022 Ciprofloxacin Hives 12/20/2018 Covid-19 (Mrna) Vaccine Edema face/lips/tongue,Hiv es,Rash High 09/27/2020 Metronidazole Hives 12/20/2018 Nitrofurantoin 03/18/2020 hives Sulfa Antibiotics Rash Medium 02/21/2002 rash Tetracyclines & Related Other (Please comment) Low 02/21/2002 esophagus gets swollen, possible dysphagia documented as of this encounter (statuses as of 05/14/2023) Medications Medication Sig Dispensed Refills Start Date [...] (aspirin enteric coated)Indications: Coronary artery disease involving [place] coronary artery of [place] heart without angina pectoris TAKE ONE TABLET [...] as of this encounter (statuses as of 05/14/2023) Active Problems Problem Noted Date Diagnosed Date Atypical chest pain 09/15/2022 Coronary artery disease of n ative artery of [place] heart with stable angina pectoris 05/30/2019 Dyslipidemia, goal LDL below 70 05/30/2019 History of acute anterior wall [place] 03/16/2019 History of lymphoma 10/28/2017 Overview: NHL age 31 Hypertrophy of nasal turbinates 12/17/2009 NONALLERGIC RHINITIS 12/17/2009 ADVANCE DIRECTIVE INFORMATION 05/14/2008 Overview: No, Advance Directive brochure given to patient at prior appt. documented as of this encounter (statuses as of 05/14/2023) Resolved Problems Problem Noted Date Diagnosed Date [...] as of this encounter (statuses as of 05/14/2023) Immunizations Name Administration Dates Next Due COVID-19 mRNA, LNP-s, No Pre serve, 2-Dose Series (PayLease) 06/16/2020 DTaP Dipth/Tet/Acell Pertussis (Infanrix), Peds 09/23/2008 H1N1 2009 Influenza, IM 06/10/2009 Pneumococcal Conjugate Vacc, 13 Valent (Prevnar) 09/11/2018 Pneumococcal Conjugate Vacci ne, 20-valent ([id number]) 09/16/2022 Seasonal Influenza, PF, 6 M & [...] 05/16/2023 10:35 AM EST Imaging Cardiac Studies, [facility] [address] [facility] [place] [address] 05/24/2023 9:30 AM EST Office Visit Cardiology, [address] [place] [address] Taras Silva, [address] [place] [address] 06/03/2023 8:30 AM EST Imaging [facility] 2nd Floor Cardiology, [place] [address] [place] [address] Gw, Excess Time Radiology [address] [place] [address] 03/05/2024 2:00 PM EDT Office Visit Hematology/Oncology [facility] [address] [place] [address] Aisha Lara MD [address] [place] [address] Scheduled Procedures Name Priority Associated Diagnoses Date/Ti me COLONOSCOPY FLEXIBLE PROXIMA L DIAGNOSTIC Recall Family history of colonic polyps Health Maintenance Due Date Last Done Comments DISCUSS TOBACCO CESSATION (REFER TO SMARTSET #7372) 1970 Hepatitis B (1 of 3 - [...] Advance Directives occurred with: Patient Care Teams Management Engineer Relationship Specialty Start Date End Date Nicolle Steinberg DO [address] [place] [address] PCP - General Family Medicine 09/19/18 documented as of this encounter
--- OUTSIDE RECORDS SUMMARY | 2023-05-31 17:19 | External Medical Summary | Summary of Care ---
Author Name Unknown Organization [facility] Address [address] [place] [address] Phone [phone] Care Team Providers Care Customer Acquisition Manager Name Role Phone Nicolle Steinberg DO Primary Care Provider Encounter Details Date Type Department Care Team ([facility] st Contact Info) Description 05/12/2023 Orders Only Family Practice [facility] [address] [place] [id number] Nicolle Steinberg DO [address] [facility] [address] Allergies Active Allergy Reactions Criticality Noted Date Comments Amoxicillin Anaphylaxis High 01/01/2022 Ciprofloxacin Hives 12/20/2018 Covid-19 (Mrna) Vaccine Edema face/lips/tongue,Hiv es,Rash High 09/27/2020 Metronidazole Hives 12/20/2018 Nitrofurantoin 03/18/2020 hives Sulfa Antibiotics Rash Medium 02/21/2002 rash Tetracyclines & Related Other (Please comment) Low 02/21/2002 esophagus gets swollen, possible dysphagia documented as of this encounter (statuses as of 05/12/2023) Medications Medication Sig Dispensed Refills Start Date [...] (aspirin enteric coated)Indications: Coronary artery disease involving [place] coronary artery of [place] heart without angina pectoris TAKE ONE TABLET [...] as of this encounter (statuses as of 05/12/2023) Active Problems Problem Noted Date Diagnosed Date Atypical chest pain 09/15/2022 Coronary artery disease of n ative artery of [place] heart with stable angina pectoris 05/30/2019 Dyslipidemia, goal LDL below 70 05/30/2019 History of acute anterior wall [place] 03/16/2019 History of lymphoma 10/28/2017 Overview: NHL age 31 Hypertrophy of nasal turbinates 12/17/2009 NONALLERGIC RHINITIS 12/17/2009 ADVANCE DIRECTIVE INFORMATION 05/14/2008 Overview: No, Advance Directive brochure given to patient at prior appt. documented as of this encounter (statuses as of 05/12/2023) Resolved Problems Problem Noted Date Diagnosed Date [...] as of this encounter (statuses as of 05/12/2023) Immunizations Name Administration Dates Next Due COVID-19 mRNA, LNP-s, No Pre serve, 2-Dose Series (Fanatics) 06/16/2020 DTaP Dipth/Tet/Acell Pertussis (Infanrix), Peds 09/23/2008 H1N1 2009 Influenza, IM 06/10/2009 Pneumococcal Conjugate Vacc, 13 Valent (Prevnar) 09/11/2018 Pneumococcal Conjugate Vacci ne, 20-valent ([id number]) 09/16/2022 Seasonal Influenza, PF, 6 M & [...] 05/16/2023 10:35 AM EST Imaging Cardiac Studies, [facility] [address] [address] 05/24/2023 9:30 AM EST Office Visit Cardiology, [facility] [address] [address] Taras Silva, DO [address] [address] 06/03/2023 8:30 AM EST Imaging [facility]nd [facility] [address] [address] Gw, Excess Time Radiology [address] [address] 03/05/2024 2:00 PM EDT Office [facility] [address] [facility] [address] [place] [address] Aisha Lara MD [address] [place], [place] [address] Scheduled Procedures Name Priority Associated Diagnoses Date/Ti me COLONOSCOPY FLEXIBLE PROXIMA L DIAGNOSTIC Recall Family history of colonic polyps Health Maintenance Due Date Last Done Comments DISCUSS TOBACCO CESSATION (REFER TO SMARTSET #6736) 1970 Hepatitis B (1 of 3 - [...] Not on filedocumented as of this encounter Procedures Procedure Name Priority Date/Time Associated Diagnosis Comments XR CHEST 1 VIEW Routine 05/06/2023 documented in this encounter Results * XR CHEST 1 VIEW (05/06/2023) Anatomical Region Laterality Modality Chest Other 05/06/2023 History Per Patient RADIOLOGY ([facility]) documented in this encounter Advance Directives Latest Code Status on File Code Status Date Activated Date Inactivated Comments Full Code 09/15/2022 2:56 PM 09/16/2022 4:03 PM This order reflects the patients wishes and were consensually agreed upon. Question Answer Comments Discussion of Advance Directives occurred with: Patient Care Teams Customer Acquisition Manager Relationship Specialty Start Date End Date Nicolle Steinberg DO [address] [place] [address] PCP - General Family Medicine 09/19/18 documented as of this encounter
--- OUTSIDE RECORDS SUMMARY | 2023-05-31 17:19 | External Medical Summary | Summary of Care ---
Author Name Unknown Organization [facility] Address [address] [place] [address] Phone [phone] Care Team Providers Care Silk Screen Printer Helper Name Role Phone Idris Valverde Rosemarie Primary Care Provider Encounter Details Date Type Department Care Team ([facility] st Contact Info) Description 05/07/2023 Result Scan Unspecified Department <No scans attached> Allergies Active Allergy Reactions Criticality Noted Date [...] (aspirin enteric coated)Indications :Coronary artery disease involving [place] coronary artery of [place] heart without angina pectoris TAKE ONE TABLET [...] artery disease of n ative artery of [place] heart with stable angina pectoris 05/30/2019 Dyslipidemia, [...] mRNA, LNP-s, No Pre serve, 2-Dose Series (Zettaset) 06/16/2020 DTaP Dipth/Tet/Acell Pertussis (Infanrix), Peds 09/23/2008 H1N1 2009 Influenza, IM 06/10/2009 Pneumococcal Conjugate Vacc, 13 Valent (Prevnar) 09/11/2018 Pneumococcal Conjugate Vacci ne, 20-valent ([id number]) 09/16/2022 Seasonal Influenza, PF, 6 M & [...] 05/16/2023 10:35 AM EST Imaging Cardiac Studies, [facility] [address] [address] 05/24/2023 9:30 AM EST Office Visit Cardiology, [facility] [address] [address] Taras Silva, DO [address] [address] 06/03/2023 8:30 AM EST Imaging [facility] [address] [address] Gw, Excess Time Radiology [address] [address] 03/05/2024 2:00 PM EDT Office Visit Hematology/Oncology [facility] [place] [address] [facility] [address] [address] [place] [address] Aisha Lara MD [address] [place] [address] Scheduled Procedures Name Priority Associated Diagnoses Date/Ti me COLONOSCOPY FLEXIBLE PROXIMA L DIAGNOSTIC Recall Family history of colonic polyps Health Maintenance Due Date Last Done Comments DISCUSS TOBACCO CESSATION (REFER TO SMARTSET #2532) 1970 Hepatitis B (1 of 3 - [...] Procedure Name Priority Date/Time Associated Diagnosis Comments OUTSIDE LAB RESULTS 05/07/2023 documented in this encounter Results * OUTSIDE LAB RESULTS (05/07/2023) 05/07/2023 No Physician Data Unknown LABORATORY documented in this encounter Advance Directives Latest Code Status on File Code Status Date Activated Date Inactivated Comments Full Code 09/15/2022 2:56 PM 09/16/2022 4:03 PM This order reflects the patients wishes and were consensually agreed upon. Question Answer Comments Discussion of Advance Directives occurred with: Patient Care Teams Silk Screen Printer Helper Relationship Specialty Start Date End Date Nicolle Steinberg DO [address] [place] [address] PCP - General Family Medicine 09/19/18 documented as of this encounter
--- OUTSIDE RECORDS SUMMARY | 2023-05-31 17:19 | External Medical Summary | Summary of Care ---
Author Name Unknown Organization [facility] Address [address] [place] [address] Phone [phone] Care Team Providers Care Stratigraphy Teacher Name Role Phone Idris Valverde Rosemarie Primary Care Provider Reason for Visit * Reason Onset Date Comments Advice 05/06/2023 Encounter Details Date Type Department Care Team ([facility] Contact Info) Description 05/06/2023 Telephone Cardiology, [facility] [address] [place] [address] Paul Mcnally MD [address] [place] [address] Advice Allergies Active Allergy Reactions Criticality Noted [...] (aspirin enteric coated)Indications :Coronary artery disease involving [place] coronary artery of [place] heart without angina pectoris TAKE ONE TABLET [...] artery disease of n ative artery of [place] heart with stable angina pectoris 05/30/2019 Dyslipidemia, [...] (Prevnar) 09/11/2018 Pneumococcal Conjugate Vacci ne, 20-valent ([id number]) 09/16/2022 Seasonal Influenza, PF, 6 M & [...] Encounter - Sherri Liu CMA - 05/11/2023 10:42 AM EST Request sent to [facility] Medical Records Dept for EKGs done on 05/06 & 05/07. * Telephone Encounter - Paul Mcnally MD [...] meq per day Please obtain EKGs from [facility] for EPIC documented in this encounter Plan of Treatment Upcoming Encounters Date Type Department Care Team (Late st Contact Info) Description 05/16/2023 10:35 AM EST Imaging Cardiac Studies, [facility] [address] [facility] [place] [address] 05/24/2023 9:30 AM EST Office Visit Cardiology, [facility] 132 [facility] [place] [address] Taras Silva, 132 [facility] [place] [address] 06/03/2023 8:30 AM EST Imaging [facility] II 2nd Floor [facility] [address] [facility] [place] [address] Gw, Excess Time Radiology 132 [facility] [place] [address] 03/05/2024 2:00 PM EDT Office Visit Hematology/Oncology [facility] [address] [facility] [place] [address] Aisha Lara MD 200 [facility] [place] [address] Scheduled Procedures Name Priority Associated Diagnoses Date/Ti me COLONOSCOPY FLEXIBLE PROXIMA L DIAGNOSTIC Recall Family history of colonic polyps Health Maintenance Due Date Last Done Comments DISCUSS TOBACCO CESSATION (REFER TO SMARTSET #9660) 1970 Hepatitis B (1 of 3 - [...] Advance Directives occurred with: Patient Care Teams Stratigraphy Teacher Relationship Specialty Start Date End Date Nicolle Steinberg DO [facility] [place] [address] PCP - General Family Medicine 09/19/18 documented as of this encounter
--- OUTSIDE RECORDS SUMMARY | 2023-05-31 17:19 | External Medical Summary | Summary of Care ---
Author Name Unknown Organization [facility] Address [address] [place] [address] Phone [phone] Care Team Providers Care Web Operations Specialist Name Role Phone Nicolle Steinberg DO Primary Care Provider Reason for Visit * Reason Comments Acute Encounter Details Date Type Department Care Team ([facility] st Contact Info) Description 05/13/2023 2:00 PM [facility], [facility] [address] [facility] [place] [address] She Bush MD [address] [place] [phone] SVT (supraventricular tachycardia)* Allergies Active Allergy Reactions Criticality Noted Date Comments Amoxicillin Anaphylaxis High 01/01/2022 Ciprofloxacin Hives 12/20/2018 Covid-19 (Mrna) Vaccine Edema face/lips/tongue,Hiv es,Rash High 09/27/2020 Metronidazole Hives 12/20/2018 Nitrofurantoin 03/18/2020 hives Sulfa Antibiotics Rash Medium 02/21/2002 rash Tetracyclines & Related Other (Please comment) Low 02/21/2002 esophagus gets swollen, possible dysphagia documented as of this encounter (statuses as of 05/15/2023) Medications Medication Sig Dispensed Refills Start Date [...] (aspirin enteric coated)Indications: Coronary artery disease involving [place] coronary artery of [place] heart without angina pectoris TAKE ONE TABLET [...] as of this encounter (statuses as of 05/15/2023) Active Problems Problem Noted Date Diagnosed Date Atypical chest pain 09/15/2022 Coronary artery disease of n ative artery of [place] heart with stable angina pectoris 05/30/2019 Dyslipidemia, goal LDL below 70 05/30/2019 History of acute anterior wall [place] 03/16/2019 History of lymphoma 10/28/2017 Overview: NHL age 31 Hypertrophy of nasal turbinates 12/17/2009 NONALLERGIC RHINITIS 12/17/2009 ADVANCE DIRECTIVE INFORMATION 05/14/2008 Overview: No, Advance Directive brochure given to patient at prior appt. documented as of this encounter (statuses as of 05/15/2023) Resolved Problems Problem Noted Date Diagnosed Date [...] as of this encounter (statuses as of 05/15/2023) Immunizations Name Administration Dates Next Due COVID-19 mRNA, LNP-s, No Pre serve, 2-Dose Series (unbound technologies) 06/16/2020 DTaP Dipth/Tet/Acell Pertussis (Infanrix), Peds 09/23/2008 H1N1 2009 Influenza, IM 06/10/2009 Pneumococcal Conjugate Vacc, 13 Valent (Prevnar) 09/11/2018 Pneumococcal Conjugate Vacci ne, 20-valent ([id number]) 09/16/2022 Seasonal Influenza, PF, 6 M & [...] as of this encounter Progress Notes * She Bush MD - 05/13/2023 2:09 PM EST Images from the original note were not included. History of Present Illness Yani Tesfaye is a 52 year old female that presents for Acute Seen for acute telemedicine video today PCP: Nicolle Steinberg DO ([place]) Not a patient at [facility] Visit scheduled with me today as she was unable to get in contact with her PCP or director of social services Was unable to schedule a visit to be seen locally Recent hospitalization at [facility] in [place] for SVT Cardioverted with adenosine Also influenza+ Discharged with metoprolol, potassium C/O diarrhea as SE of metoprolol SE started on Day 2 of meds - worsening over time Trying to just deal with it because she knows how important meds are Needs to have an urgent BM with all PO intake - food or water Waking her up in the middle of the night Now trying not to eat [place] 4 years ago s/p stent placement Was on metoprolol but not the ER formulation [facility] Still feeling SOB Denies palpitations, CP Cardiologists: Dr. Silva, Dr. Mcnally Physical Exam There were no vitals filed for this visit. BP Readings from Last 3 Encounters: 04/29/23 116/74 03/02/23 120/83 12/21/22 116/70 Wt Readings from Last 3 Encounters: 04/29/23 64.4 kg (142 lb) 03/02/23 64.8 kg (142 lb 14.4 oz) 12/21/22 62.1 kg (136 lb 12.8 oz) BMI Readings from Last 3 Encounters: 04/29/23 24.96 kg/m 03/02/23 25.11 kg/m 12/21/22 24.23 kg/m Physical Exam Vitals and nursing note reviewed. Constitutional: General: She is not in acute distress. Appearance: Normal appearance. She is normal weight. She is not ill-appearing, toxic-appearing or diaphoretic. HENT: Head: Normocephalic. Right Ear: External ear normal. Left Ear: External ear normal. Nose: Nose normal. Mouth/Throat: Mouth: Mucous membranes are moist. Eyes: General: No scleral icterus. Extraocular Movements: Extraocular movements intact. Conjunctiva/sclera: Conjunctivae normal. Neck: Thyroid: No thyromegaly. Pulmonary: Effort: Pulmonary effort is normal. No respiratory distress. Skin: General: Skin is warm and dry. Findings: No rash. Neurological: General: No focal deficit present. Mental Status: She is alert and oriented to person, place, and time. Mental status is at baseline. Psychiatric: Mood and Affect: Mood normal. Behavior: Behavior normal. I have reviewed the following results: Results for orders placed or performed in [...] Absolute Basophils 0.01 0.00 - 0.20 K/uL POINT OF CARE US MAJOR JOINT INJECTION, ORTHO [facility] - Ultrasound Program Exam Date: 11/29/2022 Exam Type: Ortho College Advisor: Omer Rizvi Attending: N/A Worksheet: Ortho Injection Exam Information: Impression: Procedure note (shoulder subacromial bursa injection) on left: ? Time out: Prior to injection, a time out was called to confirm the administration of appropriate medicine, patient name, procedure and confirm to the best of our ability and knowledge the presence of any necessary risks and benefits. Patient verbalizes understanding. ? Ultrasound utilized to guide injection Ultrasound required due to high risk for complications without ultrasound guideance (risk for neurovascular damage). ? Posteriolateral approach used. Sterile techinique applied. Skin sterilized with chlorhexidine and cleaned with alcohol swab. Subacromial bursa injected using 1.5 inch, 25 gauge needle. Injected with-lidocaine 1% 1 mL - triamcinolone acetonide 40 mg/mL 1 mL inj 2 mL . Patient tolerated procedure with no significant bleeding or adverse reaction. ? Patient instructed to call or return to clinic for fever or warmth and redness at injection site for potential infection. Patient also advised as to potential for steroid flare reaction including increased pain and redness at injection site which should be treated with ice and resolve within 24 hours. ? Omer Rizvi, Physician Signature: I reviewed the images and approve the documentation above.: Signed by Omer Rzivi on Tuesday, November 29, 2022 at 11:33:46 AM Assessment and Plan SVT (supraventricular tachycardia) Discussed with patient to continue meds for now I will try and message PCP and cardiology Emergency precautions reviewed Wrap-Up Follow Up: Return if symptoms worsen or fail to improve. Time: I spent a total of 30-39 minutes (exact time 30 mins) on the date of service in preparation, delivery, and documentation of the care provided to Yani Tesfaye excluding any time spent in the performance of separately billed services. Telemedicine: Patient location: HOME. I was in a hospital or clinic location. After connecting through televideo,patient was verified with two unique identifiers. Patient (or authorized legal sales representative graphic art) was then informed that this was a Telemedicine visit and being conducted confidentially over secure lines. Methods to assure confidentiality were taken. Patient acknowledged consent and understanding of pr ivacy and security of the Telemedicine visit. The patient agreed to participate. documented in this encounter Plan of Treatment Upcoming Encounters Date Type Department Care Team (Late st Contact Info) Description 05/16/2023 10:35 AM EST Imaging Cardiac Studies, [address] [place] [address] 05/24/2023 9:30 AM EST [place] [place] [address] Taras Silva, DO [address] [place] [address] 06/03/2023 8:30 AM EST Imaging [facility] 2nd Floor Cardiology, [place] [address] [place] [address] Gw, Excess Time Radiology [address] [place] [address] 03/05/2024 2:00 PM EDT Office Visit Hematology/Oncology [facility] [place] [address] [place] [address] Aisha Lara MD [address] [place] [address] Scheduled Procedures Name Priority Associated Diagnoses Date/Ti me COLONOSCOPY FLEXIBLE PROXIMA L DIAGNOSTIC Recall Family history of colonic polyps Health Maintenance Due Date Last Done Comments DISCUSS TOBACCO CESSATION (REFER TO SMARTSET #4439) 1970 Hepatitis B (1 of 3 - [...] Advance Directives occurred with: Patient Care Teams Web Operations Specialist Relationship Specialty Start Date End Date Nicolle Steinberg DO [facility] [place] [address] PCP - General Family Medicine 09/19/18 documented as of this encounter
--- OUTSIDE RECORDS SUMMARY | 2023-05-31 17:19 | External Medical Summary | Summary of Care ---
Author Name Unknown Organization [facility] Address [address] [place] [address] Phone [phone] Care Team Providers Care Visiting Teacher Name Role Phone Idris Valverde Rosemarie Primary Care Provider Reason for Visit * Reason Onset Date Comments Hospital Follow-Up 05/10/2023 No YODIT needed Encounter Details Date Type Department Care Team ([facility] Contact Info) Description 05/10/[address] [facility] [address] [place], [place] [phone] Brit Russ, RN Hospital Follow-Up (No YODIT needed) Allergies Active Allergy Reactions Criticality Noted Date [...] (aspirin enteric coated)Indications :Coronary artery disease involving [place] coronary artery of [place] heart without angina pectoris TAKE ONE TABLET [...] artery disease of n ative artery of [place] heart with stable angina pectoris 05/30/2019 Dyslipidemia, [...] mRNA, LNP-s, No Pre serve, 2-Dose Series ([employer]) 06/16/2020 DTaP Dipth/Tet/Acell Pertussis (Infanrix), Peds 09/23/2008 H1N1 2009 Influenza, IM 06/10/2009 Pneumococcal Conjugate Vacc, 13 Valent (Prevnar) 09/11/2018 Pneumococcal Conjugate Vacci ne, 20-valent ([id number]) 09/16/2022 Seasonal Influenza, PF, 6 M & [...] encounter Miscellaneous Notes * Telephone Encounter - Brit Russ RN - 05/10/2023 8:49 AM EST Transitions of Care Note Reason for Referral:Recent Admission Phone visit for follow up: Inpatient Hospitalization Admitted to: [facility], Date: 05/07 Discharged to: home, Date: 05/07 YODIT call not indicated due to admitted less than 24 hrs. Brit Russ, RN documented in this encounter Plan of Treatment Upcoming Encounters Date Type Department Care Team (Late st Contact Info) Description 05/16/2023 10:35 AM EST Imaging Cardiac Studies, [facility] [place] [place] [address] 05/24/2023 9:30 AM EST Office Visit Cardiology, [facility] [address] [place] [address] Taras Silva, DO [address] [place] [address] 06/03/2023 8:30 AM EST Imaging [facility] 2nd Floor [facility] [address] [facility] [place] [address] Gw, Excess Time Radiology [address] [facility] [place] [address] 03/05/2024 2:00 PM EDT Office Visit Hematology/Oncology [facility] 200 [facility] [place] [address] Aisha Lara MD [address] [place] [address] Scheduled Procedures Name Priority Associated Diagnoses Date/Ti me COLONOSCOPY FLEXIBLE PROXIMA L DIAGNOSTIC Recall Family history of colonic polyps Health Maintenance Due Date Last Done Comments DISCUSS TOBACCO CESSATION (REFER TO SMARTSET #7231) 1970 Hepatitis B (1 of 3 - [...] Advance Directives occurred with: Patient Care Teams Visiting Teacher Relationship Specialty Start Date End Date Nicolle Steinberg DO [address] [place] [address] PCP - General Family Medicine 09/19/18 documented as of this encounter
--- OUTSIDE RECORDS SUMMARY | 2023-05-31 17:19 | External Medical Summary | Summary of Care ---
Author Name Unknown Organization [facility] Address [address] [place] [address] Phone [phone] Care Team Providers Care Registered Radiation Therapist Name Role Phone Idris Nicolle Houston DO Primary Care Provider Reason for Visit * Reason Comments Follow Up Patient is mitchellin ely telemedicine due to the weather Encounter Details Date Type Department Care Team ([facility] Contact Info) Description 05/24/2023 9:30 AM EST Telemedicine Cardiology, [facility] [address] [place] [address] Taras Silva DO [address] [place] [address] SVT (supraventricular tachycardia)*; Coronary artery disease involving venetie coronary artery of venetie heart without angina pectoris; S/P drug eluting coronary stent placement Allergies Active Allergy Reactions Criticality Noted Date Comments Amoxicillin Anaphylaxis High 01/01/2022 Ciprofloxacin Hives 12/20/2018 Covid-19 (Mrna) Vaccine Edema face/lips/tongue,Hiv es,Rash High 09/27/2020 Metronidazole Hives 12/20/2018 Nitrofurantoin 03/18/2020 hives Sulfa Antibiotics Rash Medium 02/21/2002 rash Tetracyclines & Related Other (Please comment) Low 02/21/2002 esophagus gets swollen, possible dysphagia documented as of this encounter (statuses as of 05/24/2023) Medications Medication Sig Dispensed Refills Start Date [...] (aspirin enteric coated)Indications: Coronary artery disease involving venetie coronary artery of venetie heart without angina pectoris TAKE ONE TABLET [...] as of this encounter (statuses as of 05/24/2023) Active Problems Problem Noted Date Diagnosed Date Atypical chest pain 09/15/2022 Coronary artery disease of n ative artery of venetie heart with stable angina pectoris 05/30/2019 Dyslipidemia, goal LDL below 70 05/30/2019 History of acute anterior wall MA 03/16/2019 History of lymphoma 10/28/2017 Overview: NHL age 31 Hypertrophy of nasal turbinates 12/17/2009 NONALLERGIC RHINITIS 12/17/2009 ADVANCE DIRECTIVE INFORMATION 05/14/2008 Overview: No, Advance Directive brochure given to patient at prior appt. documented as of this encounter (statuses as of 05/24/2023) Resolved Problems Problem Noted Date Diagnosed Date [...] as of this encounter (statuses as of 05/24/2023) Immunizations Name Administration Dates Next Due COVID-19 mRNA, LNP-s, No Pre serve, 2-Dose Series (Friendly Wager App) 06/16/2020 DTaP Dipth/Tet/Acell Pertussis (Infanrix), Peds 09/23/2008 H1N1 2009 Influenza, IM 06/10/2009 Pneumococcal Conjugate Vacc, 13 Valent (Prevnar) 09/11/2018 Pneumococcal Conjugate Vacci ne, 20-valent ([id number]) 09/16/2022 Seasonal Influenza, PF, 6 M & [...] Sign Reading Time Taken Comments Blood Pressure 127/83 05/24/2023 9:30 AM EST Pulse 97 05/24/2023 9:30 AM EST Temperature - - Respiratory Rate - - Oxygen Saturation - - Inhaled Oxygen Concentration - - Weight 65.8 kg (145 lb) 05/24/2023 9:30 AM EST Height - - Body Mass Index 25.48 03/02/2023 12:29 PM EDT documented in this [...] this encounter Progress Notes * Taras Silva, - 05/24/2023 9:50 AM EST TELEPHONE FOLLOWUP VISIT - CARDIOLOGY Name: Yani Abhi Tesfaye Yani is a 53 year old female who was called for follow up of coronary artery disease and SVT. Lastseen April 2023. The patient has a history of Hodgkin's lymphoma in her early 20s for which she received chest radiation and chemotherapy. In 2019 she presented with a STEMI and received a drug-eluting stent within the LAD. Recently she has had several emergency department visits for SVT. She iscurrently on aspirin and metoprolol with improvement of her symptoms. Since her last visit she has had an exercise stress echocardiogram that was negative for ischemia. She also had a Zio monitor that showed a brief run of PSVT and no other significant arrhythmias. She has been to the [facility] where she is scheduled to have an ablation completed for her PSVT. She has no I am going other complaints today. IMPRESSION: 1. Stable coronary artery disease 2. Drug-eluting stent LAD 2018 with a history of MA 3. Dyslipidemia 4. History of Hodgkin's lymphoma with radiation to the chest and chemotherapy. PLAN: Currently the patient will continue her medications. She will proceed with her ablation at the [facility] and then I will have follow-up once that procedure has been completed. Yani Tesfaye agreed to utilize telephone in place of an in person visit. 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 NONALLERGIC RHINITIS 12/17/2009 Personal history of radiation therapy 2003 Hodgekin's Lymphoma Pre-eclampsia, severe, antepartum 2002 HELLP syndrome Past Surgical History: Procedure Laterality Date DELIVERY 07/2004 x 2 COLONOSCOPY, DIAGNOSTIC (RECTUM) 01/22/2016 normal bx, diverticulosis/COLONOSCOPY FLEXIBLE PROXIMAL DIAGNOSTIC performed by Wellington Alonso MD at [facility] COLONOSCOPY, DIAGNOSTIC (RECTUM) 06/26/2021 diverticulosis, repeat 5 yrs / COLONOSCOPY FLEXIBLE PROXIMAL DIAGNOSTIC performed by Naveen Prather MD at [facility] EGD, FLEXIBLE, DIAGNOSTIC 01/22/2016 normal bx, duodenal diverticulum/ESOPHAGOGASTRODUODENOSCOPY (EGD), FLEXIBLE, TRANSORAL, DIAGNOSTIC performed by Wellington Alonso MD at [facility] EGD, FLEXIBLE, DIAGNOSTIC 02/04/2022 z-line regular at 39 cm from incisors, normal scope / biopsies mildly suggestive of reflux - if symptomatic an antireflux lifestyle / ESOPHAGOGASTRODUODENOSCOPY (EGD), FLEXIBLE, TRANSORAL, DIAGNOSTICperformed by Fidelina Castro MD at [facility] DIPPER FISH PAP SCREEN 11/04/2008 negative for intraepithelial lesion or malignancy-jeffery DIPPER FISH PAP SCREEN 03/16/2010 wnl, -Hardyk NONE 08/06/2004 nodule of left forearm facitis by Dr. Lara. benign PAP SCREEN 09/05/2013 WNL- Cami REMOVAL OF PELVIC STRUCTURES partial emergency hysterectomy: still has cercix and ovaries TOTAL ABD HYSTERECTOMY W/WO REMOVAL OF TUBE(S) 2008 Social History Socioeconomic History Marital status: Number of children: 0 Tobacco Use Smoking status: Some Days Types: Cigarettes Smokeless tobacco: Never Tobacco comments: 3 cigarettes everyother weekend social smoker. Exposed to second hand smoke. Vaping Use Vaping Use: Never used Substance and Sexual Activity Alcohol use: Yes Comment: occasional wine Drug use: No Sexual activity: Yes Partners: Male control/protection: Surgical Other Topics Concern Seat Belt Yes Social History Narrative [employer] [place] INFORMATION ENVIRONMENTAL HISTORY: Type of Home: Two Story Type of Heating System: Electric, Oil and Forced air Air Conditioning: Yes Bedrooms Basement: Unfinished, Dampness, Water Problems and Mold, mildew Home have cockroaches: No Irritants in the home: Scented Candles Patient's bedroom location: Floor: second Type of ludwin: Area Rugs and Hardwood Beds: Number: 1 Type of beds: Mattress and Box spring Pillows: Number: 2 Type of pillows: Synthetic (hypoallergenic, polyester) Bedroom contains: Bookshelves/Books and Collectibles (knicknacks) Pets: 1 cat(s) [place] a farm: No 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 Entered by: Rd Henry MD 01/29/2010 Family History Problem Relation Age of Onset [...] PGFA (Not Specified) Chuyita Alive Son Alive MEDICATIONS: Current Outpatient Medications Medication Sig Dispense Refill metroNIDAZOLE 0.75 % External Cream (Metrocream) APPLY TOPICALLY TO AFFECTED AREA TWICE DAILY 45 g 11 Atorvastatin Calcium 20 MG Oral Tablet (Lipitor) TAKE ONE TABLET BY MOUTH EVERY MORNING 90 Tablet 3 Aspirin Low Dose 81 MG Oral Tablet Delayed Release (aspirin enteric coated) TAKE ONE TABLET BY MOUTH EVERY MORNING 90 Tablet 3 Sertraline HCl 25 MG Oral Tablet (Zoloft) TAKE ONE TABLET BY MOUTH EVERY MORNING 90 Tablet 2 ProAir HFA 108 (90 Base) MCG/ACT Inhalation Aerosol Solution Inhale 2 Puffs by mouth in the morningand 2 Puffs at noon and 2 Puffs in the evening and 2 Puffs before bedtime. 18 g 1 Metoprolol Succinate ER 25 MG Oral Tablet Extended Release 24 Hour (toPROL XL) Take 1 Tablet by mouth in the morning. EpiPen 2-Terrence 0.3 MG/0.3ML Injection Solution Auto-injector Inject 0.3 mg into a large muscle once. For a severe reaction: Inject in outer thigh following instructions on package and go to the Emergency room. Nitroglycerin 0.4 MG Sublingual Tablet Sublingual (Nitrostat) PLACE 1 TABLET UNDER THE TONGUE NEEDED FOR CHEST PAIN. MAY REPEAT 3 TIMES. IF CHEST PAIN CONTINUES CALL 911. 25 Tablet 11 predniSONE 10 MG Oral Tablet (Deltasone) Take 5 tabs for 2 days, 4 tabs for 2 days, 3 tabs for 2 days, 2 tabs for 2 days 1 tab for 2 days (Patient not taking: Reported on 05/24/2023) 30 Tablet 0 No current facility-administered medications for this visit. ALLERGIES: Review of patient's allergies indicates: Allergen Reactions Amoxicillin Anaphylaxis Covid-19 (Mrna) Vaccine (Friendly Wager App) [Covid-19 (Mrna) Vaccine] Edema face/lips/tongue, Hives and Rash Sulfa Antibiotics Rash rash Ciprofloxacin Hives Flagyl [Metronidazole] Hives Macrobid [Nitrofurantoin] hives Tetracyclines & Related Other (Please comment) esophagus gets swollen, possible dysphagia LAB: None documented in this encounter Nursing Notes * Torrey Deluca, RN - 05/24/2023 9:33 AM EST Examination Room: telemedicine. Name: Yani Tesfaye Date of : (1970). Reason for Visit: follow up Interim Hospitalization(s): denies Problems/Concerns: denies Chest Pain/SOB: [id number] [facility] Discussed: Not applicable My [facility] is a way you can [...] personnel. Patient voiced full comprehension of instructions. Telemedicine documented in this encounter Plan of Treatment Upcoming Encounters Date Type Department Care Team (Late st Contact Info) Description 06/03/2023 8:30 AM EST [facility] [address] [facility] [address] Gw, Excess Time [facility] [address] [facility] [place] [address] 07/20/2023 8:30 AM EDT Office Visit Cardiology [facility] [place] [address] [place] [address] Sandra Houston IV, MD [address] [facility] [address] 03/05/2024 2:00 PM EDT Office Visit Hematology/On[facility] [address] [facility] [address] Aisha Lara MD [address] [place] [address] Scheduled Procedures Name Priority Associated Diagnoses Date/Ti me COLONOSCOPY FLEXIBLE PROXIMA L DIAGNOSTIC Recall Family history of colonic polyps Health Maintenance Due Date Last Done Comments DISCUSS TOBACCO CESSATION (REFER TO [facility]ARTSET #[id number]) 1970 Hepatitis B (1 of 3 - [...] (supraventricular tachycardia)- Primary Other specified cardiac dysrhythmias Coronary artery disease involving venetie coronary artery of venetie heart without angina pectoris S/P drug eluting coronary stent placement Postsurgical percutaneous transluminal coronary angioplasty status documented in this encounter Advance Directives Latest Code Status on File Code Status Date Activated Date Inactivated Comments Full Code 09/15/2022 2:56 PM 09/16/2022 4:03 PM This order reflects the patients wishes and were consensually agreed upon. Question Answer Comments Discussion of Advance Directives occurred with: Patient Care Teams Registered Radiation Therapist Relationship Specialty Start Date End Date Nicolle Steinberg DO [address] [place] [address] PCP - General Family Medicine 09/19/18 documented as of this encounter
== END 2023-05-07 14:00 | disposition home or self-care (01) | DRG 310 ==
LOC: ED 01:41 → EDINP 05:02 → OBSVTOIN 05:02 → INTOOBSV 05:02 → EDINP 06:54 → 2E 12:43

== ENCOUNTER 2024-07-06 10:30 | Inpatient (IN) ==
--- NOTE | 2024-07-06 11:18 | Emergency Department Note ---
Impression & Plan SIRS (systemic inflammatory response syndrome), Headache, Transaminitis, Leukopenia, Thrombocytopenia, Anemia ED Provider Note NAME: LIS CENTENO AGE: 54 SEX: F : 1970 ARRIVES VIA: Walk-In INFORMANT: Patient ED PROVIDER(S): Donovan Aranda DO CHIEF COMPLAINT: Headache, neck pain HPI: Patient is a 54-year-old female with a past medical history of SVT, CAD, IN, Hodgkin's lymphoma, reactive airway disease who presents to the ER for symptoms that started this past Tuesday with fevers and headaches. She admits to neck pain. She had a lumbar puncture this past Tuesday and . Following this she started having nausea and vomiting. Denies any dysuria, urgency, or frequency. No open wounds or sores. No other exacerbating or remitting factors. She saw her PCP who referred her in today. Headache is worse significantly when she sits up and improves significantly when she lays back. ADDITIONAL HISTORY OBTAINED: Additional history obtained by is present at bedside and notes that she has not been taking any Tylenol since they found the elevated LFTs. Prior to this she was taking Tylenol as prescribed by the bottle but they are not too sure how much she was taking Chronic Medical/Social Conditions Affecting Care: Per HPI PAST MEDICAL HISTORY:See Below PAST SURGICAL HISTORY:See Below FAMILY HISTORY:See Below SOCIAL HISTORY:See Below HOME MEDICATIONS:See Below ALLERGIES:See Below VITALS:See Below PHYSICAL EXAMINATION: GENERAL: Sitting up in bed, alert, ill-appearing EYE EXAM: normal conjunctiva. PERRL and EOM's grossly intact. OROPHARYNX: mucous membranes are moist NECK: supple, no nuchal rigidity, no adenopathy, non-tender LUNGS: Clear to auscultation. Normal chest wall mechanics HEART: no murmurs, S1 normal and S2 normal ABDOMEN: abdomen soft, non-tender, normo-active bowel sounds, no masses, no rebound or guarding. BACK: Back is symmetrical on inspection and there is no deformity, no midline tenderness, no CVA tenderness. SKIN: no rashes and no bruising UPPER EXTREMITIES: upper extremities are grossly normal. LOWER EXTREMITIES: No pitting edema. NEURO EXAM: Normal sensorium, cranial nerves II-XII grossly intact, normal speech, no gross weakness of arms, no gross weakness of legs. MEDICAL DECISION MAKING: Patient is a 54-year-old female who presents ER for above-stated complaint. IV was established and blood work was obtained. Labs show leukopenia 4000. Mild anemia 10 with a thrombocytopenia at 105. INR unremarkable. BMP was unremarkable as well. Transaminitis has been improving. Troponin was negative. Pro-Vik normal. Viral panel was negative. Bennett was negative. Patient was given IV fluids Toradol Zofran and morphine. Discussed with anesthesiology for evaluation for blood patch. Patient was updated bedside. She still been having persistent fevers per who provided additional history at bedside. With this I did discuss case with the hospitalist as she was feeling significantly worse following the LP yesterday. Patient was also given dose of IV Rocephin. Consults/Care Managements Discussions: Per MDM Triage Nursing notes reviewed. Limited review of prior medical records performed Vital Signs: reviewed and remarkable for tachy Differential diagnosis: Differential Diagnosis includes but is not limited to headache, tension headache, cluster headache, migraine, subarachnoid hemorrhage, meningitis, mass, central venous thrombus, concussion, trauma and epidural/subdural hemorrhage. ER treatment provided: See below Diagnostics interpreted by me include EKG and cardiac monitoring as listed below: -Cardiac Monitoring: An order was placed for continuous cardiac monitoring. The monitor shows a rate of 80 with sinus rhythm. -ECG: none -Laboratory studies:Interpreted by me as stated above in MDM and shown below. Imaging studies: Xrays: As interpreted by me: Portable AP upright 1 view of the chest shows no focal infiltrate CTs show: none Procedures:none Critical Care: None Past Med/Surg History Problem List Anemia (Acute) Thrombocytopenia (Acute) Leukopenia (Acute) Transaminitis (Acute) Headache (Acute) SIRS (systemic inflammatory response syndrome) (Acute) Transaminitis (Acute) Headache (Acute) Acute bacterial sinusitis (Acute) Viral illness (Acute) Influenza (Acute) Influenza A SVT (supraventricular tachycardia) (Acute) Shortness of breath (Acute) Anxiety Elevated d-dimer CAD (coronary artery disease) Palpitations (Acute) Hypothyroidism Reactive airway disease STEMI (ST elevation myocardial infarction) Chest pain (Acute) Left lower quadrant pain (Acute) RLQ abdominal pain (Acute) S/P partial hysterectomy (Chronic) surgery 2009, supracervical in immediate pp period from uterine atony. Medical History Diverticulitis Sinusitis nasal Heart attack HELLP syndrome H O severe pre- eclampsia antepartum Surgical History S/P wisdom tooth extraction History of intravascular stent placement 09-04-2018 Family History Mother Mitral valve replaced Coronary heart disease Father Diverticulitis Other Asthma Denies family history of Ovarian cancer Breast cancer Colorectal cancer Social History Smoking Status: Former smoker Tobacco Type: Cigarettes Second Hand Exposure: Yes; Do You Dip or Chew Tobacco: No; Hx Alcohol Use: Yes Alcohol type: wine Hx Substance Use: No Preferred Language: Czech Communication Ability: Effective Hearing Ability: Normal 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: No Beliefs That Will Affect Care: None marital status: Current Living Situation: Family Current Living Situation Comment: Independent current occupational status: employed 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 Feels Safe at Home: Yes Childhood Exposure to Second-Hand Smoke: No Assistive Devices: Glasses Allergies Allergies Allergy/AdvReac Type Severity Reaction Status Date / Time COVID-19 (SARS-CoV-2) Allergy Severe Anaphylaxis Unverified 03/23/23 17:18 vaccine, sergey nitrofurantoin Allergy Severe Swelling Verified 03/23/23 17:18 [From Macrobid] of Lip/Tongue/Throat tetracycline Allergy Intermediate Rash Verified 03/23/23 17:18 Quinolones Allergy Unknown Unknown Verified 03/23/23 17:18 Sulfa (Sulfonamide Allergy Unknown Rash Verified 03/23/23 17:18 Antibiotics) Home Meds Home Medications Medication Instructions Recorded Confirmed albuterol sulfate 90 mcg/actuation 2 puff inhalation Q4H PRN 05/07/23 07/06/24 aerosol inhaler Shortness Of Breath Or Wheezing aspirin 81 mg tablet,delayed 81 mg PO DAILY 05/07/23 07/06/24 release atorvastatin 20 mg tablet 20 mg PO DAILY 05/07/23 07/06/24 Collagen 1 cap PO DAILY 07/04/24 07/06/24 Vitamin B 1 tab PO DAILY 07/04/24 07/06/24 Vitamin D3 1 cap PO DAILY 07/04/24 07/06/24 magnesium 1 cap PO DAILY 07/04/24 07/06/24 soy isoflavone-black cohosh 1 cap PO DIRECTED 07/04/24 07/06/24 root-magnolia bark 155 mg capsule (Estroven) Previous Rx's Medication Instructions Recorded potassium chloride 10 mEq 10 meq PO DAILY #30 tabs 05/07/23 tablet,extended release(part/cryst) doxycycline hyclate 100 mg capsule 100 mg PO Q12H 14 days #28 caps 07/04/24 Results & Data (ED) Vital Signs Vital Signs - 24 hr 07/06/24 10:48 07/06/24 11:31 07/06/24 11:41 Temperature 36.4 C L 37.1 C Temperature Source Temporal Artery Scan Oral Pulse Rate 113 H Pulse Rate [Apical] 100 H 99 H Pulse Rate from SpO2 Sensor Pulse Rhythm [Apical] Respiratory Rate 14 16 18 Respiratory Effort / Characteristics Non-Labored Spontaneous Respiratory Depth Normal Respiratory Pattern Regular Blood Pressure 118/76 Blood Pressure [Right Arm] 130/82 Blood Pressure Mean 90 Blood Pressure Mean [Right Arm] 98 Blood Pressure Position [Right Arm] Semi-fowlers Pulse Oximetry 100 98 99 Oxygen Delivery Method Room Air Room Air Room Air Sepsis New/Unexplained Change in Mental Status No Sepsis Action Taken by Nursing No Action Required 07/06/24 11:42 07/06/24 12:00 07/06/24 12:06 Temperature Temperature Source Pulse Rate 99 H 102 H 101 H Pulse Rate [Apical] Pulse Rate from SpO2 Sensor Pulse Rhythm [Apical] Respiratory Rate 16 15 Respiratory Effort / Characteristics Respiratory Depth Respiratory Pattern Blood Pressure 141/85 H Blood Pressure [Right Arm] Blood Pressure Mean 108 Blood Pressure Mean [Right Arm] Blood Pressure Position [Right Arm] Pulse Oximetry 99 Oxygen Delivery Method Room Air Sepsis New/Unexplained Change in Mental Status Sepsis Action Taken by Nursing 07/06/24 12:15 07/06/24 12:26 07/06/24 12:30 Temperature 37.4 C Temperature Source Oral Pulse Rate 98 H Pulse Rate [Apical] 100 H Pulse Rate from SpO2 Sensor 98 H Pulse Rhythm [Apical] Regular Respiratory Rate 20 16 Respiratory Effort / Characteristics Non-Labored Spontaneous Respiratory Depth Normal Respiratory Pattern Regular Blood Pressure 129/79 Blood Pressure [Right Arm] 131/79 Blood Pressure Mean 96 Blood Pressure Mean [Right Arm] 96 Blood Pressure Position [Right Arm] Lying Pulse Oximetry 97 95 Oxygen Delivery Method Room Air Sepsis New/Unexplained Change in Mental Status Sepsis Action Taken by Nursing 07/06/24 12:30 07/06/24 12:45 07/06/24 13:00 Temperature Temperature Source Pulse Rate 100 H 99 H Pulse Rate [Apical] 100 H Pulse Rate from SpO2 Sensor Pulse Rhythm [Apical] Respiratory Rate 16 18 16 Respiratory Effort / Characteristics Non-Labored Spontaneous Respiratory Depth Normal Respiratory Pattern Regular Blood Pressure 131/79 120/76 Blood Pressure [Right Arm] Blood Pressure Mean 103 85 Blood Pressure Mean [Right Arm] Blood Pressure Position [Right Arm] Pulse Oximetry 98 97 97 Oxygen Delivery Method Room Air Sepsis New/Unexplained Change in Mental Status Sepsis Action Taken by Nursing 07/06/24 13:00 07/06/24 13:15 07/06/24 13:30 Temperature 37.6 C H Temperature Source Oral Pulse Rate 109 H 95 H Pulse Rate [Apical] 96 H Pulse Rate from SpO2 Sensor Pulse Rhythm [Apical] Respiratory Rate 24 18 16 Respiratory Effort / Characteristics Non-Labored Spontaneous Respiratory Depth Normal Respiratory Pattern Regular Blood Pressure 114/76 Blood Pressure [Right Arm] 118/78 Blood Pressure Mean 93 Blood Pressure Mean [Right Arm] 91 Blood Pressure Position [Right Arm] Lying Pulse Oximetry 98 98 Oxygen Delivery Method Room Air Room Air Sepsis New/Unexplained Change in Mental Status Sepsis Action Taken by Nursing 07/06/24 13:30 07/06/24 13:45 07/06/24 14:00 Temperature Temperature Source Pulse Rate 93 H 101 H Pulse Rate [Apical] Pulse Rate from SpO2 Sensor 95 H 100 H Pulse Rhythm [Apical] Respiratory Rate 20 20 16 Respiratory Effort / Characteristics Respiratory Depth Respiratory Pattern Blood Pressure 118/78 124/74 Blood Pressure [Right Arm] Blood Pressure Mean 90 88 Blood Pressure Mean [Right Arm] Blood Pressure Position [Right Arm] Semi-fowlers Pulse Oximetry 98 99 98 Oxygen Delivery Method Room Air Sepsis New/Unexplained Change in Mental Status Sepsis Action Taken by Nursing 07/06/24 14:00 07/06/24 14:15 07/06/24 14:15 Temperature 37.8 C H Temperature Source Oral Pulse Rate 91 H 95 H Pulse Rate [Apical] 95 H Pulse Rate from SpO2 Sensor 91 H 94 H Pulse Rhythm [Apical] Respiratory Rate 15 17 18 Respiratory Effort / Characteristics Non-Labored Spontaneous Respiratory Depth Normal Respiratory Pattern Regular Blood Pressure 114/70 108/83 Blood Pressure [Right Arm] 108/83 Blood Pressure Mean 80 91 Blood Pressure Mean [Right Arm] 91 Blood Pressure Position [Right Arm] Lying Pulse Oximetry 98 99 99 Oxygen Delivery Method Room Air Sepsis New/Unexplained Change in Mental Status Sepsis Action Taken by Nursing 07/06/24 14:30 07/06/24 14:45 07/06/24 15:00 Temperature Temperature Source Pulse Rate 95 H Pulse Rate [Apical] 102 H Pulse Rate from SpO2 Sensor 96 H Pulse Rhythm [Apical] Respiratory Rate 12 18 Respiratory Effort / Characteristics Non-Labored Spontaneous Respiratory Depth Normal Respiratory Pattern Regular Blood Pressure 118/74 124/79 Blood Pressure [Right Arm] 146/88 H Blood Pressure Mean 98 88 Blood Pressure Mean [Right Arm] 107 Blood Pressure Position [Right Arm] Lying Pulse Oximetry 100 99 Oxygen Delivery Method Room Air Sepsis New/Unexplained Change in Mental Status Sepsis Action Taken by Nursing 07/06/24 15:15 07/06/24 15:30 07/06/24 15:30 Temperature 37.3 C Temperature Source Oral Pulse Rate 102 H 91 H Pulse Rate [Apical] Pulse Rate from SpO2 Sensor 103 H 92 H Pulse Rhythm [Apical] Respiratory Rate 16 Respiratory Effort / Characteristics Respiratory Depth Respiratory Pattern Blood Pressure 132/74 99/80 L Blood Pressure [Right Arm] Blood Pressure Mean 89 83 Blood Pressure Mean [Right Arm] Blood Pressure Position [Right Arm] Pulse Oximetry 97 Oxygen Delivery Method Sepsis New/Unexplained Change in Mental Status Sepsis Action Taken by Nursing 07/06/24 15:54 Temperature Temperature Source Pulse Rate Pulse Rate [Apical] 92 H Pulse Rate from SpO2 Sensor Pulse Rhythm [Apical] Respiratory Rate 14 Respiratory Effort / Characteristics Non-Labored Spontaneous Respiratory Depth Normal Respiratory Pattern Regular Blood Pressure Blood Pressure [Right Arm] 117/86 Blood Pressure Mean Blood Pressure Mean [Right Arm] 96 Blood Pressure Position [Right Arm] Lying Pulse Oximetry 98 Oxygen Delivery Method Room Air Sepsis New/Unexplained Change in Mental Status Sepsis Action Taken by Nursing Laboratory Data 07/06/24 12:05 07/06/24 12:05 Lab Results 07/06/24 07/06/24 Range/Units 12:05 12:28 WBC 4.14 L (4.8-10.8) K/ul RBC 3.23 L (4.20-5.40) M/uL Hgb 10.5 L (12.0-16.0) g/dl Hct 30.3 L (37.0-47.0) % MCV 93.8 (80.0-100.0) fL MCH 32.5 (25.0-34.0) pg MCHC 34.7 (32.0-36.0) g/dL RDW Std Deviation 42.7 (36.4-46.3) fL RDW Coeff of Wade 12.4 (11.5-14.5) % Plt Count 105 L (130-400) K/uL MPV 9.7 (9.4-12.4) fL Immature Gran % (Auto) 0.5 % Neut % (Auto) 71.1 % Lymph % (Auto) 20.0 % Bennett % (Auto) 7.2 % Eos % (Auto) 1.0 % Baso % (Auto) 0.2 % Neut # (Auto) 2.94 (1.40-6.50) K/uL Lymph # (Auto) 0.83 L (1.20-3.40) K/uL Bennett # (Auto) 0.30 (0.11-0.59) K/uL Eos # (Auto) 0.04 (0.00-0.50) K/uL Baso # (Auto) 0.01 (0.00-0.20) K/uL Immature Gran # (Auto) 0.02 (0.01-0.20) K/uL PT 11.2 (9.0-12.0) Seconds INR 1.0 (0.9-1.1) APTT 23 (21-31) Seconds PTT Ratio 0.9 Sodium 135 L (136-145) mmol/L Potassium 3.5 (3.5-5.1) mmol/L Chloride 105 (98-107) mmol/L Carbon Dioxide 24 (21-32) mmol/L Anion Gap 6 (3-11) BUN 8 (6-23) mg/dl Creatinine 0.59 L (0.6-1.2) mg/dl Est Cr Clr Drug Dosing 101.9 ml/min eGFR 108.37 BUN/Creatinine Ratio 13.6 (10-20) Glucose 117 H (70-99(Fasting)) mg/dl Lactate 1.9 (0.4-2.0) mmol/L Calcium 8.2 L (8.6-10.3) mg/dl Magnesium 1.9 (1.7-2.4) mg/dl Total Bilirubin 0.7 D (0.2-1.0) mg/dl AST 70 H (13-39) U/L ALT 215 H (7-52) U/L Alkaline Phosphatase 259 H (34-104) U/L Troponin I High Sens 6.8 (0-14) pg/ml Total Protein 6.1 (6.0-8.3) gm/dl Albumin 3.6 (3.4-5.0) gm/dl Globulin 2.5 (2.5-4.0) gm/dl Albumin/Globulin Ratio 1.4 (0.9-2) Procalcitonin 0.23 (0-0.5) ng/ml Adenovirus (PCR) Not Detected (NotDetected) B. pertussis DNA (PCR) Not Detected (NotDetected) B.parapertussis DNA PCR Not Detected (NotDetected) C. pneumoniae DNA (PCR) Not Detected (NotDetected) Coronavirus OC43 (PCR) Not Detected (NotDetected) Coronavirus HKU1 (PCR) Not Detected (NotDetected) Coronavirus 229E (PCR) Not Detected (NotDetected) SARS-CoV-2 (PCR) Not Detected (NotDetected) Coronavirus NL63 (PCR) Not Detected (NotDetected) Hep Bs Antigen Negative (Negative) Hepatitis C Antibody Negative (Negative) Monoscreen Negative (Negative) Human Metapneumovir PCR Not Detected (NotDetected) Influenza Type A (PCR) Not Detected (NotDetected) Influenza Type B (PCR) Not Detected (NotDetected) M. pneumoniae (PCR) Not Detected (NotDetected) Parainfluenza 1 (PCR) Not Detected (NotDetected) Parainfluenza 2 (PCR) Not Detected (NotDetected) Parainfluenza 3 (PCR) Not Detected (NotDetected) Parainfluenza 4 (PCR) Not Detected (NotDetected) RSV (PCR) Not Detected (NotDetected) Entero/Rhino (PCR) Not Detected (NotDetected) Administered Medications Lactated Ringer's (Lr) 1,000 mls @ 80 mls/hr IV .[id number] Stop: 07/07/24 14:29 Last Admin: 07/06/24 16:11 Dose: 80 mls/hr Documented By: ZARA Discontinued Medications Ceftriaxone Sodium (Rocephin) 2,000 mg in 50 mls @ 100 mls/hr IV NOW STA Stop: 07/06/24 11:45 Last Infusion: 07/06/24 13:30 Dose: Infused Documented By: Admin: 07/06/24 12:22 Dose: 100 mls/hr Documented By: ZARA Sodium Chloride (Nss) 1,000 mls @ 999 mls/hr IV .Q1H1M ONE Stop: 07/06/24 12:18 Last Infusion: 07/06/24 12:37 Dose: Infused Documented By: Admin: 07/06/24 11:45 Dose: 999 mls/hr Documented By: ZARA Piperacillin Sod/Tazobactam Sod (Zosyn) 4.5 gm in 100 mls @ 200 mls/hr IV NOW STA; Protocol Stop: 07/06/24 16:00 Last Admin: 07/06/24 16:12 Dose: 200 mls/hr Documented By: ZARA Ketorolac Tromethamine (Ketorolac Tromethamine 15 Mg/Ml Vial) 15 mg IV NOW ONE Stop: 07/06/24 11:19 Last Admin: 07/06/24 11:58 Dose: 15 mg Documented By: ZARA Morphine Sulfate (Morphine Sulfate 4 Mg/Ml 1 Ml Carp\Vial) 4 mg IV NOW STA Stop: 07/06/24 14:02 Last Admin: 07/06/24 14:16 Dose: 4 mg Documented By: ZARA Ondansetron HCl (Ondansetron Inj 2 Mg/Ml 2 Ml Vial) 4 mg IV NOW STA Stop: 07/06/24 11:03 Last Admin: 07/06/24 11:43 Dose: 4 mg Documented By: ZARA Imaging Data Radiologist's Impression: Chest X-Ray 07/06/24 11:16 XR chest 1V portable CLINICAL HISTORY: Sepsis COMPARISON STUDY: 05/06/2023 FINDINGS: Heart size and pulmonary vasculature are normal. No effusion, consolidation, or pneumothorax. IMPRESSION: No acute findings. ACT 112: Negative or not required by law. Electronically signed by: Asael Arrieta M.D. 07/06/2024 11:59 AM Gallbladder Ultrasound 07/06/24 14:12 EXAM: US Abdomen Limited Right Upper Quadrant INDICATION: Evaluate for acute cholecystitis. TECHNIQUE: Real-time ultrasound of the right upper quadrant with image documentation. COMPARISON: No relevant prior studies available. FINDINGS: Liver: Smooth cortical contour. No mass. No intrahepatic bile duct dilation. Gallbladder: The gallbladder is distended. No wall thickening or pericholecystic fluid. No stones noted. Common bile duct: Borderline dilatation of the common bile duct of 7 mm. No visible ductal stone. Pancreas: No significant abnormality noted. Right kidney: 11.9 cm long. Normal cortical thickness and echotexture. No mass, stone or hydronephrosis. IMPRESSION: 1. Distended gallbladder without stones or acute cholecystitis. 2. Borderline dilated common bile duct of 7 mm. ACT 112: N/A Electronically signed by Jazmin Patel 07-06-2024 4:14 PM Discharge Plan Visit Data Chief Complaint: Flu Like Symptoms Stated Complaint: FEVER, ACHES, NEED PATCH, PAINS ED Provider: Donovan Aranda Discharge Problem: SIRS (systemic inflammatory response syndrome), Headache, Transaminitis, Leukopenia, Thrombocytopenia, Anemia Forms Stand Alone Forms: My [facility] [employer] Mobile Interaction Prescriptions Prescriptions: No Action atorvastatin 20 mg tablet 20 mg PO DAILY aspirin 81 mg tablet,delayed release (DR/EC) 81 mg PO DAILY albuterol sulfate 90 mcg/actuation HFA aerosol inhaler 2 puff INHALATION Q4H PRN (Reason: Shortness Of Breath Or Wheezing) potassium chloride 10 mEq Tablet,Er Particles/Crystals 10 meq PO DAILY Qty: 30 0RF Estroven 155 mg Capsule 1 cap PO DIRECTED Rx Instructions: otc unknown dose Collagen 1 cap PO DAILY Rx Instructions: otc unknown dose Vitamin B 1 tab PO DAILY Rx Instructions: otc unknown dose; pt isnt sure what type of b vitamin it is. Vitamin D3 1 cap PO DAILY Rx Instructions: otc unknown dose magnesium 1 cap PO DAILY Rx Instructions: otc unknown dose doxycycline hyclate 100 mg capsule 100 mg PO Q12H 14 Days Qty: 28 0RF Referrals Referrals: Nicolle Steinberg DO [Primary Care Provider] - Discharge Problem: Headache Qualifiers: Headache type: unspecified Headache chronicity pattern: acute headache I ntractability: intractable Qualified Code(s): R51.9 - Headache, unspecified Leukopenia Qualifiers: Leukopenia type: unspecified Qualified Code(s): D72.819 - Decreased white blood cell count, unspecified
[2024-07-06] MEDS: ONDANSETRON INJ 2 MG/ML 2 ML VIAL IV STA (11:43)
[2024-07-06] MEDS: SODIUM CHLORIDE 0.9% 1,000 ML IV ONE (11:45)
[2024-07-06] MEDS: KETOROLAC TROMETHAMINE 15 MG/ML VIAL IV ONE (11:58)
--- NOTE | 2024-07-06 12:00 | XRay Report ---
XR chest 1V portable CLINICAL HISTORY: Sepsis COMPARISON STUDY: 05/06/2023 FINDINGS: Heart size and pulmonary vasculature are normal. No effusion, consolidation, or pneumothora x. IMPRESSION: No acute findings. ACT 112: Negative or not required by law. Electronically signed by: Asael Arrieta M.D. 07/06/2024 11:59 AM
[2024-07-06] MEDS: cefTRIAXone SODIUM 2,000 MG/50 ML BAG IV STA (12:22)
[2024-07-06 12:39] LABS: Basophils # (auto) 0.01 K/uL (0.00-0.20); Basophils % (auto) 0.2 %; Eosinophils # (auto) 0.04 K/uL (0.00-0.50); Hematocrit (blood only) 30.3 % (37.0-47.0); Hemoglobin 10.5 g/dl (12.0-16.0); Immature Granulocytes # (auto) 0.02 K/uL (0.01-0.20); Immature Granulocytes % (auto) 0.5 %; Lymphocytes # (auto) 0.83 K/uL (1.20-3.40); Mean Corpuscular Hemoglobin 32.5 pg (25.0-34.0); Mean Corpuscular Hgb Conc 34.7 g/dL (32.0-36.0); Mean Corpuscular Volume 93.8 fL (80.0-100.0); Mean Platelet Volume 9.7 fL (9.4-12.4); Monocytes % (auto) 7.2 %; Neutrophils # (auto) 2.94 K/uL (1.40-6.50); Neutrophils % (auto) 71.1 %; Platelet Count 105 K/uL (130-400); RDW Coefficient of Variation 12.4 % (11.5-14.5); RDW Standard Deviation 42.7 fL (36.4-46.3); Red Blood Count 3.23 M/uL (4.20-5.40); White Blood Count 4.14 K/ul (4.8-10.8)
[2024-07-06 12:55] LABS: Albumin Globulin Ratio 1.4 (0.9-2); Albumin Level 3.6 gm/dl (3.4-5.0); BUN Creatinine Ratio 13.6 (10-20); Bilirubin,Total 0.7 mg/dl (0.2-1.0); Calcium 8.2 mg/dl (8.6-10.3); Creatinine Clr Calc Pharmacy 101.9 ml/min; Globulin 2.5 gm/dl (2.5-4.0); Magnesium 1.9 mg/dl (1.7-2.4); Potassium 3.5 mmol/L (3.5-5.1); Total Protein 6.1 gm/dl (6.0-8.3)
[2024-07-06 13:00] LABS: Troponin I High Sensitivity 6.8 pg/ml (0-14)
[2024-07-06 13:03] LABS: Partial Thromboplastin Ratio 0.9; Partial Thromboplastin Time 23 Seconds (21-31); Prothrombin Time 11.2 Seconds (9.0-12.0)
[2024-07-06 13:25] LABS: Hep B Surface Ag with confirm Negative (Negative)
[2024-07-06 13:30] LABS: Hep C Ab Rflx HepCQuant RNA Negative (Negative)
[2024-07-06 14:01] LABS: Adenovirus PCR Not Detected (NotDetected); Bordetella parapertussis PCR Not Detected (NotDetected); Bordetella pertussis PCR Not Detected (NotDetected); Chlamydia pneumoniae PCR Not Detected (NotDetected); Coronavirus 229E PCR Not Detected (NotDetected); Coronavirus CoV-2 (COVID19)PCR Not Detected (NotDetected); Coronavirus HKU1 PCR Not Detected (NotDetected); Coronavirus NL63 PCR Not Detected (NotDetected); Coronavirus OC43PCR Not Detected (NotDetected); Human Metapneumovirus PCR Not Detected (NotDetected); Influenza A PCR Not Detected (NotDetected); Influenza B PCR Not Detected (NotDetected); Mycoplasma pneumoniae PCR Not Detected (NotDetected); Parainfluenza Virus 1 PCR Not Detected (NotDetected); Parainfluenza Virus 2 PCR Not Detected (NotDetected); Parainfluenza Virus 3 PCR Not Detected (NotDetected); Parainfluenza Virus 4 PCR Not Detected (NotDetected); Respiratory Syncytial VirusPCR Not Detected (NotDetected); Rhinovirus/Enterovirus PCR Not Detected (NotDetected)
[2024-07-06] MEDS ORDERED: ACETAMINOPHEN 325 MG TAB PO PRN (14:12)
[2024-07-06] MEDS: MoRPHine SULFATE 4 MG/ML 1 ML CARP\\VIAL IV STA (14:16)
--- NOTE | 2024-07-06 14:22 | Anesthesiology Consultation ---
Date of Service July 06, 2024 Assessment & Plan Chart Review Chart Review: Acceptable Risk for Surgery and Patient NOT seen in Pre Admission Testing Consults Requested none ASA ASA3 Proposed Anesthesia Anesthesia Type: Other (epidural blood patch) History Height/Weight Height: 5 ft 3 in Weight: 66.1 kg Allergies Allergy/AdvReac Type Severity Reaction Status Date / Time COVID-19 (SARS-CoV-2) Allergy Severe Anaphylaxis Unverified 03/23/23 17:18 vaccine, sergey nitrofurantoin Allergy Severe Swelling Verified 03/23/23 17:18 [From Macrobid] of Lip/Tongue/Throat tetracycline Allergy Intermediate Rash Verified 03/23/23 17:18 Quinolones Allergy Unknown Unknown Verified 03/23/23 17:18 Sulfa (Sulfonamide Allergy Unknown Rash Verified 03/23/23 17:18 Antibiotics) Medications Home Medications Medication Instructions Recorded Confirmed Last Taken albuterol sulfate 90 mcg/actuation 2 puff inhalation Q4H PRN 05/07/23 07/06/24 Unknown aerosol inhaler Shortness Of Breath Or Wheezing aspirin 81 mg tablet,delayed 81 mg PO DAILY 05/07/23 07/06/24 Unknown release atorvastatin 20 mg tablet 20 mg PO DAILY 05/07/23 07/06/24 Unknown potassium chloride 10 mEq 10 meq PO DAILY #30 tabs 05/07/23 07/06/24 Unknown tablet,extended release(part/cryst) Collagen 1 cap PO DAILY 07/04/24 07/06/24 Unknown Vitamin B 1 tab PO DAILY 07/04/24 07/06/24 Unknown Vitamin D3 1 cap PO DAILY 07/04/24 07/06/24 Unknown doxycycline hyclate 100 mg capsule 100 mg PO Q12H 14 days #28 caps 07/04/24 07/06/24 Unknown magnesium 1 cap PO DAILY 07/04/24 07/06/24 Unknown soy isoflavone-black cohosh 1 cap PO DIRECTED 07/04/24 07/06/24 Unknown root-magnolia bark 155 mg capsule (Estroven) Past Medical History Medical History Diverticulitis Sinusitis nasal Heart attack -2018 HELLP syndrome H O severe pre- eclampsia antepartum s/p PTCA/Stent Post dural puncture headache Exercise / Class Metabolic Activity II 4-5 Yardwork/Stairs/Walk up hill Past Family History Family History Mother Mitral valve replaced Coronary heart disease Father Diverticulitis Other Asthma Denies family history of Ovarian cancer Breast cancer Colorectal cancer Past Surgical History Surgical History S/P wisdom tooth extraction History of intravascular stent placement 09-04-2018 Past Anesthesia History No Hx of Anesthesia Complications and No Family Hx of Anesthesia Complications History of PONV No Hx of PONV and No Hx of Motion Sickness Social History Smoking Status: Former smoker tobacco type: cigarettes Do You Dip or Chew Tobacco: No Hx Alcohol Use: Yes Alcohol type: wine alcohol intake frequency: holidays/special occasions only Hx Substance Use: No substance use type: does not use Last Used Substance Other:: unknown Physical Exam Vital Signs Last Vital Signs Temp 37.8 C H 07/06/24 14:15 Pulse 95 H 07/06/24 14:15 Resp 17 07/06/24 14:15 BP 108/83 07/06/24 14:15 Pulse Ox 99 07/06/24 14:15 O2 Del Method Room Air 07/06/24 14:15 Testing Laboratory Results 07/06/24 12:05 07/06/24 12:05 PT 11.2 Seconds (9.0-12.0) 07/06/24 12:05 INR 1.0 (0.9-1.1) 07/06/24 12:05 APTT 23 Seconds (21-31) 07/06/24 12:05 Electrocardiogram Date: 07/06/24 Findings: + ST @ (@ 104;LAE) Chest X-Ray Date: 07/06/24 Findings: + NAD Echocardiogram Date: 03/24/23 EF: 55% LV Function: normal RWMA: + none Other Findings: + diastolic dysfunction (Grade 1) Valvular Disease: + no significant valvular disease Cardiac Catheterization Date: 09/04/18 Findings: + RCA (NL), + LMA (NL) and + LCX Intervention: + AIDE placed (proximal LAD)
--- NOTE | 2024-07-06 14:28 | History & Physical Report ---
Date of Service July 06, 2024 Assessment & Plan (1) Transaminitis: (2) Headache: (3) Anxiety: (4) Hodgkin lymphoma: (5) S/P partial hysterectomy: Plan Assessment and plan: Fever of unknown origin Transaminitis S/p LP on 07/04, blood cultures pending, chest x-ray negative BioFire negative, check gallbladder ultrasound with elevated LFTs Cover empirically with IV Zosyn - await blood cultures - Consider ID consult if no clear cause for infection Chronic hypokalemia: Continue potassium supplementation Hx Hodgkins lymphoma: In remission, received radiation therapy in 2002 -If no clear cause of infection - consider recurrence of cancer Hx CAD: Continue aspirin Hold statin with elevated LFTs Full code DVT prophylaxis: SCDs Total of 60 minutes were spent on chart review/facilitating plan of care/reviewing diagnostic data/discussion with consultants History of Present Illness Chief Complaint: Fevers, nausea/vomiting Primary Care Provider: Nicolle Steinberg DO The patient is a 54-year-old female with a past medical history of STEMI - 99% blockage in LAD, CAD, recurrent diverticulitis, anxiety, Hodgkin's lymphoma, who presents to the ED on 07/06/2024 with complaints of continued intermittent fevers and severe spinal headache since her LP 2 days ago on 07/04/2024. Patient reports having a fever over the past 9 days intermittently. She was seen in the ED on 07/04/2024 with complaints of fevers/chills/headaches and muscle aches. At this time, she had an LP done without any growth. Anesthesiology was consulted for a blood patch to help with spinal headache. Pt reports low grade fevers since 06/27/24 - 3 days ago the fevers worsened. T max today 102.4. Reports severe chills and body aches. Reports no improvement. Reports nausea and vomiting over the past 1 or 2 days. Denies abdominal pain or diarrhea. Denies cough or shortness of breath. Reports her daughter may have had the flu recently. Denies dysuria or hematuria. Reports loss of appetite but denies weig ht loss. Reports following with hem onc yearly for blood work and cxr. Denies recent travel or bug bites. Head CT on 07/04/2024 showed right maxillary sinusitis with no other acute findings Chest x-ray from today 07/06 was negative Labs are remarkable for WBC 4.14, hemoglobin 10.5, platelets 105, NA 135, creatinine 0.59, glucose 117, calcium 8.2, AST 70, ALT 215both improving, alk phos 259 Procalcitonin is negative BioFire is negative EKG showed sinus tachycardia Acute hepatitis panel pending, several labs from LP still pending The patient will be admitted for further work up. Allergies Allergy/AdvReac Type Severity Reaction Status Date / Time COVID-19 (SARS-CoV-2) Allergy Severe Anaphylaxis Unverified 03/23/23 17:18 vaccine, sergey nitrofurantoin Allergy Severe Swelling Verified 03/23/23 17:18 [From Macrobid] of Lip/Tongue/Throat tetracycline Allergy Intermediate Rash Verified 03/23/23 17:18 Quinolones Allergy Unknown Unknown Verified 03/23/23 17:18 Sulfa (Sulfonamide Allergy Unknown Rash Verified 03/23/23 17:18 Antibiotics) Home Medications Medication Instructions Recorded Confirmed Type albuterol sulfate 90 mcg/actuation 2 puff inhalation Q4H PRN 05/07/23 07/06/24 History aerosol inhaler Shortness Of Breath Or Wheezing aspirin 81 mg tablet,delayed 81 mg PO DAILY 05/07/23 07/06/24 History release atorvastatin 20 mg tablet 20 mg PO DAILY 05/07/23 07/06/24 History potassium chloride 10 mEq 10 meq PO DAILY #30 tabs 05/07/23 07/06/24 Rx tablet,extended release(part/cryst) Collagen 1 cap PO DAILY 07/04/24 07/06/24 History Vitamin B 1 tab PO DAILY 07/04/24 07/06/24 History Vitamin D3 1 cap PO DAILY 07/04/24 07/06/24 History doxycycline hyclate 100 mg capsule 100 mg PO Q12H 14 days #28 caps 07/04/24 07/06/24 Rx magnesium 1 cap PO DAILY 07/04/24 07/06/24 History soy isoflavone-black cohosh 1 cap PO DIRECTED 07/04/24 07/06/24 History root-magnolia bark 155 mg capsule (Estroven) Past Med/Surg History Problem List Anemia (Acute) Thrombocytopenia (Acute) Leukopenia (Acute) Transaminitis (Acute) Headache (Acute) SIRS (systemic inflammatory response syndrome) (Acute) Transaminitis (Acute) Headache (Acute) Acute bacterial sinusitis (Acute) Viral illness (Acute) Influenza (Acute) Influenza A SVT (supraventricular tachycardia) (Acute) Shortness of breath (Acute) Anxiety Elevated d-dimer CAD (coronary artery disease) Palpitations (Acute) Hypothyroidism Reactive airway disease STEMI (ST elevation myocardial infarction) Chest pain (Acute) Left lower quadrant pain (Acute) RLQ abdominal pain (Acute) S/P partial hysterectomy (Chronic) surgery 2008, supracervical in immediate pp period from uterine atony. Medical History Diverticulitis Sinusitis nasal Heart attack HELLP syndrome H O severe pre- eclampsia antepartum Surgical History S/P wisdom tooth extraction History of intravascular stent placement 09-04-2018 Family History Mother Mitral valve replaced Coronary heart disease Father Diverticulitis Other Asthma Denies family history of Ovarian cancer Breast cancer Colorectal cancer Social History Smoking Status: Former smoker Tobacco Type: Cigarettes Second Hand Exposure: Yes; Do You Dip or Chew Tobacco: No; Hx Alcohol Use: Yes Alcohol type: wine Hx Substance Use: No Preferred Language: Moroccan Communication Ability: Effective Hearing Ability: Normal 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 Machine Tender Required: No Beliefs That Will Affect Care: None marital status: Current Living Situation: Family Current Living Situation Comment: Independent current occupational status: employed 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 Feels Safe at Home: Yes Childhood Exposure to Second-Hand Smoke: No Assistive Devices: Glasses Review of Systems Review of Systems: All systems reviewed & are unremarkable except as noted in HPI & below Physical Exam Constitutional: WD/WN, vitals as above + ill appearing Eyes: PERRL, conjunctivae normal, anicteric sclerae ENMT: external ear and nose normal, oropharynx normal Neck: trachea midline, no thyromegaly Respiratory: normal respiratory effort, lungs clear to auscultation Cardiovascular: RRR, no murmur, no edema Gastrointestinal (Abdomen): normal bowel sounds, soft, nontender, no hepatosplenomegaly Musculoskeletal: no cyanosis or clubbing, extremities motor strength 5/5 Skin: no rashes, warm and dry Neurologic: PERRL, EOMI, accommodation nl, no face palsy, no dysarthria Psychiatric: A+Ox3, euthymic affect Lymphatic: no cervical or axillary lymphadenopathy Results & Data Results & Data Vital Signs (Past 12 Hours) Vital Signs Temp Pulse Pulse Resp BP BP Pulse Ox 07/06/24 14:15 37.8 C H 95 H 17 108/83 99 07/06/24 14:00 16 98 07/06/24 13:30 93 H 20 118/78 98 07/06/24 13:30 37.6 C H 96 H 16 118/78 98 07/06/24 13:15 95 H 18 114/76 98 07/06/24 13:00 109 H 24 07/06/24 13:00 100 H 16 97 07/06/24 12:45 99 H 18 120/76 97 07/06/24 12:30 100 H 16 131/79 98 07/06/24 12:30 100 H 16 131/79 95 07/06/24 12:26 37.4 C 07/06/24 12:15 98 H 20 129/79 97 07/06/24 12:06 101 H 07/06/24 12:00 102 H 15 141/85 H 07/06/24 11:42 99 H 16 99 07/06/24 11:41 99 H 18 99 07/06/24 11:31 37.1 C 100 H 16 130/82 98 07/06/24 10:48 36.4 C L 113 H 14 118/76 100 O2 Del Method 07/06/24 14:15 Room Air 07/06/24 14:00 Room Air 07/06/24 13:30 07/06/24 13:30 Room Air 07/06/24 13:15 Room Air 07/06/24 13:00 07/06/24 13:00 Room Air 07/06/24 12:45 07/06/24 12:30 07/06/24 12:30 Room Air 07/06/24 12:26 07/06/24 12:15 07/06/24 12:06 07/06/24 12:00 07/06/24 11:42 Room Air 07/06/24 11:41 Room Air 07/06/24 11:31 Room Air 07/06/24 10:48 Room Air Diagnostic Findings Laboratory Results WBC 4.14 K/ul (4.8-10.8) L 07/06/24 12:05 RBC 3.23 M/uL (4.20-5.40) L 07/06/24 12:05 Hgb 10.5 g/dl (12.0-16.0) L 07/06/24 12:05 Hct 30.3 % (37.0-47.0) L 07/06/24 12:05 MCV 93.8 fL (80.0-100.0) 07/06/24 12:05 MCH 32.5 pg (25.0-34.0) 07/06/24 12:05 MCHC 34.7 g/dL (32.0-36.0) 07/06/24 12:05 RDW Std Deviation 42.7 fL (36.4-46.3) 07/06/24 12:05 RDW Coeff of Wade 12.4 % (11.5-14.5) 07/06/24 12:05 Plt Count 105 K/uL (130-400) L 07/06/24 12:05 MPV 9.7 fL (9.4-12.4) 07/06/24 12:05 Immature Gran % (Auto) 0.5 % 07/06/24 12:05 Neut % (Auto) 71.1 % 07/06/24 12:05 Lymph % (Auto) 20.0 % 07/06/24 12:05 [place] % (Auto) 7.2 % 07/06/24 12:05 Eos % (Auto) 1.0 % 07/06/24 12:05 Baso % (Auto) 0.2 % 07/06/24 12:05 Neut # (Auto) 2.94 K/uL (1.40-6.50) 07/06/24 12:05 Lymph # (Auto) 0.83 K/uL (1.20-3.40) L 07/06/24 12:05 [place] # (Auto) 0.30 K/uL (0.11-0.59) 07/06/24 12:05 Eos # (Auto) 0.04 K/uL (0.00-0.50) 07/06/24 12:05 Baso # (Auto) 0.01 K/uL (0.00-0.20) 07/06/24 12:05 Immature Gran # (Auto) 0.02 K/uL (0.01-0.20) 07/06/24 12:05 PT 11.2 Seconds (9.0-12.0) 07/06/24 12:05 INR 1.0 (0.9-1.1) 07/06/24 12:05 APTT 23 Seconds (21-31) 07/06/24 12:05 PTT Ratio 0.9 07/06/24 12:05 Sodium 135 mmol/L (136-145) L 07/06/24 12:05 Potassium 3.5 mmol/L (3.5-5.1) 07/06/24 12:05 Chloride 105 mmol/L (98-107) 07/06/24 12:05 Carbon Dioxide 24 mmol/L (21-32) 07/06/24 12:05 Anion Gap 6 (3-11) 07/06/24 12:05 BUN 8 mg/dl (6-23) 07/06/24 12:05 Creatinine 0.59 mg/dl (0.6-1.2) L 07/06/24 12:05 Est Cr Clr Drug Dosing 101.9 ml/min 07/06/24 12:05 eGFR 108.37 07/06/24 12:05 BUN/Creatinine Ratio 13.6 (10-20) 07/06/24 12:05 Glucose 117 mg/dl (70-99(Fasting)) H 07/06/24 12:05 Lactate 1.9 mmol/L (0.4-2.0) 07/06/24 12:05 Calcium 8.2 mg/dl (8.6-10.3) L 07/06/24 12:05 Magnesium 1.9 mg/dl (1.7-2.4) 07/06/24 12:05 Total Bilirubin 0.7 mg/dl (0.2-1.0) D 07/06/24 12:05 AST 70 U/L (13-39) H 07/06/24 12:05 ALT 215 U/L (7-52) H 07/06/24 12:05 Alkaline Phosphatase 259 U/L (34-104) H 07/06/24 12:05 Troponin I High Sens 6.8 pg/ml (0-14) 07/06/24 12:05 Total Protein 6.1 gm/dl (6.0-8.3) 07/06/24 12:05 Albumin 3.6 gm/dl (3.4-5.0) 07/06/24 12:05 Globulin 2.5 gm/dl (2.5-4.0) 07/06/24 12:05 Albumin/Globulin Ratio 1.4 (0.9-2) 07/06/24 12:05 Procalcitonin 0.23 ng/ml (0-0.5) 07/06/24 12:05 Adenovirus (PCR) Not Detected (NotDetected) 07/06/24 12:28 B. pertussis DNA (PCR) Not Detected (NotDetected) 07/06/24 12:28 B.parapertussis DNA PCR Not Detected (NotDetected) 07/06/24 12:28 C. pneumoniae DNA (PCR) Not Detected (NotDetected) 07/06/24 12:28 Coronavirus OC43 (PCR) Not Detected (NotDetected) 07/06/24 12:28 Coronavirus HKU1 (PCR) Not Detected (NotDetected) 07/06/24 12:28 Coronavirus 229E (PCR) Not Detected (NotDetected) 07/06/24 12:28 SARS-CoV-2 (PCR) Not Detected (NotDetected) 07/06/24 12:28 Coronavirus NL63 (PCR) Not Detected (NotDetected) 07/06/24 12:28 Hep Bs Antigen Negative (Negative) 07/06/24 12:05 Hepatitis C Antibody Negative (Negative) 07/06/24 12:05 Monoscreen Negative (Negative) 07/06/24 12:05 Human Metapneumovir PCR Not Detected (NotDetected) 07/06/24 12:28 Influenza Type A (PCR) Not Detected (NotDetected) 07/06/24 12:28 Influenza Type B (PCR) Not Detected (NotDetected) 07/06/24 12:28 M. pneumoniae (PCR) Not Detected (NotDetected) 07/06/24 12:28 Parainfluenza 1 (PCR) Not Detected (NotDetected) 07/06/24 12:28 Parainfluenza 2 (PCR) Not Detected (NotDetected) 07/06/24 12:28 Parainfluenza 3 (PCR) Not Detected (NotDetected) 07/06/24 12:28 Parainfluenza 4 (PCR) Not Detected (NotDetected) 07/06/24 12:28 RSV (PCR) Not Detected (NotDetected) 07/06/24 12:28 Entero/Rhino (PCR) Not Detected (NotDetected) 07/06/24 12:28 Impressions Chest X-Ray 07/06/24 11:16 XR chest 1V portable CLINICAL HISTORY: Sepsis COMPARISON STUDY: 05/06/2023 FINDINGS: Heart size and pulmonary vasculature are normal. No effusion, consolidation, or pneumothorax. IMPRESSION: No acute findings. ACT 112: Negative or not required by law. Electronically signed by: Asael Arrieta M.D. 07/06/2024 11:59 AM Supervising Physician Co-Signing Physician Notes Patient is a 54-year-old female with history of Hodgkin's lymphoma, hypothyroidism, hyperlipidemia, coronary artery disease and other medical problems presents with history of generalized body ache, fever, chills, nausea, vomiting, headache, decreased appetite which has been ongoing since 10 days duration. Patient had a lumbar puncture 2 days ago which was noncontributory. She states having worsening headache since lumbar puncture. Please review HPI for complete details of presentation. I personally reviewed blood work and imaging studies. Chest x-ray within normal limits. Normal procalcitonin, l actate levels. BioFire normal. Noted pancytopenia, transaminitis, sodium 135. Physical Exam: Vitals signs as noted above General Appearance:Moderately built and nourished, no apparent distress Head: normocephalic, Atraumatic Eyes: normal inspection, EOMI Neck: supple, Trachea midline Respiratory/Chest: Normal breath sounds, CTA, No accessory muscle use Cardiovascular: S1, S2, No murmur, tachycardia Abdomen/GI:Soft, Non tender, Bowel sounds present Extremities/Musculoskeletal:normal inspection, no edema Neurologic/Psych:AAOX3, grossly no focal neurological deficits Skin: normal color, warm Fever of unknown origin Pancytopenia Mild hyponatremia Transaminitis Post dural puncture headache Urinalysis pending Blood cultures pending Empirically started on Zosyn Avoid hepatotoxic agents as able Hepatitis panel pending Gallbladder ultrasound pending Will obtain peripheral smear Had Blood patch placed Follow-up cultures Consider ID evaluation if needed I personally interviewed and examined the patient at bedside. I have reviewed the advanced practitioner's documentation on the date of service referred in note and agree with plan. Patient's care is coordinated with Ronny HINKLE. Please refer to the documentation above for details of patient's presentation and for discussion of other issues. I spent a total [id number] coordinating, documenting, and providing care for this patient excluding time spent in the performance of separately billed services or time spent by another provider/QHP. (4) Hodgkin lymphoma Hodgkin lymphoma type: nodular sclerosis
[2024-07-06] MEDS: LACTATED RINGER'S 1,000 ML IV SCH (16:11)
[2024-07-06] MEDS: PIPERACILLIN/TAZOBACTAM 4.5 GM/100 ML BAG IV STA (16:12)
--- NOTE | 2024-07-06 16:14 | Ultrasound Report ---
EXAM: US Abdomen Limited Right Upper Quadrant INDICATION: Evaluate for acute cholecystitis. TECHNIQUE: Real-time ultrasound of the right upper quadrant with image documentation. COMPARISON: No relevant prior studies available. FINDINGS: Liver: Smooth cortical contour. No mass. No intrahepatic bile duct dilation. Gallbladder: The gallbladder is distended. No wall thickening or pericholecystic fluid. No stones noted. Common bile duct: Borderline dilatation of the common bile duct of 7 mm. No visible ductal stone. Pancreas: No significant abnormality noted. Right kidney: 11.9 cm long. Normal cortical thickness and echotexture. No mass, stone or hydronephrosis. IMPRESSION: 1. Distended gallbladder without stones or acute cholecystitis. 2. Borderline dilated common bile duct of 7 mm. ACT 112: N/A Electronically signed by Jazmin Patel 07-06-2024 4:14 PM
[2024-07-06] MEDS: fentaNYL citrate PF 100 MCG/2 ML VIAL IV STA (16:37)
--- NOTE | 2024-07-06 17:05 | Communication Note ---
Date of Service: July 06, 2024 Pt presented w headache after LP. Has severe bifrontal pain, worsened w activity, relieved by recumbency. Agree w Dx of PDPH. Discussed blood patch w pt including risk vs. benefit and she agreed. Pt identified, time out performed. Fentanyl 100mcg IV given. Positioned sitting. Prepped sterile w betadine. Local 1% lido to skin. 17g Touhy to L4 - 5 space til LORT at 5cm. 20 cc blood drawn sterile from right antecubital cannula and injected to epidural space. Pt tolerated injection without complaint of lumbar pain or pressure. Returned to supine position for observation. Expect immediate improvement. Restrict activity 24 hrs, then ad raj. Re-consult if needed
[2024-07-06 17:12] LABS: RBC Morphology Unremarkable
[2024-07-06] MEDS ORDERED: Nursing to Pharmacy Communication SCH (17:30)
[2024-07-06] MEDS: IBUPROFEN 200 MG TAB PO STA (18:38)
[2024-07-06] MEDS: MoRPHine SULFATE 2 MG/ML CARP IV PRN (20:04)
[2024-07-06 20:47] LABS: Appearance Urine Clear (Clear); Bacteria Urine Automated None Seen (None Seen); Bilirubin Urine Negative (Negative); Blood Urine Negative (Negative); Cast Urine Automated 0-2 /lpf (0-2); Color Urine Yellow; Epithelial Cell Urine Auto 0-2 /hpf (0-2); Glucose Urine UA Negative (Negative); Ketones Urine Trace (Negative); Leukocyte Esterase Urine Negative (Negative); Nitrite Urine Negative (Negative); Protein Urine 1+ (Negative); Specific Gravity Urine 1.021 (1.000-1.030); Urobilinogen Urine Negative (Negative); WBC Urine Automated 0-5 /hpf (0-5); pH Urine 6.5 (4.5-7.5)
--- NOTE | 2024-07-06 21:24 | Electrocardiogram Report ---
Test Reason : Blood Pressure : */* mmHG Vent. Rate : 104 BPM Atrial Rate : 104 BPM P-R Int : 126 ms QRS Dur : 74 ms QT Int : 334 ms P-R-T Axes : 80 82 76 degrees QTcB Int : 439 ms Sinus tachycardia Possible Left atrial enlargement Borderline ECG When compared with ECG of 04-Jul-2024 13:39, No significant change was found Confirmed by Leoncio Oates ([id number]) on 07/06/2024 9:24:32 PM Referred By: REFERRED SELF Confirmed By: Leoncio Oates
[2024-07-06] MEDS: PIPERACILLIN/TAZOBACTAM 4.5 GM/100 ML BAG IV SCH (23:52)
[2024-07-06] MEDS: ONDANSETRON INJ 2 MG/ML 2 ML VIAL IV PRN (23:53)
--- OUTSIDE RECORDS SUMMARY | 2024-07-07 05:37 | External Medical Summary | Summary of Care ---
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 Name Role Phone Nicolle Steinberg DO Primary Care Provider Reason for Visit * Reason Comments Hospital Follow-Up Continued URI sympto ms Encounter Details Date Type Department Care Team ([facility] Contact Info) Description 07/06/2024 9:00 AM EST Office Visit General Internal Medicine [facility] [address] [place] [address] Sheila Sagastume MD [address] [place] [address] Persistent fever*; Elevated liver enzymes; Low platelet count (HCC); Intractable headache, unspecified chronicity pattern, unspecified headache type; History of lumbar puncture; Dehydration; Acute maxillary sinusitis, recurrence not specified; Coronary artery disease of [place] artery of [place] heart with stable angina pectoris (HCC); Dyslipidemia, goal LDL below 70 Allergies Active Allergy Reactions Criticality Noted Date Comments Ciprofloxacin Hives 12/20/2018 Covid-19 (Mrna) Vaccine Edema face/lips/tongue,Hi ves,Rash High 09/27/2020 Metronidazole Hives 12/20/2018 Nitrofurantoin 03/18/2020 hives Sulfa Antibiotics Rash Medium 02/21/2002 rash Tetracyclines & Related Other (Please comment) Low 02/21/2002 esophagus gets swollen, possible dysphagia documented as of this encounter (statuses as of 07/06/2024) Medications EpiPen 2-Terrence 0.3 MG/0.3ML Injection Solution Auto-injector Inject 0.3 mg into a large muscle once. For a severe reaction: Inject in outer thigh following instructions on package and go to the Emergency room. Active metroNIDAZOLE 0.75 % External Cream (Metrocream) APPLY TOPICALLY TO AFFECTED AREA TWICE DAILY 45 g 11 05/31/19 23 Active Nitroglycerin 0.4 MG Sublingual Tablet Sublingual (Nitrostat) PLACE 1 TABLET UNDER THE TONGUE NEEDED FOR CHEST PAIN. MAY REPEAT 3 TIMES. IF CHEST PAIN CONTINUES CALL 911. 25 Tablet 11 08/24/19 Active Sertraline HCl 25 MG Oral Tablet (Zoloft) TAKE ONE TABLET BY MOUTH EVERY MORNING 90 Tablet 2 04/04/20 Active ProAir HFA 108 (90 Base) MCG/ACT Inhalation Aerosol SolutionIndicat ions:Bronchitis , complicated Inhale 2 Puffs by mouth in the morning and 2 Puffs at noon and 2 Puffs in the evening and 2 Puffs before bedtime. 18 g 1 05/05/20 23 Active Atorvastatin Calcium 20 MG Oral Tablet (Lipitor)Indica tions:Dyslipide carlyn, goal LDL below 70 TAKE ONE TABLET BY MOUTH EVERY MORNING 90 Tablet 3 12/06/19 24 Active Additional Information Patient not taking.Reason: was n/t for many days and took 1 yest, Reported on 07/06/2024 Triamcinolone Acetonide 0.5 % External Cream (Aristocort) Apply topically to affected area 2 times a day. To affected area. 30 g 12/13/19 24 Active Aspirin 81 MG Oral Tablet Delayed Release (Aspirin Low Dose)Indication s:Coronary artery disease involving coeur [place]'alene coronary artery of coe[place] heart without angina pectoris Take 1 Tablet by mouth in the morning. In the morning.. 90 Tablet 3 03/01/20 24 Active Amoxicillin-Pot Clavulanate 875-125 MG Oral Tablet (Augmentin)Penny cations:Diverti culitis of colon Take 1 Tablet by mouth in the morning and 1 Tablet at noon and 1 Tablet before bedtime. 30 Tablet 04/26/20 24 025 Discontin ued(Medic ation List Clean Up) Oseltamivir Phosphate 75 MG Oral Capsule (Tamiflu)Indica tions:Viral URI Take 1 Capsule by mouth in the morning and 1 Capsule before bedtime. Do all this for 5 days. For 5 days.. 10 Capsule 07/03/19 25 025 Discontin ued(Medic ation List Clean Up) documented as of this encounter (statuses as of 07/06/2024) Active Problems Problem Noted Date Diagnosed Date UTI symptoms 02/22/2024 Rash and nonspecific skin eruption 12/13/2023 Atypical chest pain 09/15/2022 Coronary artery disease of n ative artery of coe[place]'alene heart with stable angina pectoris 05/30/2019 Dyslipidemia, goal LDL below 70 05/30/2019 History of acute anterior wall VT 03/16/2019 History of lymphoma 10/28/2017 Overview (10/28/2017): NHL age 31 Hypertrophy of nasal turbinates 12/17/2009 NONALLERGIC RHINITIS 12/17/2009 documented as of this encounter (statuses as of 07/06/2024) Resolved Problems Problem Noted Date Diagnosed Date Resolved Date Primary hyperparathyroidism 04/19/2022 09/24/2022 Anxiety 04/18/2019 02/03/2021 RECURRENT ACUTE SINUSITIS 12/17/2009 ADVANCE DIRECTIVE INFORMATION 05/14/2008 03/12/2024 Overview (04/02/2008): No, Advance Directive brochure given to patient at prior appt. 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 01/31/[address] elevation myocardia l infarction (STEMI) involving left anterior descending (LAD) coronary artery 03/16/2019 documented as of this encounter (statuses as of 07/06/2024) Immunizations Name Administration Dates Next Due COVID-19 mRNA, LNP-s, No Pre serve, 2-Dose Series (Pfizer) 06/16/2020 DTaP Dipth/Tet/Acell Pertussis (Infanrix), Peds 09/23/2008 H1N1 2009 Influenza, IM 06/10/2009 Pneumococcal Conjugate Vacc, 13 Valent (Prevnar) 09/11/2018 Pneumococcal Conjugate Vacci ne, 20-valent ([id number]) 09/16/2022 Seasonal Influenza Vac., MDV , IM, 0.5 mL (Fluzone) 02/21/2014,02/14/2013,02/21/2012,2010,03/11/2010,02/11/2009,03/29/2007 Seasonal Influenza, PF, 6 M & above, IM , (FluLaval or Fluzone) 03/02/2023,02/03/2022,02/03/2021,2019,02/22/2019,01/31/2018,03/02/2017 Seasonal Influenza, Trivalen t, (IIV3), PF, (Fluzone) 03/05/2024 TD, Preservative Free 09/03/2014 documented as of [...] Answer Date Recorded PHQ-2 Score 0 12/20/2018 Comments No Sex and Gender Information Value Date Recorded Sex Assigned at Not on file Legal Sex Female 5:44 AM EST Gender Identity Not on file Sexual Orientation Not on file documented as of this encounter Last Filed Vital Signs Vital Sign Reading Time Taken Comments Blood Pressure 104/70 07/06/2024 9:12 AM EST Pulse 104 07/06/2024 9:12 AM EST Temperature 37.2 C (98.9 F) 07/06/2024 9:12 AM ES T Respiratory Rate - - Oxygen Saturation 98% 07/06/2024 9:12 AM EST Inhaled Oxygen Concentration - - Weight - - Height 157.5 cm (5' 2") 07/06/2024 9:12 AM EST Body Mass Index - - documented in this encounter Functional Status * Are you deaf or do you have serious difficulty hearing? Answer Date of Assessment Author No 09/15/2022 3:27 PM EDT Debby Becker LPN * Are you blind or do you have serious difficulty seeing, even when wearing glasses? Answer Date of Assessment Author Yes 09/15/2022 3:27 PM EDT Debby Becker LPN * Do you have serious difficulty walking or climbing stairs? (5 years old or older) Answer Date of Assessment Author No 09/15/2022 3:27 PM EDT Debby Becker LPN * Do you have difficulty dressing or bathing? (5 years old or older) Answer Date of Assessment Author No 09/15/2022 3:27 PM EDT Debby Becker LPN * Because of a physical, mental, or emotional condition, do you have difficulty doing errands alone such as visiting a doctors office or shopping? (15 years old or older) Answer Date of Assessment Author No 09/15/2022 3:27 PM EDT Debby Becker LPN documented as of this encounter Mental Status * Because of a physical, mental, or emotional condition, do you have serious difficulty concentrating, remembering, or making decisions? (5 years old or older) Answer Entry Date Author No 09/15/2022 3:27 PM EDDebby Emanuel LPN documented in this encounter Progress Notes * Sheila Sagastume MD - 07/06/2024 9:24 AM EST SUBJECTIVE: Yani Tesfaye is a 54 year old female. Chief Complaint Patient presents with Hospital Follow-Up Continued URI symptoms Nursing Notes: Kalee Connor LPN 07/06/24 0931 Signed The patient has been properly identified by confirmation of name and date of . Chief Complaint Patient presents with Hospital Follow-Up Continued URI symptoms Patient went to [facility] ER 07-04-24. Has extreme headache, weak, fatigue, back of neck is hurting, body aches, sinus pressure, Did have nausea, vomiting thinks its due to taking Doxycyline or pain med given in ER. Was tested for Flu/covid/rsv, meningitis,and lyme all negative.symptoms since last Tuesday. HPI: Patient presents today for ER follow-up from 07/04/2024. -states since last TuesdayJune 27 she has had high fevers body aches, chills, sweats, headache-respiratory quad swab negative in the office 07/03/2024 Went to the ED 07/04/2024. Exam was unremarkable, given IV fluids 1 g of Tylenol. EKG-sinus tachycardia at 116 bpm,no abnormalities. Labs reviewed-CBC normal except platelets 101, BMP with sodium 135, LFT with AST 08/05/2041 ALT 574,alk-phos 410,ua neg Lyme screen negative Monospot negative, Anaplasma and Babesia smear no cytoplasmic inclusion, all PCR test pending, group a strep was negative, respiratory pathogen panel negative. CT head without contrast -right maxillary sinusitis with mild mucosal thickening small amount of fluid. CSF-g stain rare polymorphous no organisms pathogen panel negative, no xanthochromia, RBC 88, sugar60 protein 90. Blood cultures no growth to date -test pending-Ehrlichia DNA, Anaplasma DNA, Babesia DNA, Rickettsia antibody, Q fever antibody, typhus antibody -was prescribed doxycycline -states did not tolerate it with 2 tablets had nausea and vomiting. Continues to have a severe headache, body aches, joint pains, fever to 102.9 F last night. Has 3 cats at home which are indoor and 1 dog. No known tick bites. No significant runny nose sore throat Feels her headache is worse after the lumbar puncture and feels it is related to the same as she had it in the past and had wanted to know if he could do a blood patch here Had not been stating her taking her atorvastatin for a long time and took 1 yesterday ALT Results: Lab Results Component Value Date/Time ALT - [facility] 18 02/22/2024 08:24 AM ALT - [facility] 27 02/28/2023 01:56 PM ALT - [facility] 21 09/16/2022 06:11 AM ALT - [facility] 18 03/20/2020 11:33 AM ALT - [facility] 24 01/25/2019 02:49 PM ALT - [facility] 7 (L) 06/25/2016 11:00 AM ALT-[facility] 20 09/07/2016 12:00 AM ALT-[facility] LAB 18 10/24/2015 12:00 AM ALTERNARIA SKIN TEST 0/0 12/23/2023 12:00 AM AST Results: Lab Results Component Value Date/Time AST - [facility] 24 02/22/2024 08:24 AM AST - [facility] 30 02/28/2023 01:56 PM AST - [facility] 25 09/16/2022 06:11 AM AST - [facility] 27 03/20/2020 11:33 AM AST - [facility] 28 01/25/2019 02:49 PM AST - [facility] 21 06/25/2016 11:00 AM Patient Active Problem List Diagnosis Hypertrophy of nasal turbinates NONALLERGIC RHINITIS History of lymphoma History of acute anterior wall VT Coronary artery disease of [place] artery of [place] heart with stable angina pectoris (HCC) Dyslipidemia, goal LDL below 70 Atypical chest pain Rash and nonspecific skin eruption UTI symptoms Current Outpatient Medications Medication Sig Dispense Refill EpiPen 2-Terrence 0.3 MG/0.3ML Injection Solution Auto-injector Inject 0.3 mg into a large muscle once. For a severe reaction: Inject in outer thigh following instructions on package and go to the Emergency room. metroNIDAZOLE 0.75 % External Cream (Metrocream) APPLY TOPICALLY TO AFFECTED AREA TWICE DAILY 45 g 11 Nitroglycerin 0.4 MG Sublingual Tablet Sublingual (Nitrostat) PLACE 1 TABLET UNDER THE TONGUE NEEDED FOR CHEST PAIN. MAY REPEAT 3 TIMES. IF CHEST PAIN CONTINUES CALL 911. 25 Tablet 11 ProAir HFA 108 (90 Base) MCG/ACT Inhalation Aerosol Solution Inhale 2 Puffs by mouth in the morningand 2 Puffs at noon and 2 Puffs in the evening and 2 Puffs before bedtime. 18 g 1 Triamcinolone Acetonide 0.5 % External Cream (Aristocort) Apply topically to affected area 2 times a day. To affected area. 30 g 0 Aspirin 81 MG Oral Tablet Delayed Release (Aspirin Low Dose) Take 1 Tablet by mouth in the morning.In the morning.. 90 Tablet 3 Sertraline HCl 25 MG Oral Tablet (Zoloft) TAKE ONE TABLET BY MOUTH EVERY MORNING 90 Tablet 2 Atorvastatin Calcium 20 MG Oral Tablet (Lipitor) TAKE ONE TABLET BY MOUTH EVERY MORNING (Patient not taking: Reported on 07/06/2024) 90 Tablet 3 No current facility-administered medications for this visit. Review of patient's allergies indicates: Allergen Reactions Amoxicillin Anaphylaxis Confirmed Mary mathews. Patient does not recall the reaction she had to Amox. Covid-19 (Mrna) Vaccine (Scoreoid) [Covid-19 (Mrna) Vaccine] Edema face/lips/tongue, Hives and Rash Sulfa Antibiotics Rash rash Ciprofloxacin Hives Flagyl [Metronidazole] Hives Macrobid [Nitrofurantoin] hives Tetracyclines & Related Other (Please comment) esophagus gets swollen, possible dysphagia OBJECTIVE: BP 104/70 | Pulse 104 | Temp 98.9 F (37.2 C) (Tympanic) | Ht 5' 2" (1.575 m) | SpO2 98% | BMI 27.25 kg/m | BSA 1.72 m PHYSICAL EXAM: General: alert, healthy, no distress, well nourished and well developed Head: Normocephalic, atraumatic Eye Exam: PERRLA, EOMI, Conjunctiva are pink and non-injected, sclera clear Ears: External ears normal, Canal clear, Tm normal Nose: no mucosal erythema, no mucosal edema, no purulent discharge Oropharynx: Tongue is coated and dry no exudate and no erythema Neck: supple, no bruits, no JVD, thyroid normal size, non-tender, without nodularity Lymph: No palpable lymphadenopathy. Heart: Regular rhythm and rate, no murmurs and no gallops Lungs: lungs clear to auscultation Abdomen: Soft, non-tender, normal bowel sounds, no masses or organomegaly, no bruits Extremities: no edema, no clubbing, no cyanosis. Neuro Exam: alert & oriented x 3 with fluent speech, no focal motor/sensory deficits, gait normal Skin: skin color, texture, turgor are normal, no rashes ASSESSMENT/PLAN: Persistent fever (Primary) Elevated liver enzymes Low platelet count (HCC) Intractable headache, unspecified chronicity pattern, unspecified headache type History of lumbar puncture Dehydration Acute maxillary sinusitis, recurrence not specified Coronary artery disease of [place] artery of [place] heart with stable angina pectoris (HCC) Dyslipidemia, goal LDL below 70 --clinical picture suggestive of anaplasmosis, confirmatory test pending. Intolerant of oral doxycycline, continues to have a severe headache. Refer back to ER for IV hydration, repeat labs, IV antibiotics, ID consult after labs Follow-up: Return if symptoms worsen or fail to improve. | Check-out note: To ER (This note was completed using the dictation program Fluency Direct. As such, there may be misspellings, word substitutions, or other variations that should not change the essence of the clinical content of this encounter note. If there is need for further clarification, please direct questions to the provider listed above.) Patient and / caregiver verbalize understanding of above instructions and agrees with plan of care. Sheila Sagastume MD 07/06/2024 documented in this encounter Nursing Notes * Kalee Connor LPN - 07/06/2024 9:08 AM EST The patient has been properly identified by confirmation of name and date of . Chief Complaint Patient presents with Hospital Follow-Up Continued URI symptoms Patient went to [facility] ER 07-04-24. Has extreme headache, weak, fatigue, back of neck is hurting, body aches, sinus pressure, Did have nausea, vomiting thinks its due to taking Doxycyline or pain med given in ER. Was tested for Flu/covid/rsv, meningitis,and lyme all negative.symptoms since last Tuesday. documented in this encounter Plan of Treatment Upcoming Encounters Date Type Department Care Team (Late st Contact Info) Description 07/09/2024 1:40 PM EST Office Visit Family Practice [facility] [address] [place] [id number] Mehrdad Vela, DO [address] [place] [phone] 02/26/2025 11:00 AM EDT Laboratory Laboratory [facility] [address] [place] [phone] [place] [facility] [address] [place] [id number] 03/05/2025 2:00 PM EDT Office Visit Hematology/Oncology [facility] [address] [place] [phone] Aisha Lara MD [address] [facility] [place] [address] Scheduled Procedures Name Priority Associated Diagnoses Date/Ti me COLONOSCOPY FLEXIBLE PROXIMA L DIAGNOSTIC Recall Family history of colonic polyps Health Maintenance Due Date Last Done Comments DISCUSS TOBACCO CESSATION (REFER TO SMARTSET #7632) 1972 HIV Screening 1987 Hepatitis C Screening 1990 Hepatitis B Vaccine (1 of 3 - 19+ 3-dose series) 1991 Cologuard 2017 Fecal Occult Blood Test 2017 Sigmoidoscopy 2017 Depression Screening 12/21/2019 12/20/2018 Zoster Vaccines (1 of 2) 2022 COVID-19 Vaccine (2 - season) 2024 06/16/2020 DTap/Tdap Vaccines (3 - Tdap) 09/03/2024 09/03/2014, 09/23/2008 Mammogram 03/21/2025 03/21/2024, 02/07, 02/22/2022, Additional history exists Colonoscopy 06/26/2026 06/26/2021, 06/09, 01/22/2016, Additional history exists Colorectal Cancer Screening 06/26/2026 Diabetes Screening 02/21/2027 02/22/2024, 1 , 09/16/2022, Additional history exists RETIRED - COLONOSCOPY-EVERY 5 YRS AGES 18-100 Discontinued 06/26/2021, 06/26/2021, 01/22/2016, Additional history exists Pneumococcal Vaccine: 50+ Years Completed 09/16/2022, 09/11/2018 Influenza Vaccine (FLU shot) Completed 03/05/2024, 03/02/2023, 02/03/2022, Additional history exists HPV (Gardasil) Vaccine Aged Out No lo nger eligible based on patient's age to complete this topic MENINGOCOCCAL (MENACTRA/MENVEO) Aged Out No longer eligible based on patient's age to complete this topic Meningitis B Vaccine (Bexsero/Trumemba) Aged Out No longer eligible based on patient's age to complete this topic documented as of this encounter Medical Devices Not on filedocumented as of this encounter Visit Diagnoses Diagnosis Persistent fever- Primary Fever, unspecified Elevated liver enzymes Nonspecific elevation of levels of transaminase or lactic acid dehydrogenase (LDH) Low platelet count (HCC) Intractable headache, unspecified chronicity pattern, unspecified headache type History of lumbar puncture Dehydration Acute maxillary sinusitis, recurrence not specified Coronary artery disease of coe[place]ene artery of coe[place] heart with stable angina pectoris (HCC) Dyslipidemia, goal LDL below 70 Other and unspecified hyperlipidemia documented in this encounter Advance Directives * Full Code (Latest Code Status on File) Date Activated Date Inactivated Comments 09/15/2022 2:56 PM 09/16/2022 4:03 PM This order r eflects the patients wishes and were consensually agreed upon. 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
[2024-07-07] MEDS: oxyCODONE HCL IR 5 MG TAB (IMMEDIATE RELEASE) PO STA (06:00)
[2024-07-07 06:54] LABS: Hematocrit (blood only) 32.4 % (37.0-47.0); Hemoglobin 11.4 g/dl (12.0-16.0); Mean Corpuscular Hemoglobin 32.7 pg (25.0-34.0); Mean Corpuscular Hgb Conc 35.2 g/dL (32.0-36.0); Mean Corpuscular Volume 92.8 fL (80.0-100.0); Mean Platelet Volume 9.5 fL (9.4-12.4); Platelet Count 120 K/uL (130-400); RDW Coefficient of Variation 12.4 % (11.5-14.5); RDW Standard Deviation 41.9 fL (36.4-46.3); Red Blood Count 3.49 M/uL (4.20-5.40); White Blood Count 4.01 K/ul (4.8-10.8)
[2024-07-07 07:15] LABS: Albumin Globulin Ratio 1.3 (0.9-2); Albumin Level 3.6 gm/dl (3.4-5.0); BUN Creatinine Ratio 13.2 (10-20); Bilirubin,Total 0.7 mg/dl (0.2-1.0); Creatinine Clr Calc Pharmacy 113.5 ml/min; Globulin 2.7 gm/dl (2.5-4.0); Potassium 3.6 mmol/L (3.5-5.1); Total Protein 6.3 gm/dl (6.0-8.3)
[2024-07-07] MEDS: POTASSIUM CHLORIDE 10 MEQ TABCR PO SCH (09:23)
[2024-07-07] MEDS: ASPIRIN 81 MG ECTAB PO SCH (09:23)
[2024-07-07] MEDS: DOXYCYCLINE HYCLATE 100 MG in DEXTROSE 5% MINI-B 100 ML IV SCH (10:26)
[2024-07-07 11:03] LABS: Hepatitis A Antibody IgM NON-REACTIVE (NON-REACTIVE); Hepatitis B Core Antibody IgM NON-REACTIVE (NON-REACTIVE)
[2024-07-07] MEDS: BUTALBITAL/ACETAMIN/CAFFEINE TAB PO STA (11:15)
[2024-07-07] MEDS: OPTIRAY 320 100ml IV ONE (14:00)
--- NOTE | 2024-07-07 14:26 | CT Scan Report ---
Clinical history: Fever of unknown origin Technique: Axial computed tomography images were obtained of the chest without intravenous contrast Comparison is made to the prior CT dated 03/23/2023 Findings: There are minimal bilateral pleural effusions. There is no definite sign of pneumonia. There are unchanged mild irregular opacities in the lung apices, likely due to pleural parenchymal scarring. There is no pneumothorax. There is no sign of pulmonary fibrosis or other diffuse interstitial process. No endobronchial lesion is seen There is no mediastinal, hilar, or axillary adenopathy. The thoracic aorta is of normal caliber. There is no pericardial effusion. There is coronary atherosclerosis. The left lobe of the thyroid is enlarged with a suspected nodule No fracture is seen. No focal osseous lesion is evident Impression: 1. Minimal bilateral pleural effusions 2. No sign of pneumonia 3. Suspected thyroid nodule. A follow-up thyroid ultrasound could be obtained Electronically signed by Lalo Montanez 07-07-2024 2:25 PM
--- NOTE | 2024-07-07 14:34 | CT Scan Report ---
Clinical history: Fever of unknown origin Technique: Axial computed tomography images were obtained of the abdomen and pelvis after the administration of intravenous contrast. Comparison is made to the prior CT dated 12/05/2018. Findings: The liver is overall of normal size, attenuation, and contour with no sign of cirrhosis or significant fatty infiltration. There is a small 6 mm cyst in the left hepatic lobe. No liver mass lesion is seen. The portal vein is patent. The gallbladder appears unremarkable. No bile duct dilatation is noted. The spleen is of normal size. There is a 1.3 cm splenic cyst. The pancreas appears normal with no sign of acute or chronic pancreatitis and no mass lesion noted. The pancreatic duct is of normal caliber. The adrenal glands appear unremarkable. No definite renal or proximal ureteral calculi are seen on this contrast-enhanced study. There is no hydronephrosis or perinephric stranding. No renal mass lesion is identified. The aorta is of normal caliber. No abdominal adenopathy is seen. The stomach appears normal. There is no sign of small bowel obstruction. There is mild diverticulosis without evidence of diverticulitis. No free intraperitoneal fluid or air is identified. No distal ureteral or bladder calculi are seen. No bladder mass lesion is evident. The iliac arteries are of normal caliber. No pelvic adenopathy is noted. There is a 3.6 cm left ovarian cyst There are multiple pockets of air within the right psoas muscle and within the right posterior paraspinal musculature from the levels of L1-L5, most extensive at the level of L3. There is no clear evidence of infectious discitis or osteomyelitis. No clear abscess is seen No fracture is identified. No focal osseous lesion is seen Impression: 1. Numerous small pockets of air within the right psoas muscle and in the right paraspinal musculature in the lumbar spine, most prominent at the level of L3. Assuming this is not due to penetrating injury, this is concerning for infection with gas-forming organism 2. No clear evidence of infectious discitis and osteomyelitis on this examination. MRI of the lumbar spine with and without contrast could be considered for further evaluation 3. Small hepatic and splenic cysts 4. Left ovarian cyst, likely a benign functional cyst. A pelvic ultrasound could be considerd for further evaluation 5. Diverticulosis without evidence of diverticulitis Electronically signed by Lalo Montanez 07-07-2024 2:34 PM
--- NOTE | 2024-07-07 16:39 | Hospitalist Progress Note ---
Date of Service July 07, 2024 Assessment & Plan (1) Transaminitis: (2) Headache: (3) Anxiety: (4) Hodgkin lymphoma: (5) S/P partial hysterectomy: Plan Assessment and plan: Fever of unknown origin Possible anaplasmosis Patient presented to the hospital with fever for several days She has extensive workup done including lumbar puncture, respiratory viral panel which has been negative so far for any signs of infection Anaplasma and Babesia smear have been negative Hepatitis panel negative [place] screen negative Babesia and Anaplasma DNA PCR pending Blood culture on 07/04 and 07/06 -no growth till date She has mild leukopenia, mild thrombocytopenia and elevated liver enzymes(which have improved) CT chest and CT abdomen and pelvis was done; no acute signs of infection. CT abdomen showed small pockets of free air within the right psoas muscle; likely related with recent lumbar puncture. Will continue Zosyn plus doxycycline for now; follow-up on Anaplasma and Babesia DNA PCR. LDH is within normal limits Will consult infectious disease for further recommendation Recommend thyroid ultrasound as outpatient for incidental thyroid nodule seen in CT chest Possible lumbar puncture headache status post blood patch on 07/06 Chronic hypokalemia: Continue potassium supplementation Hx Hodgkins lymphoma: In remission, received radiation therapy in 2002 Hx CAD: Continue aspirin Hold statin with elevated LFTs Full code DVT prophylaxis: SCDs Discussed with patient and patient's at bedside regarding plan of care. Both are agreeable. Time spent evaluating patient, direct bedside care, chart review, placing orders, interpretation of diagnostic studies, discussion with consultants, patient, and family members, as well as other required patient management activities is 50 minutes Please note the above document was generated using voice recognition software. It may contain grammatical, syntax or spelling errors. Any formal questions or concerns about the content, text or information contained within the body of this dictation should be directly addressed to the provider for clarification Admission and Anticipated Discharge Date Admission Date: July 06, 2024 Subjective Patient seen and examined at bedside She reports that she is feeling much better at this time; she reports that her weakness/strength has improved. Review of Systems Review of Systems: All systems reviewed & are unremarkable except as noted in Subjective Physical Exam Physical Exam: Constitutional: Alert oriented x 3; not in any distress. Respiratory: normal respiratory effort, lungs clear to auscultation, no wheeze, rales, rhonchi. Normal insp/exp effort, no accessory muscle use Cardiovascular: RRR, no murmur, no edema Vessels: no JVD or carotid bruit Chest: normal inspection of chest Abdomen: normal bowel sounds, soft, nontender, no hepatosplenomegaly Musculoskeletal: no cyanosis or clubbing, extremities motor strength 5/5 Skin: no rashes, warm and dry normal turgor Neurologic: PERRL, EOMI, accommodation nl, no face palsy, no dysarthria CN's II- XI intact bilaterally and moves all extremities Psychiatric: A+Ox3, euthymic affect Results & Data Results & Data Vital Signs (Past 12 Hours) Vital Signs Temp Pulse Pulse Resp BP Pulse Ox O2 Del Method 07/07/24 14:54 36.7 C 83 16 111/74 96 Room Air 07/07/24 07:50 37.5 C 92 H 16 122/74 96 Room Air 07/07/24 05:33 37.8 C H 93 H 131/78 94 Room Air (4) Hodgkin lymphoma Hodgkin lymphoma type: nodular sclerosis
[2024-07-07] MEDS: HYDROmorphone INJ 0.5 MG/0.5 ML SYR IV STA (23:28)
[2024-07-08] MEDS: oxyCODONE HCL IR 5 MG TAB (IMMEDIATE RELEASE) PO STA (06:09)
[2024-07-08 06:46] LABS: Basophils # (auto) 0.02 K/uL (0.00-0.20); Basophils % (auto) 0.3 %; Eosinophils # (auto) 0.15 K/uL (0.00-0.50); Eosinophils % (auto) 2.6 %; Hematocrit (blood only) 36.1 % (37.0-47.0); Hemoglobin 12.3 g/dl (12.0-16.0); Immature Granulocytes # (auto) 0.03 K/uL (0.01-0.20); Immature Granulocytes % (auto) 0.5 %; Lymphocytes # (auto) 1.76 K/uL (1.20-3.40); Lymphocytes % (auto) 30.5 %; Mean Corpuscular Hemoglobin 32.2 pg (25.0-34.0); Mean Corpuscular Hgb Conc 34.1 g/dL (32.0-36.0); Mean Corpuscular Volume 94.5 fL (80.0-100.0); Mean Platelet Volume 9.5 fL (9.4-12.4); Monocytes # (auto) 0.44 K/uL (0.11-0.59); Monocytes % (auto) 7.6 %; Neutrophils # (auto) 3.37 K/uL (1.40-6.50); Neutrophils % (auto) 58.5 %; Platelet Count 148 K/uL (130-400); RDW Coefficient of Variation 12.4 % (11.5-14.5); RDW Standard Deviation 42.9 fL (36.4-46.3); Red Blood Count 3.82 M/uL (4.20-5.40); White Blood Count 5.77 K/ul (4.8-10.8)
[2024-07-08 07:04] LABS: Albumin Globulin Ratio 1.3 (0.9-2); Albumin Level 3.9 gm/dl (3.4-5.0); BUN Creatinine Ratio 16.7 (10-20); Bilirubin,Total 0.8 mg/dl (0.2-1.0); Calcium 8.7 mg/dl (8.6-10.3); Creatinine Clr Calc Pharmacy 111.4 ml/min; Potassium 3.5 mmol/L (3.5-5.1); Total Protein 6.9 gm/dl (6.0-8.3)
--- NOTE | 2024-07-08 07:31 | CT Scan Report ---
EXAM: CT head/brain wo con CLINICAL HISTORY: Severe headache. TECHNIQUE: Axial non-contrast CT scan of the brain was performed from the skull base to the high parietal region. One of the following dose reduction techniques were utilized for this exam: Automated exposure control, adjustment of the mA and/or kV according to patient size, use of iterative reconstruction. COMPARISON: 07/04/2024 FINDINGS: Brain Parenchyma: Normal attenuation of the cerebral hemispheres, cerebellum, and brainstem. No evidence of acute infarct, hemorrhage, or mass effect. No abnormal areas of hypo- or hyperattenuation. Ventricular System: Ventricles are normal in size and configuration. No evidence of hydrocephalus or ventricular enlargement. Subarachnoid Spaces: Normal sulci and cisterns. No evidence of subarachnoid hemorrhage or extra-axial fluid collections. Sinuses: Clear paranasal sinuses. No evidence of sinusitis or mucosal thickening. Mastoid Air Cells: Clear mastoid air cells. No evidence of mastoiditis. Skull: Normal skull morphology. IMPRESSION: 1. No acute cerebral abnormality. 2. Unchanged study. Electronically signed by Filomena Starr 07-08-2024 07:31 AM
[2024-07-08] MEDS: BUTALBITAL/ACETAMIN/CAFFEINE TAB PO PRN (08:07)
[2024-07-08] MEDS: DOXYCYCLINE HYCLATE 100 MG CAP PO SCH (11:06)
--- NOTE | 2024-07-08 12:44 | Hospitalist Progress Note ---
Date of Service July 08, 2024 Assessment & Plan (1) Transaminitis: (2) Headache: (3) Anxiety: (4) Hodgkin lymphoma: (5) S/P partial hysterectomy: Plan Assessment and plan: Fever of unknown origin Possible anaplasmosis Patient presented to the hospital with fever for several days She has extensive workup done including lumbar puncture, respiratory viral panel which has been negative so far for any signs of infection Anaplasma and Babesia smear have been negative Hepatitis panel negative [place] screen negative Babesia and Anaplasma DNA PCR pending Blood culture on 07/04 and 07/06 -no growth till date She has mild leukopenia, mild thrombocytopenia and elevated liver enzymes; show gradual improvement. CT chest and CT abdomen and pelvis was done; no acute signs of infection. CT abdomen showed small pockets of free air within the right psoas muscle; likely related with recent lumbar puncture. Will continue Zosyn plus doxycycline for now; follow-up on Anaplasma and Babesia DNA PCR. LDH is within normal limits Will consult infectious disease for further recommendation Recommend thyroid ultrasound as outpatient for incidental thyroid nodule seen in CT chest Possible lumbar puncture headache status post blood patch on 07/06 Chronic hypokalemia: Continue potassium supplementation Hx Hodgkins lymphoma: In remission, received radiation therapy in 2002 Hx CAD: Continue aspirin Hold statin with elevated LFTs Full code DVT prophylaxis: SCDs Please note the above document was generated using voice recognition software. It may contain grammatical, syntax or spelling errors. Any formal questions or concerns about the content, text or information contained within the body of this dictation should be directly addressed to the provider for clarification Admission and Anticipated Discharge Date Admission Date: July 06, 2024 Subjective Patient continues to report improvement in her symptoms. Fever overall has improved; Tmax of 37.8 yesterday morning. No significant events overnight Review of Systems Review of Systems: All systems reviewed & are unremarkable except as noted in Subjective Physical Exam Physical Exam: Constitutional: Alert oriented x 3; not in any distress. Respiratory: normal respiratory effort, lungs clear to auscultation, no wheeze, rales, rhonchi. Normal insp/exp effort, no accessory muscle use Cardiovascular: RRR, no murmur, no edema Vessels: no JVD or carotid bruit Chest: normal inspection of chest Abdomen: normal bowel sounds, soft, nontender, no hepatosplenomegaly Musculoskeletal: no cyanosis or clubbing, extremities motor strength 5/5 Skin: no rashes, warm and dry normal turgor Neurologic: PERRL, EOMI, accommodation nl, no face palsy, no dysarthria CN's II- XI intact bilaterally and moves all extremities Psychiatric: A+Ox3, euthymic affect Results & Data Results & Data Vital Signs (Past 12 Hours) Vital Signs Temp Pulse Resp BP Pulse Ox O2 Del Method 07/08/24 07:07 36.6 C 88 16 106/66 98 Room Air (4) Hodgkin lymphoma Hodgkin lymphoma type: nodular sclerosis
[2024-07-09 07:16] VITALS: RESP 16; O2SAT 97
[2024-07-09 07:28] LABS: Albumin Globulin Ratio 1.4 (0.9-2); BUN Creatinine Ratio 22.4 (10-20); Bilirubin,Total 0.9 mg/dl (0.2-1.0); Calcium 9.3 mg/dl (8.6-10.3); Creatinine Clr Calc Pharmacy 103.7 ml/min; Globulin 2.9 gm/dl (2.5-4.0); Potassium 3.6 mmol/L (3.5-5.1); Total Protein 6.9 gm/dl (6.0-8.3)
[2024-07-09 07:36] LABS: Basophils # (auto) 0.03 K/uL (0.00-0.20); Basophils % (auto) 0.5 %; Eosinophils % (auto) 3.5 %; Hemoglobin 12.5 g/dl (12.0-16.0); Immature Granulocytes # (auto) 0.02 K/uL (0.01-0.20); Immature Granulocytes % (auto) 0.4 %; Lymphocytes # (auto) 2.09 K/uL (1.20-3.40); Lymphocytes % (auto) 36.8 %; Mean Corpuscular Hemoglobin 32.6 pg (25.0-34.0); Mean Corpuscular Hgb Conc 34.7 g/dL (32.0-36.0); Mean Platelet Volume 9.7 fL (9.4-12.4); Monocytes # (auto) 0.42 K/uL (0.11-0.59); Monocytes % (auto) 7.4 %; Neutrophils # (auto) 2.92 K/uL (1.40-6.50); Neutrophils % (auto) 51.4 %; Platelet Count 181 K/uL (130-400); RDW Coefficient of Variation 12.5 % (11.5-14.5); RDW Standard Deviation 42.6 fL (36.4-46.3); Red Blood Count 3.83 M/uL (4.20-5.40); White Blood Count 5.68 K/ul (4.8-10.8)
[2024-07-09 15:46] VITALS: BP 115/77; PULSE 88; TEMP 97.9
--- NOTE | 2024-07-09 15:47 | Hospitalist Progress Note ---
Date of Service July 09, 2024 Assessment & Plan (1) Transaminitis: (2) Headache: (3) Anxiety: (4) Hodgkin lymphoma: (5) S/P partial hysterectomy: Plan Assessment and plan: Fever of unknown origin Possible anaplasmosis Patient presented to the hospital with fever for several days She has extensive workup done including lumbar puncture, respiratory viral panel which has been negative so far for any signs of infection Anaplasma and Babesia smear have been negative Hepatitis panel negative [place] screen negative Babesia and Anaplasma DNA PCR negative Blood culture on 07/04 and 07/06 -no growth till date She had mild leukopenia, mild thrombocytopenia and elevated liver enzymes; show gradual improvement. CT chest and CT abdomen and pelvis was done; no acute signs of infection. CT abdomen showed small pockets of free air within the right psoas muscle; likely related with recent lumbar puncture. Will continue Zosyn plus doxycycline for now; await infectious disease input. Recommend thyroid ultrasound as outpatient for incidental thyroid nodule seen in CT chest Possible lumbar puncture headache status post blood patch on 07/06 Chronic hypokalemia: Continue potassium supplementation Hx Hodgkins lymphoma: In remission, received radiation therapy in 2002 Hx CAD: Continue aspirin Hold statin with elevated LFTs Full code DVT prophylaxis: SCDs Please note the above document was generated using voice recognition software. It may contain grammatical, syntax or spelling errors. Any formal questions or concerns about the content, text or information contained within the body of this dictation should be directly addressed to the provider for clarification Admission and Anticipated Discharge Date Admission Date: July 06, 2024 Subjective Patient continues to be afebrile; reports that if she is feeling much better Vital signs are stable. Review of Systems Review of Systems: All systems reviewed & are unremarkable except as noted in Subjective Physical Exam Physical Exam: Constitutional: Alert oriented x 3; not in any distress. Respiratory: normal respiratory effort, lungs clear to auscultation, no wheeze, rales, rhonchi. Normal insp/exp effort, no accessory muscle use Cardiovascular: RRR, no murmur, no edema Vessels: no JVD or carotid bruit Chest: normal inspection of chest Abdomen: normal bowel sounds, soft, nontender, no hepatosplenomegaly Musculoskeletal: no cyanosis or clubbing, extremities motor strength 5/5 Skin: no rashes, warm and dry normal turgor Neurologic: PERRL, EOMI, accommodation nl, no face palsy, no dysarthria CN's II- XI intact bilaterally and moves all extremities Psychiatric: A+Ox3, euthymic affect Results & Data Results & Data Vital Signs (Past 12 Hours) Vital Signs Temp Pulse Resp BP Pulse Ox O2 Del Method 07/09/24 07:16 36.7 C 80 16 121/77 97 Room Air (4) Hodgkin lymphoma Hodgkin lymphoma type: nodular sclerosis
--- NOTE | 2024-07-09 17:24 | Discharge Summary ---
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 Patient reports having a fever over the past 9 days intermittently. She was seen in the ED on 07/04/2024 with complaints of fevers/chills/headaches and muscle aches. At this time, she had an LP done without any growth. Anesthesiology was consulted for a blood patch to help with spinal headache. Pt reports low grade fevers since 06/27/24 - 3 days ago the fevers worsened. T max today 102.4. Reports severe chills and body aches. Reports no improvement. Reports nausea and vomiting over the past 1 or 2 days. Denies abdominal pain or diarrhea. Denies cough or shortness of breath. Reports her daughter may have had the flu recently. Denies dysuria or hematuria. Reports loss of appetite but denies weight loss. Reports following with hem onc yearly for blood work and cxr. Denies recent travel or bug bites. Head CT on 07/04/2024 showed right maxillary sinusitis with no other acute findings Chest x-ray from today 07/06 was negative Labs are remarkable for WBC 4.14, hemoglobin 10.5, platelets 105, NA 135, creatinine 0.59, glucose 117, calcium 8.2, AST 70, ALT 215both improving, alk phos 259 Procalcitonin is negative BioFire is negative EKG showed sinus tachycardia Acute hepatitis panel pending, several labs from LP still pending The patient will be admitted for further work up. Admission Exam Per Admitting Provider Constitutional: WD/WN, vitals as above + ill appearing Eyes: PERRL, conjunctivae normal, anicteric sclerae ENMT: external ear and nose normal, oropharynx normal Neck: trachea midline, no thyromegaly Respiratory: normal respiratory effort, lungs clear to auscultation Cardiovascular: RRR, no murmur, no edema Gastrointestinal (Abdomen): normal bowel sounds, soft, nontender, no hepatosplenomegaly Musculoskeletal: no cyanosis or clubbing, extremities motor strength 5/5 Skin: no rashes, warm and dry Neurologic: PERRL, EOMI, accommodation nl, no face palsy, no dysarthria Psychiatric: A+Ox3, euthymic affect Lymphatic: no cervical or axillary lymphadenopathy Principal Diagnosis Fever of unknown origin Discharge Exam Constitutional: Alert oriented x 3; not in any distress. Respiratory: normal respiratory effort, lungs clear to auscultation, no wheeze, rales, rhonchi. Normal insp/exp effort, no accessory muscle use Cardiovascular: RRR, no murmur, no edema Vessels: no JVD or carotid bruit Chest: normal inspection of chest Abdomen: normal bowel sounds, soft, nontender, no hepatosplenomegaly Musculoskeletal: no cyanosis or clubbing, extremities motor strength 5/5 Skin: no rashes, warm and dry normal turgor Neurologic: PERRL, EOMI, accommodation nl, no face palsy, no dysarthria CN's II- XI intact bilaterally and moves all extremities Psychiatric: A+Ox3, euthymic affect Discharge Data Allergies Allergy/AdvReac Type Severity Reaction Status Date / Time COVID-19 (SARS-CoV-2) Allergy Severe Anaphylaxis Unverified 03/23/23 17:18 vaccine, sergey nitrofurantoin Allergy Severe Swelling Verified 03/23/23 17:18 [From Macrobid] of Lip/Tongue/Throat tetracycline Allergy Intermediate Rash Verified 03/23/23 17:18 Quinolones Allergy Unknown Unknown Verified 03/23/23 17:18 Sulfa (Sulfonamide Allergy Unknown Rash Verified 03/23/23 17:18 Antibiotics) Consultations 07/06/24 14:02 ED Decision to Admit Stat 07/07/24 16:56 Consult Infectious Diseases Routine Ordered Studies 07/06/24 14:12 US gallbladder Routine 07/07/24 13:00 CT Abd and Pelvis [CT abd pelvis IV con only] Routine CT chest diagnostic wo con Routine 07/08/24 05:59 CT head/brain wo con Urgent Hospital Course (1) Transaminitis: (2) Headache: (3) Anxiety: (4) Hodgkin lymphoma: (5) S/P partial hysterectomy: Plan Assessment and plan: Fever of unknown origin Possible anaplasmosis Patient presented to the hospital with fever for several days She has extensive workup done including lumbar puncture, respiratory viral panel which has been negative so far for any signs of infection Anaplasma and Babesia smear neg Hepatitis panel negative [place] screen negative Babesia and Anaplasma DNA PCR negative Blood culture on 07/04 and 07/06 -no growth till date She had mild leukopenia, mild thrombocytopenia and elevated liver enzymes CT chest and CT abdomen and pelvis was done; no acute signs of infection. CT abdomen showed small pockets of free air within the right psoas muscle; likely related with recent lumbar puncture as focal tenderness/pain was present. During the hospitalization, patient was treated with Zosyn and doxycycline. Patient reported improvement in her symptoms along with increased energy, decreased fatigue. She was also afebrile in last 48 hours prior to discharge. Infectious workup remained negative. I discussed the case with Dr. Collier from infectious disease over [place] text; recommended observing patient off antibiotics. At the time of the discharge, discussion was done with patient and decision was made to continue with doxycycline for 7 more days for presumed tickborne illness as patient reported significant improvement on the symptoms with the medication. Her leukopenia, thrombocytopenia and transaminitis improved as well. I discussed with the patient to follow-up with her primary care doctor. I recommended seeking medical attention if she has recurrence of fever, chills, shortness of breath, joint pain or rash. Patient verbalized understanding of the instructions. Possible lumbar puncture headache status post blood patch on 07/06 Please note the above document was generated using voice recognition software. It may contain grammatical, syntax or spelling errors. Any formal questions or concerns about the content, text or information contained within the body of this dictation should be directly addressed to the provider for clarification Total Time Total Time Spent Total Time Spent (In Minutes): 45 Total Time Includes: Examination of the Patient, Discharge Planning, Medication Reconciliation, Communication With Other Providers and Other Discharge Plan Discharge Items Patient Disposition: Home - Self-Care Reason For Visit: FEVERS/ HEADACHE Discharge Diagnosis: Fever of unknown origin Activity: Resume your previous activity Non-emergency contact: Primary Care Provider Call non-emergency contact if: you have any medication questions and your symptoms worsen Follow-up/Referrals: Nicolle Steinberg DO [Primary Care Provider] - Diet: Regular Addtl Attending Provider Instructions: You were admitted to the hospital with fever. You underwent workup including various blood studies, lumbar puncture, CT of the abdomen and pelvis which did not reveal any infectious source of fever. No fever has been recorded for the last 2 days. Please continue course of doxycycline for total of 7 more days. You are prescribed pain medication for the headache. An appointment will be set up with your primary care doctor for next week. Repeat CBC and comprehensive metabolic panel to be done during follow up. Pending Studies at Discharge: Yes Studies:: Q fever Rickettsia serology Typhus Fever Stand-Alone Forms: My [facility] [place], Smoking Cessation Medications and DC Order Prescriptions: New [id number] 50-325-40 mg Tablet 1 tab PO Q6H PRN (Reason: pain) Qty: 20 0RF Continued atorvastatin 20 mg tablet 20 mg PO DAILY aspirin 81 mg tablet,delayed release (DR/EC) 81 mg PO DAILY albuterol sulfate 90 mcg/actuation HFA aerosol inhaler 2 puff INHALATION Q4H PRN (Reason: Shortness Of Breath Or Wheezing) potassium chloride 10 mEq Tablet,Er Particles/Crystals 10 meq PO DAILY Qty: 30 0RF [place] 155 mg Capsule 1 cap PO DIRECTED Rx Instructions: otc unknown dose Collagen 1 cap PO DAILY Rx Instructions: otc unknown dose Vitamin B 1 tab PO DAILY Rx Instructions: otc unknown dose; pt isnt sure what type of b vitamin it is. Vitamin D3 1 cap PO DAILY Rx Instructions: otc unknown dose magnesium 1 cap PO DAILY Rx Instructions: otc unknown dose doxycycline hyclate 100 mg capsule 100 mg PO Q12H 7 Days Qty: 28 0RF Discharge Orders: Discharge Order (Routine); Ordered 07/09/24 Ordered By: Victor Manuel Mcghee Admission Data Admit Date/Time: 07/06/24 14:12 Attending Provider: Victor Manuel Mcghee Admit Provider: Zack Waller Primary Care Provider: Nicolle Steinberg Other Providers: Zack Waller; Juan Olson; Liza Solano; Nolberto Lopez I.; Erich Ray II; Marline Collier; Alexsander Parker; Rd Pinto; Ana Luisa Phillips; James Sanchez; Zaheer Zayas Other Interventions: Discharge Summary Assessment (RN) Last Done: 07/09/24 18:12
== END 2024-07-09 18:42 | disposition home or self-care (01) | DRG 864 ==
LOC: ED 10:30 → SUATTDRO 14:12 → EDINP 14:12 → 3N 20:34